=== PATIENT | male | born 1940 ===

== ENCOUNTER 2016-09-19 15:14 | Observation (INO) | payer MEDICARE, BC ==
[2016-09-19 15:14] VITALS: BMI 18.2
[2016-09-19] MEDS ORDERED: Sodium Chloride 0.9% 500 ML IV STA (15:35)
--- NOTE | 2016-09-19 15:48 | ED PDOC ---
HPI: Chest Pain Time Seen by Provider: 09/19/16 15:29 Chief Complaint (Nursing): Chest Pain Chief Complaint (Provider): chest pain History Per: Patient History/Exam Limitations: no limitations Onset/Duration Of Symptoms: Days (today) Current Symptoms Are (Timing): Still Present Additional Complaint(s): Chest pain started today at rest. Dyspnea with it. No nausea, vomit, diarrhea , weakness, headaches. No calf pain. No dizziness. No fever, cough, long distance travel, or hormone tx. Past Medical History Reviewed: Nursing Documentation, Vital Signs Vital Signs: Last Vital Signs Temp 98.0 F 09/19/16 15:21 Pulse 62 09/19/16 15:21 Resp 16 09/19/16 15:21 BP 93/51 L 09/19/16 15:21 Pulse Ox 98 09/19/16 15:54 - Medical History PMH: Anemia, Crohn's Disease, Fractures (right ankle) Denies: Diabetes, HIV, Chronic Kidney Disease - Surgical History Surgical History: No Surg Hx - Family History Family History: States: Unknown Family Hx - Living Arrangements Living Arrangements: With Family - Social History Current smoker - smoking cessation education provided: No Alcohol: None Drugs: Denies - Home Medications Home Medications: Ambulatory Orders Medication Instructions Recorded Mesalamine [Asacol HD 800mg] 800 mg PO TID #0 tcp 05/19/15 Escitalopram [Lexapro] 10 mg PO DAILY 08/19/15 - Allergies Allergies/Adverse Reactions: Allergies Allergy/AdvReac Type Severity Reaction Status Date / Time [place] And Derivatives Allergy ANAPHYLAXIS Verified 09/19/16 15:21 ibuprofen [From Advil] Allergy COUGH Verified 09/19/16 15:21 morphine Allergy RASH Verified 09/19/16 15:21 Review of Systems ROS Statement: Except As Marked, All Systems Reviewed And Found Negative Cardiovascular: Positive for: Chest Pain Respiratory: Positive for: Shortness of Breath Physical Exam - Reviewed Vital Signs Reviewed: Yes - Physical Exam Appears: Positive for: Non-toxic, No Acute Distress Head Exam: Positive for: ATRAUMATIC, NORMAL INSPECTION, NORMOCEPHALIC Skin: Positive for: Normal Color, Warm, DRY Eye Exam: Positive for: EOMI, Normal appearance, PERRL ENT: Positive for: Normal ENT Inspection Neck: Positive for: Normal, Painless ROM Cardiovascular/Chest: Positive for: Regular Rate, Rhythm, Chest Non Tender. Negative for: Edema Respiratory: Positive for: CNT, Normal Breath Sounds Gastrointestinal/Abdominal: Positive for: Normal Exam, Bowel Sounds, Soft. Negative for: Tenderness Back: Positive for: Normal Inspection. Negative for: L CVA Tenderness, R CVA Tenderness Extremity: Positive for: Normal ROM. Negative for: Tenderness, Pedal Edema Neurologic/Psych: Positive for: Alert, Oriented - Laboratory Results Result Diagrams: 09/19/16 14:48 09/19/16 16:00 Interpretation Of Abn Labs: no acute - ECG ECG: Positive for: Interpreted By Me, Viewed By Me ECG Rhythm: Positive for: Normal QRS, Normal ST Segment, Sinus Rhythm O2 Sat by Pulse Oximetry: 98 Pulse Ox Interpretation: Normal - Radiology X-Ray: Read By Radiologist X-Ray Interpretation: No Acute Disease - Progress ED Course And Treament: 1637: Stable. AAOx3. Pain free. Tolerated PO. Spoke with Dr. Segundo who will admit and give further orders when pt. reaches floor. No ASA as pt. states allergy. Disposition - Clinical Impression Clinical Impression: Chest pain - Patient ED Disposition Is Patient to be Admitted: Yes Counseled Patient/Family Regarding: Studies Performed, Diagnosis - Disposition Disposition Time: 16:39 Condition: FAIR - Pt Status Changed To: Hospital Disposition Of: Observation - POA Present On Arrival: None
[2016-09-19 15:59] LABS: BASO % 0.6 % (0.0-2.0); EOS # 0.3 K/uL (0.0-0.7); HEMATOCRIT 37.9 % (35.0-51.0); LYMPH # 2.1 K/uL (1.0-4.3); LYMPH % 37.1 % (20.0-40.0); MEAN CELL VOLUME 91.7 fl (80.0-94.0); MEAN CORPUSCULAR HEMOGLOBIN 29.7 pg (27.0-31.0); MEAN CORPUSCULAR HGB CONC 32.4 g/dL (33.0-37.0); MEAN PLATELET VOLUME 8.4 fl (7.2-11.7); MONO # 0.6 K/uL (0.0-0.8); MONO % 9.8 % (0.0-10.0); NEUT # 2.7 K/uL (1.8-7.0); NEUT % 46.5 % (50.0-75.0); NRBC % 0.1 % (0.0-0.0); RED CELL DISTRIBUTION WIDTH 14.1 % (11.5-14.5); WHITE BLOOD COUNT 5.7 K/uL (4.8-10.8)
--- NOTE | 2016-09-19 16:03 | RAD ---
HISTORY: dyspnea COMPARISON: 11/03/2015 FINDINGS: LUNGS: No active pulmonary disease. PLEURA: No significant pleural effusion identified, no pneumothorax apparent. CARDIOVASCULAR: Normal. OSSEOUS STRUCTURES: No significant abnormalities. VISUALIZED UPPER ABDOMEN: Normal. OTHER FINDINGS: None. IMPRESSION: No active disease.
[2016-09-19 16:21] LABS: ALB/GLOB RATIO 1.4 (1.0-2.1); ALKALINE PHOSPHATASE 60 U/L (38-126); ALT/SGPT 36 U/L (21-72); AST/SGOT 26 U/L (17-59); BILIRUBIN,TOTAL 0.5 mg/dl (0.2-1.3); BLOOD UREA NITROGEN 25 mg/dl (9-20); CALCIUM 9.5 mg/dL (8.4-10.2); CARBON DIOXIDE 23 mmol/L (22-30); CHLORIDE 107 mmol/L (98-107); GFR AFRICAN-AMERICAN > 60; GLUCOSE,RANDOM 86 mg/dL (75-110); SODIUM 141 mmol/l (132-148); TOTAL PROTEIN 7.1 G/DL (6.3-8.2)
[2016-09-19 16:34] LABS: PARTIAL THROMBOPLASTIN TIME 39.1 Seconds (25.6-37.1)
[2016-09-20 07:17] LABS: BASO % 0.7 % (0.0-2.0); EOS # 0.5 K/uL (0.0-0.7); EOS % 10.6 % (0.0-4.0); HEMATOCRIT 38.1 % (35.0-51.0); LYMPH # 1.8 K/uL (1.0-4.3); LYMPH % 40.2 % (20.0-40.0); MEAN CELL VOLUME 91.5 fl (80.0-94.0); MEAN CORPUSCULAR HEMOGLOBIN 29.9 pg (27.0-31.0); MEAN CORPUSCULAR HGB CONC 32.6 g/dL (33.0-37.0); MEAN PLATELET VOLUME 8.7 fl (7.2-11.7); MONO # 0.5 K/uL (0.0-0.8); MONO % 10.4 % (0.0-10.0); NEUT # 1.7 K/uL (1.8-7.0); NEUT % 38.1 % (50.0-75.0); NRBC % 0.1 % (0.0-0.0); RED CELL DISTRIBUTION WIDTH 14.5 % (11.5-14.5); WHITE BLOOD COUNT 4.5 K/uL (4.8-10.8)
[2016-09-20 07:25] LABS: BLOOD UREA NITROGEN 20 mg/dl (9-20); CALCIUM 8.9 mg/dL (8.4-10.2); CARBON DIOXIDE 27 mmol/L (22-30); CHLORIDE 105 mmol/L (98-107); GFR AFRICAN-AMERICAN > 60; GLUCOSE,RANDOM 100 mg/dL (75-110); POTASSIUM 4.2 MMOL/L (3.6-5.0); SODIUM 140 mmol/l (132-148)
[2016-09-20] MEDS ORDERED: MESALAMINE 800 MG PO SCH (09:00)
--- NOTE | 2016-09-20 11:06 | CP.PCM.CON ---
History of Present Illness - History of Present Illness History of Present Illness: CC: SOB. HPI: I have been requested on cardiac consultation by Dr. Segundo on Mr. Love who is a pleasant 76 year old male accompanied by his . He has a PMH of Crohn's disease and is admitted with SOB, dizziness, weakness followed by an episode of chest pain (generalized) after he spent the whole day yesterday outside in the heat on his patio. Work up is negative with the exception of sinus bradycardia without syncope ad no arrhythmias were noted on telemetry which I have personally reviewed. Review of Systems - Constitutional Constitutional: Malaise, Weakness - EENT Additional comments: Negative. - Cardiovascular Cardiovascular: Chest Pain at Rest, Dyspnea - Respiratory Respiratory: Dyspnea on Exertion - Gastrointestinal Additional comments: Negative. - Genitourinary Additional comments: Negative. - Musculoskeletal Musculoskeletal: Muscle Weakness - Integumentary Additional comments: Negative. - Neurological Neurological: Weakness Additional comments: Dizziness. - Psychiatric Additional comments: Negative. - Endocrine Endocrine: Fatigue - Hematologic/Lymphatic Additional comments: Negative. Past Patient History - Tetanus Immunizations Tetanus Immunization: Unknown - Past Medical History & Family History Past Medical History?: Yes - Past Social History Smoking Status: Never Smoked Alcohol: None Home Situation {Lives}: With Family - CARDIAC Hx Cardiac Disorders: No - PULMONARY Hx Respiratory Disorders: No - NEUROLOGICAL Hx Neurological Disorder: No - HEENT Hx HEENT Problems: No - RENAL Hx Chronic Kidney Disease: No - ENDOCRINE/METABOLIC Hx Endocrine Disorders: No - HEMATOLOGICAL/ONCOLOGICAL Hx Blood Disorders: Yes Hx AIDS: No Hx Anemia: Yes Hx Human Immunodeficiency Virus (HIV): No - INTEGUMENTARY Hx Dermatological Problems: No - MUSCULOSKELETAL/RHEUMATOLOGICAL Hx Musculoskeletal Disorders: Yes Hx Falls: No Hx Fractures: Yes (right ankle) - GASTROINTESTINAL Hx Gastrointestinal Disorders: Yes Hx Crohn's Disease: Yes - GENITOURINARY/GYNECOLOGICAL Hx Genitourinary Disorders: No - PSYCHIATRIC Hx Psychophysiologic Disorder: No Hx Substance Use: No - SURGICAL HISTORY Hx Surgeries: Yes Hx Herniorrhaphy: Yes Other/Comment: REIMPLANTATION OF DIGITS TO HAND. right upper limb pain - ANESTHESIA Hx Anesthesia: Yes Hx Anesthesia Reactions: No Hx Malignant Hyperthermia: No Meds Allergies/Adverse Reactions: Allergies Allergy/AdvReac Type Severity Reaction Status Date / Time [place] And Derivatives Allergy ANAPHYLAXIS Verified 09/19/16 15:21 ibuprofen [From Advil] Allergy COUGH Verified 09/19/16 15:21 morphine Allergy RASH Verified 09/19/16 15:21 - Medications Medications: Current Medications Escitalopram Oxalate (Lexapro) 10 mg PO DAILY [facility] Last Admin: 09/20/16 09:24 Dose: 10 mg Home Med (Mesalamine [Asacol Hd 800mg]) 800 mg PO TID [facility] Physical Exam - Constitutional Appears: Well, No Acute Distress - Head Exam Head Exam: NORMAL INSPECTION, NORMOCEPHALIC - Eye Exam Eye Exam: Normal appearance Pupil Exam: PERRL - ENT Exam ENT Exam: Mucous Membranes Moist - Neck Exam Neck exam: Positive for: Normal Inspection - Respiratory Exam Respiratory Exam: Clear to Auscultation Bilateral, NORMAL BREATHING PATTERN - Cardiovascular Exam Cardiovascular Exam: REGULAR RHYTHM, +S1, +S2 - GI/Abdominal Exam GI & Abdominal Exam: Soft - Rectal Exam Rectal Exam: Deferred - Extremities Exam Extremities exam: Positive for: full ROM, normal inspection - Back Exam Back exam: NORMAL INSPECTION - Neurological Exam Neurological exam: Alert, Oriented x3 - Psychiatric Exam Psychiatric exam: Normal Affect, Normal Mood - Skin Skin Exam: Dry, Normal Color, Warm Results - Vital Signs Recent Vital Signs: Last Vital Signs Temp 97.6 F 09/20/16 08:54 Pulse 56 L 09/20/16 08:54 Resp 20 09/20/16 08:54 BP 155/71 H 09/20/16 08:54 Pulse Ox 100 09/20/16 08:54 - Labs Result Diagrams: 09/20/16 05:00 09/20/16 05:00 Labs: Laboratory Results - last 24 hr 09/19/16 09/20/16 09/20/16 23:19 05:00 05:00 WBC 4.5 L RBC 4.16 L Hgb 12.4 Hct 38.1 MCV 91.5 MCH 29.9 MCHC 32.6 L RDW 14.5 Plt Count 135 MPV 8.7 Neut % (Auto) 38.1 L Lymph % (Auto) 40.2 H [place] % (Auto) 10.4 H Eos % (Auto) 10.6 H Baso % (Auto) 0.7 Neut # 1.7 L Lymph # 1.8 [place] # 0.5 Eos # 0.5 Baso # 0.0 Sodium 140 Potassium 4.2 Chloride 105 Carbon Dioxide 27 Anion Gap 12 BUN 20 Creatinine 0.9 Est GFR ( Amer) > 60 Est GFR (Non-Af Amer) > 60 Random Glucose 100 Calcium 8.9 Troponin I < 0.0120 Assessment & Plan - Assessment and Plan (Free Text) Assessment: Sinus bradycardia Weakness Dehydration Atypical chest pain Crohn's Disease Plan: Hydration Continue present management Stable for outpatient follow up with [facility] d/w Dr. Segundo - Date & Time Date: 09/20/16 Time: 11:15
--- NOTE | 2016-09-20 11:48 | CP.PCM.HP ---
History of Present Illness - History of Present Illness History of Present Illness: Patient presented on 09/19 in ER with Chest pain started the same day at rest. Minimal Dyspnea with the CP. No nausea, vomit, diarrhea, weakness, headaches. No calf pain. No dizziness. Today comfortable in bed no CP no vertigo, N/V, abdominal pain, fever. He has same asymptomatic episodes of bradycardia. Patient stable will DC home f/u as OP. Present on Admission - Present on Admission Any Indicators Present on Admission: No Review of Systems - Constitutional Constitutional: As Per HPI - EENT Eyes: As Per HPI - Cardiovascular Cardiovascular: As Per HPI - Respiratory Respiratory: As Per HPI - Gastrointestinal Gastrointestinal: As Per HPI - Musculoskeletal Musculoskeletal: As Per HPI - Integumentary Integumentary: As Per HPI - Neurological Neurological: As Per HPI Past Patient History - Tetanus Immunizations Tetanus Immunization: Unknown - Past Medical History & Family History Past Medical History?: Yes - Past Social History Smoking Status: Never Smoked - CARDIAC Hx Cardiac Disorders: No - PULMONARY Hx Respiratory Disorders: No - NEUROLOGICAL Hx Neurological Disorder: No - HEENT Hx HEENT Problems: No - RENAL Hx Chronic Kidney Disease: No - ENDOCRINE/METABOLIC Hx Endocrine Disorders: No - HEMATOLOGICAL/ONCOLOGICAL Hx Blood Disorders: Yes Hx AIDS: No Hx Anemia: Yes Hx Human Immunodeficiency Virus (HIV): No - INTEGUMENTARY Hx Dermatological Problems: No - MUSCULOSKELETAL/RHEUMATOLOGICAL Hx Musculoskeletal Disorders: Yes Hx Falls: No Hx Fractures: Yes (right ankle) - GASTROINTESTINAL Hx Gastrointestinal Disorders: Yes Hx Crohn's Disease: Yes - GENITOURINARY/GYNECOLOGICAL Hx Genitourinary Disorders: No - PSYCHIATRIC Hx Psychophysiologic Disorder: No Hx Substance Use: No - SURGICAL HISTORY Hx Surgeries: Yes Hx Herniorrhaphy: Yes Other/Comment: REIMPLANTATION OF DIGITS TO HAND. right upper limb pain - ANESTHESIA Hx Anesthesia: Yes Hx Anesthesia Reactions: No Hx Malignant Hyperthermia: No Meds Allergies/Adverse Reactions: Allergies Allergy/AdvReac Type Severity Reaction Status Date / Time [place] And Derivatives Allergy ANAPHYLAXIS Verified 09/19/16 15:21 ibuprofen [From Advil] Allergy COUGH Verified 09/19/16 15:21 morphine Allergy RASH Verified 09/19/16 15:21 Physical Exam - Constitutional Appears: Well, No Acute Distress - Head Exam Head Exam: ATRAUMATIC, NORMAL INSPECTION, NORMOCEPHALIC - Eye Exam Eye Exam: EOMI, Normal appearance Pupil Exam: NORMAL ACCOMODATION - ENT Exam ENT Exam: Mucous Membranes Moist - Neck Exam Neck exam: Positive for: Normal Inspection - Respiratory Exam Respiratory Exam: Clear to Auscultation Bilateral, NORMAL BREATHING PATTERN - Cardiovascular Exam Cardiovascular Exam: REGULAR RHYTHM, +S1, +S2 - GI/Abdominal Exam GI & Abdominal Exam: Normal Bowel Sounds - Extremities Exam Extremities exam: Positive for: normal inspection - Back Exam Back exam: NORMAL INSPECTION - Neurological Exam Neurological exam: Alert, CN II-XII Intact, Oriented x3, Reflexes Normal - Psychiatric Exam Psychiatric exam: Normal Affect - Skin Skin Exam: Normal Color Results - Vital Signs Recent Vital Signs: Last Vital Signs Temp 97.6 F 09/20/16 08:54 Pulse 56 L 09/20/16 08:54 Resp 20 09/20/16 08:54 BP 155/71 H 09/20/16 08:54 Pulse Ox 100 09/20/16 08:54 - Labs Result Diagrams: 09/20/16 05:00 09/20/16 05:00 Labs: Laboratory Results - last 24 hr 09/19/16 09/20/16 09/20/16 23:19 05:00 05:00 WBC 4.5 L RBC 4.16 L Hgb 12.4 Hct 38.1 MCV 91.5 MCH 29.9 MCHC 32.6 L RDW 14.5 Plt Count 135 MPV 8.7 Neut % (Auto) 38.1 L Lymph % (Auto) 40.2 H [place] % (Auto) 10.4 H Eos % (Auto) 10.6 H Baso % (Auto) 0.7 Neut # 1.7 L Lymph # 1.8 [place] # 0.5 Eos # 0.5 Baso # 0.0 Sodium 140 Potassium 4.2 Chloride 105 Carbon Dioxide 27 Anion Gap 12 BUN 20 Creatinine 0.9 Est GFR ( Amer) > 60 Est GFR (Non-Af Amer) > 60 Random Glucose 100 Calcium 8.9 Troponin I < 0.0120 Assessment & Plan (1) Bradycardia Status: Acute (2) Chest pain Status: Acute (3) Colitis Status: Acute - Assessment and Plan (Free Text) Plan: DC home f/u in my office in 4 days
[2016-09-20] MEDS ORDERED: ADALIMUMAB 40 MG SC SCH (12:00)
[2016-09-20 12:09] VITALS: BP 117/68; PULSE 54; RESP 18; TEMP 98.1; O2SAT 97
--- NOTE | 2016-09-20 12:48 | CARD ---
APPROVED REPORT EKG Measurement Heart [id number] <Conclusion> Sinus bradycardia Left axis deviation Increased R/S ratio in V1, consider early transition or posterior infarct Abnormal ECG
--- NOTE | 2016-09-20 13:19 | CARD ---
APPROVED REPORT EKG Measurement Heart [id number] AR [id number] <Conclusion> Sinus bradycardia Left axis deviation Incomplete right bundle branch block Minimal voltage criteria for LVH, may be normal variant Abnormal ECG
== END 2016-09-20 14:00 | disposition home or self-care (01) ==
LOC: H.ER 15:14 → H.ERHOLD 16:40 → H.TEL 20:33
PROVIDERS: ADMIT Internal Medicine; ATTEND Internal Medicine
DX: R00.1 Bradycardia, unspecified (principal); R07.9 Chest pain, unspecified; K50.10 Crohn's disease of large intestine without complications
CPT/HCPCS: 36415; 71010; 80048; 80053; 83880; 84484; 85025; 85610; 85730; 93005; 99285; G0378; J7040

== ENCOUNTER 2017-03-11 11:20 | Emergency (ER) | payer MEDICARE, BC ==
[2017-03-11 11:22] VITALS: BMI 18.2
[2017-03-11 12:06] VITALS: BP 122/46; PULSE 65; RESP 16; TEMP 98; O2SAT 100
[2017-03-11] MEDS ORDERED: Iohexol 240 (50 ml) PO ONE (13:26)
[2017-03-11] MEDS ORDERED: Iohexol 240 (50 ml) ONE (13:33)
--- NOTE | 2017-03-11 14:03 | ED PDOC ---
HPI: Abdomen Time Seen by Provider: 03/11/17 12:39 Chief Complaint (Nursing): Abdominal Pain Chief Complaint (Provider): Abdominal pain History Per: Patient History/Exam Limitations: no limitations Onset/Duration Of Symptoms: Days (x1), Intermittent Episodes Current Symptoms Are (Timing): Better Location Of Pain/Discomfort: Other (lower abdominal) Quality Of Discomfort: "Pain" Associated Symptoms: Other (mild blood in stool). denies: Fever, Vomiting, Diarrhea, Constipation Additional Complaint(s): Ashlyn Love is a 76 year old male, with a past medical history of gastritis and Crohn's disease, who presents to the emergency department complaining of intermittent lower abdominal pain associated with mild blood in stool onset since yesterday. Patient reports he has Crohn's disease and will get similar symptoms in the past when he has pain. He states he feels better and the pain is gone. He denies any fever, vomit, diarrhea or constipation. No further medical complaints. PMD: Eliseo Segundo GI: Dr. Styles Past Medical History Reviewed: Historical Data, Nursing Documentation, Vital Signs Vital Signs: Last Vital Signs Temp 98.0 F 03/11/17 12:05 Pulse 65 03/11/17 12:05 Resp 16 03/11/17 12:05 BP 122/46 L 03/11/17 12:05 Pulse Ox 100 03/11/17 20:22 - Medical History PMH: Anemia, Crohn's Disease, Fractures (right ankle) Denies: Diabetes, HIV, Chronic Kidney Disease - Surgical History Surgical History: Hernia Repair - Family History Family History: States: Unknown Family Hx - Social History Current smoker - smoking cessation education provided: No Alcohol: None Drugs: Denies - Home Medications Home Medications: Ambulatory Orders Medication Instructions Recorded Mesalamine [Asacol HD 800mg] 800 mg PO TID #0 tcp 05/19/15 Escitalopram [Lexapro] 10 mg PO DAILY 08/19/15 Adalimumab [Humira] 40 mg SC Q14D 09/19/16 Docusate Sodium [Colace] 100 mg PO BID #20 capsule 03/11/17 - Allergies Allergies/Adverse Reactions: Allergies Allergy/AdvReac Type Severity Reaction Status Date / Time [place] And Derivatives Allergy ANAPHYLAXIS Verified 09/19/16 15:21 ibuprofen [From Advil] Allergy COUGH Verified 09/19/16 15:21 morphine Allergy RASH Verified 09/19/16 15:21 Review of Systems ROS Statement: Except As Marked, All Systems Reviewed And Found Negative Constitutional: Negative for: Fever Gastrointestinal: Positive for: Abdominal Pain (intermittent lower ), Hematochezia (mild). Negative for: Vomiting, Diarrhea, Constipation Physical Exam - Reviewed Nursing Documentation Reviewed: Yes Vital Signs Reviewed: Yes - Physical Exam Appears: Positive for: Well (comfortable), Non-toxic, No Acute Distress Head Exam: Positive for: ATRAUMATIC, NORMAL INSPECTION Skin: Positive for: Normal Color, Warm, Dry Eye Exam: Positive for: Normal appearance Neck: Positive for: Painless ROM, Supple Cardiovascular/Chest: Positive for: Regular Rate, Rhythm. Negative for: Murmur Respiratory: Positive for: Normal Breath Sounds (clear bilateral). Negative for : Respiratory Distress Gastrointestinal/Abdominal: Positive for: Tenderness (epigastric) Extremity: Positive for: Normal ROM. Negative for: Deformity, Swelling Neurologic/Psych: Positive for: Alert, Oriented - Laboratory Results Result Diagrams: 03/11/17 14:02 03/11/17 14:02 - ECG O2 Sat by Pulse Oximetry: 100 (RA) Pulse Ox Interpretation: Normal Medical Decision Making Medical Decision Making: Initial Impression: Abdominal pain and rectal bleeding. Most likely Crohn's disease. Possible exacerbation of Crohn's disease with colitis. Rule out complications of the Crohn's disease. Initial Plan: --Abd Pelvis PO & IV contrast [CT] --BMP --CBC w/ differential --Omnipaque 240 50 ml PO --reevaluation 19:00 Patient will be signed out to Dr. Trammell, pending CT abdomen Scribe Attestation: Documented by Sabino Wolff, acting as a scribe for Mendy Chase MD Provider Scribe Attestation: All medical record entries made by the Scribe were at my direction and personally dictated by me. I have reviewed the chart and agree that the record accurately reflects my personal performance of the history, physical exam, medical decision making, and the department course for this patient. I have also personally directed, reviewed, and agree with the discharge instructions and disposition. Disposition - Clinical Impression Clinical Impression: Constipation, Enlarged prostate - Patient ED Disposition Is Patient to be Admitted: Transfer of Care Counseled Patient/Family Regarding: Studies Performed, Diagnosis - Disposition Disposition: Transfer of Care Disposition Time: 19:00 Condition: IMPROVED Additional Instructions: follow up with your primary doctor in 1-2 days return to the ED with any worsening or concerning symptoms. you have enlarged prostate and constipation Prescriptions: Docusate Sodium [Colace] 100 mg PO BID #20 capsule Instructions: Constipation (ED), High Fiber Diet (ED) Forms: [employer] ([place]i) Patient Signed Over To: Opal Trammell
[2017-03-11 14:15] LABS: BASO % 0.7 % (0.0-2.0); EOS # 0.5 K/uL (0.0-0.7); EOS % 6.9 % (0.0-4.0); HEMOGLOBIN 12.5 g/dL (12.0-18.0); LYMPH # 2.1 K/uL (1.0-4.3); LYMPH % 31.3 % (20.0-40.0); MEAN CORPUSCULAR HEMOGLOBIN 30.3 pg (27.0-31.0); MEAN PLATELET VOLUME 8.5 fl (7.2-11.7); MONO # 0.6 K/uL (0.0-0.8); MONO % 9.8 % (0.0-10.0); NEUT # 3.4 K/uL (1.8-7.0); NEUT % 51.3 % (50.0-75.0); NRBC % 0.3 % (0.0-0.0); RBC 4.13 Mil/uL (4.40-5.90); RED CELL DISTRIBUTION WIDTH 14.3 % (11.5-14.5); WHITE BLOOD COUNT 6.6 K/uL (4.8-10.8)
[2017-03-11 14:29] LABS: BLOOD UREA NITROGEN 24 mg/dl (9-20); CALCIUM 9.5 mg/dL (8.4-10.2); GFR AFRICAN-AMERICAN > 60; GFR NON-AFRICAN AMERICAN > 60
[2017-03-11] MEDS ORDERED: Iohexol 300 100 ML IJ ONE (17:31)
[2017-03-11] MEDS ORDERED: Sodium Chloride 0.9% 50 ML IV ONE (17:31)
--- NOTE | 2017-03-11 19:21 | ED PDOC ---
- Laboratory Results Result Diagrams: 03/11/17 14:02 03/11/17 14:02 - ECG O2 Sat by Pulse Oximetry: 100 (RA) Medical Decision Making Medical Decision Makin:00 --Patient was transferred to [place] by Dr. Chase, pending CT abdomen 19:[address] --FINDINGS: Lower thorax: <No significant pleural effusions.> ABDOMEN: Liver: Unremarkable. Gallbladder and bile ducts: Cholelithiasis. No ductal dilation. Pancreas: Unremarkable. No ductal dilation. Spleen: Unremarkable. No splenomegaly. Adrenals: Bilateral adrenal thickening. Kidneys and ureters: Bilateral renal cystic structures. Punctate left renal calculus. No hydronephrosis. Retroaortic left renal vein. Stomach and bowel: Stool is present throughout the colon and rectum, correlate with history of constipation. Oral contrast reaches the descending colon. Appendix: No findings to suggest acute appendicitis. PELVIS: Bladder: Partially contracted. Reproductive: Enlarged prostate. Correlate with physical examination and PSA levels. Underlying neoplasm is not excluded. ABDOMEN and PELVIS: Intraperitoneal space: Unremarkable. No free air. No drainable fluid collection. Bones/joints: Osteopenia. Spondylosis No acute fracture. No dislocation. Soft tissues: Unremarkable. Vasculature atherosclerotic calcifications. Lymph nodes: No enlarged lymph nodes. IMPRESSION: 1. Punctate left renal calculus. No hydronephrosis. 2. Enlarged prostate. Correlate with physical examination and PSA levels. Underlying neoplasm is not excluded. 3. Stool is present throughout the colon and rectum, correlate with history of constipation. Oral contrast reaches the descending colon. 4. Cholelithiasis. 19:20 --Upon provider evaluation patient is medically stable, and requires no further treatment in the ED at this time. pt aware of results of CT and need for outpt follow up. (en;arged prostate, constipation etc) Patient will be discharged home. tolerated po. Counseling was provided and all questions were answered regarding diagnosis and need for follow up with PMD. There is agreement to discharge plan. Return if symptoms persist or worsen. Disposition - Clinical Impression Clinical Impression: Constipation, Enlarged prostate - POA Present On Arrival: None - Disposition Disposition: Routine/Home Disposition Time: 20:20 Condition: IMPROVED Additional Instructions: follow up with your primary doctor in 1-2 days return to the ED with any worsening or concerning symptoms. you have enlarged prostate and constipation Prescriptions: Docusate Sodium [Colace] 100 mg PO BID #20 capsule Instructions: Constipation (ED), High Fiber Diet (ED) Forms: [facility] (Amharic)
--- NOTE | 2017-03-12 09:09 | CT ---
PROCEDURE: CT Abdomen and Pelvis with contrast HISTORY: abdominal pain Chron's disease COMPARISON: CT scan of the abdomen pelvis dated 11/03/2015. TECHNIQUE: Contrast dose: 90 mL Omnipaque 300 Radiation dose: Total exam DLP = 648.4 mGy-cm. This CT exam was performed using one or more of the following dose reduction techniques: Automated exposure control, adjustment of the mA and/or kV according to patient size, and/or use of iterative reconstruction technique. FINDINGS: LOWER THORAX: Heart size is normal. No pericardial effusion. Bibasilar dependent subsegmental atelectasis. Stable 6 millimeter right middle lobe subpleural nodule (series 3, image 20). LIVER: Mild hepatic steatosis. Stable mild central biliary duct dilatation. No gross lesion. GALLBLADDER AND BILE DUCTS: Calcified cholelithiasis without gallbladder wall thickening or pericholecystic fluid. PANCREAS: Stable pancreatic ductal prominence, measuring up to 4 millimeter at the head/neck junction. SPLEEN: Unremarkable. ADRENALS: Unremarkable. No mass. KIDNEYS AND URETERS: Nonobstructive bilateral punctate renal calculi. Stable bilateral renal cysts, the largest on the right measures 7.9 x 6.6 centimeter. No hydronephrosis. No solid mass. VASCULATURE: Unremarkable. No aortic aneurysm. BOWEL: Unremarkable. No obstruction. No gross mural thickening. APPENDIX: Normal appendix. PERITONEUM: Prior bilateral inguinal hernia repair with stable appearance of right inguinal canal. No free fluid. No free air. LYMPH NODES: Unremarkable. No enlarged lymph nodes. BLADDER: Unremarkable. REPRODUCTIVE: Prominent prostate. BONES: Stable spinal degenerative changes. OTHER FINDINGS: None. IMPRESSION: No acute abdominal pelvic pathology. Stable additional findings as above.
== END 2017-03-11 20:37 | disposition home or self-care (01) ==
LOC: H.ER 11:20
DX: K59.00 Constipation, unspecified (principal); N40.0 Benign prostatic hyperplasia without lower urinary tract symptoms; N20.0 Calculus of kidney; K80.20 Calculus of gallbladder without cholecystitis without obstruction; K50.911 Crohn's disease, unspecified, with rectal bleeding; Z88.6 Allergy status to analgesic agent
CPT/HCPCS: 74177; 80048; 85025; 99283; Q9966; Q9967

== ENCOUNTER 2017-04-09 17:01 | Observation (INO) | payer MEDICARE, BC ==
[2017-04-09 17:01] VITALS: BMI 18.2
[2017-04-09] MEDS ORDERED: Iohexol 240 (50 ml) PO ONE (17:37)
[2017-04-09 17:51] LABS: BASO # 0.1 K/uL (0.0-0.2); EOS # 0.4 K/uL (0.0-0.7); EOS % 7.9 % (0.0-4.0); HEMOGLOBIN 12.4 g/dL (12.0-18.0); LYMPH # 2.2 K/uL (1.0-4.3); LYMPH % 40.2 % (20.0-40.0); MEAN CELL VOLUME 91.7 fl (80.0-94.0); MEAN CORPUSCULAR HEMOGLOBIN 29.9 pg (27.0-31.0); MEAN CORPUSCULAR HGB CONC 32.6 g/dL (33.0-37.0); MEAN PLATELET VOLUME 8.5 fl (7.2-11.7); MONO # 0.6 K/uL (0.0-0.8); MONO % 11.5 % (0.0-10.0); NEUT # 2.1 K/uL (1.8-7.0); NEUT % 39.4 % (50.0-75.0); NRBC % 0.1 % (0.0-0.0); RBC 4.16 Mil/uL (4.40-5.90); RED CELL DISTRIBUTION WIDTH 14.6 % (11.5-14.5); WHITE BLOOD COUNT 5.4 K/uL (4.8-10.8)
[2017-04-09] MEDS ORDERED: Iohexol 240 (50 ml) ONE (17:52)
[2017-04-09 18:01] LABS: ALB/GLOB RATIO 1.3 (1.0-2.1); ALBUMIN 4.3 g/dL (3.5-5.0); ALT/SGPT 26 U/L (21-72); AST/SGOT 24 U/L (17-59); BLOOD UREA NITROGEN 28 mg/dl (9-20); CALCIUM 9.5 mg/dL (8.4-10.2); GFR AFRICAN-AMERICAN > 60; GFR NON-AFRICAN AMERICAN > 60; LIPASE 225 U/L (23-300)
--- NOTE | 2017-04-09 18:05 | ED PDOC ---
- Laboratory Results Result Diagrams: 04/09/17 17:46 04/09/17 17:46 - ECG O2 Sat by Pulse Oximetry: 98 Medical Decision Making Medical Decision Makin:00 Patient endorsed to me by Dr. Mendy Chase. Pending CT and final disposition. Labs reviewed: Troponin negative. Lipase wnl. No significant abnormalities. Patient Name: SNEHAL FONTANEZ (Age): 1940 76 Gender: M Date of Exam: 04/09/2017 Referring Physician: Mendy Chase # of Images: [phone] Ordered As: CT ABD PELVIS PO IV CONTRAST Page 1 of 2 EXAM: CT Abdomen and Pelvis With Intravenous Contrast EXAM DATE/TIME: 04/09/2017 5:37 PM CLINICAL HISTORY: 76 years old, male; Pain; Abdominal pain; Localized; Left upper quadrant (luq); Prior surgery; Surgery date: 6+ months; Surgery type: Hernia repair; Additional info: Luq and left rib pain. History of Crohn's disease Sent phy. Doc. TECHNIQUE: Axial computed tomography images of the abdomen and pelvis with intravenous contrast. All CT scans at this facility use one or more dose reduction techniques, viz.: automated exposure control; ma/kV adjustment per patient size (including targeted exams where dose is matched to indication; i.e. head); or iterative reconstruction technique. Coronal and sagittal reformatted images were created and reviewed. CONTRAST: 90 mL of [id number] administered intravenously. COMPARISON: CT - ABD PELVIS PO IV CONTRAST 2017-03-11 17:48 FINDINGS: Lower thorax: Heart size is normal. Lung bases are mildly hyperinflated. There is dependent atelectasis. ABDOMEN: Liver: There is fatty infiltration of the liver. Gallbladder and bile ducts: Gallbladder is partially distended. There is a dependent stone. There is prominence of the common duct. Pancreas: No focal abnormalities are seen in the pancreas. Distal pancreatic duct is mildly dilated, 5.6 mm in maximal diameter. Dilated duct can be traced to the level of the ampulla. Spleen: unremarkable Adrenals: unremarkable Kidneys and ureters: There are bilateral renal cysts.Kidneys and ureters are otherwise unremarkable. Stomach and bowel: Stomach is incompletely distended. Rotation is normal. Mid- distal small bowel is mildly distended with air and contrast. There are scattered air-fluid levels Terminal ileum is mildly distended with fluid.There is no pericecal inflammation. There is moderate stool in the colon. Appendix: See stomach and bowel PELVIS: Bladder: unremarkable Reproductive: Prostate is enlarged. There is prominence of the seminal vesicles. ABDOMEN and PELVIS: Intraperitoneal space: There is no free air. Bones/joints: There are degenerative changes in the osseus structures. There are healing fractures of the anterior aspects of the left eighth, ninth and 10th ribs. Soft tissues: There is trace fluid in the right inguinal region. There are surgical clips in both inguinal canals. Vasculature: There are vascular calcifications. Lymph nodes: There is no pathologic adenopathy. IMPRESSION: Fatty liver; gallstones; prominent common bile duct and distal pancreatic duct, ampullary lesion cannot be excluded; distended small bowel with air-fluid is more suggestive of ileus than obstruction; possible constipation; enlarged prostate; postsurgical changes in both inguinal regions; healing lower left rib fractures Additional nonemergent findings as described above. Thank you for allowing us to participate in the care of your patient. Dictated and Authenticated by: Shanell Sanchez MD 04/09/2017 9:28 PM Eastern Time ([place] & [place]) Scribe Attestation: Documented by Crystal Gonzalez, acting as a scribe for Mello Alvarez MD Provider Scribe Attestation: All medical record entries made by the Scribe were at my direction and personally dictated by me. I have reviewed the chart and agree that the record accurately reflects my personal performance of the history, physical exam, medical decision making, and the department course for this patient. I have also personally directed, reviewed, and agree with the discharge instructions and disposition. Disposition - Clinical Impression Clinical Impression: Abdominal pain, Ileus - POA Present On Arrival: None - Disposition Disposition: Hospitalized as Observation Patient Disposition Time: 21:42 Condition: FAIR Forms: [facility] ([place])
--- NOTE | 2017-04-09 18:10 | ED PDOC ---
HPI: Abdomen Time Seen by Provider: 04/09/17 17:20 Chief Complaint (Nursing): Abdominal Pain Chief Complaint (Provider): Abdominal Pain and Rib Pain History Per: Patient History/Exam Limitations: no limitations Onset/Duration Of Symptoms: Days (x3) Current Symptoms Are (Timing): Still Present Additional Complaint(s): 76 year old male presents to the ED complaining of left upper quadrant abdominal pain and left rib pain for 3 days. Pain is described as constant and non-radiating. Patient denies taking any medications for pain. Also denies any vomiting, diarrhea, fevers, or shortness of breath. No direct injury or trauma to the area. PMD: Dr. Segundo Past Medical History Reviewed: Historical Data, Nursing Documentation, Vital Signs Vital Signs: Last Vital Signs Temp 97.9 F 04/10/17 12:42 Pulse 56 L 04/10/17 12:42 Resp 20 04/10/17 12:42 BP 123/73 04/10/17 12:42 Pulse Ox 100 04/10/17 12:42 - Medical History PMH: Anemia, Crohn's Disease (on humira injections monthly), Dementia, Fractures (right ankle), HTN Denies: Diabetes, HIV, Chronic Kidney Disease - Surgical History Surgical History: Hernia Repair - Family History Family History: States: Unknown Family Hx - Home Medications Home Medications: Ambulatory Orders Medication Instructions Recorded Mesalamine [Asacol HD 800mg] 800 mg PO TID #0 tcp 05/19/15 Adalimumab [Humira] 40 mg SC Q14D 09/19/16 Escitalopram [Lexapro] 20 mg PO DAILY 04/09/17 Melatonin [Melatonin] 1 mg PO HS 04/09/17 - Allergies Allergies/Adverse Reactions: Allergies Allergy/AdvReac Type Severity Reaction Status Date / Time [place] And Derivatives Allergy ANAPHYLAXIS Verified 09/19/16 15:21 ibuprofen [From Advil] Allergy COUGH Verified 09/19/16 15:21 morphine Allergy RASH Verified 09/19/16 15:21 Review of Systems ROS Statement: Except As Marked, All Systems Reviewed And Found Negative Constitutional: Negative for: Fever Respiratory: Negative for: Shortness of Breath Gastrointestinal: Positive for: Abdominal Pain (LUQ). Negative for: Vomiting, Diarrhea, Other (rectal bleeding) Musculoskeletal: Positive for: Other (left rib pain) Physical Exam - Reviewed Nursing Documentation Reviewed: Yes Vital Signs Reviewed: Yes - Physical Exam Appears: Positive for: Non-toxic, No Acute Distress Head Exam: Positive for: ATRAUMATIC, NORMOCEPHALIC Skin: Positive for: Normal Color, Warm, Dry. Negative for: Rash Eye Exam: Positive for: EOMI, Normal appearance, PERRL Neck: Positive for: Normal, Painless ROM Cardiovascular/Chest: Positive for: Regular Rate, Rhythm, Other (Left lower chest wall tenderness). Negative for: Murmur Respiratory: Positive for: Normal Breath Sounds. Negative for: Accessory Muscle Use, Respiratory Distress Gastrointestinal/Abdominal: Positive for: Soft, Tenderness (to the left upper quadrant). Negative for: Guarding, Rebound Back: Positive for: Normal Inspection. Negative for: L CVA Tenderness, R CVA Tenderness, Vertebral Tenderness Extremity: Positive for: Normal ROM. Negative for: Pedal Edema, Deformity Neurologic/Psych: Positive for: Alert, Oriented. Negative for: Motor/Sensory Deficits - Laboratory Results Result Diagrams: 04/10/17 05:30 04/10/17 05:30 - ECG O2 Sat by Pulse Oximetry: 98 (RA) Pulse Ox Interpretation: Normal Medical Decision Making Medical Decision Making: Initial Impression: LUQ pain and Left Rib Pain, non-traumatic Differential includes: 1. intra-thoracic processes (pleural effusion, costochondritis, musculoskeletal pain) 2. intra-abdominal processes (colitis, pancreatitis) 3. (less likely) ACS and early stages of shingles Time: 17:33 Initial Plan: * CMP * Lipase * Troponin * D-dimer * CBC * EKG * Chest X-Ray * Tramadol 50 mg PO * Pending CT Abdomen/Pelvis with PO & IV contrast Time: 18:[address] Mello Alvarez at this time, pending full ER work-up including CT, x-ray, reevaluation, and final disposition. Scribe Attestation: Documented by Crystal Gonzalez, acting as a scribe for Mendy Chase MD Provider Scribe Attestation: All medical record entries made by the Scribe were at my direction and personally dictated by me. I have reviewed the chart and agree that the record accurately reflects my personal performance of the history, physical exam, medical decision making, and the department course for this patient. I have also personally directed, reviewed, and agree with the discharge instructions and disposition. Disposition - Clinical Impression Clinical Impression: Abdominal pain, Ileus - Patient ED Disposition Is Patient to be Admitted: Transfer of Care Counseled Patient/Family Regarding: Studies Performed, Diagnosis - Disposition Disposition: Transfer of Care Disposition Time: 18:00 Condition: FAIR Patient Signed Over To: Mello Alvarez (pending CT, x-ray, reevaluation) - POA Present On Arrival: None
[2017-04-09] MEDS ORDERED: Iohexol 300 100 ML IJ ONE (19:36)
[2017-04-09] MEDS ORDERED: Sodium Chloride 0.9% 50 ML IV ONE (19:36)
--- NOTE | 2017-04-09 21:29 | CT ---
EXAM: CT Abdomen and Pelvis With Intravenous Contrast EXAM DATE/TIME: 04/09/2017 5:37 PM CLINICAL HISTORY: 76 years old, male; Pain; Abdominal pain; Localized; Left upper quadrant (luq); Prior surgery; Surgery date: 6+ months; Surgery type: Hernia repair; Additional info: Luq and left rib pain. History of Crohn's disease Sent phy. Doc. TECHNIQUE: Axial computed tomography images of the abdomen and pelvis with intravenous contrast. All CT scans at this facility use one or more dose reduction techniques, viz.: automated exposure control; ma/kV adjustment per patient size (including targeted exams where dose is matched to indication; i.e. head); or iterative reconstruction technique. Coronal and sagittal reformatted images were created and reviewed. CONTRAST: 90 mL of administered intravenously. COMPARISON: CT - ABD PELVIS PO IV CONTRAST 2017-03-11 17:48 FINDINGS: Lower thorax: Heart size is normal. Lung bases are mildly hyperinflated. There is dependent atelectasis. ABDOMEN: Liver: There is fatty infiltration of the liver. Gallbladder and bile ducts: Gallbladder is partially distended. There is a dependent stone. There is prominence of the common duct. Pancreas: No focal abnormalities are seen in the pancreas. Distal pancreatic duct is mildly dilated, 5.6 mm in maximal diameter. Dilated duct can be traced to the level of the ampulla. Spleen: unremarkable Adrenals: unremarkable Kidneys and ureters: There are bilateral renal cysts.Kidneys and ureters are otherwise unremarkable. Stomach and bowel: Stomach is incompletely distended. Rotation is normal. Mid-distal small bowel is mildly distended with air and contrast. There are scattered air-fluid levels Terminal ileum is mildly distended with fluid.There is no pericecal inflammation. There is moderate stool in the colon. Appendix: See stomach and bowel PELVIS: Bladder: unremarkable Reproductive: Prostate is enlarged. There is prominence of the seminal vesicles. ABDOMEN and PELVIS: Intraperitoneal space: There is no free air. Bones/joints: There are degenerative changes in the osseus structures. There are healing fractures of the anterior aspects of the left eighth, ninth and 10th ribs. Soft tissues: There is trace fluid in the right inguinal region. There are surgical clips in both inguinal canals. Vasculature: There are vascular calcifications. Lymph nodes: There is no pathologic adenopathy. IMPRESSION: Fatty liver; gallstones; prominent common bile duct and distal pancreatic duct, ampullary lesion cannot be excluded; distended small bowel with air-fluid is more suggestive of ileus than obstruction; possible constipation; enlarged prostate; postsurgical changes in both inguinal regions; healing lower left rib fractures Additional nonemergent findings as described above.
[2017-04-09] MEDS ORDERED: Sodium Chloride 0.9% 1,000 ML IV STA (21:41)
--- NOTE | 2017-04-10 01:29 | CP.PCM.CON ---
History of Present Illness - History of Present Illness History of Present Illness: General surgery consult note for Dr. Hannah Lopez, PGY-1 Pt S & E at bedside. History as per EMR and nursing staff due to dementia. 74M w/PMH sig for dementia consulted for LUQ ab pain & L rib pain x 3 days. Pain is constant, non radiating. Denies trauma to area. Pt not currently answering questions at bedside. Follows simple commands. Unable to obtain ROS due to dementia. CT ab w/distended small bowel w/air fluid levels, suggestive of ileus or constipation, enlarged prostate, post-surgical changes in both inguinal regions , healing left lower rib fractures. No Leukocytosis, electrolytes WNL, Afebrile. Per nursing, pt passing flatus, had one small BM on admission. PMH: Dementia, anemia, Crohn's disease (on Humira), fractures (R ankle), HTN PSH: Hernia repair All: [place], ibuprofen, morphine SH: Lives with , denies ETOH, tobacco, or illicit drug use. Review of Systems - Review of Systems Systems not reviewed;Unavailable: Dementia All systems: reviewed and no additional remarkable complaints except Past Patient History - Tetanus Immunizations Tetanus Immunization: Unknown - Past Medical History & Family History Past Medical History?: Yes - Past Social History Smoking Status: Never Smoked - CARDIAC Hx Cardiac Disorders: No - PULMONARY Hx Respiratory Disorders: No - NEUROLOGICAL Hx Neurological Disorder: Yes Hx Dementia: Yes - HEENT Hx HEENT Problems: No - RENAL Hx Chronic Kidney Disease: No - ENDOCRINE/METABOLIC Hx Endocrine Disorders: No - HEMATOLOGICAL/ONCOLOGICAL Hx Blood Disorders: Yes Hx Anemia: Yes Hx Blood Transfusions: Yes Hx Human Immunodeficiency Virus (HIV): No - INTEGUMENTARY Hx Dermatological Problems: No - MUSCULOSKELETAL/RHEUMATOLOGICAL Hx Musculoskeletal Disorders: Yes Hx Falls: No Hx Fractures: Yes (right ankle) - GASTROINTESTINAL Hx Gastrointestinal Disorders: Yes Hx Crohn's Disease: Yes (on humira injections monthly) - GENITOURINARY/GYNECOLOGICAL Hx Genitourinary Disorders: No - PSYCHIATRIC Hx Psychophysiologic Disorder: No Hx Substance Use: No - SURGICAL HISTORY Hx Surgeries: Yes Hx Herniorrhaphy: Yes Other/Comment: REIMPLANTATION OF DIGITS TO HAND. right upper limb pain - ANESTHESIA Hx Anesthesia: Yes Hx Anesthesia Reactions: No Hx Malignant Hyperthermia: No Has any member of the family had a problem w/ anesthesia?: No Meds Allergies/Adverse Reactions: Allergies Allergy/AdvReac Type Severity Reaction Status Date / Time [place] And Derivatives Allergy ANAPHYLAXIS Verified 09/19/16 15:21 ibuprofen [From Advil] Allergy COUGH Verified 09/19/16 15:21 morphine Allergy RASH Verified 09/19/16 15:21 - Medications Medications: Current Medications Sodium Chloride (Sodium Chloride 0.9%) 1,000 mls @ 125 mls/hr IV .Q8H STA Stop: 04/10/17 05:40 Physical Exam - Constitutional Appears: Non-toxic, No Acute Distress - Head Exam Head Exam: ATRAUMATIC, NORMAL INSPECTION, NORMOCEPHALIC - Eye Exam Eye Exam: EOMI, Normal appearance - ENT Exam ENT Exam: Mucous Membranes Moist, Normal Exam - Respiratory Exam Respiratory Exam: Chest Wall Tenderness (Left lower ribs), Clear to Auscultation Bilateral, NORMAL BREATHING PATTERN. absent: Rales, Rhonchi, Wheezes Additional comments: Pectus excavatum - Cardiovascular Exam Cardiovascular Exam: REGULAR RHYTHM, +S1, +S2 - GI/Abdominal Exam GI & Abdominal Exam: Normal Bowel Sounds, Soft, Tenderness (LUQ, close to ribs) . absent: Distended, Firm, Guarding, Rebound - Extremities Exam Extremities exam: Positive for: normal inspection. Negative for: tenderness - Neurological Exam Additional comments: Dementia, follows simple commands, not answering simple questions - Psychiatric Exam Additional comments: unable to assess, at baseline is demented - Skin Skin Exam: Dry, Intact, Normal Color, Warm Results - Vital Signs Recent Vital Signs: Last Vital Signs Temp 98.3 F 04/10/17 00:01 Pulse 55 L 04/10/17 00:01 Resp 18 04/10/17 00:01 BP 122/72 04/10/17 00:01 Pulse Ox 97 04/10/17 00:01 - Labs Result Diagrams: 04/09/17 17:46 04/09/17 17:46 Labs: Laboratory Results - last 24 hr 04/09/17 04/09/17 17:46 17:46 WBC 5.4 RBC 4.16 L Hgb 12.4 Hct 38.2 MCV 91.7 MCH 29.9 MCHC 32.6 L RDW 14.6 H Plt Count 129 L MPV 8.5 Neut % (Auto) 39.4 L Lymph % (Auto) 40.2 H [place] % (Auto) 11.5 H Eos % (Auto) 7.9 H Baso % (Auto) 1.0 Neut # (Auto) 2.1 Lymph # (Auto) 2.2 [place] # (Auto) 0.6 Eos # (Auto) 0.4 Baso # (Auto) 0.1 Sodium 140 Potassium 4.7 Chloride 101 Carbon Dioxide 31 H Anion Gap 13 BUN 28 H Creatinine 0.9 Est GFR ( Amer) > 60 Est GFR (Non-Af Amer) > 60 Random Glucose 81 Calcium 9.5 Total Bilirubin 0.5 AST 24 ALT 26 Alkaline Phosphatase 50 Troponin I < 0.0120 Total Protein 7.7 Albumin 4.3 Globulin 3.4 Albumin/Globulin Ratio 1.3 Lipase 225 Assessment & Plan - Assessment and Plan (Free Text) Assessment: 76M w/PMH sig for dementia consulted for abdominal pain, ileus- currently having BM and flatus upon admission Plan: Having bowel function Serial ab exams Healing Left rib fractures Pain control Further mgmt as per attending evaluation Will QING attending Jessica, PGY-1 - Date & Time Date: 04/10/17 Time: 01:26
[2017-04-10 06:45] LABS: HEMOGLOBIN 12.6 g/dL (12.0-18.0); MEAN CELL VOLUME 92.1 fl (80.0-94.0); MEAN CORPUSCULAR HEMOGLOBIN 30.3 pg (27.0-31.0); MEAN CORPUSCULAR HGB CONC 32.9 g/dL (33.0-37.0); RBC 4.16 Mil/uL (4.40-5.90); RED CELL DISTRIBUTION WIDTH 14.3 % (11.5-14.5); WHITE BLOOD COUNT 5.1 K/uL (4.8-10.8)
[2017-04-10 07:05] LABS: BLOOD UREA NITROGEN 22 mg/dl (9-20); CALCIUM 8.9 mg/dL (8.4-10.2); GFR AFRICAN-AMERICAN > 60; GFR NON-AFRICAN AMERICAN > 60
--- NOTE | 2017-04-10 08:46 | CARD ---
APPROVED REPORT EKG Measurement Heart [id number] <Conclusion> Sinus bradycardia Left axis deviation Incomplete right bundle branch block Abnormal ECG
--- NOTE | 2017-04-10 09:17 | CP.PCM.HP ---
History of Present Illness - History of Present Illness History of Present Illness: 76 year old male presented in ER complaining of LUQ abdominal pain for 3 days. Pain is described as constant localized in the LUQ area. He denies any vomiting , diarrhea, fevers, or shortness of breath. No direct injury or trauma to the area. Hx of severe ulcerative colitis. At present comfortable not in distress had one BM this AM. Will start on liquid diet. Continue OBS. Present on Admission - Present on Admission Any Indicators Present on Admission: No Review of Systems - Constitutional Constitutional: As Per HPI - EENT Eyes: As Per HPI - Cardiovascular Cardiovascular: As Per HPI - Respiratory Respiratory: As Per HPI - Gastrointestinal Gastrointestinal: As Per HPI - Musculoskeletal Musculoskeletal: As Per HPI - Neurological Neurological: As Per HPI - Psychiatric Psychiatric: As Per HPI Past Patient History - Tetanus Immunizations Tetanus Immunization: Unknown - Past Medical History & Family History Past Medical History?: Yes - Past Social History Smoking Status: Never Smoked - CARDIAC Hx Cardiac Disorders: No - PULMONARY Hx Respiratory Disorders: No - NEUROLOGICAL Hx Neurological Disorder: Yes Hx Dementia: Yes - HEENT Hx HEENT Problems: No - RENAL Hx Chronic Kidney Disease: No - ENDOCRINE/METABOLIC Hx Endocrine Disorders: No - HEMATOLOGICAL/ONCOLOGICAL Hx Blood Disorders: Yes Hx Anemia: Yes Hx Blood Transfusions: Yes Hx Human Immunodeficiency Virus (HIV): No - INTEGUMENTARY Hx Dermatological Problems: No - MUSCULOSKELETAL/RHEUMATOLOGICAL Hx Musculoskeletal Disorders: Yes Hx Falls: No Hx Fractures: Yes (right ankle) - GASTROINTESTINAL Hx Gastrointestinal Disorders: Yes Hx Crohn's Disease: Yes (on humira injections monthly) - GENITOURINARY/GYNECOLOGICAL Hx Genitourinary Disorders: No - PSYCHIATRIC Hx Psychophysiologic Disorder: No Hx Substance Use: No - SURGICAL HISTORY Hx Surgeries: Yes Hx Herniorrhaphy: Yes Other/Comment: REIMPLANTATION OF DIGITS TO HAND. right upper limb pain - ANESTHESIA Hx Anesthesia: Yes Hx Anesthesia Reactions: No Hx Malignant Hyperthermia: No Has any member of the family had a problem w/ anesthesia?: No Meds Allergies/Adverse Reactions: Allergies Allergy/AdvReac Type Severity Reaction Status Date / Time [place] And Derivatives Allergy ANAPHYLAXIS Verified 09/19/16 15:21 ibuprofen [From Advil] Allergy COUGH Verified 09/19/16 15:21 morphine Allergy RASH Verified 09/19/16 15:21 Physical Exam - Constitutional Appears: Non-toxic, Chronically Ill - Head Exam Head Exam: ATRAUMATIC, NORMAL INSPECTION, NORMOCEPHALIC - Eye Exam Eye Exam: Normal appearance - ENT Exam ENT Exam: Mucous Membranes Moist - Neck Exam Neck exam: Positive for: Normal Inspection - Respiratory Exam Respiratory Exam: Decreased Breath Sounds, Clear to Auscultation Bilateral Additional comments: Tenderness in the area of the rib fx. - Cardiovascular Exam Cardiovascular Exam: Bradycardia, REGULAR RHYTHM, +S1, +S2 - GI/Abdominal Exam GI & Abdominal Exam: Normal Bowel Sounds - Extremities Exam Extremities exam: Positive for: normal inspection - Neurological Exam Neurological exam: Alert, CN II-XII Intact, Oriented x3 - Psychiatric Exam Psychiatric exam: Normal Affect - Skin Skin Exam: Normal Color Results - Vital Signs Recent Vital Signs: Last Vital Signs Temp 98.1 F 04/10/17 08:30 Pulse 50 L 04/10/17 08:30 Resp 20 04/10/17 08:30 BP 127/70 04/10/17 08:30 Pulse Ox 99 04/10/17 08:30 - Labs Result Diagrams: 04/10/17 05:30 04/10/17 05:30 Labs: Laboratory Results - last 24 hr 04/09/17 04/09/17 04/10/17 17:46 17:46 05:30 WBC 5.4 5.1 RBC 4.16 L 4.16 L Hgb 12.4 12.6 Hct 38.2 38.4 MCV 91.7 92.1 MCH 29.9 30.3 MCHC 32.6 L 32.9 L RDW 14.6 H 14.3 Plt Count 129 L 132 MPV 8.5 Neut % (Auto) 39.4 L Lymph % (Auto) 40.2 H [place] % (Auto) 11.5 H Eos % (Auto) 7.9 H Baso % (Auto) 1.0 Neut # (Auto) 2.1 Lymph # (Auto) 2.2 [place] # (Auto) 0.6 Eos # (Auto) 0.4 Baso # (Auto) 0.1 Sodium 140 Potassium 4.7 Chloride 101 Carbon Dioxide 31 H Anion Gap 13 BUN 28 H Creatinine 0.9 Est GFR ( Amer) > 60 Est GFR (Non-Af Amer) > 60 Random Glucose 81 Calcium 9.5 Total Bilirubin 0.5 AST 24 ALT 26 Alkaline Phosphatase 50 Troponin I < 0.0120 Total Protein 7.7 Albumin 4.3 Globulin 3.4 Albumin/Globulin Ratio 1.3 Lipase 225 04/10/17 05:30 WBC RBC Hgb Hct MCV MCH MCHC RDW Plt Count MPV Neut % (Auto) Lymph % (Auto) [place] % (Auto) Eos % (Auto) Baso % (Auto) Neut # (Auto) Lymph # (Auto) [place] # (Auto) Eos # (Auto) Baso # (Auto) Sodium 142 Potassium 4.1 Chloride 103 Carbon Dioxide 30 Anion Gap 13 BUN 22 H Creatinine 0.8 Est GFR ( Amer) > 60 Est GFR (Non-Af Amer) > 60 Random Glucose 82 Calcium 8.9 Total Bilirubin AST ALT Alkaline Phosphatase Troponin I Total Protein Albumin Globulin Albumin/Globulin Ratio Lipase Assessment & Plan (1) Rib fracture Status: Chronic (2) Abdominal pain Status: Acute (3) Ileus Status: Acute (4) Bradycardia Status: Chronic (5) Colitis Status: Chronic (6) Crohn disease Status: Chronic (7) Debility Status: Chronic - Assessment and Plan (Free Text) Plan: As above.
[2017-04-10] MEDS: Sodium Chloride 0.9% 1,000 ML IV SCH ×2 (09:28→22:14)
--- NOTE | 2017-04-10 09:40 | CP.PCM.CON ---
History of Present Illness - History of Present Illness History of Present Illness: 76 yo male on Humira for UC admitted with pain over lower left ribs and LUQ for 3 days. Pateient states he's been having bowel movements at home but has iincomplete evacuation. Also has mild to moderate dementia Review of Systems - Constitutional Constitutional: absent: Chills - EENT Eyes: absent: Blind Spots Nose/Mouth/Throat: absent: Epistaxis - Cardiovascular Cardiovascular: absent: Chest Pain - Respiratory Respiratory: absent: Cough - Gastrointestinal Gastrointestinal: As Per HPI - Genitourinary Genitourinary: absent: Change in Urinary Stream Past Patient History - Tetanus Immunizations Tetanus Immunization: Unknown - Past Medical History & Family History Past Medical History?: Yes - Past Social History Smoking Status: Never Smoked - CARDIAC Hx Cardiac Disorders: No - PULMONARY Hx Respiratory Disorders: No - NEUROLOGICAL Hx Neurological Disorder: Yes Hx Dementia: Yes - HEENT Hx HEENT Problems: No - RENAL Hx Chronic Kidney Disease: No - ENDOCRINE/METABOLIC Hx Endocrine Disorders: No - HEMATOLOGICAL/ONCOLOGICAL Hx Blood Disorders: Yes Hx Anemia: Yes Hx Blood Transfusions: Yes Hx Human Immunodeficiency Virus (HIV): No - INTEGUMENTARY Hx Dermatological Problems: No - MUSCULOSKELETAL/RHEUMATOLOGICAL Hx Musculoskeletal Disorders: Yes Hx Falls: No Hx Fractures: Yes (right ankle) - GASTROINTESTINAL Hx Gastrointestinal Disorders: Yes Hx Crohn's Disease: Yes (on humira injections monthly) - GENITOURINARY/GYNECOLOGICAL Hx Genitourinary Disorders: No - PSYCHIATRIC Hx Psychophysiologic Disorder: No Hx Substance Use: No - SURGICAL HISTORY Hx Surgeries: Yes Hx Herniorrhaphy: Yes Other/Comment: REIMPLANTATION OF DIGITS TO HAND. right upper limb pain - ANESTHESIA Hx Anesthesia: Yes Hx Anesthesia Reactions: No Hx Malignant Hyperthermia: No Has any member of the family had a problem w/ anesthesia?: No Meds Allergies/Adverse Reactions: Allergies Allergy/AdvReac Type Severity Reaction Status Date / Time [place] And Derivatives Allergy ANAPHYLAXIS Verified 09/19/16 15:21 ibuprofen [From Advil] Allergy COUGH Verified 09/19/16 15:21 morphine Allergy RASH Verified 09/19/16 15:21 - Medications Medications: Current Medications Acetaminophen (Tylenol 325mg Tab) 650 mg PO Q4 PRN PRN Reason: Pain, moderate (4-7) Sodium Chloride (Sodium Chloride 0.9%) 1,000 mls @ 85 mls/hr IV .[id number] [facility] Stop: 04/11/17 09:12 Last Admin: 04/10/17 09:28 Dose: 85 mls/hr Sennosides (Senokot Tab) 17.2 mg PO BID [facility] Stop: 04/11/17 06:00 Physical Exam - Constitutional Appears: No Acute Distress - Head Exam Head Exam: ATRAUMATIC - Eye Exam Eye Exam: Normal appearance - ENT Exam ENT Exam: Mucous Membranes Moist - Respiratory Exam Respiratory Exam: Clear to Auscultation Bilateral - Cardiovascular Exam Cardiovascular Exam: REGULAR RHYTHM, +S1, +S2 - GI/Abdominal Exam GI & Abdominal Exam: Normal Bowel Sounds, Soft. absent: Tenderness Results - Vital Signs Recent Vital Signs: Last Vital Signs Temp 98.1 F 04/10/17 08:30 Pulse 50 L 04/10/17 08:30 Resp 20 04/10/17 08:30 BP 127/70 04/10/17 08:30 Pulse Ox 99 04/10/17 08:30 - Labs Result Diagrams: 04/10/17 05:30 04/10/17 05:30 Labs: Laboratory Results - last 24 hr 04/09/17 04/09/17 04/10/17 17:46 17:46 05:30 WBC 5.4 5.1 RBC 4.16 L 4.16 L Hgb 12.4 12.6 Hct 38.2 38.4 MCV 91.7 92.1 MCH 29.9 30.3 MCHC 32.6 L 32.9 L RDW 14.6 H 14.3 Plt Count 129 L 132 MPV 8.5 Neut % (Auto) 39.4 L Lymph % (Auto) 40.2 H [place] % (Auto) 11.5 H Eos % (Auto) 7.9 H Baso % (Auto) 1.0 Neut # (Auto) 2.1 Lymph # (Auto) 2.2 [place] # (Auto) 0.6 Eos # (Auto) 0.4 Baso # (Auto) 0.1 Sodium 140 Potassium 4.7 Chloride 101 Carbon Dioxide 31 H Anion Gap 13 BUN 28 H Creatinine 0.9 Est GFR ( Amer) > 60 Est GFR (Non-Af Amer) > 60 Random Glucose 81 Calcium 9.5 Total Bilirubin 0.5 AST 24 ALT 26 Alkaline Phosphatase 50 Troponin I < 0.0120 Total Protein 7.7 Albumin 4.3 Globulin 3.4 Albumin/Globulin Ratio 1.3 Lipase 225 04/10/17 05:30 WBC RBC Hgb Hct MCV MCH MCHC RDW Plt Count MPV Neut % (Auto) Lymph % (Auto) [place] % (Auto) Eos % (Auto) Baso % (Auto) Neut # (Auto) Lymph # (Auto) [place] # (Auto) Eos # (Auto) Baso # (Auto) Sodium 142 Potassium 4.1 Chloride 103 Carbon Dioxide 30 Anion Gap 13 BUN 22 H Creatinine 0.8 Est GFR ( Amer) > 60 Est GFR (Non-Af Amer) > 60 Random Glucose 82 Calcium 8.9 Total Bilirubin AST ALT Alkaline Phosphatase Troponin I Total Protein Albumin Globulin Albumin/Globulin Ratio Lipase - Imaging and Cardiology CT scan - abdomen Status: Report reviewed by me Assessment & Plan (1) Ileus Assessment and Plan: Ileus likely from constipation and dehydration. Having BMs now and bowel sounds are active. Will give senna today and advance diet. Continue IV hydration. Prominent pancreatic duct ad CBD with absence of RUQ pain and elevated LFTs, likely just a normal variant. Status: Acute
--- NOTE | 2017-04-10 12:38 | RAD ---
HISTORY: left chest rib pain COMPARISON: Comparison is made with previous study dated 09/19/2016 TECHNIQUE: Chest PA and lateral FINDINGS: LUNGS: No evidence of new infiltrate or consolidation in the lungs. Mild hyperinflation of the lungs is again noted. PLEURA: No significant pleural effusion identified. No pneumothorax apparent. CARDIOVASCULAR: Normal. OSSEOUS STRUCTURES: No significant abnormalities. VISUALIZED UPPER ABDOMEN: Normal. OTHER FINDINGS: None. IMPRESSION: No active disease.
--- NOTE | 2017-04-11 07:19 | CP.PCM.PN ---
Subjective - Date & Time of Evaluation Date of Evaluation: 04/11/17 Time of Evaluation: 07:10 - Subjective Subjective: General Surgery Dr. Murillo Pt S&E @bedside. NAEO. Pt has no complaints. denies F/C, N/V, abd pain. (+)BM/ Flatus. tolerating regular diet. Objective - Vital Signs/Intake and Output Vital Signs (last 24 hours): Temp Pulse Resp BP Pulse Ox 97.7 F 56 L 18 100/57 L 99 04/11/17 04:57 04/11/17 04:57 04/11/17 04:57 04/11/17 04:57 04/11/17 04:57 - Medications Medications: Current Medications Acetaminophen (Tylenol 325mg Tab) 650 mg PO Q4 PRN PRN Reason: Pain, moderate (4-7) Escitalopram Oxalate (Lexapro) 20 mg PO DAILY [facility] Last Admin: 04/10/17 17:04 Dose: 20 mg Famotidine (Pepcid) 20 mg IVP Q12 [facility] Last Admin: 04/10/17 22:13 Dose: 20 mg Sodium Chloride (Sodium Chloride 0.9%) 1,000 mls @ 85 mls/hr IV .[id number] [facility] Stop: 04/11/17 09:12 Last Admin: 04/10/17 22:14 Dose: 85 mls/hr Mesalamine (Delzicol) 800 mg PO TID [facility] Last Admin: 04/10/17 17:04 Dose: 800 mg - Labs Labs: 04/10/17 05:30 04/10/17 05:30 - Constitutional Appears: Non-toxic, No Acute Distress - Head Exam Head Exam: NORMAL INSPECTION - Eye Exam Eye Exam: Normal appearance - ENT Exam ENT Exam: Mucous Membranes Moist - Respiratory Exam Respiratory Exam: NORMAL BREATHING PATTERN. absent: Accessory Muscle Use, Respiratory Distress - GI/Abdominal Exam GI & Abdominal Exam: Soft. absent: Distended, Guarding, Tenderness, Rebound - Extremities Exam Extremities Exam: Normal Inspection - Neurological Exam Neurological Exam: Alert, Awake, Oriented x3 - Psychiatric Exam Psychiatric exam: Normal Affect, Normal Mood - Skin Skin Exam: Dry, Intact, Normal Color, Warm Assessment and Plan - Assessment and Plan (Free Text) Assessment: 76 y/o M admitted for abd pain - pt having bowel movements; tolerating PO intake - pain likely 2/2 old L-sided rib fractures - Vitals and Labs WNL --> continue to monitor - no surgical intervention at this time - please reconsult if needed Pt discussed w/ Dr. Chidi Coreas DO PGY2
[2017-04-11 08:52] VITALS: BP 108/61; PULSE 60; RESP 20; TEMP 98.2; O2SAT 96
--- NOTE | 2017-04-11 09:48 | CP.PCM.PN ---
Subjective - Date & Time of Evaluation Date of Evaluation: 04/11/17 Time of Evaluation: 09:48 - Subjective Subjective: Patient comfortable can tolerate diet + flatus +BM Will dc home f/u as OP Objective - Vital Signs/Intake and Output Vital Signs (last 24 hours): Temp Pulse Resp BP Pulse Ox 98.2 F 60 20 108/61 96 04/11/17 08:52 04/11/17 08:52 04/11/17 08:52 04/11/17 08:52 04/11/17 08:52 - Medications Medications: Current Medications Acetaminophen (Tylenol 325mg Tab) 650 mg PO Q4 PRN PRN Reason: Pain, moderate (4-7) Escitalopram Oxalate (Lexapro) 20 mg PO DAILY [facility] Last Admin: 04/11/17 09:40 Dose: 20 mg Famotidine (Pepcid) 20 mg IVP Q12 [facility] Last Admin: 04/10/17 22:13 Dose: 20 mg Mesalamine (Delzicol) 800 mg PO TID [facility] Last Admin: 04/11/17 09:40 Dose: 800 mg - Labs Labs: 04/10/17 05:30 04/10/17 05:30 - Constitutional Appears: Chronically Ill - Head Exam Head Exam: ATRAUMATIC, NORMAL INSPECTION, NORMOCEPHALIC - Eye Exam Eye Exam: Normal appearance - ENT Exam ENT Exam: Mucous Membranes Moist - Neck Exam Neck Exam: Full ROM - Respiratory Exam Respiratory Exam: Clear to Ausculation Bilateral - Cardiovascular Exam Cardiovascular Exam: REGULAR RHYTHM, +S1, +S2 - GI/Abdominal Exam GI & Abdominal Exam: Soft, Normal Bowel Sounds - Extremities Exam Extremities Exam: Normal Inspection - Neurological Exam Neurological Exam: Alert, Altered, Awake, CN II-XII Intact, Normal Gait, Oriented x3 - Psychiatric Exam Psychiatric exam: Normal Affect - Skin Skin Exam: Normal Color Assessment and Plan (1) Rib fracture Status: Chronic (2) Abdominal pain Status: Acute (3) Ileus Status: Acute (4) Bradycardia Status: Chronic (5) Colitis Status: Chronic (6) Crohn disease Status: Chronic (7) Debility Status: Chronic - Assessment and Plan (Free Text) Plan: as above.
== END 2017-04-11 11:30 | disposition home or self-care (01) ==
LOC: H.ER 17:01 → H.ERHOLD 21:39 → H.TEL 22:56
PROVIDERS: ADMIT Internal Medicine; ATTEND Internal Medicine
DX: K56.7 Ileus, unspecified (principal); K50.90 Crohn's disease, unspecified, without complications; E86.0 Dehydration; I10 Essential (primary) hypertension; F03.90 Unspecified dementia, unspecified severity, without behavioral disturbance, psychotic disturbance, mood disturbance, and anxiety; D64.9 Anemia, unspecified; S22.32XD Fracture of one rib, left side, subsequent encounter for fracture with routine healing; X58.XXXD Exposure to other specified factors, subsequent encounter; Z88.6 Allergy status to analgesic agent
CPT/HCPCS: 36415; 71046; 74177; 80048; 80053; 83690; 84484; 85025; 85027; 93005; 99285; G0378; J7040; Q9966; Q9967

== ENCOUNTER 2017-08-30 15:30 | Emergency (ER) | payer MEDICARE, BC ==
[2017-08-30 15:30] VITALS: BMI 18.2
[2017-08-30 15:41] VITALS: BP 131/68; PULSE 68; RESP 18; TEMP 98.2; O2SAT 100
--- NOTE | 2017-08-30 17:03 | US ---
PROCEDURE: Right lower extremity venous duplex Doppler. HISTORY: Leg swelling r/o DVT COMPARISON: None available. TECHNIQUE: Common femoral, superficial femoral, popliteal and posterior tibial veins were evaluated. Flow was assessed with color Doppler, compressibility, assessment of phasic flow and augmentation response. FINDINGS: COMMON FEMORAL VEIN: Normal direction of flow, compressibility and augmentation response. SUPERFICIAL FEMORAL VEIN: Normal direction of flow, compressibility and augmentation response. POPLITEAL VEIN: Normal direction of flow, compressibility and augmentation response. POSTERIOR TIBIAL VEIN: Normal direction of flow, compressibility and augmentation response. OTHER FINDINGS: None. IMPRESSION: No evidence of deep venous thrombosis in the right lower extremity.
--- NOTE | 2017-08-30 17:22 | ED PDOC ---
Lower Extremity Pain/Injury Chief Complaint (Provider): right leg swelling History Per: Patient, Family History/Exam Limitations: no limitations Onset/Duration Of Symptoms: Days Current Symptoms Are (Timing): Still Present Additional Complaint(s): 76 y/o male with PMHx of Crohn Disease presents to ED sent by PMD for right leg swelling to r/o DVT. Patient states He has had swelling of his RLE for 1 week, unchanged, associated with redness, and skin warm sensation to touch. Denies fevers, chills, recent travels, surgery or periods or inactivity. Denies chest pain, SOB, palpitations, or other associated complains. Patient went to see his Podiatry doctor 1 week ago due to possible ingrown right great toenail. Patient went to see his PMD, who sent some antibiotic to his pharmacy. PMD: Dr. Segundo <Trish Vann - Last Filed: 08/30/17 17:37> <Concha Quiros - Last Filed: 09/02/17 14:35> Time Seen by Provider: 08/30/17 15:51 Chief Complaint (Nursing): Lower Extremity Problem/Injury Supervising Attending Note - Supervising Attending Note The Documented history was done by the: Physician Watch Assembly Instructor, Attending Physician The documented physical exam was done by the: Physician Watch Assembly Instructor, Attending Physician - Attestation: I have personally seen and examined this patient.: Yes I have fully participated in the care of the patient.: Yes I have reviewed all pertinent clinical information, including history, physical exam and plan: Yes - Notes: Notes:: Redness and swelling to RIGHT lower leg <Concha Quiros - Last Filed: 09/02/17 14:35> Past Medical History Vital Signs: Last Vital Signs Temp 98.2 F 08/30/17 15:37 Pulse 68 08/30/17 15:37 Resp 18 08/30/17 15:37 BP 131/68 08/30/17 15:37 Pulse Ox 100 08/30/17 15:37 - Medical History PMH: Anemia, Crohn's Disease (on humira injections monthly), Dementia, Fractures (right ankle), HTN Denies: Diabetes, HIV, Chronic Kidney Disease - Surgical History Surgical History: Hernia Repair - Family History Family History: States: Unknown Family Hx <Liliana Vannzabeth - Last Filed: 08/30/17 17:37> Vital Signs: Last Vital Signs Temp 98.2 F 08/30/17 15:37 Pulse 68 08/30/17 15:37 Resp 18 08/30/17 15:37 BP 131/68 08/30/17 15:37 Pulse Ox 100 08/30/17 17:48 <Concha Quiros - Last Filed: 09/02/17 14:35> - Home Medications Home Medications: Ambulatory Orders Medication Instructions Recorded Mesalamine [Asacol HD 800mg] 800 mg PO TID #0 tcp 05/19/15 Adalimumab [Humira] 40 mg SC Q14D 09/19/16 Escitalopram [Lexapro] 20 mg PO DAILY 04/09/17 Melatonin 1 mg PO HS 04/09/17 - Allergies Allergies/Adverse Reactions: Allergies Allergy/AdvReac Type Severity Reaction Status Date / Time [place] And Derivatives Allergy ANAPHYLAXIS Verified 09/19/16 15:21 ibuprofen [From Advil] Allergy COUGH Verified 09/19/16 15:21 morphine Allergy RASH Verified 09/19/16 15:21 Wells Criteria for PE - Wells Criteria for Pulmonary Embolism Clinical Signs and Symptoms of DVT: Yes P.E is #1 Diagnosis, or Equally Likely: No Heart Rate >100: No Immobilization at least 3 days;Surgery previous 4 weeks: No Previous, objectively diagnosed PE or DVT: No Hemoptysis: No Malignancy w/treatment within 6 months, or palliative: No Total Score: 3 <FelizTrish langley - Last Filed: 08/30/17 17:37> Review of Systems ROS Statement: Except As Marked, All Systems Reviewed And Found Negative (as per HPI) <Trish Vann - Last Filed: 08/30/17 17:37> Physical Exam - Reviewed Nursing Documentation Reviewed: Yes Vital Signs Reviewed: Yes - Physical Exam Appears: Positive for: Non-toxic, No Acute Distress Head Exam: Positive for: ATRAUMATIC, NORMOCEPHALIC Skin: Positive for: Normal Color, Warm, Dry. Negative for: Pallor, Rash Cardiovascular/Chest: Positive for: Regular Rate, Rhythm, Edema (RLE ). Negative for: Murmur, Bradycardia, Tachycardia, Irregularly Irregular Respiratory: Positive for: Normal Breath Sounds. Negative for: Decreased Breath Sounds, Accessory Muscle Use, Crackles, Rales, Rhonchi, Wheezing, Respiratory Distress Gastrointestinal/Abdominal: Positive for: Bowel Sounds (present and normal), Soft. Negative for: Tenderness, Distended, Guarding, Rebound Back: Positive for: Normal Inspection. Negative for: L CVA Tenderness, R CVA Tenderness Extremity: Positive for: Pedal Edema (RLE), Swelling (RLE), Other (erythema below knee, warm to touch). Negative for: Calf Tenderness Neurologic/Psych: Positive for: Alert, Oriented <Trish Vann - Last Filed: 08/30/17 17:37> - ECG O2 Sat by Pulse Oximetry: 100 <Trish Vann - Last Filed: 08/30/17 17:37> Medical Decision Making Medical Decision Making: Right leg swelling -afebrile -possible 2/2 right LE cellulitis -Right LE venous dupplex US case discussed with Dr. Quiros -re-evaluation Re-evaluation -Dupplex venous US negative for DVT in right lower extremity -spoke with Dr. Segundo. Dr. Segundo aware of US results :negative for DVT. Dr. Segundo states he sent an antibiotic to patient's pharmacy, and recommends f/u with him on next Saturday or Saturday. Patient and family informed of RLE dupplex US results, and PMD recommendations. Recommended to start antibiotics today as directed by PMD. <Trish Vann - Last Filed: 08/30/17 17:37> Disposition - Patient ED Disposition Is Patient to be Admitted: No Discussed With : Concha Quiros - Disposition Disposition: Routine/Home Disposition Time: 17:25 <Trish Vann - Last Filed: 08/30/17 17:37> <Concha Quiros - Last Filed: 09/02/17 14:35> - Clinical Impression Clinical Impression: Cellulitis of right leg - Disposition Referrals: Eliseo Segundo MD [Staff Provider] - Condition: GOOD Instructions: Cellulitis (Skin Infection), Adult (DC) Forms: [employer] (Bengali) Print Language: [place]
== END 2017-08-30 17:35 | disposition home or self-care (01) ==
LOC: H.ER 15:30
DX: L03.115 Cellulitis of right lower limb (principal); R60.0 Localized edema; F03.90 Unspecified dementia, unspecified severity, without behavioral disturbance, psychotic disturbance, mood disturbance, and anxiety; I10 Essential (primary) hypertension; K50.90 Crohn's disease, unspecified, without complications; Z88.6 Allergy status to analgesic agent

== ENCOUNTER 2017-11-18 12:16 | Emergency (ER) | payer MEDICARE, BC ==
[2017-11-18 12:16] VITALS: BMI 18.2
--- NOTE | 2017-11-18 13:40 | ED PDOC ---
HPI: Psych/Substance Abuse Time Seen by Provider: 11/18/17 13:28 Chief Complaint (Nursing): Psychiatric Evaluation Chief Complaint (Provider): psych eval History Per: Family (77 y/o male h/o Crohn's disease with anxiety/confusion noted at nights associated with insomnia x few months. Patient denies any fevers/chills/dysuria/cough/abd pain/chest pain. Family states Dr. Segundo has written rx for anxiety but feel it is not helping.) Past Medical History Reviewed: Historical Data, Nursing Documentation, Vital Signs Vital Signs: Last Vital Signs Temp Pulse 78 11/18/17 12:39 Resp 18 11/18/17 12:39 BP 136/70 11/18/17 12:39 Pulse Ox 99 11/18/17 12:39 - Medical History PMH: Anemia, Crohn's Disease (on humira injections monthly), Dementia, Fractures (right ankle), HTN Denies: Diabetes, HIV, Chronic Kidney Disease - Surgical History Surgical History: Hernia Repair - Family History Family History: States: Unknown Family Hx - Home Medications Home Medications: Ambulatory Orders Medication Instructions Recorded Mesalamine [Asacol HD 800mg] 800 mg PO TID #0 tcp 05/19/15 Adalimumab [Humira] 40 mg SC Q14D 09/19/16 Escitalopram [Lexapro] 20 mg PO DAILY 04/09/17 Melatonin 1 mg PO HS 04/09/17 ALPRAZolam [Xanax] 0.25 mg PO DAILY PRN #2 tab 11/18/17 - Allergies Allergies/Adverse Reactions: Allergies Allergy/AdvReac Type Severity Reaction Status Date / Time [place] And Derivatives Allergy ANAPHYLAXIS Verified 09/19/16 15:21 ibuprofen [From Advil] Allergy COUGH Verified 09/19/16 15:21 morphine Allergy RASH Verified 09/19/16 15:21 Review of Systems ROS Statement: Except As Marked, All Systems Reviewed And Found Negative Physical Exam - Reviewed Nursing Documentation Reviewed: Yes Vital Signs Reviewed: Yes - Physical Exam Appears: Positive for: Well, Non-toxic, No Acute Distress Head Exam: Positive for: ATRAUMATIC, NORMAL INSPECTION, NORMOCEPHALIC Skin: Positive for: Normal Color, Warm, DRY Eye Exam: Positive for: EOMI, Normal appearance, PERRL ENT: Positive for: Normal ENT Inspection Neck: Positive for: Normal, Painless ROM Cardiovascular/Chest: Positive for: Regular Rate, Rhythm Respiratory: Positive for: CNT, Normal Breath Sounds Gastrointestinal/Abdominal: Positive for: Normal Exam, Soft Back: Positive for: Normal Inspection Extremity: Positive for: Normal ROM Neurologic/Psych: Positive for: Alert, Oriented - Laboratory Results Result Diagrams: 11/18/17 14:46 11/18/17 14:46 - ECG O2 Sat by Pulse Oximetry: 99 - Progress ED Course And Treament: SEEN BY CRISIS DIAGNOSIS DEMENTIA APPOINTMENT GIVEN 11/21/[address] MEYERS FOR D/C HOME. Disposition - Clinical Impression Clinical Impression: Dementia - Patient ED Disposition Is Patient to be Admitted: No - Disposition Disposition: Routine/Home Disposition Time: 17:44 Condition: FAIR Prescriptions: ALPRAZolam [Xanax] 0.25 mg PO DAILY PRN #2 tab PRN Reason: Anxiety Instructions: Dementia (DC) Print Language: [place]
--- NOTE | 2017-11-18 14:25 | RAD ---
Date of service: 11/18/2017 HISTORY: routine COMPARISON: 04/09/2017. FINDINGS: LUNGS: No active pulmonary disease. PLEURA: No significant pleural effusion identified, no pneumothorax apparent. CARDIOVASCULAR: No radiographic findings to suggest acute or significant cardiovascular disease. OSSEOUS STRUCTURES: No significant abnormalities. VISUALIZED UPPER ABDOMEN: Normal. OTHER FINDINGS: None. IMPRESSION: No active disease. No significant interval change compared to the prior examination(s).
--- NOTE | 2017-11-18 14:32 | CT ---
Date of service: 11/18/2017 PROCEDURE: CT HEAD WITHOUT CONTRAST. HISTORY: Nocturnal confusion COMPARISON: None available. TECHNIQUE: Axial computed tomography images were obtained through the head/brain without intravenous contrast. Coronal and sagittal reconstructed images. Radiation dose: Total exam DLP = 786.12 mGy-cm. This CT exam was performed using one or more of the following dose reduction techniques: Automated exposure control, adjustment of the mA and/or kV according to patient size, and/or use of iterative reconstruction technique. FINDINGS: HEMORRHAGE: No intracranial hemorrhage. BRAIN: No mass effect or edema. Cortical and cerebellar atrophy, periventricular small vessel disease. VENTRICLES: Unremarkable. No hydrocephalus. CALVARIUM: Unremarkable. PARANASAL SINUSES: Chronic ethmoid air cell disease. No acute findings. MASTOID AIR CELLS: Unremarkable as visualized. No inflammatory changes. OTHER FINDINGS: None. IMPRESSION: No acute intracranial abnormalities. No significant findings to account for the clinical presentation.
[2017-11-18 14:55] LABS: BASO % 0.5 % (0.0-2.0); EOS # 0.3 K/uL (0.0-0.7); EOS % 3.2 % (0.0-4.0); LYMPH # 2.3 K/uL (1.0-4.3); LYMPH % 26.9 % (20.0-40.0); MEAN CELL VOLUME 91.5 fl (80.0-94.0); MEAN CORPUSCULAR HEMOGLOBIN 30.7 pg (27.0-31.0); MEAN CORPUSCULAR HGB CONC 33.5 g/dL (33.0-37.0); MEAN PLATELET VOLUME 7.8 fl (7.2-11.7); MONO # 1.1 K/uL (0.0-0.8); NEUT # 4.9 K/uL (1.8-7.0); NEUT % 56.4 % (50.0-75.0); NRBC % 0.1 % (0.0-0.0); RBC 4.23 Mil/uL (4.40-5.90); RED CELL DISTRIBUTION WIDTH 14.9 % (11.5-14.5); WHITE BLOOD COUNT 8.6 K/uL (4.8-10.8)
[2017-11-18 15:07] LABS: ALB/GLOB RATIO 1.1 (1.0-2.1); ALBUMIN 4.1 g/dL (3.5-5.0); ALT/SGPT 27 U/L (21-72); AST/SGOT 26 U/L (17-59); BLOOD UREA NITROGEN 25 mg/dl (9-20); GFR NON-AFRICAN AMERICAN > 60
[2017-11-18 16:28] LABS: SQUAMOUS EPITHIAL < 1 /hpf (0-5); URINE BILIRUBIN NEGATIVE (NEGATIVE); URINE BLOOD NEGATIVE (NEGATIVE); URINE CLARITY CLEAR (Clear); URINE COLOR YELLOW (YELLOW); URINE GLUCOSE (UA) NEG (Normal); URINE LEUKOCYTE ESTERASE NEG Leu/uL (Negative); URINE PROTEIN NEGATIVE (NEGATIVE); URINE UROBILINOGEN 0.2-1.0 mg/dL (0.2-1.0)
[2017-11-18 16:52] LABS: BARBITURATES, UR NEGATIVE (NEGATIVE); BENZODIAZEPINES, UR NEGATIVE (NEGATIVE); OPIATES, UR NEGATIVE (NEGATIVE); PHENCYCLIDINE, UR NEGATIVE (NEGATIVE)
[2017-11-18 18:09] VITALS: BP 105/80; PULSE 68; RESP 17; TEMP 99; O2SAT 100
--- NOTE | 2017-11-18 22:29 | CARD ---
APPROVED REPORT Date of service: 11/18/2017 <Conclusion> Sinus bradycardia Left axis deviation Moderate voltage criteria for LVH, may be normal variant Abnormal ECG
== END 2017-11-18 17:58 | disposition home or self-care (01) ==
LOC: H.ER 12:16
DX: F03.90 Unspecified dementia, unspecified severity, without behavioral disturbance, psychotic disturbance, mood disturbance, and anxiety (principal); I10 Essential (primary) hypertension; K50.90 Crohn's disease, unspecified, without complications; G47.00 Insomnia, unspecified; Z88.6 Allergy status to analgesic agent
CPT/HCPCS: 70450; 71045; 80053; 81003; 84443; 85025; 87086; 93005; 99283; G0480

== ENCOUNTER 2017-12-06 10:53 | Inpatient (IN) | payer MEDICARE, BC ==
[2017-12-06 10:58] VITALS: O2SAT 99; BMI 23.5
--- NOTE | 2017-12-06 11:54 | ED PDOC ---
HPI: Psych/Substance Abuse Time Seen by Provider: 12/06/17 11:28 Chief Complaint (Nursing): Psychiatric Evaluation Chief Complaint (Provider): Aggression History Per: Patient, Family History/Exam Limitations: no limitations Onset/Duration Of Symptoms: Days (today) Current Symptoms Are (Timing): Still Present Additional Complaint(s): Pt. very aggressive at home. Throwing things. Made threats of suicide with a knife. Denies current suicidal thoughts. Has dementia and started on meds recently from here. Did not actively do anything to hurt self. No drugs or eto h. Denies any pain. Past Medical History Reviewed: Nursing Documentation, Vital Signs Vital Signs: Last Vital Signs Temp 97.9 F 12/06/17 10:58 Pulse 67 12/06/17 10:58 Resp 17 12/06/17 10:58 BP 137/74 12/06/17 10:58 Pulse Ox 99 12/06/17 10:58 - Medical History PMH: Anemia, Crohn's Disease (on humira injections monthly), Dementia, Fractures (right ankle), HTN Denies: Diabetes, Hepatitis, HIV, Chronic Kidney Disease, Seizures, Sexually Transmitted Disease - Surgical History Surgical History: Hernia Repair - Family History Family History: States: Unknown Family Hx - Living Arrangements Living Arrangements: With Family - Social History Alcohol: None Drugs: Denies - Home Medications Home Medications: Ambulatory Orders Medication Instructions Recorded Mesalamine [Asacol HD 800mg] 800 mg PO TID #0 tcp 05/19/15 Adalimumab [Humira] 40 mg SC Q14D 09/19/16 Escitalopram [Lexapro] 20 mg PO HS 04/09/17 Donepezil [Aricept] 10 mg PO DAILY 12/06/17 Memantine [Namenda] 10 mg PO Q12 12/06/17 QUEtiapine [Seroquel] 25 mg PO HS 12/06/17 - Allergies Allergies/Adverse Reactions: Allergies Allergy/AdvReac Type Severity Reaction Status Date / Time [place] And Derivatives Allergy ANAPHYLAXIS Verified 09/19/16 15:21 ibuprofen [From Advil] Allergy COUGH Verified 09/19/16 15:21 morphine Allergy RASH Verified 09/19/16 15:21 Review of Systems ROS Statement: Except As Marked, All Systems Reviewed And Found Negative Psych: Positive for: Suicidal ideation Physical Exam - Reviewed Nursing Documentation Reviewed: Yes Vital Signs Reviewed: Yes - Physical Exam Appears: Positive for: Non-toxic, No Acute Distress Head Exam: Positive for: ATRAUMATIC, NORMAL INSPECTION, NORMOCEPHALIC Skin: Positive for: Normal Color, Warm, DRY Eye Exam: Positive for: EOMI, Normal appearance, PERRL ENT: Positive for: Normal ENT Inspection Neck: Positive for: Normal, Painless ROM Cardiovascular/Chest: Positive for: Regular Rate, Rhythm Respiratory: Positive for: CNT, Normal Breath Sounds Gastrointestinal/Abdominal: Positive for: Normal Exam, Soft. Negative for: Tenderness Back: Positive for: Normal Inspection. Negative for: L CVA Tenderness, R CVA Tenderness Extremity: Positive for: Normal ROM. Negative for: Tenderness, Pedal Edema Neurologic/Psych: Positive for: Alert, telephone supervisor II-XII, Oriented. Negative for: Motor/Sensory Deficits, Aphasia, Facial Droop - Laboratory Results Result Diagrams: 12/06/17 12:05 12/06/17 12:05 Interpretation Of Abn Labs: no acute - ECG ECG: Positive for: Interpreted By Me, Viewed By Me ECG Rhythm: Positive for: Normal QRS, Sinus Rhythm O2 Sat by Pulse Oximetry: 99 Pulse Ox Interpretation: Normal - Progress ED Course And Treament: 1400: Crisis saw pt. Will admit. Stable for further psych eval. Alert. Disposition - Clinical Impression Clinical Impression: Depression - Patient ED Disposition Is Patient to be Admitted: Yes Counseled Patient/Family Regarding: Studies Performed, Diagnosis - Disposition Disposition Time: 14:00 Condition: STABLE - Pt Status Changed To: Hospital Disposition Of: Inpatient - Admit Certification Admit to Inpatient:: After my assessment, the patient will require hospitalization for at least two midnights. This is because of the severity of symptoms shown, intensity of services needed, and/or the medical risk in this patient being treated as an outpatient. - POA Present On Arrival: None
[2017-12-06 12:18] LABS: HEMOGLOBIN 12.9 g/dL (12.0-18.0); LYMPH % 27.9 % (20.0-40.0); MEAN CELL VOLUME 92.1 fl (80.0-94.0); MEAN CORPUSCULAR HEMOGLOBIN 30.3 pg (27.0-31.0); MEAN CORPUSCULAR HGB CONC 32.9 g/dL (33.0-37.0); MEAN PLATELET VOLUME 7.7 fl (7.2-11.7); MONO % 9.2 % (0.0-10.0); RBC 4.26 Mil/uL (4.40-5.90); RED CELL DISTRIBUTION WIDTH 14.1 % (11.5-14.5); WHITE BLOOD COUNT 7.7 K/uL (4.8-10.8)
[2017-12-06 12:19] LABS: BASO % 0.4 % (0.0-2.0); EOS # 0.3 K/uL (0.0-0.7); EOS % 3.5 % (0.0-4.0); LYMPH # 2.1 K/uL (1.0-4.3); MONO # 0.7 K/uL (0.0-0.8); NEUT # 4.5 K/uL (1.8-7.0)
[2017-12-06 12:35] LABS: ALB/GLOB RATIO 1.1 (1.0-2.1); ALBUMIN 4.2 g/dL (3.5-5.0); ALT/SGPT 35 U/L (21-72); AST/SGOT 34 U/L (17-59); BLOOD UREA NITROGEN 21 mg/dl (9-20); CALCIUM 9.3 mg/dL (8.4-10.2); GFR NON-AFRICAN AMERICAN > 60
[2017-12-06 13:23] LABS: BARBITURATES, UR NEGATIVE (NEGATIVE); BENZODIAZEPINES, UR NEGATIVE (NEGATIVE); OPIATES, UR NEGATIVE (NEGATIVE); PHENCYCLIDINE, UR NEGATIVE (NEGATIVE)
--- NOTE | 2017-12-06 14:49 | CARD ---
APPROVED REPORT Date of service: 12/06/2017 EKG Measurement Heart [id number] ID [id number] <Conclusion> Normal sinus rhythm Left axis deviation Incomplete right bundle branch block Voltage criteria for left ventricular hypertrophy Abnormal ECG
[2017-12-06] MEDS ORDERED: Magnesium Hydroxide Susp 30 ml UD PO PRN (15:29)
[2017-12-06] MEDS ORDERED: Alum-Mag Hydrox-Simethicone Susp (30 mL) PO PRN (15:29)
--- NOTE | 2017-12-06 16:07 | PCM.BM ---
<Abigail Kelly E - Last Filed: 12/06/17 16:10> Treatment Plan Problems - Problems identified on initial assessmt High Risk for Violence Date Initiated: 12/06/17 Time Initiated: 16:06 Assessment reference: NA Status: Active Priority: 1 Problem 2 Time Initiated: 16:08 Assessment reference: HP, NA Status: Active Priority: 2 Agitated/Aggressive Behavior Date Initiated: 12/06/17 Time Initiated: 16:11 Assessment reference: HP, NA Status: Active Priority: 1 Treatment assets and liabiliti Patient Assests: cooperative, good support system, negotiates basic needs Patient Liabilities: medical problems, imparied memory - Milieu Protocol Maintain good personal hygiene: daily Encourage regular showers, daily Remind patient to perform daily oral care, daily Assist patient to perform ADL's Conduct patient checks and document Observation sheet: Q15 minutes Maintain personal safety: every shift Educate patient to report safety concerns to staff, every shift Monitor environment for contraband/sharps Medication safety: Monitor for expected outcome, potential side effects: every shift, Assess barriers to learning: every shift, Assess readiness for medication education: every shift <Martha Delgado - Last Filed: 12/09/17 11:11> - Diagnosis (1) Dementia with behavioral disturbance Status: Acute Interventions: Medication management, Individual and group therapy, Psychoeducation 12/09/17 11:11 (2) Depressive disorder Status: Acute Interventions: Medication management, Individual and group therapy, Psychoeducation 12/09/17 11:11 <Deborah Messina M - Last Filed: 12/10/17 08:03> Family Contact Family involvement: Family/SO is involved Family contact: Patient agrees to contact, Family has been contacted by patient, Telephone contact initiated by staff Family contact name: Minerva Love - spouse Family contacted how many times per week?: 2 Family contact comment: [phone] Discharge/Continuing Care - Education Needs Education Needs: Family Medication, Family Diagnosis/Disease Process, Family Coping Skills, Family Placement options, Family Community resources, Family Activities of Daily Living, Family Nutrition, Family Health Practices/Safety, F amily Personal Hygiene/Grooming, Family Aftercare Safety Plan, Patient Medication, Patient Diagnosis/Disease Process, Patient Coping Skills, Patient Placement options, Patient Community resources, Patient Activities of Daily Living, Patient Nutrition, Patient Health Practices/Safety, Patient Personal Hygiene/Grooming, Patient Aftercare Safety Plan - Discharge Discharge Criteria: Tolerates medication w/o severe side effects, Free of agitation, Normal sleep pattern, Ability to care for self, Reduction of target symptoms Discharge to:: Home, With Family - Additional Comments 12/10/17 07:58 Pt seen and discussed in team meeting. Pt seen at bedside in room 306-2. Reason for admission reviewed and discussed. Pt was observed to be laying in bed, awake. Pt unable to provide reason for hospitalization. Pt was alert and oriented to person only. Pt reported he was at a clinic in [place] and that he cannot recall today's date because he does not have a calender with him. Pt was observed to be reaching for the air when the team entered his room. pt reported he resides with his spouse and has no children. Pt began to cry uncontrollably and inquired about children. Pt reported that his spouse didn't want any kids. Pt continues to verbalize preoccupation with his bowel movements. Pt observed to be highly anxious and tearful. Pt denied SI and HI. Pt reported feeling "a little upset" because his left him at the hospital. Pt's social and medical issues reviewed. Pt's medications reviewed. Tx plan reviewed and discussed. Pt to continue to attend group milieu, RN monitoring, medication regime, and MD daily monitoring. SW to continue to follow case. - Treatment Team Participation Discussed with Family/SO: No Was Patient/Family/SO present at Treatment Team Meeting: Yes
[2017-12-06] MEDS ORDERED: Influenza Vaccine (5 YR UP)/PF 60 MCG/0.5 ML SYR IM ONE (17:52)
[2017-12-07 08:00] LABS: HEMOGLOBIN 13.3 g/dL (12.0-18.0); MEAN CELL VOLUME 91.6 fl (80.0-94.0); MEAN CORPUSCULAR HEMOGLOBIN 30.4 pg (27.0-31.0); MEAN CORPUSCULAR HGB CONC 33.2 g/dL (33.0-37.0); RBC 4.36 Mil/uL (4.40-5.90); RED CELL DISTRIBUTION WIDTH 14.5 % (11.5-14.5); WHITE BLOOD COUNT 5.1 K/uL (4.8-10.8)
[2017-12-07 08:23] LABS: ALT/SGPT 33 U/L (21-72); AST/SGOT 32 U/L (17-59); BLOOD UREA NITROGEN 23 mg/dl (9-20); CALCIUM 8.9 mg/dL (8.4-10.2); GFR NON-AFRICAN AMERICAN > 60; HDL CHOLESTEROL 31 MG/DL (30-70)
[2017-12-07 08:29] LABS: LDL CHOLESTEROL 138 mg/dL (0-129)
[2017-12-07 08:38] LABS: T4 5.98 ug/dl (5.5-11.0)
[2017-12-07 08:56] LABS: FERRITIN 16.9 ng/Ml (17.9-464)
[2017-12-07] MEDS ORDERED: MESALAMINE 800 MG PO SCH (09:00)
--- NOTE | 2017-12-07 12:19 | CP.PCM.CON ---
History of Present Illness - History of Present Illness History of Present Illness: 77 yo male with history of dementia admitted to [facility] because of suicidal intent. Review of Systems - Review of Systems All systems: reviewed and no additional remarkable complaints except (aside from those mentioned above, 12 point system review were negative by me) Past Patient History - Tetanus Immunizations Tetanus Immunization: Unknown - Past Medical History & Family History Past Medical History?: Yes - Past Social History Smoking Status: Never Smoked Chewing Tobacco Use: No Cigar Use: No Alcohol: None Drugs: Denies - CARDIAC Hx Cardiac Disorders: No - PULMONARY Hx Respiratory Disorders: No - NEUROLOGICAL Hx Dementia: Yes - HEENT Hx HEENT Problems: No - RENAL Hx Chronic Kidney Disease: No - ENDOCRINE/METABOLIC Hx Endocrine Disorders: No - HEMATOLOGICAL/ONCOLOGICAL Hx Cancer: No Hx Human Immunodeficiency Virus (HIV): No - INTEGUMENTARY Hx Dermatological Problems: No - MUSCULOSKELETAL/RHEUMATOLOGICAL Hx Arthritis: Yes Hx Falls: No - GASTROINTESTINAL Hx Crohn's Disease: Yes (on humira injections monthly) - GENITOURINARY/GYNECOLOGICAL Hx Genitourinary Disorders: No Hx Sexually Transmitted Disorders: No - PSYCHIATRIC Hx Psychophysiologic Disorder: Yes (dementia) - SURGICAL HISTORY Hx Surgeries: Yes Hx Herniorrhaphy: Yes Other/Comment: REIMPLANTATION OF DIGITS TO HAND. right upper limb pain - ANESTHESIA Hx Anesthesia: Yes Hx Anesthesia Reactions: No Hx Malignant Hyperthermia: No Meds Allergies/Adverse Reactions: Allergies Allergy/AdvReac Type Severity Reaction Status Date / Time [place] And Derivatives Allergy ANAPHYLAXIS Verified 09/19/16 15:21 ibuprofen [From Advil] Allergy COUGH Verified 09/19/16 15:21 morphine Allergy RASH Verified 09/19/16 15:21 - Medications Medications: Current Medications Acetaminophen (Tylenol 325mg Tab) 650 mg PO Q4 PRN PRN Reason: Pain, moderate (4-7) Al Hydrox/Mg Hydrox/Simethicone (Maalox Plus 30 Ml) 30 ml PO Q4 PRN PRN Reason: Dyspepsia Donepezil HCl (Aricept) 10 mg PO DAILY [facility] Last Admin: 12/07/17 08:46 Dose: 10 mg Escitalopram Oxalate (Lexapro) 20 mg PO DAILY [facility] Last Admin: 12/07/17 08:39 Dose: 20 mg Lorazepam (Ativan) 0.5 mg IM Q6 PRN PRN Reason: Agitation Lorazepam (Ativan) 0.5 mg PO HS PRN PRN Reason: Insomnia Stop: 12/20/17 15:30 Lorazepam (Ativan) 0.5 mg PO Q6 PRN PRN Reason: Agitation Last Admin: 12/07/17 12:06 Dose: 0.5 mg Magnesium Hydroxide (Milk Of Magnesia) 30 ml PO HS PRN PRN Reason: Constipation Memantine (Namenda) 10 mg PO Q12 [facility] Last Admin: 12/07/17 08:39 Dose: 10 mg Mesalamine (Delzicol Dr) 800 mg PO TID [facility] Last Admin: 12/07/17 08:39 Dose: 800 mg Quetiapine Fumarate (Seroquel) 25 mg PO HS [facility] Last Admin: 12/06/17 21:02 Dose: 25 mg Physical Exam - Constitutional Appears: No Acute Distress - Head Exam Head Exam: ATRAUMATIC - Eye Exam Eye Exam: absent: Scleral icterus - ENT Exam ENT Exam: Mucous Membranes Moist - Neck Exam Neck exam: Negative for: Meningismus - Respiratory Exam Respiratory Exam: absent: Rales, Rhonchi, Wheezes, Respiratory Distress - Cardiovascular Exam Cardiovascular Exam: REGULAR RHYTHM, +S1, +S2 - GI/Abdominal Exam GI & Abdominal Exam: Soft. absent: Tenderness - Rectal Exam Rectal Exam: Deferred - Back Exam Back exam: NORMAL INSPECTION - Neurological Exam Neurological exam: Alert, Oriented x3 - Psychiatric Exam Psychiatric exam: Normal Affect - Skin Skin Exam: Dry, Intact Results - Vital Signs Recent Vital Signs: Last Vital Signs Temp 98 F 12/07/17 05:08 Pulse 56 L 12/07/17 05:08 Resp 18 12/07/17 05:08 BP 149/87 12/07/17 05:08 Pulse Ox 99 12/06/17 14:00 - Labs Result Diagrams: 12/07/17 06:19 12/07/17 06:19 Labs: Laboratory Results - last 24 hr 12/06/17 12/06/17 12/06/17 12:05 12:05 12:56 WBC 7.7 RBC 4.26 L Hgb 12.9 Hct 39.2 MCV 92.1 MCH 30.3 MCHC 32.9 L RDW 14.1 Plt Count 192 MPV 7.7 Neut % (Auto) 59.0 Lymph % (Auto) 27.9 Moody % (Auto) 9.2 Eos % (Auto) 3.5 Baso % (Auto) 0.4 Neut # (Auto) 4.5 Lymph # (Auto) 2.1 Moody # (Auto) 0.7 Eos # (Auto) 0.3 Baso # (Auto) 0.0 Sodium 141 Potassium 4.5 Chloride 105 Carbon Dioxide 29 Anion Gap 12 BUN 21 H Creatinine 0.9 Est GFR ( Amer) > 60 Est GFR (Non-Af Amer) > 60 Random Glucose 93 Calcium 9.3 Ferritin Total Bilirubin 0.4 AST 34 ALT 35 Alkaline Phosphatase 60 Troponin I < 0.0120 Total Protein 8.2 Albumin 4.2 Globulin 4.0 H Albumin/Globulin Ratio 1.1 Triglycerides Cholesterol LDL Cholesterol Direct HDL Cholesterol Vitamin B12 Free T4 Thyroxine (T4) TSH 3rd Generation Urine Opiates Screen Negative Urine Methadone Screen Negative Ur Barbiturates Screen Negative Ur Phencyclidine Scrn Negative Ur Amphetamines Screen Negative U Benzodiazepines Scrn Negative U Oth Cocaine Metabols Negative U Cannabinoids Screen Negative Alcohol, Quantitative < 10 12/07/17 12/07/17 12/07/17 06:19 06:19 06:19 WBC 5.1 RBC 4.36 L Hgb 13.3 Hct 40.0 MCV 91.6 MCH 30.4 MCHC 33.2 RDW 14.5 Plt Count 197 MPV Neut % (Auto) Lymph % (Auto) Moody % (Auto) Eos % (Auto) Baso % (Auto) Neut # (Auto) Lymph # (Auto) Moody # (Auto) Eos # (Auto) Baso # (Auto) Sodium 141 Potassium 4.4 Chloride 105 Carbon Dioxide 28 Anion Gap 12 BUN 23 H Creatinine 0.9 Est GFR ( Amer) > 60 Est GFR (Non-Af Amer) > 60 Random Glucose 92 Calcium 8.9 Ferritin 16.9 L Total Bilirubin 0.4 AST 32 ALT 33 Alkaline Phosphatase 55 Troponin I Total Protein 7.7 Albumin 4.0 Globulin 3.8 Albumin/Globulin Ratio 1.0 Triglycerides 123 Cholesterol 203 H LDL Cholesterol Direct 138 H HDL Cholesterol 31 Vitamin B12 552 Free T4 0.75 L Thyroxine (T4) 5.98 TSH 3rd Generation 1.49 Urine Opiates Screen Urine Methadone Screen Ur Barbiturates Screen Ur Phencyclidine Scrn Ur Amphetamines Screen U Benzodiazepines Scrn U Oth Cocaine Metabols U Cannabinoids Screen Alcohol, Quantitative Assessment & Plan (1) Suicidal intent Status: Acute Comment: psyche is managing
[2017-12-07 17:31] LABS: FOLATE 14.1 ng/mL
--- NOTE | 2017-12-07 18:47 | PCM.PSYCH ---
Initial Psychiatric Evaluation - Initial Psychiatric Evaluation Chief Complaint (in patient's own words): admitted to [facility] per [facility] for changes in behaviors at home Patient's Reaction to Hospitalization: pt verbally agreeable to stay History of Present Illness and Precipitating Events: changes in mood, cognition, preoccupation with bowel movements has hx of chron's disease, reported having bm's without notable blood per staff. hx of dementia with behavioral disturbances reportedly breaking things in home, increased appetite, within past couple of months of leaving home without shoes. Current Medications: Active Medications Generic Name Dose Route Start Last Admin Trade Name Freq PRN Reason Stop Dose Admin Acetaminophen 650 mg 12/06/17 15:29 Tylenol 325mg Tab PO Q4 PRN Pain, moderate (4-7) Al Hydrox/Mg Hydrox/Simethicone 30 ml 12/06/17 15:29 Maalox Plus 30 Ml PO Q4 PRN Dyspepsia Donepezil HCl 10 mg 12/07/17 09:00 12/07/17 08:46 Aricept PO 10 mg DAILY [facility] Administration Escitalopram Oxalate 20 mg 12/06/17 15:45 12/07/17 08:39 Lexapro PO 20 mg DAILY [facility] Administration Lorazepam 0.5 mg 12/06/17 15:25 Ativan IM Q6 PRN Agitation Lorazepam 0.5 mg 12/06/17 15:29 Ativan PO 12/20/17 15:30 HS PRN Insomnia Lorazepam 0.5 mg 12/06/17 15:52 12/07/17 18:24 Ativan PO 0.5 mg Q6 PRN Administration Agitation Magnesium Hydroxide 30 ml 12/06/17 15:29 Milk Of Magnesia PO HS PRN Constipation Memantine 10 mg 12/07/17 09:00 12/07/17 08:39 Namenda PO 10 mg Q12 [facility] Administration Mesalamine 800 mg 12/07/17 09:00 12/07/17 17:[address] PO 800 mg TID [facility] Administration Quetiapine Fumarate 25 mg 12/06/17 22:00 12/06/17 21:02 Seroquel PO 25 mg HS [facility] Administration Past Psychiatric History - Past Psychiatric History Prior Professional Help: pt treatmented by dr martinez History of Abuse: denies/family concurs History of ETOH/Drug Use: denies/family denies History of Family Illness: denies/family denies, 50 yrs, no children Pertinent Medical Hx (Current Medical&Sleep Prob, Allergies): Allergies Allergy/AdvReac Type Severity Reaction Status Date / Time [place] And Derivatives Allergy ANAPHYLAXIS Verified 09/19/16 15:21 ibuprofen [From Advil] Allergy COUGH Verified 09/19/16 15:21 morphine Allergy RASH Verified 09/19/16 15:21 Mesalamine [Asacol HD 800mg] 800 mg PO TID #0 tcp 05/19/15 Adalimumab [Humira] 40 mg SC Q14D 09/19/16 Escitalopram [Lexapro] 20 mg PO HS 04/09/17 Donepezil [Aricept] 10 mg PO DAILY 12/06/17 Memantine [Namenda] 10 mg PO Q12 12/06/17 QUEtiapine [Seroquel] 25 mg PO HS 12/06/17 Review of Systems - Psychiatric Psychiatric: Abnormal Sleep Pattern, Anxiety, Depression, Irritability, Mood Swings Mental Status Examination - Affect Additional comments: labile at times - Motor Activity Motor Activity: Psychomotor Agitation - Reliability in Providing Information Reliability in Providing Information: Poor, due to alteration in thoughts - Speech Speech: Disorganized - Mood Mood: Depressed, Anxious - Formal Thought Process Formal Thought Process: Delusions, Paranoia - Cognitive Functions Orientation: Person Sensorium: Alert Attention/Concentration: Easily distracted Judgement: Imparied, as evidence by: Other - Risk Risk: Falls, Diminished functioning - Strength & Assets Inventory Strength & Assets Inventory: Family support (changes in behavior level of function) DSM 5 DX - DSM 5 DSM 5 Diagnosis: dementia with behavioral changes depression - Recommended/Plan of Treatment Treatment Recommendations and Plan of Treatment: in pt adm per attending vital signs per protocol and per clinical status prns per unit protocol hospitalist consult restart home meds discharge planning in progress family meeting this evening and sister in law Projected ELOS: 5-7 days Prognosis: gaurded Discharge Plan and Discharge Criteria: safety - Smoking Cessation Smoking Cessation Initiated: No Reason for not providing: pt defers
--- NOTE | 2017-12-08 16:13 | PCM.PYCHPN ---
Psychiatric Progress Note - Psychiatric Progress Note Patient seen today, length of contact: chart review case discussed with team Patient Chief Complaint: pt seen by family today sister and sister in law, pt is at times crying, focusing on bm believing when he moving his bowels that he is bleeding , staff deny notable blood, pt at times is tearful crying reports they were 50 years have not had children have three cats and a dog. has reportedly focused most of the time on , reportedly family has noted changes over past several months have been concerned and gave decided as family that pt. would be better served being placed in [facility]. pt did receive one prn of lorazepam today. pt . was started on 12.5mg po seroquel am. pt requires total care, frequent redirection c Problems Identified/Issues Discussed: alteration in cognition alteration in self care alteration in gi status Medical Problems: per chart Diagnostic Results: per psychiatry per medicine per nursing per geriatric social work professor per recreational therapy DSM 5 Symptoms Update: alteration in cognition Medication Change: Yes (seroquel 12.5mg day ) Medical Record Reviewed: Yes Consults ordered or reviewed: chart Mental Status Examination - Cognitive Function Orientation: Person Attention: Poor Concentration: Poor Association: Loose Fund of Knowledge: Poor Decription of patient's judgement and insights: poor - Mood Mood: Depressed, Anxious - Affect Additional comments: labile at times - Speech Additional comments: varied - Formal Thought Process Formal Thought Process: Delusions, Paranoia - Homicidal Ideation Homicidal Ideation: No Goal/Treatment Plan - Goal/Treatment Plan Progress Toward Problem(s) and Goals/Treatment Plan: inpt milieu vital signs per protocol and per clinical status prns per unit protocol start seroquel 12.5mg po am continue seroquel 25mg po hs discharge planning in progress family meeting this evening and sister in law Estimated Date of D/C: 12/11/17 - Smoking Cessation Smoking Cessation Initiated: No Reason for not providing: defers
--- NOTE | 2017-12-09 11:16 | PCM.PYCHPN ---
Psychiatric Progress Note - Psychiatric Progress Note Patient seen today, length of contact: Pt evaluated, case discussed w/ team, chart reviewed Patient Chief Complaint: "My should have had children." Problems Identified/Issues Discussed: Patient continues to have periods of confusion, currently A + O x 1. He reports feeling depressed and has been having periods of crying and mood lability. When asked why, he stated it is because his would not have ch ildren with him. He denies AH/VH/paranoia. Medication Change: Yes (Increase Seroquel) Medical Record Reviewed: Yes Consults ordered or reviewed: Medicine consult Mental Status Examination - Cognitive Function Orientation: Person Memory: Impaired Attention: Poor Concentration: Poor Association: Loose Fund of Knowledge: Poor Decription of patient's judgement and insights: Poor I/J - Mood Mood: Depressed, Anxious - Affect Affect: Other (Labile) - Speech Speech: Loud - Formal Thought Process Formal Thought Process: Loosening of associations, Flight of ideas Psychotic Thoughts and Behaviors: Denies AH/VH - Suicidal Ideation Suicidal Ideation: No - Homicidal Ideation Homicidal Ideation: No Goal/Treatment Plan - Goal/Treatment Plan Need for Continued Stay: Remain at risks for inpatient hospitalization, Discharge may exacerbated symptoms Progress Toward Problem(s) and Goals/Treatment Plan: Dementia with behavioral disturbances; Depressive Disorder -Individual and group therapy -Continue Aricept, Namenda, Lexapro -Increase Seroquel -Obtain collateral history -Medicine consult -Disposition planning Estimated Date of D/C: 12/13/17 - Smoking Cessation Smoking Cessation Initiated: No Reason for not providing: Not indicated
--- NOTE | 2017-12-10 10:01 | PCM.PYCHPN ---
Psychiatric Progress Note - Psychiatric Progress Note Patient seen today, length of contact: Pt evaluated, case discussed w/ team, chart reviewed Patient Chief Complaint: Behavioral disturbances Problems Identified/Issues Discussed: Patient continues to have periods of mood lability and is A + O x 1. He denies feeling acutely depressed and is not tearful/crying today. No periods of aggression towards others. No AH/VH/SI/HI. Medication Change: Yes (Increase Seroquel) Medical Record Reviewed: Yes Consults ordered or reviewed: Medicine consult Mental Status Examination - Cognitive Function Orientation: Person Memory: Impaired Attention: Poor Concentration: Poor Association: Loose Fund of Knowledge: Poor Decription of patient's judgement and insights: Poor I/J - Mood Mood: Depressed, Anxious - Affect Affect: Other (Labile) - Speech Speech: Loud - Formal Thought Process Formal Thought Process: Loosening of associations, Flight of ideas Psychotic Thoughts and Behaviors: Denies AH/VH - Suicidal Ideation Suicidal Ideation: No - Homicidal Ideation Homicidal Ideation: No Goal/Treatment Plan - Goal/Treatment Plan Need for Continued Stay: Remain at risks for inpatient hospitalization, Discharge may exacerbated symptoms Progress Toward Problem(s) and Goals/Treatment Plan: Dementia with behavioral disturbances; Depressive Disorder -Individual and group therapy -Continue Aricept, Namenda, Lexapro -Increase Seroquel -Obtain collateral history -Medicine consult -Disposition planning Estimated Date of D/C: 12/13/17
[2017-12-10] MEDS ORDERED: HUMIRA 40 MG/0.8 ML SC SCH (17:00)
--- NOTE | 2017-12-11 08:40 | PCM.PYCHPN ---
Psychiatric Progress Note - Psychiatric Progress Note Patient seen today, length of contact: Pt evaluated, case discussed w/ team, chart reviewed Patient Chief Complaint: Behavioral disturbances Problems Identified/Issues Discussed: Patient is calmer and less labile, but continues to have periods of late day confusion ("sun-downing"). A + O x 1. He denies feeling acutely depressed and is not tearful/crying today. No periods of aggression towards others. No AH/VH/SI/HI. Medication Change: Yes (Increase Seroquel) Medical Record Reviewed: Yes Consults ordered or reviewed: Medicine consult Mental Status Examination - Cognitive Function Orientation: Person Memory: Impaired Attention: Poor Concentration: Poor Association: Loose Fund of Knowledge: Poor Decription of patient's judgement and insights: Poor I/J - Mood Mood: Anxious - Affect Affect: Broad - Speech Speech: Appropriate - Formal Thought Process Formal Thought Process: Loosening of associations, Flight of ideas Psychotic Thoughts and Behaviors: Denies AH/VH - Suicidal Ideation Suicidal Ideation: No - Homicidal Ideation Homicidal Ideation: No Goal/Treatment Plan - Goal/Treatment Plan Need for Continued Stay: Remain at risks for inpatient hospitalization, Discharge may exacerbated symptoms Progress Toward Problem(s) and Goals/Treatment Plan: Dementia with behavioral disturbances; Depressive Disorder -Individual and group therapy -Continue Aricept, Namenda, Lexapro -Increase Seroquel -Case discussed w/ patient's -Medicine consult -Disposition planning Estimated Date of D/C: 12/13/17
--- NOTE | 2017-12-12 10:05 | PCM.PYCHPN ---
Psychiatric Progress Note - Psychiatric Progress Note Patient seen today, length of contact: Pt evaluated, case discussed w/ team, chart reviewed Patient Chief Complaint: Behavioral disturbances, now improving Problems Identified/Issues Discussed: Patient is improving clinically, he is calmer and less labile. No periods of aggression towards others. No AH/VH/SI/HI. Medication Change: No Medical Record Reviewed: Yes Consults ordered or reviewed: Medicine consult Mental Status Examination - Cognitive Function Orientation: Person Memory: Impaired Attention: Poor Concentration: Poor Association: Loose Fund of Knowledge: Poor Decription of patient's judgement and insights: Chronic poor I/J due to dementia - Mood Mood: Neutral - Affect Affect: Broad - Speech Speech: Appropriate - Formal Thought Process Formal Thought Process: Loosening of associations, Flight of ideas Psychotic Thoughts and Behaviors: Denies AH/VH - Suicidal Ideation Suicidal Ideation: No - Homicidal Ideation Homicidal Ideation: No Goal/Treatment Plan - Goal/Treatment Plan Need for Continued Stay: Discharge may exacerbated symptoms Progress Toward Problem(s) and Goals/Treatment Plan: Dementia with behavioral disturbances; Depressive Disorder -Individual and group therapy -Continue Aricept, Namenda, Lexapro, Seroquel -Case discussed w/ patient's -Medicine consult -Disposition planning- likely discharge to home tomorrow under the care of his family Estimated Date of D/C: 12/13/17
[2017-12-13 05:32] VITALS: BP 150/90; PULSE 61; RESP 18; TEMP 97.1
--- NOTE | 2017-12-13 09:45 | PCM.PYCHDC ---
Mental Status Examination - Mental Status Examination Orientation: Person Memory: Impaired (Chronic poor memory, attention, concentration, association, knowledge due to dementia) Mood: Neutral Affect: Broad Speech: Appropriate Attention: Poor Concentration: Poor Association: Loose Fund of Knowledge: Poor Formal Thought Process: Loosening of associations Description of patient's judgement and insight: Chronic poor I/J due to dementia Psychotic Thoughts and Behaviors: Denies AH/VH Suicidal Ideation: No Current Homicidal Ideation?: No Discharge Summary - Discharge Note Reason for Hospitalization: 77 yo male w/ h/o dementia presents w/ worsening behavioral disturbances, depression and suicidal threats. Consultations:: List each consultation separately and include: 1. Reason for request. 2. Findings. 3. Follow-up Consultations: Medicine consult Summary of Hospital Course include:: 1. Description of specific treatment plan utilized for patients during their course of treatmen. 2. Summarize the time- course for resolution of acute symptoms and/or regressed behaviors. 3. Describe issues identified and worked on during hospitalization. 4. Describe medication utilized. 5. Describe medical problems identified and treated. 6. Reassessment of suicide risk Summary of Hospital Course: Patient was admitted to the psychiatry unit. Individual and group therapy were provided. Patient was stabilized on Aricept, Namenda, Lexapro and Seroquel. Psychoeducation was provided to the patient's family. Patient will return home under the care of his family. - Diagnosis (1) Dementia with behavioral disturbance Current Visit: Yes Status: Chronic (2) Depressive disorder Current Visit: Yes Status: Chronic - Final Diagnosis (DSM 5) Condition upon Discharge: STABLE DSM 5: Dementia with behavioral disturbance; Depressive Disorder Disposition: HOME/ ROUTINE Follow-up Treatment Plan: Dementia with behavioral disturbances; Depressive Disorder -Individual and group therapy -Continue Aricept, Namenda, Lexapro, Seroquel -Case discussed w/ patient's -Medicine consult -Disposition planning Prescriptions/Medication Reconciliation: Donepezil [Aricept] 10 mg PO DAILY #30 tab Escitalopram [Lexapro] 20 mg PO DAILY #30 tab Memantine [Namenda] 10 mg PO Q12 #60 tab QUEtiapine [SEROquel] 50 mg PO TID #90 tab - Smoking Cessation Smoking Cessation Medication prescribed: No Reason for not providing: Not indicated - Antipsychotic Medications Pt discharged on 2 or more routine antipsychotic medications: No
== END 2017-12-13 13:48 | disposition home or self-care (01) | DRG 884 ==
LOC: H.ER 10:53 → H.ERHOLD 13:54 → H.STEP 15:07
PROVIDERS: ADMIT Psychiatry & Neurology Psychiatry; ATTEND Psychiatry & Neurology Psychiatry
PROC: GZHZZZZ Group Psychotherapy (ICD-10-PCS; principal; 2017-12-06)
PROC: GZ58ZZZ Individual Psychotherapy, Cognitive-Behavioral (ICD-10-PCS; 2017-12-06)
PROC: 3E02340 Introduction of Influenza Vaccine into Muscle, Percutaneous Approach (ICD-10-PCS; 2017-12-07)
DX: F03.91 Unspecified dementia, unspecified severity, with behavioral disturbance (principal); R45.851 Suicidal ideations; F32.9 Major depressive disorder, single episode, unspecified; K50.90 Crohn's disease, unspecified, without complications; I10 Essential (primary) hypertension; D64.9 Anemia, unspecified; M19.90 Unspecified osteoarthritis, unspecified site; Z23 Encounter for immunization; Z88.6 Allergy status to analgesic agent

== ENCOUNTER 2017-12-16 12:44 | Emergency (ER) | payer MEDICARE, BC ==
[2017-12-16 12:45] VITALS: BMI 23.5
[2017-12-16 14:47] LABS: VENOUS BLOOD GAS BASE EXCESS 4.3 mmol/L (0.0-2.0); VENOUS BLOOD GAS PCO2 55 mmHg (40-60); VENOUS BLOOD GAS PO2 30 mm/Hg (30-55); VENOUS BLOOD PH 7.36 (7.32-7.43)
[2017-12-16 15:40] LABS: BASO % 0.4 % (0.0-2.0); EOS # 0.4 K/uL (0.0-0.7); EOS % 5.9 % (0.0-4.0); HEMOGLOBIN 13.4 g/dL (12.0-18.0); LYMPH # 2.3 K/uL (1.0-4.3); LYMPH % 31.2 % (20.0-40.0); MEAN CELL VOLUME 92.7 fl (80.0-94.0); MEAN CORPUSCULAR HEMOGLOBIN 30.6 pg (27.0-31.0); MEAN PLATELET VOLUME 7.9 fl (7.2-11.7); MONO # 0.8 K/uL (0.0-0.8); MONO % 10.2 % (0.0-10.0); NEUT # 3.9 K/uL (1.8-7.0); NEUT % 52.3 % (50.0-75.0); NRBC % 0.2 % (0.0-0.0); RBC 4.37 Mil/uL (4.40-5.90); WHITE BLOOD COUNT 7.4 K/uL (4.8-10.8)
[2017-12-16 15:53] LABS: ACETAMINOPHEN < 10.0 ug/ml (10.0-30.0); SALICYLATE < 1.0 mg/dl
[2017-12-16 15:54] LABS: ALBUMIN 3.9 g/dL (3.5-5.0); ALT/SGPT 21 U/L (21-72); AST/SGOT 28 U/L (17-59); BLOOD UREA NITROGEN 27 mg/dl (9-20); GFR NON-AFRICAN AMERICAN > 60
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
--- NOTE | 2017-12-16 17:24 | RAD ---
Date of service: 12/16/2017 HISTORY: possible admission COMPARISON: 11/18/2017 FINDINGS: LUNGS: No active pulmonary disease. PLEURA: No significant pleural effusion identified, no pneumothorax apparent. CARDIOVASCULAR: No radiographic findings to suggest acute or significant cardiovascular disease. OSSEOUS STRUCTURES: No significant abnormalities. VISUALIZED UPPER ABDOMEN: Normal. OTHER FINDINGS: None. IMPRESSION: No active disease. No significant interval change compared to the prior examination(s).
[2017-12-16 19:43] LABS: URINE BILIRUBIN NEGATIVE (NEGATIVE); URINE BLOOD NEGATIVE (NEGATIVE); URINE CLARITY CLEAR (Clear); URINE COLOR STRAW (YELLOW); URINE GLUCOSE (UA) NEG (Normal); URINE LEUKOCYTE ESTERASE NEG Leu/uL (Negative); URINE PROTEIN NEGATIVE (NEGATIVE); URINE UROBILINOGEN 0.2-1.0 mg/dL (0.2-1.0)
[2017-12-17 02:02] LABS: URINE BACTERIA RARE (<OCC); URINE BILIRUBIN NEGATIVE (NEGATIVE); URINE BLOOD SMALL (NEGATIVE); URINE CLARITY SLIGHTY-CLOUDY (Clear); URINE COLOR YELLOW (YELLOW); URINE GLUCOSE (UA) NEG (Normal); URINE LEUKOCYTE ESTERASE NEG Leu/uL (Negative); URINE PROTEIN NEGATIVE (NEGATIVE); URINE UROBILINOGEN 0.2-1.0 mg/dL (0.2-1.0)
[2017-12-17 02:26] LABS: BARBITURATES, UR NEGATIVE (NEGATIVE); BENZODIAZEPINES, UR NEGATIVE (NEGATIVE); OPIATES, UR NEGATIVE (NEGATIVE); PHENCYCLIDINE, UR NEGATIVE (NEGATIVE)
[2017-12-17 07:31] VITALS: O2SAT 98
--- NOTE | 2017-12-17 07:33 | ED PDOC ---
- Laboratory Results Result Diagrams: 12/16/17 14:31 12/16/17 14:31 - ECG O2 Sat by Pulse Oximetry: 98 - Progress ED Course And Treament: 700: Took over care from Dr. Barrett. José on alcohol and psych. 1515: Stable. Spoke with Dr. Segundo who also spoke with family. Pt. pending [facility] [place] [place]. Dr. Chase to take over care. Disposition - Clinical Impression Clinical Impression: Dementia - POA Present On Arrival: None - Disposition Disposition: Transfer of Care Disposition Time: 15:16 Condition: STABLE
--- NOTE | 2017-12-17 09:11 | CARD ---
APPROVED REPORT Date of service: 12/17/2017 EKG Measurement Heart [id number] <Conclusion> Normal sinus rhythm Left anterior fascicular block Minimal voltage criteria for LVH, may be normal variant Abnormal ECG
--- NOTE | 2017-12-17 16:19 | ED PDOC ---
- Laboratory Results Result Diagrams: 12/16/17 14:31 12/16/17 14:31 - ECG O2 Sat by Pulse Oximetry: 98 (RA) Pulse Ox Interpretation: Normal Medical Decision Making Medical Decision Makin Patient endorsed by Dr. Huffman pending [facility] [place] evaluation. 1830 Patient has been evaluated by [facility] [place] and not accepted for involuntary admission. Per Dr Delgado patient can not be admitted voluntarily. Patient has no criteria for medical admission. Discussed with Dr Segundo who agrees with discharge. Discussed with family and patient who agree with discharge. Scribe Attestation: Documented by Heidy Shea, acting as a scribe for Mendy Chase MD. Provider Scribe Attestation: All medical record entries made by the Scribe were at my direction and personally dictated by me. I have reviewed the chart and agree that the record accurately reflects my personal performance of the history, physical exam, medical decision making, and the department course for this patient. I have also personally directed, reviewed, and agree with the discharge instructions and disposition. Disposition - Clinical Impression Clinical Impression: Dementia - POA Present On Arrival: None - Disposition Referrals: Eliseo Segundo MD [Staff Provider] - Disposition: Routine/Home Disposition Time: 18:43 Condition: GOOD Additional Instructions: SNEHAL FONTANEZ, thank you for letting us take care of you today. Your provider was Mendy Chase MD and you were treated for MALE GENITOURINARY. The emergency medical care you received today was directed at your acute symptoms. If you were prescribed any medication, please fill it and take as directed. It may take several days for your symptoms to resolve. Return to the Emergency Department if your symptoms worsen, do not improve, or if you have any other pr oblems. Please contact your doctor or call one of the physicians/clinics you have been referred to that are listed on the Patient Visit Information form that is included in your discharge packet. Bring any paperwork you were given at discharge with you along with any medications you are taking to your follow up visit. Our treatment cannot replace ongoing medical care by a primary care provider outside of the emergency department. Thank you for allowing the [facility] team to be part of your care today. If you had an X-Ray or CT scan: A Radiologist will review the ED reading if any change in treatment is needed we will contact you. If you had a blood, urine, or wound culture: It will take several days for the results, if any change in treatment is needed we will contact you. If you had an STI test: It will take 48 hours for the results. Please call after 1 week if you have not heard back. Instructions: Dementia (Including Alzheimer Disease) Print Language: GERMAN
[2017-12-17 19:17] VITALS: BP 128/78; PULSE 78; RESP 19; TEMP 97
== END 2017-12-17 19:17 | disposition home or self-care (01) ==
LOC: H.ER 12:44
DX: F03.90 Unspecified dementia, unspecified severity, without behavioral disturbance, psychotic disturbance, mood disturbance, and anxiety (principal); I10 Essential (primary) hypertension; K50.90 Crohn's disease, unspecified, without complications; Z79.899 Other long term (current) drug therapy; Z88.6 Allergy status to analgesic agent
CPT/HCPCS: 71045; 80053; 81003; 82803; 85025; 93005; 96372; 99284; G0480; J1630

== ENCOUNTER 2018-05-22 10:52 | Inpatient (IN) | payer MEDICARE, BC ==
[2018-05-22 10:59] VITALS: BMI 21.7
[2018-05-22] MEDS ORDERED: Sodium Chloride 0.9% 1,000 ML IV STA ×2 (11:18→15:39)
--- NOTE | 2018-05-22 11:32 | ED PDOC ---
HPI: Fever Time Seen by Provider: 05/22/18 11:13 Fever Onset Was: 05/20/18 Additional Comments: 77 y/o male with a PMHx of Alzheimer's Disease brought in by EMS for evaluation of a high fever for the past two days. History obtained through due to patient's clinical condition. As per , patient has been very lethargic, sleeping more frequently and less talkative than normal. notes that at baseline, patient is usually talkative but confused. states patient has additionally not been eating or drinking normally further reporting that she usually gives him pureed food. states she was advised by the patient's PMD to puree his food. Patient noted to be jerking in his sleep while interviewing the . When asked the , notes that this is new and is not normal for the patient. denies cough, abdominal pain, vomiting, shortness of breath, rash, history of Parkinson's Disease and DM. History obtained using [employer] #[id number]. Past Medical History Reviewed: Historical Data, Nursing Documentation, Vital Signs Vital Signs: Last Vital Signs Temp 103.1 F H 05/22/18 11:13 Pulse 78 05/22/18 10:59 Resp 18 05/22/18 10:59 BP 138/69 05/22/18 10:59 Pulse Ox 99 05/22/18 10:59 - Medical History PMH: Alzheimer's Disease, Anemia, Arthritis, Crohn's Disease (on humira injections monthly), Dementia, Fractures (right ankle), HTN Denies: Diabetes, Hepatitis, HIV, Chronic Kidney Disease, Seizures, Sexually Transmitted Disease - Surgical History Surgical History: Hernia Repair - Family History Family History: States: Unknown Family Hx - Home Medications Home Medications: Ambulatory Orders Medication Instructions Recorded Donepezil [Aricept] 10 mg PO DAILY #30 tab 12/12/17 Escitalopram [Lexapro] 20 mg PO DAILY #30 tab 12/12/17 Memantine [Namenda] 10 mg PO Q12 #60 tab 12/12/17 QUEtiapine [SEROquel] 50 mg PO TID #90 tab 12/12/17 Clindamycin [Cleocin] 300 mg PO Q6 05/22/18 - Allergies Allergies/Adverse Reactions: Allergies Allergy/AdvReac Type Severity Reaction Status Date / Time [place] And Derivatives Allergy ANAPHYLAXIS Verified 12/16/17 12:46 ibuprofen [From Advil] Allergy COUGH Verified 12/16/17 12:46 morphine Allergy RASH Verified 12/16/17 12:46 Review of Systems Review Of Systems: ROS cannot be obtained secondary to pt's inabilty to answer q uestions. (History obtained from .) Physical Exam - Reviewed Nursing Documentation Reviewed: Yes Vital Signs Reviewed: Yes - Physical Exam Appears: Positive for: Non-toxic (but ill appearing) Neurological/Psych: Positive for: Lethargic - Laboratory Results Result Diagrams: 05/22/18 11:30 05/22/18 11:30 - ECG ECG: Positive for: Interpreted By Me ECG Rhythm: Positive for: Sinus Rhythm, Nonspecific Changes Rate: 84 O2 Sat by Pulse Oximetry: 99 (RA) Pulse Ox Interpretation: Normal - Radiology X-Ray: Read By Radiologist X-Ray Interpretation: Infiltrates - Critical Care Total Time (In Min): 35 Medical Decision Making Medical Decision Making: Time: 1118 A/P: -- Discussed workup and likely hospitalization with the patient's who is in agreement of care. -- ABG -- CT Head w/o Contrast -- EKG -- CMP -- Creatine Phosphokinase -- Magnesium -- Phosphorus -- Troponin I -- CBC with Differentials -- PTT -- Prothrombin time -- CXR Portable -- Sodium Chloride IV 1000 mls/hr -- Blood Culture -- Nursing Communication as Ordered (Straight Cath Urine) -- Glucose, Blood, POC -- Influenza A B -- Urinalysis labs reviewed WBC 7.8 lactate 1.8 chem and UA unremarkable trop neg Time: 1248 PROCEDURE: CT HEAD WITHOUT CONTRAST. HISTORY: fever, AMS COMPARISON: 11/18/2017 TECHNIQUE: Axial computed tomography images were obtained through the head/brain without intravenous contrast. Radiation dose: Total exam DLP = 1108.2 mGy-cm. This CT exam was performed using one or more of the following dose reduction techniques: Automated exposure control, adjustment of the mA and/or kV according to patient size, and/or use of iterative reconstruction technique. FINDINGS: HEMORRHAGE: No intracranial hemorrhage. BRAIN: No mass effect or edema. Prominent cerebral atrophy. Mild diffuse p eriventricular microvascular ischemic changes. No interval changes here perceived. VENTRICLES: The ventricular dilatation is commensurate with the degree of atrophy. CALVARIUM: Unremarkable. PARANASAL SINUSES: Unremarkable as visualized. No significant inflammatory changes. MASTOID AIR CELLS: Ethmoid maxillary and sphenoid sinusitis changes are suggested. The ethmoid is most notably affected. The sphenoid and maxillary inflammatory changes progressed since the prior exam. OTHER FINDINGS: Atherosclerotic vascular calcifications present. IMPRESSION: No interval hemorrhage or mass effect. Marked cerebral atrophy. Fairly symmetrical deep white matter chronic microvascular ischemic changes-not significantly changed. Interval progressive paranasal sinus inflammatory changes. 16:05 CSF results reviewed and reveal 248 white blood cells and approximate 87 red blood cells with lymphocyte predominance. Will add Acyclovir to regimen and inform PMD as well as Dr. Smith. Family informed of results. Droplet isolation maintained, family wearing masks. Instructed further course to be determined on culture results. BP remains stable. No resp distress. Lethargic but maintaining airway, SPO2 94% 2L NC. Stable for tele admit at this time. Scribe Attestation: Documented by Ethan Hunt, acting as a scribe Glenys Meade DO. Provider Scribe Attestation: All medical record entries made by the Scribe were at my direction and personally dictated by me. I have reviewed the chart and agree that the record accurately reflects my personal performance of the history, physical exam, medical decision making, and the department course for this patient. I have also personally directed, reviewed, and agree with the discharge instructions and disposition. Procedures - Time-Out Type of Procedure: Lumbar Puncture Site of Procedure: Lumbar Spine (L3-L4 interspace) Correct Patient (with visual ID + MR# on ID Band): Yes Correct Procedure: Yes Correct Site Marked: Yes Medication Reconciliation / Bloodwork / Allergies Checked: Yes Physician Name: Dr. Simón Meade - Additional Procedures Additional Procedures: lumbar puncture Progress: Consent signed by patient's as patient is confused, risks/benefits explained via shuttle inspector #[id number]. Sterile technique was used througho ut procedure. Procedure was performed with patient in right lateral decubitus position. L3- L4 interspace was identified. Spinal needle inserted with good return of clear fluid. Patient tolerated procedure well. Bandaid placed. Disposition - Clinical Impression Clinical Impression: Meningitis, Pneumonia - Patient ED Disposition Is Patient to be Admitted: Yes Counseled Patient/Family Regarding: Studies Performed, Diagnosis, Need For Followup - Disposition Disposition Time: 13:45 Condition: GUARDED - Pt Status Changed To: Hospital Disposition Of: Inpatient - Admit Certification Admit to Inpatient:: After my assessment, the patient will require hospitalization for at least two midnights. This is because of the severity of symptoms shown, intensity of services needed, and/or the medical risk in this patient being treated as an outpatient. - POA Present On Arrival: None
[2018-05-22 11:46] LABS: ABG ALLEN TEST YES; ARTERIAL BLOOD GAS HCO3 27.2 mmol/L (21-28); ARTERIAL BLOOD GAS O2 SAT 97.7 % (95-98); ARTERIAL BLOOD GAS PCO2 31 mm/Hg (35-45); ARTERIAL BLOOD GAS PH 7.52 (7.35-7.45); ARTERIAL BLOOD GAS PO2 65 mm/Hg (80-100); ARTERIAL BLOOD GAS TCO2 26.3 mmol/L (22-28)
[2018-05-22 11:51] LABS: BASO % 0.2 % (0.0-2.0); HEMOGLOBIN 13.1 g/dL (12.0-18.0); LYMPH # 1.2 K/uL (1.0-4.3); LYMPH % 15.5 % (20.0-40.0); MEAN CELL VOLUME 90.1 fl (80.0-94.0); MEAN CORPUSCULAR HEMOGLOBIN 29.8 pg (27.0-31.0); MONO # 0.8 K/uL (0.0-0.8); MONO % 10.1 % (0.0-10.0); NEUT # 5.8 K/uL (1.8-7.0); NEUT % 74.2 % (50.0-75.0); NRBC % 0.1 % (0.0-0.0); RBC 4.4 Mil/uL (4.40-5.90); RED CELL DISTRIBUTION WIDTH 15.8 % (11.5-14.5); WHITE BLOOD COUNT 7.8 K/uL (4.8-10.8)
[2018-05-22 11:52] LABS: INR 1.3; PROTHROMBIN TIME 14.8 Seconds (9.8-13.1)
[2018-05-22 11:54] LABS: PARTIAL THROMBOPLASTIN TIME 37.8 Seconds (25.6-37.1)
[2018-05-22 11:55] LABS: ALB/GLOB RATIO 0.9 (1.0-2.1); ALBUMIN 3.9 g/dL (3.5-5.0); ALT/SGPT 14 U/L (21-72); AST/SGOT 25 U/L (17-59); BLOOD UREA NITROGEN 16 mg/dl (9-20); CALCIUM 8.8 mg/dL (8.4-10.2); GFR NON-AFRICAN AMERICAN > 60
[2018-05-22 12:09] LABS: URINE BILIRUBIN NEGATIVE (NEGATIVE); URINE BLOOD LARGE (NEGATIVE); URINE CLARITY SLIGHTY-CLOUDY (Clear); URINE COLOR YELLOW (YELLOW); URINE GLUCOSE (UA) NEG (NEGATIVE); URINE LEUKOCYTE ESTERASE NEG Leu/uL (Negative); URINE PROTEIN 100 mg/dL (NEGATIVE); URINE UROBILINOGEN 0.2-1.0 mg/dL (0.2-1.0)
--- NOTE | 2018-05-22 12:51 | CT ---
Date of service: 05/22/2018 PROCEDURE: CT HEAD WITHOUT CONTRAST. HISTORY: fever, AMS COMPARISON: 11/18/2017 TECHNIQUE: Axial computed tomography images were obtained through the head/brain without intravenous contrast. Radiation dose: Total exam DLP = 1108.2 mGy-cm. This CT exam was performed using one or more of the following dose reduction techniques: Automated exposure control, adjustment of the mA and/or kV according to patient size, and/or use of iterative reconstruction technique. FINDINGS: HEMORRHAGE: No intracranial hemorrhage. BRAIN: No mass effect or edema. Prominent cerebral atrophy. Mild diffuse periventricular microvascular ischemic changes. No interval changes here perceived. VENTRICLES: The ventricular dilatation is commensurate with the degree of atrophy. CALVARIUM: Unremarkable. PARANASAL SINUSES: Unremarkable as visualized. No significant inflammatory changes. MASTOID AIR CELLS: Ethmoid maxillary and sphenoid sinusitis changes are suggested. The ethmoid is most notably affected. The sphenoid and maxillary inflammatory changes progressed since the prior exam. OTHER FINDINGS: Atherosclerotic vascular calcifications present. IMPRESSION: No interval hemorrhage or mass effect. Marked cerebral atrophy. Fairly symmetrical deep white matter chronic microvascular ischemic changes-not significantly changed. Interval progressive paranasal sinus inflammatory changes.
--- NOTE | 2018-05-22 12:57 | RAD ---
Date of service: 05/22/2018 HISTORY: Shortness of breath. COMPARISON: 12/16/2017 FINDINGS: LUNGS: Low lung volumes accentuating markings at the lung bases. Likely atelectasis/infiltrates. PLEURA: Small bilateral pleural effusions likely. CARDIOVASCULAR: No radiographic findings to suggest acute or significant cardiovascular disease. Atherosclerotic calcifications identified primarily aortic arch. OSSEOUS STRUCTURES: No significant abnormalities. VISUALIZED UPPER ABDOMEN: Normal. OTHER FINDINGS: None. IMPRESSION: Low lung volumes accentuate pulmonary markings. Nonetheless there likely lower lobe infiltrates not seen previously.
[2018-05-22 14:25] LABS: FLUID TYPE SPINAL FLUID
[2018-05-22] MEDS ORDERED: cefTRIAXone 2 GM in Sodium Chloride 0.9% 100 ML IVPB STA (15:41)
[2018-05-22 15:51] LABS: CSF APPEARANCE CLEAR/COLORLESS (CLEAR); CSF VOLUME 1 mL (0-1)
[2018-05-22 15:52] LABS: CSF MONO/MACROPHAGE 30 % (0-0)
[2018-05-22] MEDS ORDERED: cefTRIAXone 2 GM in Sodium Chloride 0.9% 100 ML IVPB SCH (17:00)
[2018-05-22] MEDS ORDERED: Vancomycin 1 g Inj ONE ×2 (17:31→17:36)
--- NOTE | 2018-05-22 17:36 | CARD ---
APPROVED REPORT Date of service: 05/22/2018 EKG Measurement Heart [id number] <Conclusion> Sinus rhythm with premature atrial complexes Left anterior fascicular block Minimal voltage criteria for LVH, may be normal variant Abnormal ECG
--- NOTE | 2018-05-22 21:29 | CP.PCM.HP ---
History of Present Illness - History of Present Illness History of Present Illness: History from ER note. Patient not able to give history. 77 y/o male with a PMHx of Alzheimer's Disease brought in by EMS for evaluation of a high fever for the past two days. History obtained through due to patient's clinical condition. As per , patient has been very lethargic, sleeping more frequently and less talkative than normal. notes that at baseline, patient is usually talkative but confused. states patient has additionally not been eating or drinking normally further reporting that she usually gives him pureed food. states she was advised by the patient's PMD to puree his food. Patient noted to be jerking in his sleep while interviewing the . When asked the , notes that this is new and is not normal for the patient. denies cough, abdominal pain, vomiting, shortness of breath, rash, history of Parkinson's Disease and DM. Present on Admission - Present on Admission Any Indicators Present on Admission: No Review of Systems - Constitutional Constitutional: As Per HPI - Cardiovascular Cardiovascular: As Per HPI - Respiratory Respiratory: As Per HPI - Gastrointestinal Gastrointestinal: As Per HPI - Musculoskeletal Musculoskeletal: As Per HPI - Integumentary Integumentary: As Per HPI - Neurological Neurological: As Per HPI - Psychiatric Psychiatric: As Per HPI Past Patient History - Infectious Disease Hx of Infectious Diseases: None - Tetanus Immunizations Tetanus Immunization: Unknown - Past Medical History & Family History Past Medical History?: Yes - Past Social History Smoking Status: Never Smoked - CARDIAC Hx Hypertension: Yes - PULMONARY Hx Tuberculosis: No - NEUROLOGICAL Hx Alzheimer's Disease: Yes Hx Dementia: Yes Hx Seizures: No - HEENT Hx HEENT Problems: No - RENAL Hx Chronic Kidney Disease: No - ENDOCRINE/METABOLIC Hx Endocrine Disorders: No - HEMATOLOGICAL/ONCOLOGICAL Hx Anemia: Yes Hx Human Immunodeficiency Virus (HIV): No - INTEGUMENTARY Hx Dermatological Problems: No - MUSCULOSKELETAL/RHEUMATOLOGICAL Hx Arthritis: Yes Hx Fractures: Yes (right ankle) - GASTROINTESTINAL Hx Crohn's Disease: Yes (on humira injections monthly) - GENITOURINARY/GYNECOLOGICAL Hx Sexually Transmitted Disorders: No - PSYCHIATRIC Hx Psychophysiologic Disorder: Yes (dementia) Hx Substance Use: No - SURGICAL HISTORY Hx Surgeries: Yes Hx Herniorrhaphy: Yes Other/Comment: REIMPLANTATION OF DIGITS TO HAND. right upper limb pain - ANESTHESIA Hx Anesthesia: Yes Hx Anesthesia Reactions: No Hx Malignant Hyperthermia: No Meds Allergies/Adverse Reactions: Allergies Allergy/AdvReac Type Severity Reaction Status Date / Time [place] And Derivatives Allergy ANAPHYLAXIS Verified 12/16/17 12:46 ibuprofen [From Advil] Allergy COUGH Verified 12/16/17 12:46 morphine Allergy RASH Verified 12/16/17 12:46 Physical Exam - Constitutional Appears: Confused, Cachectic, Chronically Ill - Head Exam Head Exam: ATRAUMATIC, NORMAL INSPECTION, NORMOCEPHALIC - Eye Exam Eye Exam: Normal appearance - ENT Exam ENT Exam: Mucous Membranes Dry - Respiratory Exam Respiratory Exam: Decreased Breath Sounds - Cardiovascular Exam Cardiovascular Exam: REGULAR RHYTHM, +S1, +S2 - GI/Abdominal Exam GI & Abdominal Exam: Normal Bowel Sounds, Soft - Extremities Exam Extremities exam: Positive for: normal inspection - Neurological Exam Neurological exam: Altered Results - Vital Signs Recent Vital Signs: Last Vital Signs Temp 98.1 F 05/22/18 21:21 Pulse 75 05/22/18 21:21 Resp 17 05/22/18 21:21 BP 139/74 05/22/18 21:21 Pulse Ox 94 L 05/22/18 21:21 - Labs Result Diagrams: 05/22/18 11:30 05/22/18 11:30 Labs: Laboratory Results - last 24 hr 05/22/18 05/22/18 05/22/18 11:07 11:17 11:30 WBC 7.8 RBC 4.40 Hgb 13.1 Hct 39.7 MCV 90.1 D MCH 29.8 MCHC 33.0 RDW 15.8 H Plt Count 195 MPV 7.0 L Neut % (Auto) 74.2 Lymph % (Auto) 15.5 L [place] % (Auto) 10.1 H Eos % (Auto) 0.0 Baso % (Auto) 0.2 Neut # (Auto) 5.8 Lymph # (Auto) 1.2 [place] # (Auto) 0.8 Eos # (Auto) 0.0 Baso # (Auto) 0.0 PT INR APTT pCO2 31 L pO2 65 L HCO3 27.2 ABG pH 7.52 H ABG Total CO2 26.3 ABG O2 Saturation 97.7 ABG Base Excess 3.1 H Panfilo Test Yes ABG Potassium 4.0 A-a O2 Difference 46.0 Sodium 128.0 L Chloride 100.0 Glucose 148 H Lactate 1.8 FiO2 21.0 Potassium Carbon Dioxide Anion Gap BUN Creatinine Est GFR ( Amer) Est GFR (Non-Af Amer) POC Glucose (mg/dL) 166 H Random Glucose Calcium Phosphorus Magnesium Total Bilirubin AST ALT Alkaline Phosphatase Total Creatine Kinase Troponin I Total Protein Albumin Globulin Albumin/Globulin Ratio Arterial Blood Potassium 4.0 Urine Color Urine Clarity Urine pH Ur Specific [place] Urine Protein Urine Glucose (UA) Urine Ketones Urine Blood Urine Nitrate Urine Bilirubin Urine Urobilinogen Ur Leukocyte Esterase Urine RBC (Auto) Urine Microscopic WBC Fluid Type CSF Volume CSF Appearance CSF WBC CSF RBC CSF Total Cell Counted CSF Neutrophils CSF Lymphocytes CSF Monos/Macrophages CSF Comment CSF Glucose CSF Total Protein Influenza Typ A,B (EIA) 05/22/18 05/22/18 05/22/18 11:30 11:30 11:30 WBC RBC Hgb Hct MCV MCH MCHC RDW Plt Count MPV Neut % (Auto) Lymph % (Auto) [place] % (Auto) Eos % (Auto) Baso % (Auto) Neut # (Auto) Lymph # (Auto) [place] # (Auto) Eos # (Auto) Baso # (Auto) PT 14.8 H INR 1.3 APTT 37.8 H pCO2 pO2 HCO3 ABG pH ABG Total CO2 ABG O2 Saturation ABG Base Excess Panfilo Test ABG Potassium A-a O2 Difference Sodium 137 Chloride 96 L Glucose Lactate FiO2 Potassium 3.9 Carbon Dioxide 26 Anion Gap 19 BUN 16 Creatinine 1.0 Est GFR ( Amer) > 60 Est GFR (Non-Af Amer) > 60 POC Glucose (mg/dL) Random Glucose 152 H Calcium 8.8 Phosphorus 3.1 Magnesium 2.0 Total Bilirubin 0.4 AST 25 ALT 14 L D Alkaline Phosphatase 74 Total Creatine Kinase 43 L Troponin I 0.0180 Total Protein 8.1 Albumin 3.9 Globulin 4.3 H Albumin/Globulin Ratio 0.9 L Arterial Blood Potassium Urine Color Urine Clarity Urine pH Ur Specific [place] Urine Protein Urine Glucose (UA) Urine Ketones Urine Blood Urine Nitrate Urine Bilirubin Urine Urobilinogen Ur Leukocyte Esterase Urine RBC (Auto) Urine Microscopic WBC Fluid Type CSF Volume CSF Appearance CSF WBC CSF RBC CSF Total Cell Counted CSF Neutrophils CSF Lymphocytes CSF Monos/Macrophages CSF Comment CSF Glucose CSF Total Protein Influenza Typ A,B (EIA) Negative for flu a/b 05/22/18 05/22/18 05/22/18 11:50 14:00 14:00 WBC RBC Hgb Hct MCV MCH MCHC RDW Plt Count MPV Neut % (Auto) Lymph % (Auto) [place] % (Auto) Eos % (Auto) Baso % (Auto) Neut # (Auto) Lymph # (Auto) [place] # (Auto) Eos # (Auto) Baso # (Auto) PT INR APTT pCO2 pO2 HCO3 ABG pH ABG Total CO2 ABG O2 Saturation ABG Base Excess Panfilo Test ABG Potassium A-a O2 Difference Sodium Chloride Glucose Lactate FiO2 Potassium Carbon Dioxide Anion Gap BUN Creatinine Est GFR ( Amer) Est GFR (Non-Af Amer) POC Glucose (mg/dL) Random Glucose Calcium Phosphorus Magnesium Total Bilirubin AST ALT Alkaline Phosphatase Total Creatine Kinase Troponin I Total Protein Albumin Globulin Albumin/Globulin Ratio Arterial Blood Potassium Urine Color Yellow Urine Clarity Slighty-cloudy Urine pH 5.0 Ur Specific [place] 1.019 Urine Protein 100 Urine Glucose (UA) Neg Urine Ketones Negative Urine Blood Large Urine Nitrate Negative Urine Bilirubin Negative Urine Urobilinogen 0.2-1.0 Ur Leukocyte Esterase Neg Urine RBC (Auto) 42 H Urine Microscopic WBC 1 Fluid Type Spinal fluid CSF Volume 1 CSF Appearance Clear/colorless CSF WBC 248.0 H CSF RBC 87.0 H CSF Total Cell Counted 100 H CSF Neutrophils 29 H CSF Lymphocytes 41.0 H CSF Monos/Macrophages 30 H CSF Comment None CSF Glucose 65 CSF Total Protein Influenza Typ A,B (EIA) 05/22/18 14:00 WBC RBC Hgb Hct MCV MCH MCHC RDW Plt Count MPV Neut % (Auto) Lymph % (Auto) [place] % (Auto) Eos % (Auto) Baso % (Auto) Neut # (Auto) Lymph # (Auto) [place] # (Auto) Eos # (Auto) Baso # (Auto) PT INR APTT pCO2 pO2 HCO3 ABG pH ABG Total CO2 ABG O2 Saturation ABG Base Excess Panfilo Test ABG Potassium A-a O2 Difference Sodium Chloride Glucose Lactate FiO2 Potassium Carbon Dioxide Anion Gap BUN Creatinine Est GFR ( Amer) Est GFR (Non-Af Amer) POC Glucose (mg/dL) Random Glucose Calcium Phosphorus Magnesium Total Bilirubin AST ALT Alkaline Phosphatase Total Creatine Kinase Troponin I Total Protein Albumin Globulin Albumin/Globulin Ratio Arterial Blood Potassium Urine Color Urine Clarity Urine pH Ur Specific [place] Urine Protein Urine Glucose (UA) Urine Ketones Urine Blood Urine Nitrate Urine Bilirubin Urine Urobilinogen Ur Leukocyte Esterase Urine RBC (Auto) Urine Microscopic WBC Fluid Type CSF Volume CSF Appearance CSF WBC CSF RBC CSF Total Cell Counted CSF Neutrophils CSF Lymphocytes CSF Monos/Macrophages CSF Comment CSF Glucose CSF Total Protein 66.0 H Influenza Typ A,B (EIA) Assessment & Plan (1) Meningitis Status: Acute (2) Dementia Status: Acute (3) Colitis Status: Chronic (4) Crohn disease Status: Chronic (5) Debility Status: Chronic - Assessment and Plan (Free Text) Plan: As per orders.
[2018-05-22] MEDS: Dextrose 5%/0.9% NS 1,000 ML IV SCH (23:19)
[2018-05-23] MEDS: cefTRIAXone 2 GM in Sodium Chloride 0.9% 100 ML IVPB SCH ×2 (04:02→17:29)
--- NOTE | 2018-05-23 11:34 | CP.PCM.PN ---
Subjective - Date & Time of Evaluation Date of Evaluation: 05/23/18 Time of Evaluation: 11:35 - Subjective Subjective: Patient lethargic minimally responsive to verbal stimuli not verbalize Objective - Vital Signs/Intake and Output Vital Signs (last 24 hours): Temp Pulse Resp BP Pulse Ox 99.2 F 72 18 144/75 91 L 05/23/18 08:36 05/23/18 08:36 05/23/18 08:36 05/23/18 08:36 05/23/18 08:36 - Medications Medications: Current Medications Acyclovir 700 mg/ Sodium (Chloride) 250 mls @ 250 mls/hr IVPB Q8 [facility]; Protocol Last Admin: 05/23/18 09:18 Dose: 250 mls/hr Vancomycin HCl 1 gm/ Sodium (Chloride) 250 mls @ 166.667 mls/hr IVPB Q12H [facility]; Protocol Last Admin: 05/23/18 05:00 Dose: 166.667 mls/hr Ceftriaxone Sodium 2 gm/ (Sodium Chloride) 100 mls @ 100 mls/hr IVPB Q12@0500,1700 [facility]; Protocol Last Admin: 05/23/18 04:02 Dose: 100 mls/hr Dextrose/Sodium Chloride (Dextrose 5%/0.9% Ns 1000 Ml) 1,000 mls @ 80 mls/hr IV .[id number] [facility] Stop: 05/23/18 23:05 Last Admin: 05/22/18 23:19 Dose: 80 mls/hr - Labs Labs: 05/22/18 11:30 05/22/18 11:30 PT 14.8 Seconds (9.8-13.1) H 05/22/18 11:30 INR 1.3 05/22/18 11:30 APTT 37.8 Seconds (25.6-37.1) H 05/22/18 11:30 - Constitutional Appears: Confused, Cachectic, Chronically Ill - Head Exam Head Exam: ATRAUMATIC, NORMAL INSPECTION, NORMOCEPHALIC - Eye Exam Eye Exam: Normal appearance - ENT Exam ENT Exam: Mucous Membranes Dry - Neck Exam Neck Exam: Normal Inspection - Respiratory Exam Respiratory Exam: Decreased Breath Sounds, Rhonchi - Cardiovascular Exam Cardiovascular Exam: REGULAR RHYTHM, +S1, +S2 - GI/Abdominal Exam GI & Abdominal Exam: Soft, Normal Bowel Sounds - Neurological Exam Neurological Exam: Altered - Skin Skin Exam: Pallor Assessment and Plan (1) Meningitis Status: Acute (2) Dementia Status: Acute (3) Colitis Status: Chronic (4) Crohn disease Status: Chronic (5) Debility Status: Chronic
--- NOTE | 2018-05-23 11:35 | PQF ---
PROVIDER RESPONSE TEXT: Pneumonia is confirmed REVIEWER QUERY TEXT: Conflicting Documentation Clarification ER has an additional diagnosis of Pneumonia. After workup please clarify if Pneumonia is ruled in or ruled out. If ruled in please clarify the type. A single mention or documentation of multiple diagnoses for the same clinical presentation appears in the record. Please clarify the diagnosis/diagnoses. Please also document if the condition is: -- Confirmed and current -- Confirmed, treated and resolved -- Ruled out -- Other, please specify The patient's Clinical Indicators include: Patient with Alzheimer's Disease presents with a high fever, lethargic and decreased intake. Puree di et at home. TEMP 103.1, WBC 7.8. Coarse breath sounds at bases. CXR: Low lung volumes accentuate pulmonary markings. Nonetheless there likely lower lobe infiltrates not seen previously. LP performed: CSF reveal 248 WBCs , 87 RBCs with lymphocyte predominance. Rx: Vancomycin, Rocpehin, Acyclovir Query created by: Karine Buckner on 05/23/2018 9:55 AM Electronically signed by: Eliseo Segundo MD 05/23/2018 11:32 AM
[2018-05-23 12:22] LABS: BLOOD UREA NITROGEN 14 mg/dl (9-20); CALCIUM 8.7 mg/dL (8.4-10.2); GFR NON-AFRICAN AMERICAN > 60
[2018-05-23] MEDS: Dextrose 5%/0.9% NS 1,000 ML IV SCH (13:01)
--- NOTE | 2018-05-23 14:40 | CP.PCM.CON ---
History of Present Illness - History of Present Illness History of Present Illness: 77 y/o male with a PMHx of Alzheimer's Disease on Humira for Chrons brought in by EMS for evaluation of a high fever for the past two days. patient has been very lethargic, sleeping more frequently and less talkative than normal. Found to have 103 tewmp on admission and LP revealed lymphoccytic predominance with pleocytosis and High protein started on empiric IV antibiotics for possible meningitis - Medical History PMH: Alzheimer's Disease, Anemia, Arthritis, Crohn's Disease (on humira injections monthly), Dementia, Fractures (right ankle), HTN Denies: Diabetes, Hepatitis, HIV, Chronic Kidney Disease, Seizures, Sexually Transmitted Disease Past Patient History - Infectious Disease Hx of Infectious Diseases: None - Tetanus Immunizations Tetanus Immunization: Unknown - Past Medical History & Family History Past Medical History?: Yes - Past Social History Smoking Status: Never Smoked - CARDIAC Hx Hypertension: Yes - PULMONARY Hx Tuberculosis: No - NEUROLOGICAL Hx Alzheimer's Disease: Yes Hx Dementia: Yes Hx Seizures: No - HEENT Hx HEENT Problems: No - RENAL Hx Chronic Kidney Disease: No - ENDOCRINE/METABOLIC Hx Endocrine Disorders: No - HEMATOLOGICAL/ONCOLOGICAL Hx Anemia: Yes Hx Human Immunodeficiency Virus (HIV): No - INTEGUMENTARY Hx Dermatological Problems: No - MUSCULOSKELETAL/RHEUMATOLOGICAL Hx Falls: No - GASTROINTESTINAL Hx Crohn's Disease: Yes (on humira injections monthly) - GENITOURINARY/GYNECOLOGICAL Hx Sexually Transmitted Disorders: No - PSYCHIATRIC Hx Substance Use: No - SURGICAL HISTORY Hx Surgeries: Yes Hx Herniorrhaphy: Yes Other/Comment: REIMPLANTATION OF DIGITS TO HAND. right upper limb pain - ANESTHESIA Hx Anesthesia: Yes Hx Anesthesia Reactions: No Hx Malignant Hyperthermia: No Meds Allergies/Adverse Reactions: Allergies Allergy/AdvReac Type Severity Reaction Status Date / Time Ester And Derivatives Allergy ANAPHYLAXIS Verified 12/16/17 12:46 ibuprofen [From Advil] Allergy COUGH Verified 12/16/17 12:46 morphine Allergy RASH Verified 12/16/17 12:46 - Medications Medications: Current Medications Acetaminophen (Tylenol 325mg Tab) 650 mg PO Q4 PRN PRN Reason: Fever >100.4 F Last Admin: 05/23/18 13:00 Dose: 650 mg Acyclovir 700 mg/ Sodium (Chloride) 250 mls @ 250 mls/hr IVPB Q8 [facility]; Protocol Last Admin: 05/23/18 09:18 Dose: 250 mls/hr Vancomycin HCl 1 gm/ Sodium (Chloride) 250 mls @ 166.667 mls/hr IVPB Q12H [facility]; Protocol Last Admin: 05/23/18 05:00 Dose: 166.667 mls/hr Ceftriaxone Sodium 2 gm/ (Sodium Chloride) 100 mls @ 100 mls/hr IVPB Q12@0500,1700 [facility]; Protocol Last Admin: 05/23/18 04:02 Dose: 100 mls/hr Dextrose/Sodium Chloride (Dextrose 5%/0.9% Ns 1000 Ml) 1,000 mls @ 80 mls/hr IV .[id number] [facility] Stop: 05/23/18 23:05 Last Admin: 05/23/18 13:01 Dose: Not Given Physical Exam - Constitutional Appears: No Acute Distress, Cachectic, Chronically Ill - Head Exam Head Exam: ATRAUMATIC - Eye Exam Eye Exam: absent: Scleral icterus - ENT Exam ENT Exam: Mucous Membranes Dry, Normal External Ear Exam, Normal Oropharynx - Neck Exam Neck exam: Negative for: Lymphadenopathy - Respiratory Exam Respiratory Exam: Decreased Breath Sounds, Rhonchi - Cardiovascular Exam Cardiovascular Exam: REGULAR RHYTHM, +S1, +S2 - GI/Abdominal Exam GI & Abdominal Exam: Diminished Bowel Sounds, Soft. absent: Tenderness - Rectal Exam Rectal Exam: Deferred - Exam Exam: NORMAL INSPECTION - Extremities Exam Extremities exam: Negative for: pedal edema - Back Exam Back exam: absent: CVA tenderness (L), CVA tenderness (R) - Neurological Exam Neurological exam: Altered - Psychiatric Exam Psychiatric exam: Depressed Results - Vital Signs Recent Vital Signs: Last Vital Signs Temp 102 F H 05/23/18 13:00 Pulse 77 05/23/18 12:43 Resp 20 05/23/18 12:43 BP 137/80 05/23/18 12:43 Pulse Ox 93 L 05/23/18 12:43 - Labs Result Diagrams: 05/22/18 11:30 05/23/18 11:45 Labs: Laboratory Results - last 24 hr 05/22/18 05/22/18 05/22/18 14:00 14:00 14:00 Sodium Potassium Chloride Carbon Dioxide Anion Gap BUN Creatinine Est GFR ( Amer) Est GFR (Non-Af Amer) Random Glucose Calcium CSF Volume 1 CSF Appearance Clear/colorless CSF WBC 248.0 H CSF RBC 87.0 H CSF Total Cell Counted 100 H CSF Neutrophils 29 H CSF Lymphocytes 41.0 H CSF Monos/Macrophages 30 H CSF Comment None CSF Glucose 65 CSF Total Protein HSV Source Description Fluid 05/22/18 05/23/18 14:00 11:45 Sodium 136 Potassium 4.0 Chloride 97 L Carbon Dioxide 28 Anion Gap 15 BUN 14 Creatinine 0.8 Est GFR ( Amer) > 60 Est GFR (Non-Af Amer) > 60 Random Glucose 98 Calcium 8.7 CSF Volume CSF Appearance CSF WBC CSF RBC CSF Total Cell Counted CSF Neutrophils CSF Lymphocytes CSF Monos/Macrophages CSF Comment CSF Glucose CSF Total Protein 66.0 H HSV Source Description Assessment & Plan - Assessment and Plan (Free Text) Assessment: 77 y/o male with a PMHx of Alzheimer's Disease brought in by EMS for evaluation of a high fever for the past two days. patient has been very lethargic, sleeping more frequently and less talkative than normal. Found to have 103 stefan on admission and LP revealed lymphoccytic predominance with pleocytosis and High protein started on empiric IV antibiotics for possible meningitis Viral vs Bacterial Patient is high risk due to IMmunocompromised state on Humira Consider LAURA virus as well as HSV CMV EBV in differential cont empiric acyclovir, Vanco, Rocephin
[2018-05-24] MEDS: cefTRIAXone 2 GM in Sodium Chloride 0.9% 100 ML IVPB SCH ×2 (05:42→18:26)
[2018-05-24 06:19] LABS: BASO # 0.1 K/uL (0.0-0.2); BASO % 0.8 % (0.0-2.0); EOS # 0.1 K/uL (0.0-0.7); EOS % 1.1 % (0.0-4.0); HEMOGLOBIN 12.8 g/dL (12.0-18.0); LYMPH # 2.2 K/uL (1.0-4.3); LYMPH % 32.6 % (20.0-40.0); MEAN CELL VOLUME 88.7 fl (80.0-94.0); MEAN CORPUSCULAR HEMOGLOBIN 29.6 pg (27.0-31.0); MEAN CORPUSCULAR HGB CONC 33.4 g/dL (33.0-37.0); MONO # 1.3 K/uL (0.0-0.8); NEUT # 3.2 K/uL (1.8-7.0); NEUT % 46.5 % (50.0-75.0); RBC 4.32 Mil/uL (4.40-5.90); RED CELL DISTRIBUTION WIDTH 15.5 % (11.5-14.5); WHITE BLOOD COUNT 6.9 K/uL (4.8-10.8)
[2018-05-24 06:39] LABS: BLOOD UREA NITROGEN 16 mg/dl (9-20); CALCIUM 8.7 mg/dL (8.4-10.2); GFR NON-AFRICAN AMERICAN > 60
--- NOTE | 2018-05-24 12:59 | CP.PCM.PN ---
Subjective - Date & Time of Evaluation Date of Evaluation: 05/24/18 Time of Evaluation: 12:59 - Subjective Subjective: Patient more responsive to verbal stimuli but still lethargic. Objective - Vital Signs/Intake and Output Vital Signs (last 24 hours): Temp Pulse Resp BP Pulse Ox 99.3 F 71 20 122/61 91 L 05/24/18 12:54 05/24/18 12:54 05/24/18 12:54 05/24/18 12:54 05/24/18 12:54 - Medications Medications: Current Medications Acetaminophen (Tylenol 325mg Tab) 650 mg PO Q4 PRN PRN Reason: Fever >100.4 F Last Admin: 05/24/18 09:36 Dose: 650 mg Acyclovir 700 mg/ Sodium (Chloride) 250 mls @ 250 mls/hr IVPB Q8 [facility]; Protocol Last Admin: 05/24/18 09:16 Dose: 250 mls/hr Vancomycin HCl 1 gm/ Sodium (Chloride) 250 mls @ 166.667 mls/hr IVPB Q12H [facility]; Protocol Last Admin: 05/24/18 05:43 Dose: 166.667 mls/hr Ceftriaxone Sodium 2 gm/ (Sodium Chloride) 100 mls @ 100 mls/hr IVPB Q12@0500,1700 [facility]; Protocol Last Admin: 05/24/18 05:42 Dose: 100 mls/hr - Labs Labs: 05/24/18 04:30 05/24/18 04:30 PT 14.8 Seconds (9.8-13.1) H 05/22/18 11:30 INR 1.3 05/22/18 11:30 APTT 37.8 Seconds (25.6-37.1) H 05/22/18 11:30 - Constitutional Appears: Confused, Chronically Ill - Head Exam Head Exam: ATRAUMATIC, NORMAL INSPECTION, NORMOCEPHALIC - Eye Exam Eye Exam: Normal appearance - ENT Exam ENT Exam: Mucous Membranes Moist - Neck Exam Neck Exam: Full ROM - Respiratory Exam Respiratory Exam: Decreased Breath Sounds - Cardiovascular Exam Cardiovascular Exam: REGULAR RHYTHM, +S1, +S2 - GI/Abdominal Exam GI & Abdominal Exam: Normal Bowel Sounds - Extremities Exam Extremities Exam: Normal Inspection - Neurological Exam Neurological Exam: Altered - Skin Skin Exam: Pallor Assessment and Plan (1) Meningitis Status: Acute (2) Dementia Status: Acute (3) Colitis Status: Chronic (4) Crohn disease Status: Chronic (5) Debility Status: Chronic
[2018-05-25] MEDS: cefTRIAXone 2 GM in Sodium Chloride 0.9% 100 ML IVPB SCH ×2 (04:39→18:31)
[2018-05-25 06:55] LABS: BLOOD UREA NITROGEN 14 mg/dl (9-20); CALCIUM 8.5 mg/dL (8.4-10.2); GFR NON-AFRICAN AMERICAN > 60
[2018-05-25 08:21] LABS: BASO # 0.1 K/uL (0.0-0.2); BASO % 0.7 % (0.0-2.0); EOS # 0.3 K/uL (0.0-0.7); EOS % 4.5 % (0.0-4.0); HEMOGLOBIN 13.4 g/dL (12.0-18.0); LYMPH # 1.4 K/uL (1.0-4.3); LYMPH % 19.8 % (20.0-40.0); MEAN CELL VOLUME 90.3 fl (80.0-94.0); MEAN CORPUSCULAR HGB CONC 33.2 g/dL (33.0-37.0); MEAN PLATELET VOLUME 7.6 fl (7.2-11.7); MONO % 14.1 % (0.0-10.0); NEUT # 4.4 K/uL (1.8-7.0); NEUT % 60.9 % (50.0-75.0); NRBC % 0.1 % (0.0-0.0); RBC 4.46 Mil/uL (4.40-5.90); RED CELL DISTRIBUTION WIDTH 15.6 % (11.5-14.5); WHITE BLOOD COUNT 7.1 K/uL (4.8-10.8)
--- NOTE | 2018-05-25 10:02 | CP.PCM.PN ---
Subjective - Date & Time of Evaluation Date of Evaluation: 05/25/18 Time of Evaluation: 10:02 - Subjective Subjective: Still confuse lethargic at times Objective - Vital Signs/Intake and Output Vital Signs (last 24 hours): Temp Pulse Resp BP Pulse Ox 101.6 F H 67 20 120/62 95 05/25/18 08:30 05/25/18 08:30 05/25/18 08:30 05/25/18 08:30 05/25/18 08:30 - Medications Medications: Current Medications Acetaminophen (Tylenol 325mg Tab) 650 mg PO Q4 PRN PRN Reason: Fever >100.4 F Last Admin: 05/24/18 20:46 Dose: 650 mg Vancomycin HCl 1 gm/ Sodium (Chloride) 250 mls @ 166.667 mls/hr IVPB Q12H [facility]; Protocol Last Admin: 05/25/18 04:29 Dose: 166.667 mls/hr Ceftriaxone Sodium 2 gm/ (Sodium Chloride) 100 mls @ 100 mls/hr IVPB Q12@0500,1700 [facility]; Protocol Last Admin: 05/25/18 04:39 Dose: 100 mls/hr Acyclovir 700 mg/ Sodium (Chloride) 250 mls @ 250 mls/hr IVPB Q8@0400,1200,2000 [facility]; Protocol Last Admin: 05/25/18 03:37 Dose: 250 mls/hr - Labs Labs: 05/25/18 08:05 05/25/18 06:00 PT 14.8 Seconds (9.8-13.1) H 05/22/18 11:30 INR 1.3 05/22/18 11:30 APTT 37.8 Seconds (25.6-37.1) H 05/22/18 11:30 - Constitutional Appears: Confused, Cachectic, Chronically Ill - Head Exam Head Exam: ATRAUMATIC, NORMAL INSPECTION, NORMOCEPHALIC - Eye Exam Eye Exam: Normal appearance - ENT Exam ENT Exam: Mucous Membranes Moist - Neck Exam Neck Exam: Full ROM - Respiratory Exam Respiratory Exam: Decreased Breath Sounds - Cardiovascular Exam Cardiovascular Exam: REGULAR RHYTHM, +S1, +S2 - GI/Abdominal Exam GI & Abdominal Exam: Normal Bowel Sounds - Extremities Exam Extremities Exam: Normal Inspection - Neurological Exam Neurological Exam: Altered - Psychiatric Exam Psychiatric exam: Flat Affect - Skin Skin Exam: Pallor Assessment and Plan (1) Meningitis Status: Acute (2) Dementia Status: Acute (3) Colitis Status: Chronic (4) Crohn disease Status: Chronic (5) Debility Status: Chronic
--- NOTE | 2018-05-25 14:21 | CP.PCM.PN ---
Subjective - Date & Time of Evaluation Date of Evaluation: 05/25/18 Time of Evaluation: 09:00 - Subjective Subjective: chart reviewed patient examined ROS performed IV antibiotics renewed appears awake and more alert eating slowly NAD Objective - Vital Signs/Intake and Output Vital Signs (last 24 hours): Temp Pulse Resp BP Pulse Ox 101.3 F H 71 20 114/57 L 92 L 05/25/18 13:00 05/25/18 13:00 05/25/18 13:00 05/25/18 13:00 05/25/18 13:00 - Medications Medications: Current Medications Acetaminophen (Tylenol 325mg Tab) 650 mg PO Q4 PRN PRN Reason: Fever >100.4 F Last Admin: 05/25/18 10:10 Dose: 650 mg Docusate Sodium (Colace) 200 mg PO DAILY [facility] Last Admin: 05/25/18 13:49 Dose: Not Given Donepezil HCl (Aricept) 10 mg PO DAILY [facility] Last Admin: 05/25/18 11:52 Dose: 10 mg Escitalopram Oxalate (Lexapro) 20 mg PO DAILY [facility] Last Admin: 05/25/18 11:55 Dose: 20 mg Vancomycin HCl 1 gm/ Sodium (Chloride) 250 mls @ 166.667 mls/hr IVPB Q12H [facility]; Protocol Last Admin: 05/25/18 04:29 Dose: 166.667 mls/hr Ceftriaxone Sodium 2 gm/ (Sodium Chloride) 100 mls @ 100 mls/hr IVPB Q12@0500,1700 [facility]; Protocol Last Admin: 05/25/18 04:39 Dose: 100 mls/hr Acyclovir 700 mg/ Sodium (Chloride) 250 mls @ 250 mls/hr IVPB Q8@0400,1200,2000 [facility]; Protocol Last Admin: 05/25/18 13:58 Dose: 250 mls/hr Memantine (Namenda) 10 mg PO Q12 [facility] Last Admin: 05/25/18 11:55 Dose: 10 mg Quetiapine Fumarate (Seroquel) 50 mg PO TID [facility] Last Admin: 05/25/18 12:29 Dose: Not Given - Labs Labs: 05/25/18 08:05 05/25/18 06:00 PT 14.8 Seconds (9.8-13.1) H 05/22/18 11:30 INR 1.3 05/22/18 11:30 APTT 37.8 Seconds (25.6-37.1) H 05/22/18 11:30 - Constitutional Appears: No Acute Distress, Confused, Chronically Ill - Head Exam Head Exam: NORMOCEPHALIC - Eye Exam Eye Exam: absent: Scleral icterus - ENT Exam ENT Exam: Mucous Membranes Dry, Normal Oropharynx - Neck Exam Neck Exam: absent: Lymphadenopathy - Respiratory Exam Respiratory Exam: Decreased Breath Sounds - Cardiovascular Exam Cardiovascular Exam: REGULAR RHYTHM - GI/Abdominal Exam GI & Abdominal Exam: Distended, Soft - Rectal Exam Rectal Exam: Deferred - Exam Exam: NORMAL INSPECTION - Extremities Exam Extremities Exam: absent: Pedal Edema - Back Exam Back Exam: absent: CVA tenderness (L), CVA tenderness (R) - Neurological Exam Neurological Exam: Altered, Awake, CN II-XII Intact. absent: Oriented x3 Neuro motor strength exam: Left Upper Extremity: 3, Right Upper Extremity: 3, Left Lower Extremity: 3, Right Lower Extremity: 3 - Psychiatric Exam Psychiatric exam: Depressed - Skin Skin Exam: Dry Assessment and Plan (1) Meningitis Status: Acute - Assessment and Plan (Free Text) Assessment: cont iv antibiotics for meningitis
[2018-05-25 16:44] LABS: SPECIMEN SOURCE CSF
[2018-05-26] MEDS: cefTRIAXone 2 GM in Sodium Chloride 0.9% 100 ML IVPB SCH ×2 (05:32→17:42)
[2018-05-26 08:33] LABS: HEPATITIS B SURFACE AG Negative (NEGATIVE)
[2018-05-26 08:39] LABS: HEPATITIS A IGM NEGATIVE (NEGATIVE); HEPATITIS B CORE AB NEGATIVE (NEGATIVE)
[2018-05-26 08:47] LABS: HEPATITIS C ANTIBODY NEGATIVE (NEGATIVE)
[2018-05-26 09:40] LABS: BASO # 0.1 K/uL (0.0-0.2); BASO % 0.8 % (0.0-2.0); EOS # 0.3 K/uL (0.0-0.7); EOS % 3.6 % (0.0-4.0); HEMOGLOBIN 11.9 g/dL (12.0-18.0); LYMPH # 1.5 K/uL (1.0-4.3); LYMPH % 15.7 % (20.0-40.0); MEAN CELL VOLUME 89.9 fl (80.0-94.0); MEAN CORPUSCULAR HEMOGLOBIN 29.6 pg (27.0-31.0); MEAN CORPUSCULAR HGB CONC 32.9 g/dL (33.0-37.0); MEAN PLATELET VOLUME 7.5 fl (7.2-11.7); MONO # 1.1 K/uL (0.0-0.8); MONO % 11.8 % (0.0-10.0); NEUT # 6.5 K/uL (1.8-7.0); NEUT % 68.1 % (50.0-75.0); NRBC % 0.2 % (0.0-0.0); RBC 4.02 Mil/uL (4.40-5.90); WHITE BLOOD COUNT 9.5 K/uL (4.8-10.8)
--- NOTE | 2018-05-26 09:59 | CP.PCM.PN ---
Subjective - Date & Time of Evaluation Date of Evaluation: 05/26/18 Time of Evaluation: 09:59 - Subjective Subjective: Improving still confuse Objective - Vital Signs/Intake and Output Vital Signs (last 24 hours): Temp Pulse Resp BP Pulse Ox 98.0 F 73 20 118/64 93 L 05/26/18 08:26 05/26/18 08:26 05/26/18 08:26 05/26/18 08:26 05/26/18 08:26 - Medications Medications: Current Medications Acetaminophen (Tylenol 325mg Tab) 650 mg PO Q4 PRN PRN Reason: Fever >100.4 F Last Admin: 05/25/18 20:12 Dose: 650 mg Docusate Sodium (Colace) 200 mg PO DAILY [facility] Last Admin: 05/26/18 08:26 Dose: Not Given Donepezil HCl (Aricept) 10 mg PO DAILY [facility] Last Admin: 05/26/18 08:20 Dose: 10 mg Escitalopram Oxalate (Lexapro) 20 mg PO DAILY [facility] Last Admin: 05/26/18 08:20 Dose: 20 mg Ceftriaxone Sodium 2 gm/ (Sodium Chloride) 100 mls @ 100 mls/hr IVPB Q12@0500,1700 [facility]; Protocol Last Admin: 05/26/18 05:32 Dose: Not Given Acyclovir 700 mg/ Sodium (Chloride) 250 mls @ 250 mls/hr IVPB Q8@0400,1200,2000 [facility]; Protocol Last Admin: 05/26/18 03:00 Dose: 250 mls/hr Memantine (Namenda) 10 mg PO Q12 [facility] Last Admin: 05/26/18 08:20 Dose: 10 mg Quetiapine Fumarate (Seroquel) 50 mg PO TID [facility] Last Admin: 05/26/18 08:20 Dose: 50 mg - Labs Labs: 05/26/18 09:15 05/25/18 06:00 PT 14.8 Seconds (9.8-13.1) H 05/22/18 11:30 INR 1.3 05/22/18 11:30 APTT 37.8 Seconds (25.6-37.1) H 05/22/18 11:30 - Constitutional Appears: Confused, Cachectic, Chronically Ill - Head Exam Head Exam: ATRAUMATIC, NORMAL INSPECTION, NORMOCEPHALIC - Eye Exam Eye Exam: Normal appearance - ENT Exam ENT Exam: Mucous Membranes Dry - Neck Exam Neck Exam: Full ROM - Respiratory Exam Respiratory Exam: Decreased Breath Sounds - Cardiovascular Exam Cardiovascular Exam: REGULAR RHYTHM, +S1, +S2 - GI/Abdominal Exam GI & Abdominal Exam: Normal Bowel Sounds - Extremities Exam Extremities Exam: Normal Inspection - Neurological Exam Neurological Exam: Altered - Psychiatric Exam Psychiatric exam: Flat Affect - Skin Skin Exam: Pallor Assessment and Plan (1) Meningitis Status: Acute (2) Dementia Status: Acute (3) Colitis Status: Chronic (4) Crohn disease Status: Chronic (5) Debility Status: Chronic
--- NOTE | 2018-05-26 11:08 | CP.PCM.PN ---
Subjective - Date & Time of Evaluation Date of Evaluation: 05/26/18 Time of Evaluation: 07:00 - Subjective Subjective: seen on rounds earlier lethargic BP was low transferred to ICU Objective - Vital Signs/Intake and Output Vital Signs (last 24 hours): Temp Pulse Resp BP Pulse Ox 98.0 F 73 20 118/64 93 L 05/26/18 08:26 05/26/18 08:26 05/26/18 08:26 05/26/18 08:26 05/26/18 08:26 - Medications Medications: Current Medications Acetaminophen (Tylenol 325mg Tab) 650 mg PO Q4 PRN PRN Reason: Fever >100.4 F Last Admin: 05/25/18 20:12 Dose: 650 mg Docusate Sodium (Colace) 200 mg PO DAILY [facility] Last Admin: 05/26/18 08:26 Dose: Not Given Donepezil HCl (Aricept) 10 mg PO DAILY [facility] Last Admin: 05/26/18 08:20 Dose: 10 mg Escitalopram Oxalate (Lexapro) 20 mg PO DAILY [facility] Last Admin: 05/26/18 08:20 Dose: 20 mg Ceftriaxone Sodium 2 gm/ (Sodium Chloride) 100 mls @ 100 mls/hr IVPB Q12@0500,1700 [facility]; Protocol Last Admin: 05/26/18 05:32 Dose: Not Given Acyclovir 700 mg/ Sodium (Chloride) 250 mls @ 250 mls/hr IVPB Q8@0400,1200,2000 [facility]; Protocol Last Admin: 05/26/18 03:00 Dose: 250 mls/hr Memantine (Namenda) 10 mg PO Q12 [facility] Last Admin: 05/26/18 08:20 Dose: 10 mg Quetiapine Fumarate (Seroquel) 50 mg PO TID [facility] Last Admin: 05/26/18 08:20 Dose: 50 mg - Labs Labs: 05/26/18 09:15 05/25/18 06:00 PT 14.8 Seconds (9.8-13.1) H 05/22/18 11:30 INR 1.3 05/22/18 11:30 APTT 37.8 Seconds (25.6-37.1) H 05/22/18 11:30 - Constitutional Appears: Confused, Cachectic, Chronically Ill - Head Exam Head Exam: NORMOCEPHALIC (x) - Eye Exam Eye Exam: absent: Scleral icterus - ENT Exam ENT Exam: Mucous Membranes Dry - Neck Exam Neck Exam: absent: Lymphadenopathy - Respiratory Exam Respiratory Exam: Decreased Breath Sounds - Cardiovascular Exam Cardiovascular Exam: REGULAR RHYTHM - GI/Abdominal Exam GI & Abdominal Exam: Soft. absent: Tenderness - Rectal Exam Rectal Exam: Deferred - Exam Exam: NORMAL INSPECTION - Extremities Exam Extremities Exam: absent: Pedal Edema - Back Exam Back Exam: absent: CVA tenderness (L), CVA tenderness (R) - Neurological Exam Neurological Exam: Altered Assessment and Plan (1) Meningitis Status: Acute - Assessment and Plan (Free Text) Assessment: cont hydration, IV antibiotics, antifungals poor prognosis
[2018-05-26] MEDS ORDERED: Lactated Ringer's 1,000 ML IV SCH (15:45)
[2018-05-26] MEDS ORDERED: Sodium Chloride 0.9% 1,000 ML IV SCH (16:00)
--- NOTE | 2018-05-26 16:10 | PCM.RRT ---
Plan - Assessment of Findings&Treatment Plan [facility] Start time: 3:29pm [facility] [facility] Reason: Hypotension S: RN called [facility] [facility] as pt was found hypotensive during vitals check. Patient is poor historian, was admitted due to viral menigitis. He has been spiking fevers throught the day last fever this afternoon T 101.2. Patient is sleepy but arousable to verbal and painful stimuli, he denies any headache, chest pain, sob, cough, abdominal pain. Skin is clammy. O: Vitals: BP 65/35, HR 56, O2 sat 96, Temp 98.2 General: no acute distress, sleepy but arousable to verbal and painful stimuli, clammy skin Cardiac: RRR, +s1 s2 Lungs: CTABL Abdomen: Soft, non tender Extremities: No pedal edema Neuro: sleepy but easy arousable, no focal deficit A/P: 77 yo male patient with hypotension, r/o sepsis - IV insertion - IVF NS 2 bags bolus - O2 NC at 2 lpm - EKG - Accucheck: 145 - cbc, cmp, troponin, ABG (shock panel) - procaciltonin, blood and urine cx - CXR - Pt transferred to ICU - Dr. Segundo made aware by Dr Pat. [facility] [employer] Lead by Dr Jeffrey and Dr Pat [facility] residents: Dr Nguyen PGY 3, Chantelle PGY 2, Robinson PGY 1
[2018-05-26 17:11] LABS: ABG ALLEN TEST YES; ARTERIAL BLOOD GAS HCO3 26.9 mmol/L (21-28); ARTERIAL BLOOD GAS O2 SAT 100.5 % (95-98); ARTERIAL BLOOD GAS PCO2 37 mm/Hg (35-45); ARTERIAL BLOOD GAS PH 7.46 (7.35-7.45); ARTERIAL BLOOD GAS PO2 131 mm/Hg (80-100); ARTERIAL BLOOD GAS TCO2 27.4 mmol/L (22-28)
--- NOTE | 2018-05-26 17:18 | CP.CCUPN ---
CCU Subjective - Physician Review Events Since Last Encounter (Free Text): 05/26/18 17:06 77 yo M. PMHx of Ulcerative colitis, progressive dementia type unknown. Patient being treated for HSV encephalitis. Rapid response called for hypotension, most likely secondary to hypovolemia, since patient's mental status was slowly getting worse. 2L given and there was improvement in blood pressure. 05/26/18 17:18 CCU Objective - Physical Exam Physical Exam Limitations: Positive for: Altered Mental Status Head: Positive for: Atraumatic, Normocephalic Pupils: Positive for: PERRL, Sluggish Extroacular Muscles: Positive for: EOMI Conjunctiva: Positive for: Normal Mouth: Positive for: Dry Nose (External): Positive for: Atraumatic Respiratory/Chest: Positive for: Clear to Auscultation, Good Air Exchange Cardiovascular: Positive for: Regular Rate and Rhythm Abdomen: Positive for: Normal Bowel Sounds. Negative for: Tenderness, Distention Upper Extremity: Positive for: Normal Inspection Lower Extremity: Positive for: Normal Inspection Neurological: Negative for: GCS=15 Psychiatric: Negative for: Alert, Oriented x 3 - Medications Active Medications: Active Medications Generic Name Dose Route Start Last Admin Trade Name Freq PRN Reason Stop Dose Admin Acetaminophen 650 mg 05/23/18 12:17 05/26/18 12:36 Tylenol 325mg Tab PO 650 mg Q4 PRN Administration Fever >100.4 F Docusate Sodium 200 mg 05/25/18 10:15 05/26/18 08:26 Colace PO Not Given DAILY [facility] Escitalopram Oxalate 20 mg 05/27/18 09:00 Lexapro PO DAILY [facility] Ceftriaxone Sodium 2 gm/ 100 mls @ 100 mls/hr 05/23/18 05:00 05/26/18 05:32 Sodium Chloride IVPB Not Given Q12@0500,1700 [facility] Protocol Acyclovir 700 mg/ Sodium 250 mls @ 250 mls/hr 05/25/18 04:00 05/26/18 12:38 Chloride IVPB 250 mls/hr Q8@0400,1200,2000 [facility] Administration Protocol Lactated Ringer's 1,000 mls @ 999 mls/hr 05/26/18 15:45 Lactated Ringer's IV .Q1H1M [facility] Sodium Chloride 1,000 mls @ 999 mls/hr 05/26/18 16:00 Sodium Chloride 0.9% IV 05/27/18 15:59 .Q1H1M [facility] Quetiapine Fumarate 50 mg 05/26/18 17:00 Seroquel PO TID [facility] - Patient Studies Lab Studies: Microbiology Studies 05/22/18 14:00 Gram Stain - Final Cerebral Spinal Fluid CSF Culture - Preliminary NO GROWTH AFTER 4 DAYS 05/22/18 11:30 Blood Culture - Preliminary Blood NO GROWTH AFTER 4 DAYS 05/22/18 11:30 Blood Culture - Preliminary Blood NO GROWTH AFTER 4 DAYS Lab Studies 05/26/18 05/26/18 05/26/18 Range/Units 16:16 15:37 09:15 WBC 9.5 (4.8-10.8) K/uL RBC 4.02 L (4.40-5.90) Mil/uL Hgb 11.9 L (12.0-18.0) g/dL Hct 36.1 (35.0-51.0) % MCV 89.9 (80.0-94.0) fl MCH 29.6 (27.0-31.0) pg MCHC 32.9 L (33.0-37.0) g/dL RDW 16.0 H (11.5-14.5) % Plt Count 191 (130-400) K/uL MPV 7.5 (7.2-11.7) fl Neut % (Auto) 68.1 (50.0-75.0) % Lymph % (Auto) 15.7 L (20.0-40.0) % Saline % (Auto) 11.8 H (0.0-10.0) % Eos % (Auto) 3.6 (0.0-4.0) % Baso % (Auto) 0.8 (0.0-2.0) % Neut # (Auto) 6.5 (1.8-7.0) K/uL Lymph # (Auto) 1.5 (1.0-4.3) K/uL Saline # (Auto) 1.1 H (0.0-0.8) K/uL Eos # (Auto) 0.3 (0.0-0.7) K/uL Baso # (Auto) 0.1 (0.0-0.2) K/uL POC Glucose (mg/dL) 123 H 145 H (65-110) mg/dL Hepatitis A IgM Ab (NEGATIVE) Hep Bs Antigen (NEGATIVE) Hep B Core IgM Ab (NEGATIVE) Hepatitis C Antibody (NEGATIVE) HIV 1&2 Antibody Screen (NEGATIVE) 05/24/18 05/24/18 Range/Units 04:30 04:30 WBC (4.8-10.8) K/uL RBC (4.40-5.90) Mil/uL Hgb (12.0-18.0) g/dL Hct (35.0-51.0) % MCV (80.0-94.0) fl MCH (27.0-31.0) pg MCHC (33.0-37.0) g/dL RDW (11.5-14.5) % Plt Count (130-400) K/uL MPV (7.2-11.7) fl Neut % (Auto) (50.0-75.0) % Lymph % (Auto) (20.0-40.0) % Saline % (Auto) (0.0-10.0) % Eos % (Auto) (0.0-4.0) % Baso % (Auto) (0.0-2.0) % Neut # (Auto) (1.8-7.0) K/uL Lymph # (Auto) (1.0-4.3) K/uL Saline # (Auto) (0.0-0.8) K/uL Eos # (Auto) (0.0-0.7) K/uL Baso # (Auto) (0.0-0.2) K/uL POC Glucose (mg/dL) (65-110) mg/dL Hepatitis A IgM Ab Negative (NEGATIVE) Hep Bs Antigen Negative (NEGATIVE) Hep B Core IgM Ab Negative (NEGATIVE) Hepatitis C Antibody Negative (NEGATIVE) HIV 1&2 Antibody Screen Negative (NEGATIVE) Laboratory Results - last 24 hr 05/24/18 05/24/18 05/26/18 04:30 04:30 09:15 WBC 9.5 RBC 4.02 L Hgb 11.9 L Hct 36.1 MCV 89.9 MCH 29.6 MCHC 32.9 L RDW 16.0 H Plt Count 191 MPV 7.5 Neut % (Auto) 68.1 Lymph % (Auto) 15.7 L Saline % (Auto) 11.8 H Eos % (Auto) 3.6 Baso % (Auto) 0.8 Neut # (Auto) 6.5 Lymph # (Auto) 1.5 Saline # (Auto) 1.1 H Eos # (Auto) 0.3 Baso # (Auto) 0.1 POC Glucose (mg/dL) Hepatitis A IgM Ab Negative Hep Bs Antigen Negative Hep B Core IgM Ab Negative Hepatitis C Antibody Negative HIV 1&2 Antibody Screen Negative 05/26/18 05/26/18 15:37 16:16 WBC RBC Hgb Hct MCV MCH MCHC RDW Plt Count MPV Neut % (Auto) Lymph % (Auto) Saline % (Auto) Eos % (Auto) Baso % (Auto) Neut # (Auto) Lymph # (Auto) Saline # (Auto) Eos # (Auto) Baso # (Auto) POC Glucose (mg/dL) 145 H 123 H Hepatitis A IgM Ab Hep Bs Antigen Hep B Core IgM Ab Hepatitis C Antibody HIV 1&2 Antibody Screen EKG/Cardiology Studies: Cardiology / EKG Studies 05/26/18 EKG [ELECTROCARDIOGRAM] Stat Comment: 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 PMHx of Ulcerative colitis, progressive dementia type unknown. Patient being treated for HSV encephalitis. Neuro: obtunded, worsening HSV encephalitis on a patient with underlying dementia. Pulm: no acute issues, breathing spontaneously on room air. CV: hypotensive, gave 2L fluid boluses, continue LR@100 x 24h then reassess. Hem: no acute issues Renal: no acute issues, will monitor urine output Endo: no acute issues GI: NPO while obtunded. ID: HSV encephalitis, continue Acyclovir. Ceftriaxone could be discontinued, will discuss with ID - Dr. Smith DVT proph - lovenox GI proph - not currently indicated Code status - full code Critical Care time spent 35 minutes Multi-disciplinary rounds were performed with house staff, nursing, speech therapy, respiratory therapy, pharmacy and nutrition with integrated input from the primary team/attending and other consulting services. The documented time is cumulative and includes review of patient data/exams/labs/chart review and examination of the patient on rounds and throughout the day; time is exclusive of any procedures or teaching time. Current Visit: Yes Status: Acute
[2018-05-26 17:24] LABS: N MENINGITIS ACY/W135 NEGATIVE (NEGATIVE); N MENINGITIS B/ECOLI K1 NEGATIVE (NEGATIVE); STREP PNEUMONIAE NEGATIVE (NEGATIVE); STREPTOCOCCUS B NEGATIVE (NEGATIVE)
[2018-05-26 17:42] LABS: BASO % 0.5 % (0.0-2.0); EOS # 0.2 K/uL (0.0-0.7); HEMOGLOBIN 10.4 g/dL (12.0-18.0); LYMPH # 1.2 K/uL (1.0-4.3); LYMPH % 15.8 % (20.0-40.0); MEAN CELL VOLUME 89.7 fl (80.0-94.0); MEAN CORPUSCULAR HEMOGLOBIN 29.5 pg (27.0-31.0); MEAN CORPUSCULAR HGB CONC 32.9 g/dL (33.0-37.0); MEAN PLATELET VOLUME 7.2 fl (7.2-11.7); MONO # 0.9 K/uL (0.0-0.8); MONO % 11.8 % (0.0-10.0); NEUT # 5.4 K/uL (1.8-7.0); NEUT % 68.9 % (50.0-75.0); RBC 3.53 Mil/uL (4.40-5.90); RED CELL DISTRIBUTION WIDTH 15.9 % (11.5-14.5); WHITE BLOOD COUNT 7.8 K/uL (4.8-10.8)
[2018-05-26] MEDS: Lactated Ringer's 1,000 ML IV SCH (17:42)
[2018-05-26 18:05] LABS: ALBUMIN 3.1 g/dL (3.5-5.0); ALT/SGPT 34 U/L (21-72); AST/SGOT 30 U/L (17-59); BLOOD UREA NITROGEN 17 mg/dl (9-20); CALCIUM 8.1 mg/dL (8.4-10.2); GFR NON-AFRICAN AMERICAN 59
[2018-05-27] MEDS: cefTRIAXone 2 GM in Sodium Chloride 0.9% 100 ML IVPB SCH ×2 (04:13→17:15)
[2018-05-27] MEDS: Lactated Ringer's 1,000 ML IV SCH ×3 (04:20→23:00)
[2018-05-27 05:19] LABS: BASO % 0.5 % (0.0-2.0); EOS # 0.2 K/uL (0.0-0.7); EOS % 2.4 % (0.0-4.0); HEMOGLOBIN 11.6 g/dL (12.0-18.0); LYMPH % 12.5 % (20.0-40.0); MEAN CELL VOLUME 90.2 fl (80.0-94.0); MEAN CORPUSCULAR HEMOGLOBIN 29.4 pg (27.0-31.0); MEAN CORPUSCULAR HGB CONC 32.6 g/dL (33.0-37.0); MEAN PLATELET VOLUME 7.2 fl (7.2-11.7); MONO # 0.8 K/uL (0.0-0.8); MONO % 10.1 % (0.0-10.0); NEUT # 6.2 K/uL (1.8-7.0); NEUT % 74.5 % (50.0-75.0); RBC 3.94 Mil/uL (4.40-5.90); WHITE BLOOD COUNT 8.3 K/uL (4.8-10.8)
[2018-05-27 05:31] LABS: ALB/GLOB RATIO 0.9 (1.0-2.1); ALBUMIN 3.3 g/dL (3.5-5.0); CALCIUM 8.6 mg/dL (8.4-10.2)
[2018-05-27] MEDS: Enoxaparin 40 mg Syringe SC SCH (09:20)
--- NOTE | 2018-05-27 09:28 | CP.PCM.PN ---
Subjective - Date & Time of Evaluation Date of Evaluation: 05/27/18 Time of Evaluation: 09:28 - Subjective Subjective: Patient still lethargic at times s/p hypotension continue present x Objective - Vital Signs/Intake and Output Vital Signs (last 24 hours): Temp Pulse Resp BP Pulse Ox 99.4 F 77 19 118/48 L 98 05/27/18 08:00 05/27/18 08:00 05/27/18 08:00 05/27/18 08:00 05/27/18 08:00 Intake and Output: 05/26/18 05/27/18 23:59 11:59 Intake Total 2950 1150 Output Total 450 700 Balance 2500 450 - Medications Medications: Current Medications Acetaminophen (Tylenol 325mg Tab) 650 mg PO Q4 PRN PRN Reason: Fever >100.4 F Last Admin: 05/26/18 12:36 Dose: 650 mg Docusate Sodium (Colace) 200 mg PO DAILY [facility] Last Admin: 05/27/18 09:19 Dose: Not Given Enoxaparin Sodium (Lovenox) 40 mg SC DAILY [facility]; Protocol Last Admin: 05/27/18 09:20 Dose: 40 mg Escitalopram Oxalate (Lexapro) 20 mg PO DAILY [facility] Last Admin: 05/27/18 09:20 Dose: Not Given Ceftriaxone Sodium 2 gm/ (Sodium Chloride) 100 mls @ 100 mls/hr IVPB Q12@0500,1700 [facility]; Protocol Last Admin: 05/27/18 04:13 Dose: 100 mls/hr Acyclovir 700 mg/ Sodium (Chloride) 250 mls @ 250 mls/hr IVPB Q8@0400,1200,2000 [facility]; Protocol Last Admin: 05/27/18 04:18 Dose: 250 mls/hr Lactated Ringer's (Lactated Ringer's) 1,000 mls @ 100 mls/hr IV .Q10H [facility] Stop: 05/27/18 17:31 Last Admin: 05/27/18 04:20 Dose: 100 mls/hr Quetiapine Fumarate (Seroquel) 50 mg PO TID [facility] Last Admin: 05/27/18 09:20 Dose: Not Given - Labs Labs: 05/27/18 05:08 05/27/18 05:08 PT 14.8 Seconds (9.8-13.1) H 05/22/18 11:30 INR 1.3 05/22/18 11:30 APTT 37.8 Seconds (25.6-37.1) H 05/22/18 11:30 - Constitutional Appears: Confused, Cachectic, Chronically Ill - Head Exam Head Exam: ATRAUMATIC, NORMAL INSPECTION, NORMOCEPHALIC - ENT Exam ENT Exam: Mucous Membranes Dry - Neck Exam Neck Exam: Full ROM - Respiratory Exam Respiratory Exam: Decreased Breath Sounds - Cardiovascular Exam Cardiovascular Exam: Tachycardia, REGULAR RHYTHM, +S1, +S2 - GI/Abdominal Exam GI & Abdominal Exam: Normal Bowel Sounds - Extremities Exam Extremities Exam: Normal Inspection - Neurological Exam Neurological Exam: Altered - Psychiatric Exam Psychiatric exam: Flat Affect - Skin Skin Exam: Pallor Assessment and Plan (1) Meningitis Status: Acute (2) Dementia Status: Acute (3) Colitis Status: Chronic (4) Crohn disease Status: Chronic (5) Debility Status: Chronic
--- NOTE | 2018-05-27 09:51 | RAD ---
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 PLEURA: No pneumothorax or pleural fluid seen. CARDIOVASCULAR: No aortic atherosclerotic calcification present. Normal. OSSEOUS STRUCTURES: No significant abnormalities. VISUALIZED UPPER ABDOMEN: Normal. OTHER FINDINGS: None. IMPRESSION: No active disease.
--- NOTE | 2018-05-27 11:17 | PQF ---
PROVIDER RESPONSE TEXT: HSV PCR + on CSF REVIEWER QUERY TEXT: Documentation Clarification Your help is requested in clarifying the following clinical documentation, if you can please further specify in the medical record and discharge summary. AFTER workup would you please clarify the Type of Meningitis. The patient's Clinical Indicators include: ID: [id number] y/o male with a PMHx of Alzheimer's Disease brought in by EMS for evaluation of a high fever f or the past two days. Patient has been very lethargic, sleeping more frequently and less talkative than normal. Found to have 103 fever on admission and LP revealed lymphocytic predominance with pleocytosis and High protein Started on empiric IV antibiotics for possible meningitis Viral vs Bacterial Patient is high risk due to Immunocompromised state on Humira Consider LAURA virus as well as HSV CMV EBV in differential cont empiric acyclovir, Vanco, Rocephin CSF: No growth, HSV I DNA PCR detected Query created by: Karine Buckner on 05/27/2018 10:26 AM Electronically signed by: Carter Smith MD 05/27/2018 11:14 AM
--- NOTE | 2018-05-27 20:25 | CARD ---
APPROVED REPORT Date of service: 05/26/2018 EKG Measurement Heart [id number] <Conclusion> Sinus bradycardia Left axis deviation Incomplete right bundle branch block Minimal voltage criteria for LVH, may be normal variant Prolonged QT Spikes are likely artifacts Abnormal ECG
[2018-05-27] MEDS ORDERED: Lactated Ringer's 500 ML IV SCH (20:30)
--- NOTE | 2018-05-28 04:09 | PN ---
DATE: 05/27/2018 SUBJECTIVE: The patient in ICU, bed 423. Time spent 35 minutes. The patient is seen and evaluated at the bedside. Past medical, surgical and social history noted. A 77-year-old male with history of Alzheimer's disease, admitted through ER for evaluation of high fever for 2 days prior to the admission. The patient is also known to have ulcerative colitis. 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 Remains alert, awake but confused and slow to respond. No respiratory distress. No cough. No chest pain. No palpitation. PHYSICAL EXAMINATION: VITAL SIGNS: Temperature 100.5, heart rate of 72, blood pressure 115/45 with a mean arterial pressure of 68, respiratory rate 21, saturation 100% on room air. Intake 4100, output 1150, positive balance 2950. Weight 149 pounds. HEAD, EYES, EARS, NOSE, THROAT: Atraumatic, normocephalic. Pupils equal, round, reactive to light and accommodation. Extraocular muscles intact. Conjunctivae pink. Sclerae are white. NECK: Supple. CHEST: Bilateral breath sounds clear to auscultation. HEART: Rhythm regular. S1, S2 normal. ABDOMEN: Bowel sounds present. No tenderness. EXTREMITIES: No clubbing or cyanosis. Trace edema. NEUROLOGIC: Ceasar coma scale 15, but slow to respond. No cranial nerve deficit. No motor deficit. Sensory system cannot be elicited. MEDICATIONS: Current medications include Tylenol 650 every 4 hours four p.r.n. acyclovir 700 mg IV every 8 hours, ceftriaxone 2 g IV every 12 hours, Colace 200 mg p.o. daily, Lovenox 40 mg subcu daily, Lexapro 20 mg p.o. daily, Seroquel 50 mg p.o. three times daily. LABORATORY DATA: WBC 8.3, hemoglobin 11.6, hematocrit 35.6, platelet count of 200, neutrophils 74.5, lymphocytes 12.5, monocytes 10.1. PT 14.8, INR 1.3, PTT 37.8. ABG, pH of 7.46, pCO2 of 37, pO2 of 131, oxygen saturation 100.5. SMA-7: Sodium 139, potassium 3.9, chloride 105, CO2 of 26, blood urea nitrogen 21, creatinine 1.8, random glucose 112, total protein 6.7, albumin 3.3. Urinalysis negative. CSF: WBC 248, RBC 87, total cell count 100, neutrophils 29, lymphocytes 41, monocytes 30, glucose 65, total protein 66. Toxicology, vancomycin trough level 9.6. Serology, hepatitis B core antibody negative. Legionella antigen negative. DISCUSSION: A 77-year-old male with history of ulcerative colitis, progressive dementia, being treated for HSV encephalitis. Neuro: Awake, slow to respond, on acylovir and ceftriaxone. Pulmonary: No acute issues. No respiratory distress noted. Cardiovascular: Blood pressure improved and stable after IV hydration. Continue IV fluid. Hematology: Hemoglobin, hematocrit, platelet count within normal limits. Renal: Acute on chronic renal insufficiency, stable BUN and creatinine. Endocrine: No acute issues. Gastrointestinal: N.p.o., continue feeding as tolerated. DVT prophylaxis, GI prophylaxis not currently needed. FULL CODE. aDvid Lilly MD
[2018-05-28] MEDS: cefTRIAXone 2 GM in Sodium Chloride 0.9% 100 ML IVPB SCH ×2 (04:45→17:18)
[2018-05-28 05:50] LABS: BASO % 0.4 % (0.0-2.0); EOS # 0.4 K/uL (0.0-0.7); EOS % 4.4 % (0.0-4.0); HEMOGLOBIN 11.6 g/dL (12.0-18.0); LYMPH # 1.4 K/uL (1.0-4.3); MEAN CELL VOLUME 91.8 fl (80.0-94.0); MEAN CORPUSCULAR HEMOGLOBIN 29.1 pg (27.0-31.0); MEAN CORPUSCULAR HGB CONC 31.7 g/dL (33.0-37.0); MEAN PLATELET VOLUME 7.9 fl (7.2-11.7); MONO # 0.9 K/uL (0.0-0.8); MONO % 9.9 % (0.0-10.0); NEUT # 6.4 K/uL (1.8-7.0); NEUT % 70.3 % (50.0-75.0); NRBC % 0.1 % (0.0-0.0); RBC 3.98 Mil/uL (4.40-5.90); RED CELL DISTRIBUTION WIDTH 16.5 % (11.5-14.5); WHITE BLOOD COUNT 9.1 K/uL (4.8-10.8)
[2018-05-28 07:40] LABS: BLOOD UREA NITROGEN 18 mg/dl (9-20); CALCIUM 8.8 mg/dL (8.4-10.2); GFR NON-AFRICAN AMERICAN > 60
[2018-05-28] MEDS: Enoxaparin 40 mg Syringe SC SCH (09:05)
--- NOTE | 2018-05-28 11:23 | CP.PCM.PN ---
Subjective - Date & Time of Evaluation Date of Evaluation: 05/28/18 Time of Evaluation: 09:00 - Subjective Subjective: awake confused afebrile in NAD Objective - Vital Signs/Intake and Output Vital Signs (last 24 hours): Temp Pulse Resp BP Pulse Ox 98.2 F 71 21 116/45 L 100 05/28/18 08:00 05/28/18 10:00 05/28/18 10:00 05/28/18 10:00 05/28/18 10:00 Intake and Output: 05/28/18 05/28/18 06:59 18:59 Intake Total 1152 600 Output Total 1050 Balance 1152 -450 - Medications Medications: Current Medications Acetaminophen (Tylenol 325mg Tab) 650 mg PO Q4 PRN PRN Reason: Fever >100.4 F Last Admin: 05/27/18 17:17 Dose: 650 mg Docusate Sodium (Colace) 200 mg PO DAILY [facility] Last Admin: 05/28/18 08:37 Dose: Not Given Enoxaparin Sodium (Lovenox) 40 mg SC DAILY [facility]; Protocol Last Admin: 05/28/18 09:05 Dose: 40 mg Escitalopram Oxalate (Lexapro) 20 mg PO DAILY [facility] Last Admin: 05/28/18 09:04 Dose: 20 mg Ceftriaxone Sodium 2 gm/ (Sodium Chloride) 100 mls @ 100 mls/hr IVPB Q12@0500,1700 [facility]; Protocol Last Admin: 05/28/18 04:45 Dose: 100 mls/hr Lactated Ringer's (Lactated Ringer's 500ml) 500 mls @ 999 mls/hr IV .Q31M [facility] Last Admin: 05/27/18 20:30 Dose: 999 mls/hr Lactated Ringer's (Lactated Ringer's) 1,000 mls @ 100 mls/hr IV .Q10H [facility] Last Admin: 05/27/18 23:00 Dose: 100 mls/hr Quetiapine Fumarate (Seroquel) 50 mg PO TID [facility] Last Admin: 05/27/18 17:15 Dose: 50 mg - Labs Labs: 05/28/18 05:38 05/28/18 06:37 PT 14.8 Seconds (9.8-13.1) H 05/22/18 11:30 INR 1.3 05/22/18 11:30 APTT 37.8 Seconds (25.6-37.1) H 05/22/18 11:30 - Constitutional Appears: Confused, Cachectic, Chronically Ill - Head Exam Head Exam: ATRAUMATIC, NORMAL INSPECTION, NORMOCEPHALIC - Eye Exam Eye Exam: EOMI, Normal appearance, PERRL Pupil Exam: NORMAL ACCOMODATION, PERRL - ENT Exam ENT Exam: Mucous Membranes Moist, Normal Exam - Neck Exam Neck Exam: Full ROM, Normal Inspection. absent: Lymphadenopathy - Respiratory Exam Respiratory Exam: Clear to Ausculation Bilateral, NORMAL BREATHING PATTERN - Cardiovascular Exam Cardiovascular Exam: REGULAR RHYTHM, +S1, +S2. absent: Murmur - GI/Abdominal Exam GI & Abdominal Exam: Soft, Normal Bowel Sounds. absent: Tenderness - Rectal Exam Rectal Exam: Deferred - Exam Exam: NORMAL INSPECTION - Extremities Exam Extremities Exam: Normal Capillary Refill, Normal Inspection, Pedal Edema. absent: Joint Swelling - Back Exam Back Exam: NORMAL INSPECTION - Neurological Exam Neurological Exam: Alert, Altered, Awake, CN II-XII Intact. 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
--- NOTE | 2018-05-28 11:56 | CP.PCM.PN ---
Subjective - Date & Time of Evaluation Date of Evaluation: 05/28/18 Time of Evaluation: 11:56 - Subjective Subjective: Still very lethargic. Respond to verbal stimuli. Objective - Vital Signs/Intake and Output Vital Signs (last 24 hours): Temp Pulse Resp BP Pulse Ox 98.7 F 68 11 L 119/52 L 99 05/28/18 11:50 05/28/18 11:50 05/28/18 11:50 05/28/18 11:50 05/28/18 11:50 Intake and Output: 05/27/18 05/28/18 23:59 11:59 Intake Total 2422 1200 Output Total 1200 1050 Balance 1222 150 - Medications Medications: Current Medications Acetaminophen (Tylenol 325mg Tab) 650 mg PO Q4 PRN PRN Reason: Fever >100.4 F Last Admin: 05/27/18 17:17 Dose: 650 mg Docusate Sodium (Colace) 200 mg PO DAILY [facility] Last Admin: 05/28/18 08:37 Dose: Not Given Enoxaparin Sodium (Lovenox) 40 mg SC DAILY [facility]; Protocol Last Admin: 05/28/18 09:05 Dose: 40 mg Escitalopram Oxalate (Lexapro) 20 mg PO DAILY [facility] Last Admin: 05/28/18 09:04 Dose: 20 mg Ceftriaxone Sodium 2 gm/ (Sodium Chloride) 100 mls @ 100 mls/hr IVPB Q12@0500,1700 [facility]; Protocol Last Admin: 05/28/18 04:45 Dose: 100 mls/hr Lactated Ringer's (Lactated Ringer's 500ml) 500 mls @ 999 mls/hr IV .Q31M [facility] Last Admin: 05/27/18 20:30 Dose: 999 mls/hr Lactated Ringer's (Lactated Ringer's) 1,000 mls @ 100 mls/hr IV .Q10H [facility] Last Admin: 05/27/18 23:00 Dose: 100 mls/hr Quetiapine Fumarate (Seroquel) 50 mg PO TID [facility] Last Admin: 05/27/18 17:15 Dose: 50 mg - Labs Labs: 05/28/18 05:38 05/28/18 06:37 PT 14.8 Seconds (9.8-13.1) H 05/22/18 11:30 INR 1.3 05/22/18 11:30 APTT 37.8 Seconds (25.6-37.1) H 05/22/18 11:30 - Constitutional Appears: Confused, Cachectic, Chronically Ill - Head Exam Head Exam: ATRAUMATIC, NORMAL INSPECTION, NORMOCEPHALIC - Eye Exam Eye Exam: Normal appearance - ENT Exam ENT Exam: Normal Exam - Neck Exam Neck Exam: Full ROM - Respiratory Exam Respiratory Exam: Decreased Breath Sounds - Cardiovascular Exam Cardiovascular Exam: REGULAR RHYTHM, +S1, +S2 - GI/Abdominal Exam GI & Abdominal Exam: Normal Bowel Sounds - Extremities Exam Extremities Exam: Normal Inspection - Neurological Exam Neurological Exam: Altered - Skin Skin Exam: Pallor Assessment and Plan (1) Meningitis Status: Acute (2) Dementia Status: Acute (3) Colitis Status: Chronic (4) Crohn disease Status: Chronic (5) Debility Status: Chronic
[2018-05-28] MEDS: Lactated Ringer's 1,000 ML IV SCH (11:59)
--- NOTE | 2018-05-28 16:57 | CP.CCUPN ---
CCU Subjective - Physician Review Subjective (Free Text): Lethargic, but opens eyes to name; hypotensive overnight and responded to fluid challenge. On LR 100 ml/hr now. Lo grade temps now last 24H, no fever spikes to over 101 as during time of hospital admission. Temps mostly 98F; SBPs 90-100s, HR 60s. Best SPO2 100% on NC; voided urine 1050ml overnight. ROS: No other pertinent negs or positive on 10+ system review. Other PMSFH: All other Nursing and physician documentation reviewed to date; no new pertinent info noted relevant to current medical problems. EXAM- HEENT: no icterus, pupils equal, 3 mm and reactive, no gaze preference, no nystagmus, + gag. NECK: no visible JVD, supple, carotids equal upstroke bilat/no bruits CHEST: scattered crackles bilat, no wheezes audible HEART: regular, distant, tachy S1S2, no murmur audible, no rubs. ABD: soft, no distention, no focal tenderness, BS hypoactive EXT: no cyanosis, no calf tenderness or palpable cords, distal pulses intact and symmetrical NEURO: + tone, no gross focal weakness. SKIN: no rashes LABS: WBC= 9.1 HGB= 11.6 PLTs = 197K Na= 141 K= 4.1 Cl= 108 HCO3= 20 BUN/Cr= 18/1.1 BS= 70 CXR last done on 05/26: (my interp) increased interstitial markings perihilar regions. IMPRESSION / MAJOR PROBLEMS NOW: 1. AMS 2 r/o viral Encephalitis vs. meningitis 2. Hypovolemic Shock 3. Azotemia/ Dehydration 4. Chronic Disease Anemia 5. h/o Dementia 6. h/o Ulcerative Colitis PLAN: 1. More volume expansion, azotemia responding and BP responds to fluid challenges. 2. Empiric Rocephin. Acyclovir has been discontinued by ID. 3. Hold anti-psychotic meds: Lexapro, Seroquel. 4. Airway self-protective mechanisms intact; no need for assisted breathing support.
--- NOTE | 2018-05-28 21:42 | CP.PCM.PCO ---
Physician Communication Note - Physician Communication Note Physician Communication Note: should stay on PO Valtrex indefinitely upon completion of rx
[2018-05-29] MEDS: Acyclovir 500 MG in Sodium Chloride 0.9% 100 ML IV SCH ×3 (01:30→17:36)
[2018-05-29] MEDS: Lactated Ringer's 1,000 ML IV SCH ×2 (04:35→17:34)
[2018-05-29 06:45] LABS: HEMOGLOBIN 10.5 g/dL (12.0-18.0); MEAN CORPUSCULAR HEMOGLOBIN 29.9 pg (27.0-31.0); MEAN CORPUSCULAR HGB CONC 33.3 g/dL (33.0-37.0); RBC 3.51 Mil/uL (4.40-5.90); RED CELL DISTRIBUTION WIDTH 16.3 % (11.5-14.5); WHITE BLOOD COUNT 7.8 K/uL (4.8-10.8)
[2018-05-29 06:51] LABS: MEAN CELL VOLUME 89.7 fl (80.0-94.0)
[2018-05-29 07:03] LABS: ALB/GLOB RATIO 0.9 (1.0-2.1); ALBUMIN 3.3 g/dL (3.5-5.0); ALT/SGPT 45 U/L (21-72); AST/SGOT 39 U/L (17-59); BLOOD UREA NITROGEN 13 mg/dl (9-20); CALCIUM 8.6 mg/dL (8.4-10.2); GFR NON-AFRICAN AMERICAN > 60
[2018-05-29] MEDS: Enoxaparin 40 mg Syringe SC SCH (09:14)
--- NOTE | 2018-05-29 11:10 | PQF ---
PROVIDER RESPONSE TEXT: HSV meningitis REVIEWER QUERY TEXT: Conflicting Documentation Clarification A single mention or documentation of multiple diagnoses for the same clinical presentation appears in the record. Please clarify which of the diagnoses are ruled in and which is ruled out after workup: Herpes simple x Meningitis versus Encephalitis due to HSV. Different ICD-10 codes Please clarify the diagnosis/diagnoses. 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
--- NOTE | 2018-05-29 12:00 | CP.CCUPN ---
CCU Subjective - Physician Review Subjective (Free Text): Sleeping, but opens eyes to name; more alert today but confused. On LR 100 ml/hr now. Max temp 100.7F over the last 24H, but no persistent high fevers. Temps mostly 98F; SBPs 120s, HR 60s. Best SPO2 100% on NC; voided urine 1450ml last 24H. ROS: No other pertinent negs or positive on 10+ system review. Other PMSFH: All other Nursing and physician documentation reviewed to date; no new pertinent info noted relevant to current medical problems. EXAM- HEENT: no icterus, pupils equal, 3 mm and reactive, no gaze preference, no nystagmus, + gag. NECK: no visible JVD, supple, carotids equal upstroke bilat/no bruits CHEST: scattered crackles bilat, no wheezes audible HEART: regular, distant, tachy S1S2, no murmur audible, no rubs. ABD: soft, no distention, no focal tenderness, BS hypoactive EXT: no cyanosis, no calf tenderness or palpable cords, distal pulses intact and symmetrical NEURO: + tone, no gross focal weakness. SKIN: no rashes LABS: WBC= 7.8 HGB= 10.5 PLTs = 260K Na= 139 K= 3.5 Cl= 103 HCO3= 29 BUN/Cr= 13/0.9 BS= 93 IMPRESSION / MAJOR PROBLEMS NOW: 1. AMS 2 r/o viral Encephalitis vs. meningitis 2. Hypovolemic Shock 3. Azotemia/ Dehydration 4. Chronic Disease Anemia 5. h/o Dementia 6. h/o Ulcerative Colitis PLAN: 1. Improved BUN Cr with volume expansion, azotemia resolved. 2. Empiric Rocephin; Acyclovir. 3. Holding anti-psychotic meds: Lexapro, Seroquel. 4. Airway self-protective mechanisms intact; no need for assisted breathing support.
--- NOTE | 2018-05-29 13:06 | CP.PCM.PN ---
Subjective - Date & Time of Evaluation Date of Evaluation: 05/29/18 Time of Evaluation: 13:06 - Subjective Subjective: Patient mental status improving. Objective - Vital Signs/Intake and Output Vital Signs (last 24 hours): Temp Pulse Resp BP Pulse Ox 97.8 F 61 20 104/56 L 99 05/29/18 12:00 05/29/18 12:00 05/29/18 12:00 05/29/18 12:00 05/29/18 12:00 Intake and Output: 05/29/18 05/29/18 11:59 23:59 Intake Total 1550 Output Total 400 Balance 1150 - Medications Medications: Current Medications Acetaminophen (Tylenol 325mg Tab) 650 mg PO Q4 PRN PRN Reason: Fever >100.4 F Last Admin: 05/28/18 14:43 Dose: 650 mg Docusate Sodium (Colace) 200 mg PO DAILY [facility] Last Admin: 05/29/18 09:13 Dose: 200 mg Enoxaparin Sodium (Lovenox) 40 mg SC DAILY [facility]; Protocol Last Admin: 05/29/18 09:14 Dose: 40 mg Escitalopram Oxalate (Lexapro) 20 mg PO DAILY [facility] Last Admin: 05/28/18 09:04 Dose: 20 mg Lactated Ringer's (Lactated Ringer's 500ml) 500 mls @ 999 mls/hr IV .Q31M [facility] Last Admin: 05/27/18 20:30 Dose: 999 mls/hr Lactated Ringer's (Lactated Ringer's) 1,000 mls @ 100 mls/hr IV .Q10H [facility] Last Admin: 05/29/18 04:35 Dose: 100 mls/hr Acyclovir 500 mg/ Sodium (Chloride) 100 mls @ 100 mls/hr IV Q8 [facility]; Protocol Last Admin: 05/29/18 09:15 Dose: 100 mls/hr Quetiapine Fumarate (Seroquel) 50 mg PO TID [facility] Last Admin: 05/28/18 13:15 Dose: 50 mg - Labs Labs: 05/29/18 06:30 05/29/18 06:30 PT 14.8 Seconds (9.8-13.1) H 05/22/18 11:30 INR 1.3 05/22/18 11:30 APTT 37.8 Seconds (25.6-37.1) H 05/22/18 11:30 - Constitutional Appears: Confused, Cachectic, Chronically Ill - Head Exam Head Exam: ATRAUMATIC, NORMAL INSPECTION, NORMOCEPHALIC - Eye Exam Eye Exam: Normal appearance - ENT Exam ENT Exam: Normal Exam - Neck Exam Neck Exam: Full ROM - Respiratory Exam Respiratory Exam: Decreased Breath Sounds - Cardiovascular Exam Cardiovascular Exam: REGULAR RHYTHM, +S1, +S2 - GI/Abdominal Exam GI & Abdominal Exam: Normal Bowel Sounds - Extremities Exam Extremities Exam: Normal Inspection - Neurological Exam Neurological Exam: Altered, Awake - Psychiatric Exam Psychiatric exam: Flat Affect - Skin Skin Exam: Pallor Assessment and Plan (1) Meningitis Status: Acute (2) Dementia Status: Acute (3) Colitis Status: Chronic (4) Crohn disease Status: Chronic (5) Debility Status: Chronic
[2018-05-30] MEDS: Lactated Ringer's 1,000 ML IV SCH ×3 (01:19→10:32)
[2018-05-30] MEDS: Acyclovir 500 MG in Sodium Chloride 0.9% 100 ML IV SCH ×2 (01:20→10:35)
[2018-05-30 08:46] LABS: HEMOGLOBIN 10.2 g/dL (12.0-18.0); MEAN CELL VOLUME 89.6 fl (80.0-94.0); MEAN CORPUSCULAR HEMOGLOBIN 30.2 pg (27.0-31.0); MEAN CORPUSCULAR HGB CONC 33.7 g/dL (33.0-37.0); RBC 3.37 Mil/uL (4.40-5.90); RED CELL DISTRIBUTION WIDTH 15.8 % (11.5-14.5); WHITE BLOOD COUNT 7.2 K/uL (4.8-10.8)
[2018-05-30 08:58] LABS: ALB/GLOB RATIO 0.9 (1.0-2.1); ALT/SGPT 49 U/L (21-72); AST/SGOT 44 U/L (17-59); BLOOD UREA NITROGEN 11 mg/dl (9-20); CALCIUM 8.3 mg/dL (8.4-10.2); GFR NON-AFRICAN AMERICAN > 60
[2018-05-30 09:01] VITALS: TEMP 98
[2018-05-30] MEDS: Enoxaparin 40 mg Syringe SC SCH (10:34)
--- NOTE | 2018-05-30 12:42 | CP.PCM.PN ---
Subjective - Date & Time of Evaluation Date of Evaluation: 05/30/18 Time of Evaluation: 12:42 - Subjective Subjective: More lethargic Objective - Vital Signs/Intake and Output Vital Signs (last 24 hours): Temp Pulse Resp BP Pulse Ox 98.0 F 68 19 104/42 L 96 05/30/18 08:00 05/30/18 12:00 05/30/18 12:00 05/30/18 12:00 05/30/18 12:00 Intake and Output: 05/30/18 05/30/18 11:59 23:59 Intake Total 1550 100 Output Total 900 Balance 650 100 - Medications Medications: Current Medications Acetaminophen (Tylenol 325mg Tab) 650 mg PO Q4 PRN PRN Reason: Fever >100.4 F Last Admin: 05/28/18 14:43 Dose: 650 mg Docusate Sodium (Colace) 200 mg PO DAILY [facility] Last Admin: 05/30/18 11:32 Dose: 200 mg Enoxaparin Sodium (Lovenox) 40 mg SC DAILY [facility]; Protocol Last Admin: 05/30/18 10:34 Dose: 40 mg Escitalopram Oxalate (Lexapro) 20 mg PO DAILY [facility] Last Admin: 05/28/18 09:04 Dose: 20 mg Lactated Ringer's (Lactated Ringer's) 1,000 mls @ 100 mls/hr IV .Q10H [facility] Last Admin: 05/30/18 10:32 Dose: 100 mls/hr Acyclovir 500 mg/ Sodium (Chloride) 100 mls @ 100 mls/hr IV Q8 [facility]; Protocol Last Admin: 05/30/18 10:35 Dose: 100 mls/hr Quetiapine Fumarate (Seroquel) 50 mg PO TID [facility] Last Admin: 05/28/18 13:15 Dose: 50 mg - Labs Labs: 05/30/18 08:00 05/30/18 08:00 PT 14.8 Seconds (9.8-13.1) H 05/22/18 11:30 INR 1.3 05/22/18 11:30 APTT 37.8 Seconds (25.6-37.1) H 05/22/18 11:30 - Constitutional Appears: Confused, Cachectic, Chronically Ill - Head Exam Head Exam: ATRAUMATIC, NORMAL INSPECTION, NORMOCEPHALIC - Eye Exam Eye Exam: Normal appearance - ENT Exam ENT Exam: Normal Exam - Neck Exam Neck Exam: Full ROM - Respiratory Exam Respiratory Exam: Decreased Breath Sounds - Cardiovascular Exam Cardiovascular Exam: REGULAR RHYTHM, +S1, +S2 - GI/Abdominal Exam GI & Abdominal Exam: Normal Bowel Sounds - Extremities Exam Extremities Exam: Normal Inspection - Neurological Exam Neurological Exam: Altered Assessment and Plan (1) Meningitis Status: Acute (2) Dementia Status: Acute (3) Colitis Status: Chronic (4) Crohn disease Status: Chronic (5) Debility Status: Chronic
--- NOTE | 2018-05-30 12:59 | CP.PCM.DIS ---
Provider - Provider Date of Admission: 05/22/18 14:07 Attending physician: Eliseo Segundo MD Consults: 05/22/18 14:29 Infectious Disease Consult Stat Comment: Consulting Provider: Carter Smith Consulting Physician: Carter Smith Reason for Consult: sepsis AMS 05/22/18 22:23 Case Management Referral Routine Comment: patient wheelchair bound @ home Physician Instructions: Reason For Exam: needs assistance at home Reason for Referral: Discharge Planning Nursing Referral for Wound Care Routine Comment: Physician Instructions: Reason For Exam: patient wheelchair bound at home 05/27/18 07:37 Wound Care [Nursing Referral for Wound Care] Routine Comment: Physician Instructions: Reason For Exam: redness sacrum and groin Time Spent in preparation of Discharge (in minutes): 30 Diagnosis - Discharge Diagnosis (1) Meningitis Status: Acute (2) Dementia Status: Acute (3) Colitis Status: Chronic (4) Crohn disease Status: Chronic (5) Debility Status: Chronic Hospital Course - Lab Results Lab Results: Micro Results 05/26/18 17:16 Blood-Venous Blood Culture - Preliminary NO GROWTH AFTER 3 DAYS 05/28/18 21:22 Stool Ova and Parasite Concentrate Exam - Final 05/27/18 21:30 Urine,Clean Catch Urine Culture - Final No Growth (<1,000 CFU/ML) 05/26/18 17:38 Naris MRSA Culture (Admit) - Final MRSA NOT DETECTED 05/22/18 11:30 Blood Blood Culture - Final NO GROWTH AFTER 5 DAYS 05/22/18 11:30 Blood Gram Stain - Final TEST NOT PERFORMED 05/22/18 11:30 Blood Blood Culture - Final NO GROWTH AFTER 5 DAYS 05/22/18 11:30 Blood Gram Stain - Final TEST NOT PERFORMED 05/22/18 14:00 Cerebral Spinal Fluid Gram Stain - Final 05/22/18 14:00 Cerebral Spinal Fluid CSF Culture - Final No growth. 05/22/18 14:00 Cerebral Spinal Fluid Gram Stain - Final Most Recent Lab Values WBC 7.2 K/uL (4.8-10.8) 05/30/18 08:00 RBC 3.37 Mil/uL (4.40-5.90) L 05/30/18 08:00 Hgb 10.2 g/dL (12.0-18.0) L 05/30/18 08:00 Hct 30.2 % (35.0-51.0) L 05/30/18 08:00 MCV 89.6 fl (80.0-94.0) 05/30/18 08:00 MCH 30.2 pg (27.0-31.0) 05/30/18 08:00 MCHC 33.7 g/dL (33.0-37.0) 05/30/18 08:00 RDW 15.8 % (11.5-14.5) H 05/30/18 08:00 Plt Count 253 K/uL (130-400) 05/30/18 08:00 MPV 7.9 fl (7.2-11.7) 05/28/18 05:38 Neut % (Auto) 70.3 % (50.0-75.0) 05/28/18 05:38 Lymph % (Auto) 15.0 % (20.0-40.0) L 05/28/18 05:38 [place] % (Auto) 9.9 % (0.0-10.0) 05/28/18 05:38 Eos % (Auto) 4.4 % (0.0-4.0) H 05/28/18 05:38 Baso % (Auto) 0.4 % (0.0-2.0) 05/28/18 05:38 Neut # (Auto) 6.4 K/uL (1.8-7.0) 05/28/18 05:38 Lymph # (Auto) 1.4 K/uL (1.0-4.3) 05/28/18 05:38 [place] # (Auto) 0.9 K/uL (0.0-0.8) H 05/28/18 05:38 Eos # (Auto) 0.4 K/uL (0.0-0.7) 05/28/18 05:38 Baso # (Auto) 0.0 K/uL (0.0-0.2) 05/28/18 05:38 PT 14.8 Seconds (9.8-13.1) H 05/22/18 11:30 INR 1.3 05/22/18 11:30 APTT 37.8 Seconds (25.6-37.1) H 05/22/18 11:30 pCO2 37 mm/Hg (35-45) 05/26/18 17:08 pO2 131 mm/Hg (80-100) H 05/26/18 17:08 HCO3 26.9 mmol/L (21-28) 05/26/18 17:08 ABG pH 7.46 (7.35-7.45) H 05/26/18 17:08 ABG Total CO2 27.4 mmol/L (22-28) 05/26/18 17:08 ABG O2 Saturation 100.5 % (95-98) H 05/26/18 17:08 ABG Base Excess 2.5 mmol/L (-2.0-3.0) 05/26/18 17:08 Panfilo Test Yes 05/26/18 17:08 ABG Potassium 3.7 mmol/L (3.6-5.2) 05/26/18 17:08 A-a O2 Difference 79.0 mm/Hg 05/26/18 17:08 Sodium 138.0 mmol/L (132-148) 05/26/18 17:08 Chloride 109.0 mmol/L (98-107) H 05/26/18 17:08 Glucose 101 mg/dL (75-110) 05/26/18 17:08 Lactate 0.5 mmol/L (0.7-2.1) L 05/26/18 17:08 Vent Mode Nasal cannula 05/26/18 17:08 FiO2 36.0 % 05/26/18 17:08 Sodium 136 mmol/l (132-148) 05/30/18 08:00 Potassium 3.6 MMOL/L (3.6-5.0) 05/30/18 08:00 Chloride 102 mmol/L (98-107) 05/30/18 08:00 Carbon Dioxide 27 mmol/L (22-30) 05/30/18 08:00 Anion Gap 11 (10-20) 05/30/18 08:00 BUN 11 mg/dl (9-20) 05/30/18 08:00 Creatinine 0.7 mg/dl (0.8-1.5) L 05/30/18 08:00 Est GFR ( Amer) > 60 05/30/18 08:00 Est GFR (Non-Af Amer) > 60 05/30/18 08:00 POC Glucose (mg/dL) 112 mg/dL (65-110) H 05/27/18 16:51 Random Glucose 87 mg/dL (75-110) 05/30/18 08:00 Calcium 8.3 mg/dL (8.4-10.2) L 05/30/18 08:00 Phosphorus 3.7 mg/dl (2.5-4.5) 05/27/18 05:08 Magnesium 2.2 MG/DL (1.6-2.3) 05/27/18 05:08 Total Bilirubin 0.3 mg/dl (0.2-1.3) 05/30/18 08:00 AST 44 U/L (17-59) 05/30/18 08:00 ALT 49 U/L (21-72) 05/30/18 08:00 Alkaline Phosphatase 74 U/L (38-126) 05/30/18 08:00 Total Creatine Kinase 43 U/L (55-170) L 05/22/18 11:30 Troponin I < 0.0120 ng/mL (0.00-0.120) 05/26/18 17:16 Total Protein 6.4 G/DL (6.3-8.2) 05/30/18 08:00 Albumin 3.0 g/dL (3.5-5.0) L 05/30/18 08:00 Globulin 3.4 gm/dL (2.2-3.9) 05/30/18 08:00 Albumin/Globulin Ratio 0.9 (1.0-2.1) L 05/30/18 08:00 Procalcitonin 0.11 NG/ML (0.19-0.49) L 05/26/18 17:16 Arterial Blood Potassium 3.7 mmol/L (3.6-5.2) 05/26/18 17:08 Urine Color Yellow (YELLOW) 05/22/18 11:50 Urine Clarity Slighty-cloudy (Clear) 05/22/18 11:50 Urine pH 5.0 (5.0-8.0) 05/22/18 11:50 Ur Specific [place] 1.019 (1.003-1.030) 05/22/18 11:50 Urine Protein 100 mg/dL (NEGATIVE) 05/22/18 11:50 Urine Glucose (UA) Neg mg/dL (NEGATIVE) 05/22/18 11:50 Urine Ketones Negative mg/dL (NEGATIVE) 05/22/18 11:50 Urine Blood Large (NEGATIVE) 05/22/18 11:50 Urine Nitrate Negative (NEGATIVE) 05/22/18 11:50 Urine Bilirubin Negative (NEGATIVE) 05/22/18 11:50 Urine Urobilinogen 0.2-1.0 mg/dL (0.2-1.0) 05/22/18 11:50 Ur Leukocyte Esterase Neg [place]/uL (Negative) 05/22/18 11:50 Urine RBC (Auto) 42 /hpf (0-3) H 05/22/18 11:50 Urine Microscopic WBC 1 /hpf (0-5) 05/22/18 11:50 Fluid Type Spinal fluid 05/22/18 14:00 CSF Volume 1 mL (0-1) 05/22/18 14:00 CSF Appearance Clear/colorless (CLEAR) 05/22/18 14:00 CSF WBC 248.0 /mm3 (0.0-5.0) H 05/22/18 14:00 CSF RBC 87.0 /mm3 (0.0-0.0) H 05/22/18 14:00 CSF Total Cell Counted 100 (0-0) H 05/22/18 14:00 CSF Neutrophils 29 % (0-0) H 05/22/18 14:00 CSF Lymphocytes 41.0 % (0-0) H 05/22/18 14:00 CSF Monos/Macrophages 30 % (0-0) H 05/22/18 14:00 CSF Comment None 05/22/18 14:00 CSF Glucose 65 mg/dL (40-70) 05/22/18 14:00 CSF Total Protein 66.0 mg/dL (12-60) H 05/22/18 14:00 Vancomycin Trough 9.6 ug/mL (5.0-10.0) 05/24/18 04:30 RPR Nonreactive (NONREACTIVE) 05/23/18 15:34 Lyme Disease Screen <0.90 index 05/26/18 11:10 Hepatitis A IgM Ab Negative (NEGATIVE) 05/24/18 04:30 Hep Bs Antigen Negative (NEGATIVE) 05/24/18 04:30 Hep B Core IgM Ab Negative (NEGATIVE) 05/24/18 04:30 Hepatitis C Antibody Negative (NEGATIVE) 05/24/18 04:30 HSV Source Description Csf 05/22/18 14:00 HSV I DNA PCR Detected (Not Detected) H 05/22/18 14:00 HSV II DNA PCR Not detected (Not Detected) 05/22/18 14:00 HIV 1&2 Antibody Screen Negative (NEGATIVE) 05/24/18 04:30 Influenza Typ A,B (EIA) Negative for flu a/b (NEGATIVE) 05/22/18 11:30 H.influenzae Type B Ag Negative (NEGATIVE) 05/24/18 08:22 Ur L.pneumophila Ag Negative (NEGATIVE) 05/24/18 07:00 N.meningitidis ACY/W135 Negative (NEGATIVE) 05/24/18 08:22 N.meningi B/E.coli K1 Ag Negative (NEGATIVE) 05/24/18 08:22 LAURA Virus Spec Source Plasma 05/23/18 15:34 LAURA Virus DNA (PCR) <500 copies/mL (<500) 05/23/18 15:34 Group B Strep Antigen Negative (NEGATIVE) 05/24/18 08:22 S. pneumoniae Antigen Negative (NEGATIVE) 05/24/18 08:22 TB Test (QFT) Nil 0.02 IU/mL 05/26/18 11:10 TB Test Mitogen - Nil >10.00 IU/mL 05/26/18 11:10 TB Test Antigen - Nil 0.00 IU/mL 05/26/18 11:10 TB Test TB - Nil 0.00 IU/mL 05/26/18 11:10 TB Test (QFT) Negative (Negative) 05/26/18 11:10 - Hospital Course Hospital Course: 77 y/o male with a PMHx of Alzheimer's Disease admitted for evaluation of a high fever for the past two days before admission. History obtained through due to patient's clinical condition. As per , patient has been very lethargic, sleeping more frequently and less talkative than normal. notes that at baseline, patient is usually talkative but confused. states patient has additionally not been eating or drinking normally further reporting that she usually gives him pureed food. states she was advised by the patient's PMD to puree his food. Patient noted to be jerking in his sleep while interviewing the . When asked the , notes that this is new and is not normal for the patient. denies cough, abdominal pain, vomiting, shortness of breath, rash, history of Parkinson's Disease and DM. He presented with herpetic meningitis. He well responded to the tx. F/U in TCU Discharge Exam - Head Exam Head Exam: ATRAUMATIC, NORMAL INSPECTION, NORMOCEPHALIC - Eye Exam Eye Exam: Normal appearance - ENT Exam ENT Exam: Normal Exam - Neck Exam Neck exam: Full Rom - Respiratory Exam Respiratory Exam: Decreased Breath Sounds - Cardiovascular Exam Cardiovascular Exam: REGULAR RHYTHM, +S1, +S2 - GI/Abdominal Exam GI & Abdominal Exam: Normal Bowel Sounds - Neurological Exam Neurological exam: Altered - Psychiatric Exam Psychiatric exam: Flat Affect - Skin Skin Exam: Pallor Discharge Plan - Follow Up Plan Condition: GUARDED Disposition: HOME/ ROUTINE
--- NOTE | 2018-05-30 13:03 | CP.PCM.PN ---
Subjective - Date & Time of Evaluation Date of Evaluation: 05/30/18 Time of Evaluation: 09:00 - Subjective Subjective: awake alert pleasantly confused in nad afebrile Objective - Vital Signs/Intake and Output Vital Signs (last 24 hours): Temp Pulse Resp BP Pulse Ox 98.0 F 68 19 104/42 L 96 05/30/18 08:00 05/30/18 12:00 05/30/18 12:00 05/30/18 12:00 05/30/18 12:00 Intake and Output: 05/30/18 05/30/18 06:59 18:59 Intake Total 1200 750 Output Total 900 Balance 300 750 - Medications Medications: Current Medications Acetaminophen (Tylenol 325mg Tab) 650 mg PO Q4 PRN PRN Reason: Fever >100.4 F Last Admin: 05/28/18 14:43 Dose: 650 mg Docusate Sodium (Colace) 200 mg PO DAILY [facility] Last Admin: 05/30/18 11:32 Dose: 200 mg Enoxaparin Sodium (Lovenox) 40 mg SC DAILY [facility]; Protocol Last Admin: 05/30/18 10:34 Dose: 40 mg Escitalopram Oxalate (Lexapro) 20 mg PO DAILY [facility] Last Admin: 05/28/18 09:04 Dose: 20 mg Lactated Ringer's (Lactated Ringer's) 1,000 mls @ 100 mls/hr IV .Q10H [facility] Last Admin: 05/30/18 10:32 Dose: 100 mls/hr Acyclovir 500 mg/ Sodium (Chloride) 100 mls @ 100 mls/hr IV Q8 [facility]; Protocol Last Admin: 05/30/18 10:35 Dose: 100 mls/hr Quetiapine Fumarate (Seroquel) 50 mg PO TID [facility] Last Admin: 05/28/18 13:15 Dose: 50 mg - Labs Labs: 05/30/18 08:00 05/30/18 08:00 PT 14.8 Seconds (9.8-13.1) H 05/22/18 11:30 INR 1.3 05/22/18 11:30 APTT 37.8 Seconds (25.6-37.1) H 05/22/18 11:30 - Constitutional Appears: No Acute Distress, Cachectic, Chronically Ill - Head Exam Head Exam: ATRAUMATIC, NORMAL INSPECTION, NORMOCEPHALIC - Eye Exam Eye Exam: EOMI, Normal appearance, PERRL Pupil Exam: NORMAL ACCOMODATION, PERRL - ENT Exam ENT Exam: Mucous Membranes Moist, Normal Exam - Neck Exam Neck Exam: Full ROM, Normal Inspection. absent: Lymphadenopathy - Respiratory Exam Respiratory Exam: Clear to Ausculation Bilateral, NORMAL BREATHING PATTERN - Cardiovascular Exam Cardiovascular Exam: REGULAR RHYTHM, +S1, +S2. absent: Murmur - GI/Abdominal Exam GI & Abdominal Exam: Soft, Normal Bowel Sounds. absent: Tenderness - Rectal Exam Rectal Exam: Deferred - Extremities Exam Extremities Exam: Full ROM, Normal Capillary Refill, Normal Inspection. absent: Joint Swelling, Pedal Edema - Back Exam Back Exam: NORMAL INSPECTION - Neurological Exam Neurological Exam: Alert, Altered, Awake, CN II-XII Intact. 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
[2018-05-30 15:48] VITALS: BP 107/55; PULSE 67; RESP 17; O2SAT 97
== END 2018-05-30 16:30 | DRG 75 ==
LOC: H.ER 10:52 → H.ERHOLD 14:07 → H.TEL 21:08 → H.ICU/CCU 05-26 16:30
PROVIDERS: ADMIT Internal Medicine; ATTEND Internal Medicine
PROC: 009U3ZX Drainage of Spinal Canal, Percutaneous Approach, Diagnostic (ICD-10-PCS; principal; 2018-05-22)
DX: B00.3 Herpesviral meningitis (principal); J18.9 Pneumonia, unspecified organism; R57.1 Hypovolemic shock; B00.4 Herpesviral encephalitis; K50.90 Crohn's disease, unspecified, without complications; K51.90 Ulcerative colitis, unspecified, without complications; F02.81 Dementia in other diseases classified elsewhere, unspecified severity, with behavioral disturbance; G30.9 Alzheimer's disease, unspecified; G25.3 Myoclonus; E86.1 Hypovolemia; G03.9 Meningitis, unspecified; I10 Essential (primary) hypertension; K75.9 Inflammatory liver disease, unspecified; D64.9 Anemia, unspecified; M19.90 Unspecified osteoarthritis, unspecified site; Z79.899 Other long term (current) drug therapy; I95.9 Hypotension, unspecified

== ENCOUNTER 2018-05-30 15:13 | Inpatient (IN) | payer OTHER, BC ==
[2018-05-30 17:33] VITALS: BMI 25.2
[2018-05-31] MEDS: Acyclovir 500 MG in Sodium Chloride 0.9% 100 ML IV SCH ×3 (00:58→17:17)
[2018-05-31] MEDS ORDERED: Acyclovir 500 mg Inj IV SCH (01:00)
[2018-05-31] MEDS: Enoxaparin 40 mg Syringe SC SCH (09:11)
[2018-06-01] MEDS: Acyclovir 500 MG in Sodium Chloride 0.9% 100 ML IV SCH ×4 (00:31→23:59)
--- NOTE | 2018-06-01 07:38 | CP.PCM.HP ---
Present on Admission - Present on Admission Any Indicators Present on Admission: No Review of Systems - Constitutional Constitutional: As Per HPI - Cardiovascular Cardiovascular: As Per HPI - Respiratory Respiratory: As Per HPI - Gastrointestinal Gastrointestinal: As Per HPI - Musculoskeletal Musculoskeletal: As Per HPI - Integumentary Integumentary: As Per HPI - Neurological Neurological: As Per HPI - Psychiatric Psychiatric: As Per HPI - Endocrine Endocrine: As Per HPI Past Patient History - Infectious Disease Hx of Infectious Diseases: None - Tetanus Immunizations Tetanus Immunization: Unknown - Past Medical History & Family History Past Medical History?: Yes - Past Social History Smoking Status: Never Smoked - CARDIAC Hx Hypertension: Yes - PULMONARY Hx Tuberculosis: No - NEUROLOGICAL Hx Alzheimer's Disease: Yes Hx Dementia: Yes Hx Seizures: No - HEENT Hx HEENT Problems: No - RENAL Hx Chronic Kidney Disease: No - ENDOCRINE/METABOLIC Hx Endocrine Disorders: No - HEMATOLOGICAL/ONCOLOGICAL Hx AIDS: No Hx Anemia: Yes Hx Human Immunodeficiency Virus (HIV): No - INTEGUMENTARY Hx Dermatological Problems: No - MUSCULOSKELETAL/RHEUMATOLOGICAL Hx Falls: No - GASTROINTESTINAL Hx Crohn's Disease: Yes (on humira injections monthly) - GENITOURINARY/GYNECOLOGICAL Hx Sexually Transmitted Disorders: No - PSYCHIATRIC Hx Substance Use: No - SURGICAL HISTORY Hx Surgeries: Yes Hx Herniorrhaphy: Yes Other/Comment: REIMPLANTATION OF DIGITS TO HAND. right upper limb pain - ANESTHESIA Hx Anesthesia: Yes Hx Anesthesia Reactions: No Hx Malignant Hyperthermia: No Meds Allergies/Adverse Reactions: Allergies Allergy/AdvReac Type Severity Reaction Status Date / Time [place] And Derivatives Allergy ANAPHYLAXIS Verified 12/16/17 12:46 ibuprofen [From Advil] Allergy COUGH Verified 12/16/17 12:46 morphine Allergy RASH Verified 12/16/17 12:46 Physical Exam - Constitutional Appears: Confused, Cachectic, Chronically Ill - Head Exam Head Exam: ATRAUMATIC, NORMAL INSPECTION, NORMOCEPHALIC - Eye Exam Eye Exam: Normal appearance - ENT Exam ENT Exam: Normal Exam - Neck Exam Neck exam: Positive for: Full Rom - Respiratory Exam Respiratory Exam: Decreased Breath Sounds - Cardiovascular Exam Cardiovascular Exam: REGULAR RHYTHM, +S1, +S2 - GI/Abdominal Exam GI & Abdominal Exam: Normal Bowel Sounds - Extremities Exam Extremities exam: Positive for: normal inspection - Neurological Exam Neurological exam: Altered - Psychiatric Exam Psychiatric exam: Flat Affect Results - Vital Signs Recent Vital Signs: Last Vital Signs Temp 99.5 F 03/30/19 21:00 Pulse 69 05/31/18 21:00 Resp 20 05/31/18 21:00 BP 133/69 05/31/18 21:00 Pulse Ox 96 05/31/18 21:00 Assessment & Plan (1) Dementia Status: Chronic (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
[2018-06-01] MEDS: Enoxaparin 40 mg Syringe SC SCH (10:10)
--- NOTE | 2018-06-01 12:45 | CP.PCM.CON ---
History of Present Illness - History of Present Illness History of Present Illness: 77 y/o male with a PMHx of Alzheimer's Disease on Humira for Crohns brought in by EMS for evaluation of a high fever Found to have 103 tewmp on admission and LP revealed lymphoccytic predominance with pleocytosis and High protein started on empiric IV antibiotics for possible meningitis CSF + for HSV by PCR gradually improved Now on TCU for cont of `14 days rx - Medical History PMH: Alzheimer's Disease, Anemia, Arthritis, Crohn's Disease (on humira injections monthly), Dementia, Fractures (right ankle), HTN Denies: Diabetes, Hepatitis, HIV, Chronic Kidney Disease, Seizures, Sexually Transmitted Disease Review of Systems - Review of Systems Systems not reviewed;Unavailable: Altered Mental Status All systems: reviewed and no additional remarkable complaints except - Constitutional Constitutional: As Per HPI - EENT Eyes: absent: As Per HPI, Blind Spots, Blurred Vision, Change in Vision, Decreased Night Vision, Diplopia, Discharge, Dry Eye, Exophthalmos, Floaters, Irritation, Itchy Eyes, Loss of Peripheral Vision, Pain, Photophobia, Requires Corrective Lenses, Sees Flashes, Spots in Vision, Tunnel Vision, Other Visual Disturbances, Loss of Vision, Other Ears: absent: As Per HPI, Decreased Hearing, Ear Discharge, Ear Pain, Tinnitus, Abnormal Hearing, Disequilibrium, Dizziness, Other - Cardiovascular Cardiovascular: absent: As Per HPI, Acrocyanosis, Chest Pain, Chest Pain at Rest, Chest Pain with Activity, Claudication, Diaphoresis, Dyspnea, Dyspnea on Exertion, Edema, Irregular Heart Rhythm, Pain Radiating to Arm/Neck/Jaw, Leg Edema, Leg Ulcers, Lightheadedness, Orthopnea, Palpitations, Paroxysmal Nocturnal Dyspnea, Pedal Edema, Radiating Pain, Rapid Heart Rate, Slow Heart Rate, Syncope, Other - Respiratory Respiratory: absent: As Per HPI, Cough, Dyspnea, Hemoptysis, Dyspnea on Exertion, Wheezing, Snoring, Stridor, Pain on Inspiration, Chest Congestion, Excessive Mucous Production, Change in Mucous Color, Pain with Coughing, Other - Gastrointestinal Gastrointestinal: absent: As Per HPI, Abdominal Pain, Belching, Bloating, Change in Bowel Habits, Change in Stool Character, Coffee Ground Emesis, Constipation, Cramping, Diarrhea, Dyspepsia, Dysphagia, Early Satiety, Excessive Flatus, Fecal Incontinence, Heartburn, Hematemesis, Hematochezia, Loose Stools, Melena, Nausea, Odynophagia, Temesmus, Vomiting, Other - Genitourinary Genitourinary: absent: As Per HPI, Change in Urinary Stream, Difficulty Urinating, Dysuria, Flank Pain, Hematuria, Pyuria, Nocturia, Urinary Incontinence, Urinary Frequency, Urinary Hesitance, Urinary Urgency, Voiding Freq/Small Amts, Freq UTI, Hx Renal/Bladder Calculi, Hx /Renal Surgery, Bladder Distension, Other - Musculoskeletal Musculoskeletal: absent: As Per HPI, Abnormal Gait, Arthralgias, Atrophy, Back Pain, Deformity, Joint Swelling, Limited Range of Motion, Loss of Height, Muscle Cramps, Muscle Weakness, Myalgias, Neck Pain, Numbness, Radiating Pain into Limb, Stiffness, Tingling, Other - Integumentary Integumentary: absent: As Per HPI, Acne, Alopecia, Bleeding Lesions, Change in Hair, Change in Nails, Change in Pigmentation, Changing Lesions, Dry Skin, Erythema, Furuncle, Hirsutism, Lesions, New Lesions, Non-Healing Lesions, Photosensitivity, Pruritus, Rash, Skin Pain, Skin Ulcer, Sores, Striae, Swelling, Unusual Bruising, Wounds, Jaundice, Other - Neurological Neurological: As Per HPI - Psychiatric Psychiatric: As Per HPI - Endocrine Endocrine: absent: As Per HPI, Change in Body Appearance, Change in Libido, Cold Intolorance, Deepening of Voice, Excessive Sweating, Fatigue, Flushing, Heat Intolorance, Increase in Ring/Shoe/Hat Size, Palpitations, Polydipsia, Polyphagia, Polyuria, Other - Hematologic/Lymphatic Hematologic: absent: As Per HPI, Easy Bleeding, Easy Bruising, Lymphadenopathy, Other Past Patient History - Infectious Disease Hx of Infectious Diseases: None - Tetanus Immunizations Tetanus Immunization: Unknown - Past Medical History & Family History Past Medical History?: Yes - Past Social History Smoking Status: Never Smoked - CARDIAC Hx Hypertension: Yes - PULMONARY Hx Tuberculosis: No - NEUROLOGICAL Hx Alzheimer's Disease: Yes Hx Dementia: Yes Hx Seizures: No - HEENT Hx HEENT Problems: No - RENAL Hx Chronic Kidney Disease: No - ENDOCRINE/METABOLIC Hx Endocrine Disorders: No - HEMATOLOGICAL/ONCOLOGICAL Hx AIDS: No Hx Anemia: Yes Hx Human Immunodeficiency Virus (HIV): No - INTEGUMENTARY Hx Dermatological Problems: No - MUSCULOSKELETAL/RHEUMATOLOGICAL Hx Falls: No - GASTROINTESTINAL Hx Crohn's Disease: Yes (on humira injections monthly) - GENITOURINARY/GYNECOLOGICAL Hx Sexually Transmitted Disorders: No - PSYCHIATRIC Hx Substance Use: No - SURGICAL HISTORY Hx Surgeries: Yes Hx Herniorrhaphy: Yes Other/Comment: REIMPLANTATION OF DIGITS TO HAND. right upper limb pain - ANESTHESIA Hx Anesthesia: Yes Hx Anesthesia Reactions: No Hx Malignant Hyperthermia: No Meds Allergies/Adverse Reactions: Allergies Allergy/AdvReac Type Severity Reaction Status Date / Time [place] And Derivatives Allergy ANAPHYLAXIS Verified 12/16/17 12:46 ibuprofen [From Advil] Allergy COUGH Verified 12/16/17 12:46 morphine Allergy RASH Verified 12/16/17 12:46 - Medications Medications: Current Medications Acetaminophen (Tylenol 325mg Tab) 650 mg PO Q4 PRN PRN Reason: Fever >100.4 F Clindamycin HCl (Cleocin) 300 mg PO Q6 [facility]; Protocol Last Admin: 06/01/18 10:12 Dose: 300 mg Docusate Sodium (Colace) 200 mg PO DAILY [facility] Last Admin: 06/01/18 10:11 Dose: Not Given Donepezil HCl (Aricept) 10 mg PO DAILY [facility] Last Admin: 06/01/18 10:11 Dose: 10 mg Enoxaparin Sodium (Lovenox) 40 mg SC DAILY [facility]; Protocol Last Admin: 06/01/18 10:10 Dose: 40 mg Acyclovir 500 mg/ Sodium (Chloride) 100 mls @ 100 mls/hr IV Q8 [facility] Stop: 06/13/18 17:59 Last Admin: 06/01/18 10:53 Dose: 100 mls/hr Memantine (Namenda) 10 mg PO Q12 [facility] Last Admin: 06/01/18 10:10 Dose: 10 mg Physical Exam - Constitutional Appears: No Acute Distress, Confused, Cachectic, Chronically Ill - Head Exam Head Exam: ATRAUMATIC, NORMAL INSPECTION, NORMOCEPHALIC - Eye Exam Eye Exam: PERRL. absent: Scleral icterus Pupil Exam: NORMAL ACCOMODATION - ENT Exam ENT Exam: Mucous Membranes Dry, Normal External Ear Exam - Neck Exam Neck exam: Negative for: Lymphadenopathy - Respiratory Exam Respiratory Exam: Decreased Breath Sounds - Cardiovascular Exam Cardiovascular Exam: REGULAR RHYTHM, +S1, +S2 - GI/Abdominal Exam GI & Abdominal Exam: Diminished Bowel Sounds, Soft. absent: Tenderness - Rectal Exam Rectal Exam: Deferred - Exam Exam: NORMAL INSPECTION - Extremities Exam Extremities exam: Negative for: pedal edema - Back Exam Back exam: absent: CVA tenderness (L), CVA tenderness (R), paraspinal tenderness - Neurological Exam Neurological exam: Alert, Altered, CN II-XII Intact, Motor Sensory Deficit - Psychiatric Exam Psychiatric exam: Depressed - Skin Skin Exam: Dry Results - Vital Signs Recent Vital Signs: Last Vital Signs Temp 98.6 F 06/01/18 08:16 Pulse 72 06/01/18 08:16 Resp 20 06/01/18 08:16 BP 131/75 06/01/18 08:16 Pulse Ox 94 L 06/01/18 08:16 Assessment & Plan - Assessment and Plan (Free Text) Assessment: 77 y/o male with a PMHx of Alzheimer's Disease on Humira for Crohns brought in by EMS for evaluation of a high fever Found to have 103 tewmp on admission and LP revealed lymphoccytic predominance with pleocytosis and High protein started on empiric IV antibiotics for possible meningitis CSF + for HSV by PCR gradually improved Now on TCU for cont of `14 days rx Recc cont Rx for 14 days then Valtrex for life if Humira to continue check quantiferon Gold
--- NOTE | 2018-06-01 13:04 | CP.PCM.PN ---
Subjective - Date & Time of Evaluation Date of Evaluation: 06/01/18 Time of Evaluation: 13:04 - Subjective Subjective: More awake alert Objective - Vital Signs/Intake and Output Vital Signs (last 24 hours): Temp Pulse Resp BP Pulse Ox 98.6 F 72 20 131/75 94 L 06/01/18 08:16 06/01/18 08:16 06/01/18 08:16 06/01/18 08:16 06/01/18 08:16 - Medications Medications: Current Medications Acetaminophen (Tylenol 325mg Tab) 650 mg PO Q4 PRN PRN Reason: Fever >100.4 F Clindamycin HCl (Cleocin) 300 mg PO Q6 [facility]; Protocol Last Admin: 06/01/18 10:12 Dose: 300 mg Docusate Sodium (Colace) 200 mg PO DAILY [facility] Last Admin: 06/01/18 10:11 Dose: Not Given Donepezil HCl (Aricept) 10 mg PO DAILY [facility] Last Admin: 06/01/18 10:11 Dose: 10 mg Enoxaparin Sodium (Lovenox) 40 mg SC DAILY [facility]; Protocol Last Admin: 06/01/18 10:10 Dose: 40 mg Acyclovir 500 mg/ Sodium (Chloride) 100 mls @ 100 mls/hr IV Q8 [facility] Stop: 06/13/18 17:59 Last Admin: 06/01/18 10:53 Dose: 100 mls/hr Memantine (Namenda) 10 mg PO Q12 [facility] Last Admin: 06/01/18 10:10 Dose: 10 mg - Constitutional Appears: Chronically Ill - Head Exam Head Exam: ATRAUMATIC, NORMAL INSPECTION, NORMOCEPHALIC - Eye Exam Eye Exam: Normal appearance - ENT Exam ENT Exam: Normal Exam - Neck Exam Neck Exam: Full ROM - Respiratory Exam Respiratory Exam: Clear to Ausculation Bilateral - Cardiovascular Exam Cardiovascular Exam: REGULAR RHYTHM, +S1, +S2 - GI/Abdominal Exam GI & Abdominal Exam: Normal Bowel Sounds - Extremities Exam Extremities Exam: Normal Inspection - Neurological Exam Neurological Exam: Alert, Altered, Awake - Psychiatric Exam Psychiatric exam: Flat Affect - Skin Skin Exam: Normal Color Assessment and Plan (1) Dementia Status: Chronic (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
[2018-06-01 20:57] LABS: MEAN CORPUSCULAR HEMOGLOBIN 29.1 pg (27.0-31.0); MEAN CORPUSCULAR HGB CONC 32.5 g/dL (33.0-37.0); RBC 3.53 Mil/uL (4.40-5.90); RED CELL DISTRIBUTION WIDTH 16.4 % (11.5-14.5)
[2018-06-01 21:02] LABS: BLOOD UREA NITROGEN 11 mg/dl (9-20); CALCIUM 8.7 mg/dL (8.4-10.2); GFR NON-AFRICAN AMERICAN > 60
[2018-06-01 21:05] LABS: HEMOGLOBIN 10.3 g/dL (12.0-18.0); MEAN CELL VOLUME 89.6 fl (80.0-94.0); WHITE BLOOD COUNT 8.5 K/uL (4.8-10.8)
[2018-06-02] MEDS: Enoxaparin 40 mg Syringe SC SCH (09:32)
--- NOTE | 2018-06-02 11:23 | CP.PCM.PN ---
Subjective - Date & Time of Evaluation Date of Evaluation: 06/02/18 Time of Evaluation: 11:23 - Subjective Subjective: Patient improving well Objective - Vital Signs/Intake and Output Vital Signs (last 24 hours): Temp Pulse Resp BP Pulse Ox 98.9 F 68 20 152/80 H 96 06/02/18 08:11 06/02/18 08:11 06/02/18 08:11 06/02/18 08:11 06/02/18 08:11 - Medications Medications: Current Medications Acetaminophen (Tylenol 325mg Tab) 650 mg PO Q4 PRN PRN Reason: Fever >100.4 F Clindamycin HCl (Cleocin) 300 mg PO Q6 [facility]; Protocol Last Admin: 06/02/18 09:33 Dose: 300 mg Docusate Sodium (Colace) 200 mg PO DAILY [facility] Last Admin: 06/02/18 09:33 Dose: 200 mg Donepezil HCl (Aricept) 10 mg PO DAILY [facility] Last Admin: 06/02/18 09:33 Dose: 10 mg Enoxaparin Sodium (Lovenox) 40 mg SC DAILY [facility]; Protocol Last Admin: 06/02/18 09:32 Dose: 40 mg Acyclovir 500 mg/ Sodium (Chloride) 100 mls @ 100 mls/hr IV Q8 [facility] Stop: 06/13/18 17:59 Last Admin: 06/01/18 23:59 Dose: 100 mls/hr Memantine (Namenda) 10 mg PO Q12 [facility] Last Admin: 06/02/18 09:33 Dose: 10 mg - Labs Labs: 06/01/18 20:40 06/01/18 20:40 - Constitutional Appears: Confused, Chronically Ill - Head Exam Head Exam: ATRAUMATIC, NORMAL INSPECTION, NORMOCEPHALIC - Eye Exam Eye Exam: Normal appearance - ENT Exam ENT Exam: Normal Exam - Neck Exam Neck Exam: Full ROM - Respiratory Exam Respiratory Exam: Clear to Ausculation Bilateral - Cardiovascular Exam Cardiovascular Exam: REGULAR RHYTHM, +S1, +S2 - GI/Abdominal Exam GI & Abdominal Exam: Normal Bowel Sounds - Extremities Exam Extremities Exam: Normal Inspection - Neurological Exam Neurological Exam: Alert, Altered, Awake - Psychiatric Exam Psychiatric exam: Flat Affect - Skin Skin Exam: Pallor Assessment and Plan (1) Dementia Status: Chronic (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
[2018-06-02] MEDS: Acyclovir 500 MG in Sodium Chloride 0.9% 100 ML IV SCH ×2 (11:47→17:01)
[2018-06-03] MEDS: Acyclovir 500 MG in Sodium Chloride 0.9% 100 ML IV SCH ×3 (01:41→17:00)
[2018-06-03] MEDS: Enoxaparin 40 mg Syringe SC SCH (10:18)
--- NOTE | 2018-06-03 15:32 | CP.PCM.PN ---
Subjective - Date & Time of Evaluation Date of Evaluation: 06/03/18 Time of Evaluation: 15:32 - Subjective Subjective: comfortable looks depress Objective - Vital Signs/Intake and Output Vital Signs (last 24 hours): Temp Pulse Resp BP Pulse Ox 98.9 F 72 20 127/71 96 06/03/18 08:17 06/03/18 08:17 06/03/18 08:17 06/03/18 08:17 06/03/18 08:17 - Medications Medications: Current Medications Acetaminophen (Tylenol 325mg Tab) 650 mg PO Q4 PRN PRN Reason: Fever >100.4 F Clindamycin HCl (Cleocin) 300 mg PO Q6 [facility]; Protocol Last Admin: 06/03/18 11:34 Dose: 300 mg Docusate Sodium (Colace) 200 mg PO DAILY [facility] Last Admin: 06/03/18 10:18 Dose: 200 mg Donepezil HCl (Aricept) 10 mg PO DAILY [facility] Last Admin: 06/03/18 10:18 Dose: 10 mg Enoxaparin Sodium (Lovenox) 40 mg SC DAILY [facility]; Protocol Last Admin: 06/03/18 10:18 Dose: 40 mg Acyclovir 500 mg/ Sodium (Chloride) 100 mls @ 100 mls/hr IV Q8 [facility] Stop: 06/13/18 17:59 Last Admin: 06/03/18 10:15 Dose: 100 mls/hr Memantine (Namenda) 10 mg PO Q12 [facility] Last Admin: 06/03/18 10:17 Dose: 10 mg - Labs Labs: 06/01/18 20:40 06/01/18 20:40 - Constitutional Appears: Confused, Chronically Ill - Head Exam Head Exam: ATRAUMATIC, NORMAL INSPECTION, NORMOCEPHALIC - Eye Exam Eye Exam: Normal appearance - ENT Exam ENT Exam: Normal Exam - Neck Exam Neck Exam: Full ROM - Respiratory Exam Respiratory Exam: Clear to Ausculation Bilateral - Cardiovascular Exam Cardiovascular Exam: REGULAR RHYTHM, +S1, +S2 - Back Exam Back Exam: NORMAL INSPECTION - Neurological Exam Neurological Exam: Alert, Altered, Awake - Psychiatric Exam Psychiatric exam: Depressed, Flat Affect - Skin Skin Exam: Pallor Assessment and Plan (1) Dementia Status: Chronic (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
[2018-06-04] MEDS: Acyclovir 500 MG in Sodium Chloride 0.9% 100 ML IV SCH ×3 (01:36→16:55)
[2018-06-04 07:11] LABS: BASO # 0.1 K/uL (0.0-0.2); BASO % 0.5 % (0.0-2.0); EOS # 0.3 K/uL (0.0-0.7); EOS % 2.2 % (0.0-4.0); HEMOGLOBIN 11.2 g/dL (12.0-18.0); LYMPH # 1.8 K/uL (1.0-4.3); LYMPH % 13.7 % (20.0-40.0); MEAN CELL VOLUME 90.4 fl (80.0-94.0); MEAN CORPUSCULAR HEMOGLOBIN 29.2 pg (27.0-31.0); MEAN CORPUSCULAR HGB CONC 32.3 g/dL (33.0-37.0); MEAN PLATELET VOLUME 6.5 fl (7.2-11.7); MONO # 1.2 K/uL (0.0-0.8); NEUT # 9.6 K/uL (1.8-7.0); NEUT % 74.6 % (50.0-75.0); RBC 3.85 Mil/uL (4.40-5.90); RED CELL DISTRIBUTION WIDTH 16.6 % (11.5-14.5); WHITE BLOOD COUNT 12.8 K/uL (4.8-10.8)
[2018-06-04 07:46] LABS: BLOOD UREA NITROGEN 15 mg/dl (9-20); GFR NON-AFRICAN AMERICAN > 60
[2018-06-04] MEDS: Enoxaparin 40 mg Syringe SC SCH (08:03)
--- NOTE | 2018-06-04 13:36 | CP.PCM.PN ---
Subjective - Date & Time of Evaluation Date of Evaluation: 06/04/18 Time of Evaluation: 08:00 - Subjective Subjective: 77 y/o male with a PMHx of Alzheimer's Disease on Humira for Crohns brought in by EMS for evaluation of a high fever Found to have 103 tewmp on admission and LP revealed lymphoccytic predominance with pleocytosis and High protein started on empiric IV antibiotics for possible meningitis CSF + for HSV by PCR gradually improved Now on TCU for cont of `14 days rx Objective - Vital Signs/Intake and Output Vital Signs (last 24 hours): Temp Pulse Resp BP Pulse Ox 99 F 77 20 109/63 96 06/04/18 07:53 06/04/18 07:53 06/04/18 07:53 06/04/18 07:53 06/04/18 07:53 - Medications Medications: Current Medications Acetaminophen (Tylenol 325mg Tab) 650 mg PO Q4 PRN PRN Reason: Fever >100.4 F Clindamycin HCl (Cleocin) 300 mg PO Q6 [facility]; Protocol Last Admin: 06/04/18 10:08 Dose: 300 mg Docusate Sodium (Colace) 200 mg PO DAILY [facility] Last Admin: 06/04/18 08:03 Dose: 200 mg Donepezil HCl (Aricept) 10 mg PO DAILY [facility] Last Admin: 06/04/18 08:04 Dose: 10 mg Enoxaparin Sodium (Lovenox) 40 mg SC DAILY [facility]; Protocol Last Admin: 06/04/18 08:03 Dose: 40 mg Escitalopram Oxalate (Lexapro) 10 mg PO DAILY [facility] Last Admin: 06/04/18 08:04 Dose: 10 mg Acyclovir 500 mg/ Sodium (Chloride) 100 mls @ 100 mls/hr IV Q8 [facility] Stop: 06/13/18 17:59 Last Admin: 06/04/18 08:02 Dose: 100 mls/hr Memantine (Namenda) 10 mg PO Q12 [facility] Last Admin: 06/04/18 08:03 Dose: 10 mg - Labs Labs: 06/04/18 06:45 06/04/18 06:45 - Constitutional Appears: Non-toxic, Confused, Chronically Ill - Head Exam Head Exam: NORMOCEPHALIC - Eye Exam Eye Exam: absent: Scleral icterus - ENT Exam ENT Exam: Mucous Membranes Dry - Neck Exam Neck Exam: absent: Lymphadenopathy - Respiratory Exam Respiratory Exam: Decreased Breath Sounds - Cardiovascular Exam Cardiovascular Exam: REGULAR RHYTHM - GI/Abdominal Exam GI & Abdominal Exam: Distended - Rectal Exam Rectal Exam: Deferred - Exam Exam: NORMAL INSPECTION - Extremities Exam Extremities Exam: absent: Pedal Edema - Back Exam Back Exam: absent: CVA tenderness (L), CVA tenderness (R) - Neurological Exam Neurological Exam: Alert, Altered, Awake Assessment and Plan - Assessment and Plan (Free Text) Assessment: 77 y/o male with a PMHx of Alzheimer's Disease on Humira for Crohns brought in by EMS for evaluation of a high fever Found to have 103 tewmp on admission and LP revealed lymphoccytic predominance with pleocytosis and High protein started on empiric IV antibiotics for possible meningitis CSF + for HSV by PCR gradually improved Now on TCU for cont of `14 days rx
--- NOTE | 2018-06-04 19:53 | CP.PCM.PN ---
Subjective - Date & Time of Evaluation Date of Evaluation: 06/04/18 Time of Evaluation: 19:53 - Subjective Subjective: improving well no new c/o Objective - Vital Signs/Intake and Output Vital Signs (last 24 hours): Temp Pulse Resp BP Pulse Ox 98.5 F 72 20 116/66 98 06/04/18 16:17 06/04/18 16:17 06/04/18 16:17 06/04/18 16:17 06/04/18 16:17 - Medications Medications: Current Medications Acetaminophen (Tylenol 325mg Tab) 650 mg PO Q4 PRN PRN Reason: Fever >100.4 F Clindamycin HCl (Cleocin) 300 mg PO Q6 [facility]; Protocol Last Admin: 06/04/18 17:36 Dose: 300 mg Docusate Sodium (Colace) 200 mg PO DAILY [facility] Last Admin: 06/04/18 08:03 Dose: 200 mg Donepezil HCl (Aricept) 10 mg PO DAILY [facility] Last Admin: 06/04/18 08:04 Dose: 10 mg Enoxaparin Sodium (Lovenox) 40 mg SC DAILY [facility]; Protocol Last Admin: 06/04/18 08:03 Dose: 40 mg Escitalopram Oxalate (Lexapro) 10 mg PO DAILY [facility] Last Admin: 06/04/18 08:04 Dose: 10 mg Acyclovir 500 mg/ Sodium (Chloride) 100 mls @ 100 mls/hr IV Q8 [facility] Stop: 06/13/18 17:59 Last Admin: 06/04/18 16:55 Dose: 100 mls/hr Memantine (Namenda) 10 mg PO Q12 [facility] Last Admin: 06/04/18 08:03 Dose: 10 mg - Labs Labs: 06/04/18 06:45 06/04/18 06:45 - Constitutional Appears: Confused, Chronically Ill - Head Exam Head Exam: ATRAUMATIC, NORMAL INSPECTION, NORMOCEPHALIC - Eye Exam Eye Exam: Normal appearance - ENT Exam ENT Exam: Normal Exam - Neck Exam Neck Exam: Full ROM - Respiratory Exam Respiratory Exam: Decreased Breath Sounds - Cardiovascular Exam Cardiovascular Exam: REGULAR RHYTHM, +S1, +S2 - GI/Abdominal Exam GI & Abdominal Exam: Normal Bowel Sounds - Extremities Exam Extremities Exam: Normal Inspection - Neurological Exam Neurological Exam: Alert, Altered, Awake - Psychiatric Exam Psychiatric exam: Flat Affect - Skin Skin Exam: Pallor Assessment and Plan (1) Dementia Status: Chronic (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
[2018-06-05] MEDS: Acyclovir 500 MG in Sodium Chloride 0.9% 100 ML IV SCH ×3 (00:39→16:01)
[2018-06-05] MEDS: Enoxaparin 40 mg Syringe SC SCH (09:25)
--- NOTE | 2018-06-05 17:05 | CP.PCM.PN ---
Subjective - Date & Time of Evaluation Date of Evaluation: 06/05/18 Time of Evaluation: 17:06 - Subjective Subjective: No new change, looks comfortable, confuse. Objective - Vital Signs/Intake and Output Vital Signs (last 24 hours): Temp Pulse Resp BP Pulse Ox 98.9 F 86 20 127/61 94 L 06/05/18 16:59 06/05/18 16:59 06/05/18 16:59 06/05/18 16:59 06/05/18 16:59 - Medications Medications: Current Medications Acetaminophen (Tylenol 325mg Tab) 650 mg PO Q4 PRN PRN Reason: Fever >100.4 F Acetaminophen (Tylenol 325mg Tab) 650 mg PO Q6 PRN PRN Reason: Pain, moderate (4-7) Clindamycin HCl (Cleocin) 300 mg PO Q6 [facility]; Protocol Last Admin: 06/05/18 16:01 Dose: 300 mg Docusate Sodium (Colace) 200 mg PO DAILY [facility] Last Admin: 06/05/18 09:25 Dose: 200 mg Donepezil HCl (Aricept) 10 mg PO DAILY [facility] Last Admin: 06/05/18 09:26 Dose: 10 mg Enoxaparin Sodium (Lovenox) 40 mg SC DAILY [facility]; Protocol Escitalopram Oxalate (Lexapro) 10 mg PO DAILY [facility] Last Admin: 06/05/18 09:25 Dose: 10 mg Acyclovir 500 mg/ Sodium (Chloride) 100 mls @ 100 mls/hr IV Q8 [facility] Stop: 06/13/18 17:59 Last Admin: 06/05/18 16:01 Dose: 100 mls/hr Memantine (Namenda) 10 mg PO Q12 [facility] Last Admin: 06/05/18 09:26 Dose: 10 mg - Labs Labs: 06/04/18 06:45 06/04/18 06:45 - Constitutional Appears: Confused, Chronically Ill - Head Exam Head Exam: ATRAUMATIC, NORMAL INSPECTION, NORMOCEPHALIC - Eye Exam Eye Exam: Normal appearance Pupil Exam: NORMAL ACCOMODATION - ENT Exam ENT Exam: Mucous Membranes Moist - Neck Exam Neck Exam: Full ROM - Respiratory Exam Respiratory Exam: Clear to Ausculation Bilateral - Cardiovascular Exam Cardiovascular Exam: REGULAR RHYTHM, +S1, +S2 - GI/Abdominal Exam GI & Abdominal Exam: Normal Bowel Sounds - Extremities Exam Extremities Exam: Normal Inspection - Neurological Exam Neurological Exam: Alert, Altered, Awake - Psychiatric Exam Psychiatric exam: Flat Affect - Skin Skin Exam: Pallor Assessment and Plan (1) Dementia Status: Chronic (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
[2018-06-06] MEDS: Acyclovir 500 MG in Sodium Chloride 0.9% 100 ML IV SCH ×3 (00:58→17:24)
[2018-06-06] MEDS: Enoxaparin 40 mg Syringe SC SCH (09:18)
--- NOTE | 2018-06-06 12:25 | CP.PCM.PN ---
Subjective - Date & Time of Evaluation Date of Evaluation: 06/06/18 Time of Evaluation: 07:00 - Subjective Subjective: improving awake alert Objective - Vital Signs/Intake and Output Vital Signs (last 24 hours): Temp Pulse Resp BP Pulse Ox 97.9 F 75 20 102/53 L 95 06/06/18 08:19 06/06/18 08:19 06/06/18 08:19 06/06/18 08:19 06/06/18 08:19 - Medications Medications: Current Medications Acetaminophen (Tylenol 325mg Tab) 650 mg PO Q4 PRN PRN Reason: Fever >100.4 F Acetaminophen (Tylenol 325mg Tab) 650 mg PO Q6 PRN PRN Reason: Pain, moderate (4-7) Last Admin: 06/05/18 17:28 Dose: 650 mg Clindamycin HCl (Cleocin) 300 mg PO Q6 [facility]; Protocol Last Admin: 06/06/18 09:19 Dose: 300 mg Docusate Sodium (Colace Liquid) 200 mg PO DAILY [facility] Donepezil HCl (Aricept) 10 mg PO DAILY [facility] Last Admin: 06/06/18 09:17 Dose: 10 mg Enoxaparin Sodium (Lovenox) 40 mg SC DAILY [facility]; Protocol Last Admin: 06/06/18 09:18 Dose: 40 mg Escitalopram Oxalate (Lexapro) 10 mg PO DAILY [facility] Last Admin: 06/06/18 09:18 Dose: 10 mg Acyclovir 500 mg/ Sodium (Chloride) 100 mls @ 100 mls/hr IV Q8 [facility] Stop: 06/13/18 17:59 Last Admin: 06/06/18 09:22 Dose: 100 mls/hr Memantine (Namenda) 10 mg PO Q12 [facility] Last Admin: 06/06/18 09:18 Dose: 10 mg - Labs Labs: 06/04/18 06:45 06/04/18 06:45 - Constitutional Appears: Non-toxic, Chronically Ill - Head Exam Head Exam: NORMOCEPHALIC - Eye Exam Eye Exam: absent: Scleral icterus - ENT Exam ENT Exam: Mucous Membranes Dry - Neck Exam Neck Exam: absent: Lymphadenopathy - Respiratory Exam Respiratory Exam: Decreased Breath Sounds - Cardiovascular Exam Cardiovascular Exam: REGULAR RHYTHM - GI/Abdominal Exam GI & Abdominal Exam: Distended, Soft - Rectal Exam Rectal Exam: Deferred - Exam Exam: NORMAL INSPECTION - Extremities Exam Extremities Exam: absent: Pedal Edema - Back Exam Back Exam: absent: CVA tenderness (L), CVA tenderness (R) - Neurological Exam Neurological Exam: Alert, Altered, Awake Assessment and Plan - Assessment and Plan (Free Text) Assessment: 7 y/o male with a PMHx of Alzheimer's Disease on Humira for Crohns brought in by EMS for evaluation of a high fever Found to have 103 tewmp on admission and LP revealed lymphoccytic predominance with pleocytosis and High protein started on empiric IV antibiotics for possible meningitis CSF + for HSV by PCR gradually improved Now on TCU for cont of `14 days rx
--- NOTE | 2018-06-06 12:41 | CP.PCM.PN ---
Subjective - Date & Time of Evaluation Date of Evaluation: 06/06/18 Time of Evaluation: 12:40 - Subjective Subjective: Improving Objective - Vital Signs/Intake and Output Vital Signs (last 24 hours): Temp Pulse Resp BP Pulse Ox 97.9 F 75 20 102/53 L 95 06/06/18 08:19 06/06/18 08:19 06/06/18 08:19 06/06/18 08:19 06/06/18 08:19 - Medications Medications: Current Medications Acetaminophen (Tylenol 325mg Tab) 650 mg PO Q4 PRN PRN Reason: Fever >100.4 F Acetaminophen (Tylenol 325mg Tab) 650 mg PO Q6 PRN PRN Reason: Pain, moderate (4-7) Last Admin: 06/05/18 17:28 Dose: 650 mg Clindamycin HCl (Cleocin) 300 mg PO Q6 [facility]; Protocol Last Admin: 06/06/18 09:19 Dose: 300 mg Docusate Sodium (Colace Liquid) 200 mg PO DAILY [facility] Donepezil HCl (Aricept) 10 mg PO DAILY [facility] Last Admin: 06/06/18 09:17 Dose: 10 mg Enoxaparin Sodium (Lovenox) 40 mg SC DAILY [facility]; Protocol Last Admin: 06/06/18 09:18 Dose: 40 mg Escitalopram Oxalate (Lexapro) 10 mg PO DAILY [facility] Last Admin: 06/06/18 09:18 Dose: 10 mg Acyclovir 500 mg/ Sodium (Chloride) 100 mls @ 100 mls/hr IV Q8 [facility] Stop: 06/13/18 17:59 Last Admin: 06/06/18 09:22 Dose: 100 mls/hr Memantine (Namenda) 10 mg PO Q12 [facility] Last Admin: 06/06/18 09:18 Dose: 10 mg - Labs Labs: 06/04/18 06:45 06/04/18 06:45 - Constitutional Appears: Confused, Chronically Ill - Head Exam Head Exam: ATRAUMATIC, NORMAL INSPECTION, NORMOCEPHALIC - Eye Exam Eye Exam: Normal appearance - ENT Exam ENT Exam: Mucous Membranes Moist - Cardiovascular Exam Cardiovascular Exam: REGULAR RHYTHM, +S1, +S2 - GI/Abdominal Exam GI & Abdominal Exam: Normal Bowel Sounds - Extremities Exam Extremities Exam: Normal Inspection - Neurological Exam Neurological Exam: Alert, Altered, Awake - Psychiatric Exam Psychiatric exam: Normal Affect - Skin Skin Exam: Pallor Assessment and Plan (1) Dementia Status: Chronic (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
[2018-06-07] MEDS: Acyclovir 500 MG in Sodium Chloride 0.9% 100 ML IV SCH ×3 (01:00→17:24)
[2018-06-07] MEDS: Enoxaparin 40 mg Syringe SC SCH (09:14)
[2018-06-07 11:16] LABS: BASO % 0.4 % (0.0-2.0); EOS # 0.1 K/uL (0.0-0.7); EOS % 0.8 % (0.0-4.0); LYMPH # 1.2 K/uL (1.0-4.3); LYMPH % 10.9 % (20.0-40.0); MEAN CELL VOLUME 90.5 fl (80.0-94.0); MEAN CORPUSCULAR HEMOGLOBIN 29.1 pg (27.0-31.0); MEAN CORPUSCULAR HGB CONC 32.1 g/dL (33.0-37.0); MEAN PLATELET VOLUME 6.5 fl (7.2-11.7); MONO # 0.7 K/uL (0.0-0.8); MONO % 6.1 % (0.0-10.0); NEUT # 9.3 K/uL (1.8-7.0); NEUT % 81.8 % (50.0-75.0); RBC 3.43 Mil/uL (4.40-5.90); WHITE BLOOD COUNT 11.3 K/uL (4.8-10.8)
[2018-06-07 11:41] LABS: BLOOD UREA NITROGEN 26 mg/dl (9-20); CALCIUM 8.8 mg/dL (8.4-10.2); GFR NON-AFRICAN AMERICAN 59
--- NOTE | 2018-06-07 14:01 | CP.PCM.PN ---
Subjective - Date & Time of Evaluation Date of Evaluation: 06/07/18 Time of Evaluation: 14:01 - Subjective Subjective: Improving well Objective - Vital Signs/Intake and Output Vital Signs (last 24 hours): Temp Pulse Resp BP Pulse Ox 98.9 F 85 20 111/62 85 L 06/07/18 08:00 06/07/18 08:00 06/07/18 08:00 06/07/18 08:00 06/07/18 08:00 - Medications Medications: Current Medications Acetaminophen (Tylenol 325mg Tab) 650 mg PO Q4 PRN PRN Reason: Fever >100.4 F Acetaminophen (Tylenol 325mg Tab) 650 mg PO Q6 PRN PRN Reason: Pain, moderate (4-7) Last Admin: 06/05/18 17:28 Dose: 650 mg Clindamycin HCl (Cleocin) 300 mg PO Q6 [facility]; Protocol Last Admin: 06/07/18 09:15 Dose: 300 mg Docusate Sodium (Colace Liquid) 200 mg PO DAILY [facility] Last Admin: 06/07/18 09:16 Dose: 200 mg Donepezil HCl (Aricept) 10 mg PO DAILY [facility] Last Admin: 06/07/18 09:15 Dose: 10 mg Enoxaparin Sodium (Lovenox) 40 mg SC DAILY [facility]; Protocol Last Admin: 06/07/18 09:14 Dose: 40 mg Escitalopram Oxalate (Lexapro) 10 mg PO DAILY [facility] Last Admin: 06/07/18 09:16 Dose: 10 mg Acyclovir 500 mg/ Sodium (Chloride) 100 mls @ 100 mls/hr IV Q8 [facility] Stop: 06/13/18 17:59 Last Admin: 06/07/18 09:17 Dose: 100 mls/hr Memantine (Namenda) 10 mg PO Q12 [facility] Last Admin: 06/07/18 09:15 Dose: 10 mg - Labs Labs: 06/07/18 10:55 06/07/18 10:55 - Constitutional Appears: Confused, Chronically Ill - Head Exam Head Exam: ATRAUMATIC, NORMAL INSPECTION, NORMOCEPHALIC - Eye Exam Eye Exam: Normal appearance - ENT Exam ENT Exam: Normal Exam - Neck Exam Neck Exam: Full ROM - Respiratory Exam Respiratory Exam: Clear to Ausculation Bilateral - Cardiovascular Exam Cardiovascular Exam: REGULAR RHYTHM, +S1, +S2 - GI/Abdominal Exam GI & Abdominal Exam: Normal Bowel Sounds - Extremities Exam Extremities Exam: Normal Inspection - Neurological Exam Neurological Exam: Alert, Altered - Psychiatric Exam Psychiatric exam: Flat Affect - Skin Skin Exam: Pallor Assessment and Plan (1) Dementia Status: Chronic (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
[2018-06-07 16:51] LABS: MEAN CELL VOLUME 88.9 fl (80.0-94.0); MEAN CORPUSCULAR HEMOGLOBIN 29.9 pg (27.0-31.0); MEAN CORPUSCULAR HGB CONC 33.6 g/dL (33.0-37.0); RBC 3.35 Mil/uL (4.40-5.90); RED CELL DISTRIBUTION WIDTH 16.4 % (11.5-14.5); WHITE BLOOD COUNT 12.1 K/uL (4.8-10.8)
[2018-06-07 18:10] LABS: SQUAMOUS EPITHIAL < 1 /hpf (0-5); URINE BACTERIA RARE (<OCC); URINE BILIRUBIN NEGATIVE (NEGATIVE); URINE BLOOD SMALL (NEGATIVE); URINE CLARITY CLEAR (Clear); URINE COLOR YELLOW (YELLOW); URINE GLUCOSE (UA) NEG (NEGATIVE); URINE LEUKOCYTE ESTERASE TRACE Leu/uL (Negative); URINE PROTEIN 30 mg/dL (NEGATIVE)
[2018-06-07] MEDS: cefTRIAXone 2 GM in Sodium Chloride 0.9% 100 ML IVPB SCH (18:25)
--- NOTE | 2018-06-07 18:40 | RAD ---
Date of service: 06/07/2018 HISTORY: fever COMPARISON: Frontal chest radiograph 05/26/2018. TECHNIQUE: 1 view obtained. FINDINGS: Right PICC now identified terminating at SVC. LUNGS: Chronic linear atelectasis or fibrosis right base and minimally at the left as well. PLEURA: Small right pleural effusion now identified. Elevated right hemidiaphragm reiterated mildly. No left pleural effusion. No pneumothorax bilaterally. CARDIOVASCULAR: No aortic atherosclerotic calcification present. Normal cardiac size. No pulmonary vascular congestion. OSSEOUS STRUCTURES: No significant abnormalities. VISUALIZED UPPER ABDOMEN: Normal. OTHER FINDINGS: None. IMPRESSION: Small interval right pleural effusion now present. Stable limited fibrosis or linear atelectasis right base with minimal similar changes at the left. Right hemidiaphragm elevation mildly evident once again. Right PICC terminates at distal superior vena cava.
[2018-06-08] MEDS: Acyclovir 500 MG in Sodium Chloride 0.9% 100 ML IV SCH ×3 (00:07→16:44)
[2018-06-08] MEDS: Enoxaparin 40 mg Syringe SC SCH (08:36)
[2018-06-08] MEDS: cefTRIAXone 2 GM in Sodium Chloride 0.9% 100 ML IVPB SCH (10:22)
--- NOTE | 2018-06-08 11:43 | CP.PCM.PN ---
Subjective - Date & Time of Evaluation Date of Evaluation: 06/08/18 Time of Evaluation: 09:00 - Subjective Subjective: fever last night no new complaints urinalysis abnormal Objective - Vital Signs/Intake and Output Vital Signs (last 24 hours): Temp Pulse Resp BP Pulse Ox 98 F 75 20 117/64 95 06/08/18 08:23 06/08/18 08:23 06/08/18 08:23 06/08/18 08:23 06/08/18 08:23 - Medications Medications: Current Medications Acetaminophen (Tylenol 325mg Tab) 650 mg PO Q4 PRN PRN Reason: Fever >100.4 F Last Admin: 06/07/18 16:48 Dose: 650 mg Acetaminophen (Tylenol 325mg Tab) 650 mg PO Q6 PRN PRN Reason: Pain, moderate (4-7) Last Admin: 06/05/18 17:28 Dose: 650 mg Clindamycin HCl (Cleocin) 300 mg PO Q6 [facility]; Protocol Last Admin: 06/08/18 10:22 Dose: 300 mg Docusate Sodium (Colace Liquid) 200 mg PO DAILY [facility] Last Admin: 06/08/18 08:35 Dose: 200 mg Donepezil HCl (Aricept) 10 mg PO DAILY [facility] Last Admin: 06/08/18 08:36 Dose: 10 mg Enoxaparin Sodium (Lovenox) 40 mg SC DAILY [facility]; Protocol Last Admin: 06/08/18 08:36 Dose: 40 mg Escitalopram Oxalate (Lexapro) 10 mg PO DAILY [facility] Last Admin: 06/08/18 08:36 Dose: 10 mg Acyclovir 500 mg/ Sodium (Chloride) 100 mls @ 100 mls/hr IV Q8 [facility] Stop: 06/13/18 17:59 Last Admin: 06/08/18 08:37 Dose: 100 mls/hr Ceftriaxone Sodium 2 gm/ (Sodium Chloride) 100 mls @ 100 mls/hr IVPB DAILY [facility]; Protocol Last Admin: 06/08/18 10:22 Dose: 100 mls/hr Memantine (Namenda) 10 mg PO Q12 [facility] Last Admin: 06/08/18 08:36 Dose: 10 mg - Labs Labs: 06/07/18 16:35 06/07/18 10:55 - Constitutional Appears: Non-toxic, Chronically Ill - Head Exam Head Exam: NORMOCEPHALIC - Eye Exam Eye Exam: absent: Scleral icterus - ENT Exam ENT Exam: Mucous Membranes Dry - Neck Exam Neck Exam: absent: Lymphadenopathy - Respiratory Exam Respiratory Exam: Decreased Breath Sounds - Cardiovascular Exam Cardiovascular Exam: REGULAR RHYTHM - GI/Abdominal Exam GI & Abdominal Exam: Distended - Rectal Exam Rectal Exam: Deferred - Exam Exam: NORMAL INSPECTION - Extremities Exam Extremities Exam: absent: Pedal Edema - Back Exam Back Exam: absent: CVA tenderness (L), CVA tenderness (R) - Neurological Exam Neurological Exam: Alert, Awake, CN II-XII Intact, Oriented x3 - Psychiatric Exam Psychiatric exam: Normal Mood - Skin Skin Exam: Dry, Intact Assessment and Plan (1) Herpes encephalitis Status: Acute - Assessment and Plan (Free Text) Assessment: to complete 14 days acyclovir iv then switch to PO IV rocephin for possible UTI await cultures
[2018-06-08] MEDS ORDERED: Cefepime 1 GM in Sodium Chloride 0.9% 100 ML IVPB SCH (12:45)
--- NOTE | 2018-06-08 13:20 | CP.PCM.PN ---
Subjective - Date & Time of Evaluation Date of Evaluation: 06/08/18 Time of Evaluation: 13:20 - Subjective Subjective: Low grade fever otherwise the general condition improving well Objective - Vital Signs/Intake and Output Vital Signs (last 24 hours): Temp Pulse Resp BP Pulse Ox 100.5 F H 75 20 117/64 95 06/08/18 12:31 06/08/18 08:23 06/08/18 08:23 06/08/18 08:23 06/08/18 08:23 - Medications Medications: Current Medications Acetaminophen (Tylenol 325mg Tab) 650 mg PO Q4 PRN PRN Reason: Fever >100.4 F Last Admin: 06/08/18 12:31 Dose: 650 mg Acetaminophen (Tylenol 325mg Tab) 650 mg PO Q6 PRN PRN Reason: Pain, moderate (4-7) Last Admin: 06/05/18 17:28 Dose: 650 mg Docusate Sodium (Colace Liquid) 200 mg PO DAILY [facility] Last Admin: 06/08/18 08:35 Dose: 200 mg Donepezil HCl (Aricept) 10 mg PO DAILY [facility] Last Admin: 06/08/18 08:36 Dose: 10 mg Enoxaparin Sodium (Lovenox) 40 mg SC DAILY [facility]; Protocol Last Admin: 06/08/18 08:36 Dose: 40 mg Escitalopram Oxalate (Lexapro) 10 mg PO DAILY [facility] Last Admin: 06/08/18 08:36 Dose: 10 mg Acyclovir 500 mg/ Sodium (Chloride) 100 mls @ 100 mls/hr IV Q8 [facility] Stop: 06/13/18 17:59 Last Admin: 06/08/18 08:37 Dose: 100 mls/hr Cefepime HCl 1 gm/ Sodium (Chloride) 100 mls @ 100 mls/hr IVPB Q12 [facility]; Protocol Memantine (Namenda) 10 mg PO Q12 [facility] Last Admin: 06/08/18 08:36 Dose: 10 mg - Labs Labs: 06/07/18 16:35 06/07/18 10:55 - Constitutional Appears: Confused, Chronically Ill - Head Exam Head Exam: ATRAUMATIC, NORMAL INSPECTION, NORMOCEPHALIC - Eye Exam Eye Exam: Normal appearance - ENT Exam ENT Exam: Mucous Membranes Moist - Neck Exam Neck Exam: Full ROM - Respiratory Exam Respiratory Exam: Clear to Ausculation Bilateral - Cardiovascular Exam Cardiovascular Exam: REGULAR RHYTHM, +S1, +S2 - GI/Abdominal Exam GI & Abdominal Exam: Soft, Normal Bowel Sounds - Extremities Exam Extremities Exam: Normal Inspection - Neurological Exam Neurological Exam: Alert, Altered, Awake - Psychiatric Exam Psychiatric exam: Flat Affect - Skin Skin Exam: Normal Color Assessment and Plan (1) Dementia Status: Chronic (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
[2018-06-09] MEDS: Acyclovir 500 MG in Sodium Chloride 0.9% 100 ML IV SCH ×2 (00:25→09:00)
[2018-06-09] MEDS ORDERED: Cefepime 1 GM in Sodium Chloride 0.9% 100 ML IVPB SCH (02:00)
[2018-06-09] MEDS: Enoxaparin 40 mg Syringe SC SCH (08:56)
--- NOTE | 2018-06-09 10:07 | CP.PCM.PN ---
Subjective - Date & Time of Evaluation Date of Evaluation: 06/09/18 Time of Evaluation: 08:00 - Subjective Subjective: t max 101 blood c/s neg so far has UTI with Pseudomonas possible d/c on PO cipro will give merrem for 24 h till blood c/s finalized Objective - Vital Signs/Intake and Output Vital Signs (last 24 hours): Temp Pulse Resp BP Pulse Ox 98.6 F 62 20 109/58 L 96 06/09/18 08:18 06/09/18 08:18 06/09/18 08:18 06/09/18 08:18 06/09/18 08:18 - Medications Medications: Current Medications Acetaminophen (Tylenol 325mg Tab) 650 mg PO Q4 PRN PRN Reason: Fever >100.4 F Last Admin: 06/09/18 03:07 Dose: 650 mg Acetaminophen (Tylenol 325mg Tab) 650 mg PO Q6 PRN PRN Reason: Pain, moderate (4-7) Last Admin: 06/05/18 17:28 Dose: 650 mg Docusate Sodium (Colace Liquid) 200 mg PO DAILY [facility] Last Admin: 06/09/18 08:57 Dose: 200 mg Donepezil HCl (Aricept) 10 mg PO DAILY [facility] Last Admin: 06/09/18 08:56 Dose: 10 mg Escitalopram Oxalate (Lexapro) 10 mg PO DAILY [facility] Last Admin: 06/09/18 08:57 Dose: 10 mg Meropenem 1 gm/ Sodium (Chloride) 100 mls @ 100 mls/hr IVPB Q8 [facility]; Protocol Memantine (Namenda) 10 mg PO Q12 [facility] Last Admin: 06/09/18 08:56 Dose: 10 mg - Labs Labs: 06/07/18 16:35 06/07/18 10:55 - Constitutional Appears: Confused, Cachectic, Chronically Ill - Head Exam Head Exam: NORMOCEPHALIC - Eye Exam Eye Exam: absent: Scleral icterus - ENT Exam ENT Exam: Mucous Membranes Dry - Neck Exam Neck Exam: absent: Lymphadenopathy - Respiratory Exam Respiratory Exam: Decreased Breath Sounds - Cardiovascular Exam Cardiovascular Exam: REGULAR RHYTHM - GI/Abdominal Exam GI & Abdominal Exam: Distended, Soft - Rectal Exam Rectal Exam: Deferred - Exam Exam: NORMAL INSPECTION Assessment and Plan (1) Herpes encephalitis Status: Acute - Assessment and Plan (Free Text) Plan: cont IV rx as ordered
[2018-06-09] MEDS: Meropenem 1 GM in Sodium Chloride 0.9% 100 ML IVPB SCH ×2 (11:14→16:11)
--- NOTE | 2018-06-09 11:24 | CP.PCM.PN ---
Subjective - Date & Time of Evaluation Date of Evaluation: 06/09/18 Time of Evaluation: 11:24 - Subjective Subjective: Above noted, positive U/C. will follow Objective - Vital Signs/Intake and Output Vital Signs (last 24 hours): Temp Pulse Resp BP Pulse Ox 98.6 F 62 20 109/58 L 96 06/09/18 08:18 06/09/18 08:18 06/09/18 08:18 06/09/18 08:18 06/09/18 08:18 - Medications Medications: Current Medications Acetaminophen (Tylenol 325mg Tab) 650 mg PO Q4 PRN PRN Reason: Fever >100.4 F Last Admin: 06/09/18 03:07 Dose: 650 mg Acetaminophen (Tylenol 325mg Tab) 650 mg PO Q6 PRN PRN Reason: Pain, moderate (4-7) Last Admin: 06/05/18 17:28 Dose: 650 mg Acyclovir (Zovirax) 800 mg PO BID [facility]; Protocol Docusate Sodium (Colace Liquid) 200 mg PO DAILY [facility] Last Admin: 06/09/18 08:57 Dose: 200 mg Donepezil HCl (Aricept) 10 mg PO DAILY [facility] Last Admin: 06/09/18 08:56 Dose: 10 mg Escitalopram Oxalate (Lexapro) 10 mg PO DAILY [facility] Last Admin: 06/09/18 08:57 Dose: 10 mg Meropenem 1 gm/ Sodium (Chloride) 100 mls @ 100 mls/hr IVPB Q8 [facility]; Protocol Last Admin: 06/09/18 11:14 Dose: 100 mls/hr Memantine (Namenda) 10 mg PO Q12 [facility] Last Admin: 06/09/18 08:56 Dose: 10 mg - Labs Labs: 06/07/18 16:35 06/07/18 10:55 - Constitutional Appears: Confused, Chronically Ill - Head Exam Head Exam: ATRAUMATIC, NORMAL INSPECTION, NORMOCEPHALIC - Eye Exam Eye Exam: Normal appearance - ENT Exam ENT Exam: Mucous Membranes Moist - Neck Exam Neck Exam: Full ROM - Respiratory Exam Respiratory Exam: Clear to Ausculation Bilateral - Cardiovascular Exam Cardiovascular Exam: REGULAR RHYTHM, +S1, +S2 - GI/Abdominal Exam GI & Abdominal Exam: Normal Bowel Sounds - Neurological Exam Neurological Exam: Alert, Altered, Awake - Psychiatric Exam Psychiatric exam: Flat Affect - Skin Skin Exam: Pallor Assessment and Plan (1) Dementia Status: Chronic (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
[2018-06-10] MEDS: Meropenem 1 GM in Sodium Chloride 0.9% 100 ML IVPB SCH ×3 (00:47→16:00)
--- NOTE | 2018-06-10 13:48 | CP.PCM.PN ---
Subjective - Date & Time of Evaluation Date of Evaluation: 06/10/18 Time of Evaluation: 13:48 - Subjective Subjective: Patient comfortable today afebrile Objective - Vital Signs/Intake and Output Vital Signs (last 24 hours): Temp Pulse Resp BP Pulse Ox 98.6 F 70 18 124/69 95 06/10/18 08:00 06/10/18 08:00 06/10/18 08:00 06/10/18 08:00 06/10/18 08:00 - Medications Medications: Current Medications Acetaminophen (Tylenol 325mg Tab) 650 mg PO Q4 PRN PRN Reason: Fever >100.4 F Last Admin: 06/09/18 20:40 Dose: 650 mg Acetaminophen (Tylenol 325mg Tab) 650 mg PO Q6 PRN PRN Reason: Pain, moderate (4-7) Last Admin: 06/05/18 17:28 Dose: 650 mg Acyclovir (Zovirax) 800 mg PO BID [facility]; Protocol Last Admin: 06/10/18 08:22 Dose: 800 mg Docusate Sodium (Colace Liquid) 200 mg PO DAILY [facility] Last Admin: 06/10/18 08:21 Dose: 200 mg Donepezil HCl (Aricept) 10 mg PO DAILY [facility] Last Admin: 06/10/18 08:22 Dose: 10 mg Escitalopram Oxalate (Lexapro) 10 mg PO DAILY [facility] Last Admin: 06/10/18 08:22 Dose: 10 mg Meropenem 1 gm/ Sodium (Chloride) 100 mls @ 100 mls/hr IVPB Q8 [facility]; Protocol Last Admin: 06/10/18 08:20 Dose: 100 mls/hr Memantine (Namenda) 10 mg PO Q12 [facility] Last Admin: 06/10/18 08:21 Dose: 10 mg - Labs Labs: 06/07/18 16:35 06/07/18 10:55 - Constitutional Appears: Confused, Chronically Ill - Head Exam Head Exam: ATRAUMATIC, NORMAL INSPECTION, NORMOCEPHALIC - Eye Exam Eye Exam: Normal appearance Pupil Exam: PERRL - ENT Exam ENT Exam: Mucous Membranes Moist - Neck Exam Neck Exam: Full ROM - Respiratory Exam Respiratory Exam: Clear to Ausculation Bilateral - Cardiovascular Exam Cardiovascular Exam: REGULAR RHYTHM, +S1, +S2 - GI/Abdominal Exam GI & Abdominal Exam: Soft, Normal Bowel Sounds - Extremities Exam Extremities Exam: Normal Inspection - Neurological Exam Neurological Exam: Alert, Altered, Awake - Psychiatric Exam Psychiatric exam: Flat Affect - Skin Skin Exam: Normal Color Assessment and Plan (1) Dementia Status: Chronic (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
[2018-06-10 16:42] VITALS: RESP 20
[2018-06-11] MEDS: Meropenem 1 GM in Sodium Chloride 0.9% 100 ML IVPB SCH ×3 (01:00→16:07)
[2018-06-11] MEDS ORDERED: Midazolam 2 MG/2 ML VIAL ONE (13:03)
--- NOTE | 2018-06-11 13:40 | CP.PCM.PN ---
Subjective - Date & Time of Evaluation Date of Evaluation: 06/11/18 Time of Evaluation: 08:00 - Subjective Subjective: awake alert afebrile nad Objective - Vital Signs/Intake and Output Vital Signs (last 24 hours): Temp Pulse Resp BP Pulse Ox 99 F 70 20 122/72 96 06/11/18 10:00 06/11/18 07:53 06/11/18 07:53 06/11/18 07:53 06/11/18 07:53 - Medications Medications: Current Medications Acetaminophen (Tylenol 325mg Tab) 650 mg PO Q4 PRN PRN Reason: Fever >100.4 F Last Admin: 06/09/18 20:40 Dose: 650 mg Acetaminophen (Tylenol 325mg Tab) 650 mg PO Q6 PRN PRN Reason: Pain, moderate (4-7) Last Admin: 06/05/18 17:28 Dose: 650 mg Docusate Sodium (Colace Liquid) 200 mg PO DAILY [facility] Last Admin: 06/10/18 08:21 Dose: 200 mg Donepezil HCl (Aricept) 10 mg PO DAILY [facility] Last Admin: 06/11/18 08:13 Dose: 10 mg Escitalopram Oxalate (Lexapro) 10 mg PO DAILY [facility] Last Admin: 06/11/18 08:13 Dose: 10 mg Meropenem 1 gm/ Sodium (Chloride) 100 mls @ 100 mls/hr IVPB Q8 [facility]; Protocol Last Admin: 06/11/18 01:00 Dose: 100 mls/hr Memantine (Namenda) 10 mg PO Q12 [facility] Last Admin: 06/11/18 08:13 Dose: 10 mg - Labs Labs: 06/07/18 16:35 06/07/18 10:55 - Constitutional Appears: Non-toxic, Chronically Ill - Head Exam Head Exam: NORMOCEPHALIC - Eye Exam Eye Exam: absent: Scleral icterus - ENT Exam ENT Exam: Mucous Membranes Dry - Neck Exam Neck Exam: absent: Lymphadenopathy - Respiratory Exam Respiratory Exam: Decreased Breath Sounds - Cardiovascular Exam Cardiovascular Exam: REGULAR RHYTHM - GI/Abdominal Exam GI & Abdominal Exam: Distended - Rectal Exam Rectal Exam: Deferred - Exam Exam: NORMAL INSPECTION - Extremities Exam Extremities Exam: absent: Pedal Edema - Back Exam Back Exam: absent: CVA tenderness (L), CVA tenderness (R) - Neurological Exam Neurological Exam: Alert, Altered, Awake Assessment and Plan (1) Herpes encephalitis Status: Acute - Assessment and Plan (Free Text) Assessment: to d/c on PO Cipro this saturday cont acyclovir PO indefinitely cont IV Merrem till Saturday
[2018-06-11] MEDS: Enoxaparin 40 mg Syringe SC SCH (20:52)
--- NOTE | 2018-06-11 22:32 | CP.PCM.PN ---
Subjective - Date & Time of Evaluation Date of Evaluation: 06/11/18 Time of Evaluation: 14:00 - Subjective Subjective: Comfortable not in distress Objective - Vital Signs/Intake and Output Vital Signs (last 24 hours): Temp Pulse Resp BP Pulse Ox 98.3 F 70 20 120/72 94 L 06/11/18 20:48 06/11/18 20:48 06/11/18 20:48 06/11/18 20:48 06/11/18 20:48 - Medications Medications: Current Medications Acetaminophen (Tylenol 325mg Tab) 650 mg PO Q4 PRN PRN Reason: Fever >100.4 F Last Admin: 06/09/18 20:40 Dose: 650 mg Acetaminophen (Tylenol 325mg Tab) 650 mg PO Q6 PRN PRN Reason: Pain, moderate (4-7) Last Admin: 06/05/18 17:28 Dose: 650 mg Docusate Sodium (Colace Liquid) 200 mg PO DAILY [facility] Last Admin: 06/11/18 13:39 Dose: 200 mg Donepezil HCl (Aricept) 10 mg PO DAILY [facility] Last Admin: 06/11/18 08:13 Dose: 10 mg Enoxaparin Sodium (Lovenox) 40 mg SC DAILY [facility]; Protocol Last Admin: 06/11/18 20:52 Dose: 40 mg Escitalopram Oxalate (Lexapro) 10 mg PO DAILY [facility] Last Admin: 06/11/18 08:13 Dose: 10 mg Meropenem 1 gm/ Sodium (Chloride) 100 mls @ 100 mls/hr IVPB Q8 [facility]; Protocol Last Admin: 06/11/18 16:07 Dose: 100 mls/hr Memantine (Namenda) 10 mg PO Q12 [facility] Last Admin: 06/11/18 20:53 Dose: 10 mg - Labs Labs: 06/07/18 16:35 06/07/18 10:55 - Constitutional Appears: Confused, Chronically Ill - Head Exam Head Exam: ATRAUMATIC, NORMAL INSPECTION, NORMOCEPHALIC - Eye Exam Eye Exam: Normal appearance - ENT Exam ENT Exam: Normal Exam - Neck Exam Neck Exam: Full ROM - Respiratory Exam Respiratory Exam: Clear to Ausculation Bilateral - Cardiovascular Exam Cardiovascular Exam: REGULAR RHYTHM, +S1, +S2 - GI/Abdominal Exam GI & Abdominal Exam: Soft, Normal Bowel Sounds - Extremities Exam Extremities Exam: Normal Inspection - Neurological Exam Neurological Exam: Alert, Altered, Awake - Psychiatric Exam Psychiatric exam: Flat Affect - Skin Skin Exam: Normal Color Assessment and Plan (1) Dementia Status: Chronic (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
[2018-06-12] MEDS: Meropenem 1 GM in Sodium Chloride 0.9% 100 ML IVPB SCH ×3 (01:20→18:12)
[2018-06-12] MEDS: Enoxaparin 40 mg Syringe SC SCH (08:53)
--- NOTE | 2018-06-12 20:09 | CP.PCM.PN ---
Subjective - Date & Time of Evaluation Date of Evaluation: 06/12/18 Time of Evaluation: 20:09 - Subjective Subjective: Comfortable not in distress in his usual mental status Objective - Vital Signs/Intake and Output Vital Signs (last 24 hours): Temp Pulse Resp BP Pulse Ox 99.3 F 72 20 119/69 93 L 06/12/18 19:35 06/12/18 19:35 06/12/18 19:35 06/12/18 19:35 06/12/18 19:35 - Medications Medications: Current Medications Acetaminophen (Tylenol 325mg Tab) 650 mg PO Q4 PRN PRN Reason: Fever >100.4 F Last Admin: 06/09/18 20:40 Dose: 650 mg Acetaminophen (Tylenol 325mg Tab) 650 mg PO Q6 PRN PRN Reason: Pain, moderate (4-7) Last Admin: 06/05/18 17:28 Dose: 650 mg Docusate Sodium (Colace Liquid) 200 mg PO DAILY [facility] Last Admin: 06/12/18 08:54 Dose: 200 mg Donepezil HCl (Aricept) 10 mg PO DAILY [facility] Last Admin: 06/12/18 08:53 Dose: 10 mg Enoxaparin Sodium (Lovenox) 40 mg SC DAILY [facility]; Protocol Last Admin: 06/12/18 08:53 Dose: 40 mg Escitalopram Oxalate (Lexapro) 10 mg PO DAILY [facility] Last Admin: 06/12/18 08:54 Dose: 10 mg Meropenem 1 gm/ Sodium (Chloride) 100 mls @ 100 mls/hr IVPB Q8 [facility]; Protocol Last Admin: 06/12/18 18:12 Dose: 100 mls/hr Memantine (Namenda) 10 mg PO Q12 [facility] Last Admin: 06/12/18 08:56 Dose: 10 mg - Labs Labs: 06/07/18 16:35 06/07/18 10:55 - Constitutional Appears: Confused, Chronically Ill - Head Exam Head Exam: ATRAUMATIC, NORMAL INSPECTION, NORMOCEPHALIC - Eye Exam Eye Exam: Normal appearance - ENT Exam ENT Exam: Mucous Membranes Moist - Neck Exam Neck Exam: Full ROM - Respiratory Exam Respiratory Exam: Clear to Ausculation Bilateral - Cardiovascular Exam Cardiovascular Exam: REGULAR RHYTHM, +S1, +S2 - GI/Abdominal Exam GI & Abdominal Exam: Soft, Normal Bowel Sounds - Extremities Exam Extremities Exam: Normal Inspection - Neurological Exam Neurological Exam: Alert, Altered, Awake - Psychiatric Exam Psychiatric exam: Flat Affect - Skin Skin Exam: Normal Color Assessment and Plan (1) Dementia Status: Chronic (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
[2018-06-13] MEDS: Meropenem 1 GM in Sodium Chloride 0.9% 100 ML IVPB SCH ×2 (01:34→08:55)
[2018-06-13] MEDS: Enoxaparin 40 mg Syringe SC SCH (08:54)
--- NOTE | 2018-06-13 11:56 | CP.PCM.DIS ---
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 Hospital Course - Lab Results Lab Results: Micro Results 06/07/18 16:45 Blood Blood Culture - Final NO GROWTH AFTER 5 DAYS 06/07/18 16:45 Blood Gram Stain - Final TEST NOT PERFORMED 06/07/18 16:35 Blood Blood Culture - Final NO GROWTH AFTER 5 DAYS 06/07/18 16:35 Blood Gram Stain - Final TEST NOT PERFORMED 06/07/18 17:55 Urine,Clean Catch Urine Culture - Final Pseudomonas Aeruginosa Most Recent Lab Values WBC 12.1 K/uL (4.8-10.8) H 06/07/18 16:35 RBC 3.35 Mil/uL (4.40-5.90) L 06/07/18 16:35 Hgb 10.0 g/dL (12.0-18.0) L 06/07/18 16:35 Hct 29.8 % (35.0-51.0) L 06/07/18 16:35 MCV 88.9 fl (80.0-94.0) 06/07/18 16:35 MCH 29.9 pg (27.0-31.0) 06/07/18 16:35 MCHC 33.6 g/dL (33.0-37.0) 06/07/18 16:35 RDW 16.4 % (11.5-14.5) H 06/07/18 16:35 Plt Count 339 K/uL (130-400) 06/07/18 16:35 MPV 6.5 fl (7.2-11.7) L 06/07/18 10:55 Neut % (Auto) 81.8 % (50.0-75.0) H 06/07/18 10:55 Lymph % (Auto) 10.9 % (20.0-40.0) L 06/07/18 10:55 [place] % (Auto) 6.1 % (0.0-10.0) 06/07/18 10:55 Eos % (Auto) 0.8 % (0.0-4.0) 06/07/18 10:55 Baso % (Auto) 0.4 % (0.0-2.0) 06/07/18 10:55 Neut # (Auto) 9.3 K/uL (1.8-7.0) H 06/07/18 10:55 Lymph # (Auto) 1.2 K/uL (1.0-4.3) 06/07/18 10:55 [place] # (Auto) 0.7 K/uL (0.0-0.8) 06/07/18 10:55 Eos # (Auto) 0.1 K/uL (0.0-0.7) 06/07/18 10:55 Baso # (Auto) 0.0 K/uL (0.0-0.2) 06/07/18 10:55 Neutrophils % (Manual) Cancelled 06/01/18 18:30 Band Neutrophils % Cancelled 06/01/18 18:30 Lymphocytes % (Manual) Cancelled 06/01/18 18:30 Reactive Lymphs % Cancelled 06/01/18 18:30 Monocytes % (Manual) Cancelled 06/01/18 18:30 Eosinophils % (Manual) Cancelled 06/01/18 18:30 Basophils % (Manual) Cancelled 06/01/18 18:30 Metamyelocytes % Cancelled 06/01/18 18:30 Myelocytes % Cancelled 06/01/18 18:30 Promyelocytes % Cancelled 06/01/18 18:30 Blast Cells % Cancelled 06/01/18 18:30 Plasma Cell % (Manual) Cancelled 06/01/18 18:30 Nucleated RBC % Cancelled 06/01/18 18:30 Hypersegmented Polys Cancelled 06/01/18 18:30 Smudge Cells Cancelled 06/01/18 18:30 Toxic Granulation Cancelled 06/01/18 18:30 Dohle Bodies Cancelled 06/01/18 18:30 Sadie Rods Cancelled 06/01/18 18:30 Platelet Estimate Cancelled 06/01/18 18:30 Plt Clumps, EDTA Cancelled 06/01/18 18:30 Large Platelets Cancelled 06/01/18 18:30 Giant Platelets Cancelled 06/01/18 18:30 RBC Morphology Cancelled 06/01/18 18:30 Polychromasia Cancelled 06/01/18 18:30 Hypochromasia (manual) Cancelled 06/01/18 18:30 Poikilocytosis (manual Cancelled 06/01/18 18:30 Basophilic Stippling Cancelled 06/01/18 18:30 Anisocytosis (manual) Cancelled 06/01/18 18:30 Microcytosis (manual) Cancelled 06/01/18 18:30 Macrocytosis (manual) Cancelled 06/01/18 18:30 Spherocytes Cancelled 06/01/18 18:30 Sickle Cells Cancelled 06/01/18 18:30 Target Cells Cancelled 06/01/18 18:30 Tear Drop Cells Cancelled 06/01/18 18:30 Ovalocytes Cancelled 06/01/18 18:30 Stomatocytes Cancelled 06/01/18 18:30 Helmet Cells Cancelled 06/01/18 18:30 [place] Bodies Cancelled 06/01/18 18:30 [place] Cells Cancelled 06/01/18 18:30 Acanthocytes (Spur) Cancelled 06/01/18 18:30 Rouleaux Cancelled 06/01/18 18:30 Schistocytes Cancelled 06/01/18 18:30 Sodium 142 mmol/l (132-148) 06/07/18 10:55 Potassium 3.9 MMOL/L (3.6-5.0) 06/07/18 10:55 Chloride 106 mmol/L (98-107) 06/07/18 10:55 Carbon Dioxide 26 mmol/L (22-30) 06/07/18 10:55 Anion Gap 14 (10-20) 06/07/18 10:55 BUN 26 mg/dl (9-20) H 06/07/18 10:55 Creatinine 1.2 mg/dl (0.8-1.5) 06/07/18 10:55 Est GFR ( Amer) > 60 06/07/18 10:55 Est GFR (Non-Af Amer) 59 06/07/18 10:55 Random Glucose 179 mg/dL (75-110) H 06/07/18 10:55 Calcium 8.8 mg/dL (8.4-10.2) 06/07/18 10:55 Urine Color Yellow (YELLOW) 06/07/18 17:55 Urine Clarity Clear (Clear) 06/07/18 17:55 Urine pH 7.0 (5.0-8.0) 06/07/18 17:55 Ur Specific [place] 1.014 (1.003-1.030) 06/07/18 17:55 Urine Protein 30 mg/dL (NEGATIVE) 06/07/18 17:55 Urine Glucose (UA) Neg mg/dL (NEGATIVE) 06/07/18 17:55 Urine Ketones Negative mg/dL (NEGATIVE) 06/07/18 17:55 Urine Blood Small (NEGATIVE) 06/07/18 17:55 Urine Nitrate Negative (NEGATIVE) 06/07/18 17:55 Urine Bilirubin Negative (NEGATIVE) 06/07/18 17:55 Urine Urobilinogen 2.0 mg/dL (0.2-1.0) 06/07/18 17:55 Ur Leukocyte Esterase Trace [place]/uL (Negative) 06/07/18 17:55 Urine RBC (Auto) 21 /hpf (0-3) H 06/07/18 17:55 Urine Microscopic WBC 15 /hpf (0-5) H 06/07/18 17:55 Ur Squamous Epith Cells < 1 /hpf (0-5) 06/07/18 17:55 Urine Bacteria Rare (<OCC) 06/07/18 17:55 Influenza Typ A,B (EIA) Negative for flu a/b (NEGATIVE) 06/07/18 16:42 - Hospital Course Hospital Course: 77 y/o male with a PMHx of Alzheimer's Disease admitted for evaluation of a high fever for the past two days before admission. History obtained through due to patient's clinical condition. As per , patient has been very lethargic, sleeping more frequently and less talkative than normal. notes that at baseline, patient is usually talkative but confused. states patient has additionally not been eating or drinking normally further reporting that she usually gives him pureed food. states she was advised by the patient's PMD to puree his food. Patient noted to be jerking in his sleep while interviewing the . When asked the , notes that this is new and is not normal for the patient. denies cough, abdominal pain, vomiting, shortness of breath, rash, history of Parkinson's Disease and DM. He presented with herpetic meningitis. He well responded to the tx. Discharge Exam - Head Exam Head Exam: ATRAUMATIC, NORMAL INSPECTION, NORMOCEPHALIC - Eye Exam Eye Exam: Normal appearance - ENT Exam ENT Exam: Normal Exam - Neck Exam Neck exam: Full Rom - Respiratory Exam Respiratory Exam: Clear to PA & Lateral - Cardiovascular Exam Cardiovascular Exam: REGULAR RHYTHM, +S1, +S2 - GI/Abdominal Exam GI & Abdominal Exam: Normal Bowel Sounds - Extremities Exam Extremities exam: normal inspection - Neurological Exam Neurological exam: Alert, Altered - Psychiatric Exam Psychiatric exam: Flat Affect - Skin Skin Exam: Normal Color Discharge Plan - Follow Up Plan Condition: GOOD Disposition: HOME/ ROUTINE
[2018-06-13 12:10] VITALS: BP 147/77; PULSE 70; TEMP 98.2; O2SAT 99
== END 2018-06-13 14:05 | disposition home health service (06) | DRG 98 ==
LOC: H.TCU 17:33
PROVIDERS: ADMIT Internal Medicine; ATTEND Internal Medicine
PROC: F08Z2FZ Grooming/Personal Hygiene Treatment using Assistive, Adaptive, Supportive or Protective Equipment (ICD-10-PCS; principal; 2018-05-30)
PROC: F08Z1FZ Dressing Techniques Treatment using Assistive, Adaptive, Supportive or Protective Equipment (ICD-10-PCS; 2018-05-30)
PROC: F07Z8FZ Transfer Training Treatment using Assistive, Adaptive, Supportive or Protective Equipment (ICD-10-PCS; 2018-05-30)
PROC: F07Z5FZ Bed Mobility Treatment using Assistive, Adaptive, Supportive or Protective Equipment (ICD-10-PCS; 2018-05-30)
PROC: F07 Physical Rehabilitation and Diagnostic Audiology, Rehabilitation, Motor Treatment (ICD-10-PCS; 2018-05-30)
DX: B00.4 Herpesviral encephalitis (principal); K50.90 Crohn's disease, unspecified, without complications; N39.0 Urinary tract infection, site not specified; F02.80 Dementia in other diseases classified elsewhere, unspecified severity, without behavioral disturbance, psychotic disturbance, mood disturbance, and anxiety; G30.9 Alzheimer's disease, unspecified; I10 Essential (primary) hypertension; B96.5 Pseudomonas (aeruginosa) (mallei) (pseudomallei) as the cause of diseases classified elsewhere

== ENCOUNTER 2018-06-04 11:02 | Day surgery (SDC) | payer MEDICARE, BC ==
[2018-06-04 11:56] VITALS: BMI 21.4
--- NOTE | 2018-06-04 12:39 | CP.SDSHP ---
Same Day Surgery H & P - History Proposed Procedure: PICC Placement Pre-Op Diagnosis: Infection - Allergies Allergies: Allergies [place] And Derivatives Allergy (Verified 06/04/18 11:56) ANAPHYLAXIS ibuprofen [From Advil] Allergy (Verified 06/04/18 11:56) COUGH morphine Allergy (Verified 06/04/18 11:56) RASH - Physical Exam Vital Signs: Vital Signs 06/04/18 06/04/18 11:35 11:41 Temperature 98.7 F Pulse Rate 76 76 Respiratory 20 Rate Blood Pressure 108/54 L O2 Sat by Pulse 96 Oximetry Mental Status: Alert & Oriented x3 - Impression Impression: Plan placement of PICC for IV access and IV abx. - Date & Time Date: 06/04/18 Time: 12:39 Short Stay Discharge - Short Stay Discharge Admitting Diagnosis/Reason for Visit: ABX TREATMENT Disposition: HOME/ ROUTINE
[2018-06-04] MEDS ORDERED: Lidocaine Hydrochloride 1% 10 ML ONE (12:54)
--- NOTE | 2018-06-04 13:05 | PCM.IRP ---
Objective - Vital Signs/Intake and Output Vital Signs (last 24 hours): Vital Signs - 24 hr 06/04/18 06/04/18 11:35 11:41 Temperature 98.7 F Pulse Rate 76 76 Respiratory 20 Rate Blood Pressure 108/54 L O2 Sat by Pulse 96 Oximetry Intake and Output (last 12 hours): Intake & Output 06/03/18 06/04/18 06/04/18 18:59 06:59 18:59 Weight 145 lb Other: Voiding Method Incontinent
[2018-06-04 13:10] VITALS: RESP 18
--- NOTE | 2018-06-04 13:15 | PCM.SURG1 ---
Surgeon's Initial Post Op Note - Surgeon's Notes Surgeon: Raulito Dong MD Flaking Roll Operator: NONE Type of Anesthesia: Local Pre-Operative Diagnosis: Infection Operative Findings: US showed a patent right basilic vein Post-Operative Diagnosis: Infection Operation Performed: Single lumen picc placement right arm, 39 cm. Specimen/Specimens Removed: None Estimated Blood Loss: EBL {In ML}: 2 Blood Products Given: N/A Drains Used: No Drains Post-Op Condition: Good Date of Surgery/Procedure: 06/04/18 Time of Surgery/Procedure: 13:14
[2018-06-04 13:45] VITALS: BP 132/59; PULSE 71; TEMP 98.8; O2SAT 99
--- NOTE | 2018-06-04 16:08 | VASCULAR ---
PROCEDURE: Date of procedure: 06/04/2018 Procedure: 1. Placement of a right arm PICC with ultrasound and fluoroscopic guidance, CPT 45248 2. PICC tip confirmation with spot radiograph and is in the superior vena cava Medications: 1 percent lidocaine Total Fluoro time: 11.7 Seconds Radiation: 1.69 MGy EBL: 2 cc HISTORY: Infection requiring long-term IV antibiotics TECHNIQUE: Following informed consent and procedure time-out, the patient was placed supine on the interventional table and the right arm prepped and draped in the usual sterile fashion. Ultrasound showed a patent and compressible right basilic vein. After the skin was anesthetized with lidocaine, the basilic vein was accessed with micro micropuncture technique using ultrasound guidance. A guidewire was then advanced under fluoroscopic guidance into the superior vena cava. An image documenting ultrasound guidance for vascular access was permanently saved. The length of the single-lumen 4 [place] PICC was trimmed to 39 centimeters and advanced through a peel-away sheath. The PICC was position with tip of PICC confirm a spot radiograph the superior vena cava. The PICC was secured to the patient's skin. The PICC was flushed. A sterile dressing was applied. IMPRESSION: Placement of a single-lumen 4 [place] PICC trimmed to 39 centimeters via right basilic vein. The tip of the PICC is confirmed with spot radiograph and is in the superior vena cava.
== END 2018-06-04 13:50 | disposition still patient (30) ==
LOC: H.OPSURG 11:02
PROVIDERS: ATTEND Internal Medicine
DX: Z45.2 Encounter for adjustment and management of vascular access device (principal); Z88.6 Allergy status to analgesic agent
CPT/HCPCS: 36573; A4310; C1751

== ENCOUNTER 2018-06-29 14:15 | Inpatient (IN) | payer MEDICARE, BC ==
[2018-06-29] MEDS ORDERED: Sodium Chloride 0.9% 1,000 ML IV STA ×2 (14:47→17:09)
--- NOTE | 2018-06-29 15:06 | ED PDOC ---
HPI: General Adult Time Seen by Provider: 06/29/18 14:41 Chief Complaint (Nursing): Fever Chief Complaint (Provider): fever History Per: Patient, Family History/Exam Limitations: no limitations Onset/Duration Of Symptoms: Days (<1), Sudden Onset Current Symptoms Are (Timing): Still Present Recently: Treated By A Physician, Hospitalized Additional Complaint(s): 77yo male presents w family state fever developed last night, this morning had mild headache and dry cough, no vomiting, diarrhea, AMS or syncope. Was admitted last month for viral meningitis and UTI, had PICC line for several days after admission but removed about 2 weeks ago per family. Mental status currently at baseline per family. Last given tylenol 1pm this afternoon. Past Medical History Reviewed: Historical Data, Nursing Documentation, Vital Signs Vital Signs: Last Vital Signs Temp 98.7 F 06/29/18 14:25 Pulse 87 06/29/18 14:25 Resp 16 06/29/18 14:25 BP 105/55 L 06/29/18 14:25 Pulse Ox 94 L 06/29/18 14:25 - Medical History PMH: Alzheimer's Disease, Anemia, Arthritis, Crohn's Disease (on humira injections monthly), Dementia, Fractures (right ankle), HTN Denies: Diabetes, Hepatitis, HIV, Chronic Kidney Disease, Seizures, Sexually Transmitted Disease - Surgical History Surgical History: Hernia Repair - Family History Family History: States: Unknown Family Hx - Living Arrangements Living Arrangements: With Family - Social History Current smoker - smoking cessation education provided: No - Home Medications Home Medications: Ambulatory Orders Medication Instructions Recorded Donepezil [Aricept] 10 mg PO DAILY #30 tab 12/12/17 Escitalopram [Lexapro] 20 mg PO DAILY #30 tab 12/12/17 Memantine [Namenda] 10 mg PO Q12 #60 tab 12/12/17 QUEtiapine [SEROquel] 50 mg PO TID #90 tab 12/12/17 Docusate [Colace] 200 mg PO DAILY cap 05/30/18 Ciprofloxacin HCl [Cipro] 250 mg PO BID 10 Days #20 tablet 06/13/18 Escitalopram [Lexapro] 10 mg PO DAILY tab 06/13/18 Nystatin/Triamcinolone [Mycolog 1 appl TP BID 10 Days #60 tube 06/13/18 Cream] - Allergies Allergies/Adverse Reactions: Allergies Allergy/AdvReac Type Severity Reaction Status Date / Time [place] And Derivatives Allergy ANAPHYLAXIS Verified 06/04/18 11:56 ibuprofen [From Advil] Allergy COUGH Verified 06/04/18 11:56 morphine Allergy RASH Verified 06/04/18 11:56 Review of Systems ROS Statement: Except As Marked, All Systems Reviewed And Found Negative Constitutional: Positive for: Fever, Weakness (generalized) Eyes: Negative for: Redness ENT: Positive for: Throat Pain (mild) Musculoskeletal: Negative for: Neck Pain, Leg Pain Skin: Negative for: Rash, Lesions Neurological: Positive for: Weakness, Headache. Negative for: Numbness, Incoordination, Change in Speech, Seizures, Altered Mental Status Physical Exam - Reviewed Nursing Documentation Reviewed: Yes Vital Signs Reviewed: Yes - Physical Exam Appears: Positive for: Well, Non-toxic, No Acute Distress Head Exam: Positive for: ATRAUMATIC, NORMAL INSPECTION, NORMOCEPHALIC Skin: Positive for: Normal Color, Warm, DRY Eye Exam: Positive for: EOMI, Normal appearance, PERRL ENT: Positive for: Normal ENT Inspection Neck: Positive for: Normal, Painless ROM Cardiovascular/Chest: Positive for: Regular Rate, Rhythm Respiratory: Positive for: CNT, Normal Breath Sounds Gastrointestinal/Abdominal: Positive for: Soft. Negative for: Tenderness, Guarding Back: Positive for: Normal Inspection, Other (skin dry, mild erythema). Negative for: L CVA Tenderness, R CVA Tenderness Extremity: Positive for: Normal ROM Neurological/Psych: Positive for: Awake, Alert, Mood/Affect (flat), Gait (unable to assess), Cerebellar Tests (mild rigidity), Other (hypertonicity LE). Negative for: director of graduate admissions II-XII - Laboratory Results Result Diagrams: 06/29/18 16:51 06/29/18 16:51 - ECG O2 Sat by Pulse Oximetry: 94 Medical Decision Making Medical Decision Making: Time: 1449 Plan: -- VBG -- EKG -- CMP -- Lipase -- Magnesium -- Phosphorus -- CBC with Differentials -- PTT -- Prothrombin Time -- CXR Portable -- Sodium Chloride IV 1000 mls/hr -- Blood Culture -- Urine Culture -- Influenza A B -- Urinalysis -- Nursing Communication (straight cath urine) Time: 1646 CXR RESULTS Date of service: 06/29/2018 HISTORY: Fever COMPARISON: Comparison chest dated 06/07/2018. TECHNIQUE: 1 view obtained. FINDINGS: LUNGS: Poor inspiration with low lung volumes common crowded bronchovascular markings and bibasilar atelectasis. There is persistent elevation right hemidiaphragm possibly due to eventration. The hilar regions are bulky left greater than right in part likely due to aforementioned poor inspiration.. Tiny left-sided effusion not excluded PLEURA: As above. No pneumothorax apparent. CARDIOVASCULAR: Suspect minor aortic atherosclerotic calcification present. Heart size is borderline enlarged. Aorta ectatic and uncoiled. No pulmonary vascular congestion. OSSEOUS STRUCTURES: No significant abnormalities. VISUALIZED UPPER ABDOMEN: Normal. OTHER FINDINGS: None. IMPRESSION: Poor inspiration with low lung volumes common crowded bronchovascular markings and bibasilar atelectasis. There is persistent elevation right hemidiaphragm possibly due to eventration. The hilar regions are bulky left greater than right in part likely due to aforementioned poor inspiration.. Dedicated repeat PA and lateral erect views of the chest in the department of Radiology suggested to further assess the hilar regions. Tiny left-sided effusion not excluded Time: 1710 -- Sodium Chloride IV 1000 mls/hr -- Vancomycin 1 gm Sodium Chloride 0.9% 250 ml IVPB -- Zosyn 4.5 gm Sodium Chloride 0.9% 100 ml IVPB labs reveal elev WBC, elev lactate and clinically unremarkable chem (hemolyzed K). UA trace WBC flu neg Per RN had semi formed BM, no diarrhea no blood Abdomen remains nontender, per family he has not c/o abdominal pain either. Unclear source of infection currently, possible UTI, broad spectrum Abx initiated after cultures obtained Repeat lactate pending D/w Dr Segundo approx 515pm for admission Family updated on status and labs, CXR. Haldol 2mg given for mild agitation, they state much improved. Scribe Attestation: Documented by Ethan Hunt, acting as a scribe Glenys Meade III, DO. Provider Scribe Attestation: All medical record entries made by the Scribe were at my direction and personally dictated by me. I have reviewed the chart and agree that the record accurately reflects my personal performance of the medical decision making for this patient. I have also personally directed, reviewed, and agree with the discharge instructions and disposition. Disposition - Clinical Impression Clinical Impression: Severe sepsis - Patient ED Disposition Is Patient to be Admitted: Yes - Disposition Disposition Time: 17:00 Condition: GUARDED - Pt Status Changed To: Hospital Disposition Of: Inpatient - Admit Certification Admit to Inpatient:: After my assessment, the patient will require hospitalization for at least two midnights. This is because of the severity of symptoms shown, intensity of services needed, and/or the medical risk in this patient being treated as an outpatient.
--- NOTE | 2018-06-29 16:50 | RAD ---
Date of service: 06/29/2018 HISTORY: Fever COMPARISON: Comparison chest dated 06/07/2018. TECHNIQUE: 1 view obtained. FINDINGS: LUNGS: Poor inspiration with low lung volumes common crowded bronchovascular markings and bibasilar atelectasis. There is persistent elevation right hemidiaphragm possibly due to eventration. The hilar regions are bulky left greater than right in part likely due to aforementioned poor inspiration.. Tiny left-sided effusion not excluded PLEURA: As above. No pneumothorax apparent. CARDIOVASCULAR: Suspect minor aortic atherosclerotic calcification present. Heart size is borderline enlarged. Aorta ectatic and uncoiled. No pulmonary vascular congestion. OSSEOUS STRUCTURES: No significant abnormalities. VISUALIZED UPPER ABDOMEN: Normal. OTHER FINDINGS: None. IMPRESSION: Poor inspiration with low lung volumes common crowded bronchovascular markings and bibasilar atelectasis. There is persistent elevation right hemidiaphragm possibly due to eventration. The hilar regions are bulky left greater than right in part likely due to aforementioned poor inspiration.. Dedicated repeat PA and lateral erect views of the chest in the department of Radiology suggested to further assess the hilar regions. Tiny left-sided effusion not excluded
[2018-06-29 17:02] LABS: BASO # 0.1 K/uL (0.0-0.2); BASO % 0.5 % (0.0-2.0); EOS # 0.4 K/uL (0.0-0.7); EOS % 2.2 % (0.0-4.0); HEMOGLOBIN 13.3 g/dL (12.0-18.0); LYMPH # 1.7 K/uL (1.0-4.3); LYMPH % 10.2 % (20.0-40.0); MEAN CELL VOLUME 90.4 fl (80.0-94.0); MEAN CORPUSCULAR HEMOGLOBIN 29.2 pg (27.0-31.0); MEAN CORPUSCULAR HGB CONC 32.3 g/dL (33.0-37.0); MONO # 0.9 K/uL (0.0-0.8); MONO % 5.8 % (0.0-10.0); NEUT # 13.4 K/uL (1.8-7.0); NEUT % 81.3 % (50.0-75.0); RBC 4.55 Mil/uL (4.40-5.90); RED CELL DISTRIBUTION WIDTH 17.1 % (11.5-14.5); WHITE BLOOD COUNT 16.5 K/uL (4.8-10.8)
[2018-06-29 17:07] LABS: VENOUS BLOOD GAS BASE EXCESS 3.2 mmol/L (0.0-2.0); VENOUS BLOOD GAS PCO2 62 mmHg (40-60); VENOUS BLOOD GAS PO2 16 mm/Hg (30-55); VENOUS BLOOD PH 7.31 (7.32-7.43)
[2018-06-29 17:09] LABS: INR 1.3; PROTHROMBIN TIME 14.8 Seconds (9.8-13.1)
[2018-06-29] MEDS ORDERED: Piperacillin/Tazobact 4.5 GM in Sodium Chloride 0.9% 100 ML IVPB STA (17:10)
[2018-06-29 17:11] LABS: PARTIAL THROMBOPLASTIN TIME 28.9 Seconds (25.6-37.1)
[2018-06-29 17:17] LABS: ALB/GLOB RATIO 0.9 (1.0-2.1); ALBUMIN 4.6 g/dL (3.5-5.0); ALT/SGPT 25 U/L (21-72); AST/SGOT 47 U/L (17-59); BLOOD UREA NITROGEN 19 mg/dl (9-20); CALCIUM 9.3 mg/dL (8.4-10.2); GFR NON-AFRICAN AMERICAN > 60; LIPASE 127 U/L (23-300)
[2018-06-29] MEDS ORDERED: Vancomycin 1 g Inj ONE (17:41)
[2018-06-29] MEDS ORDERED: Povidone Iodine Oint 10% Foilpak UD ONE (17:45)
[2018-06-29 18:22] LABS: URINE BILIRUBIN NEGATIVE (NEGATIVE); URINE BLOOD MODERATE (NEGATIVE); URINE CLARITY SLIGHTY-CLOUDY (Clear); URINE COLOR YELLOW (YELLOW); URINE GLUCOSE (UA) NEG (NEGATIVE); URINE LEUKOCYTE ESTERASE TRACE Leu/uL (Negative); URINE PROTEIN 30 mg/dL (NEGATIVE); URINE UROBILINOGEN 0.2-1.0 mg/dL (0.2-1.0)
[2018-06-29 19:53] LABS: VENOUS BLOOD GAS BASE EXCESS 3.7 mmol/L (0.0-2.0); VENOUS BLOOD GAS PCO2 39 mmHg (40-60); VENOUS BLOOD GAS PO2 37 mm/Hg (30-55); VENOUS BLOOD PH 7.46 (7.32-7.43)
[2018-06-30 01:37] VITALS: BMI 21.7
[2018-06-30] MEDS ORDERED: Piperacillin/Tazobact 3.375 GM in Sodium Chloride 0.9% 100 ML IVPB SCH (09:00)
[2018-06-30] MEDS: Enoxaparin 40 mg Syringe SC SCH (10:24)
--- NOTE | 2018-06-30 10:25 | CARD ---
APPROVED REPORT Date of service: 06/29/2018 EKG Measurement Heart [id number] DC [id number] <Conclusion> Normal sinus rhythm Left axis deviation Minimal voltage criteria for LVH, may be normal variant Abnormal ECG
--- NOTE | 2018-06-30 11:53 | CP.PCM.CON ---
History of Present Illness - History of Present Illness History of Present Illness: 77yo male presents w family state fever developed last night, this morning had mild headache and dry cough, no vomiting, diarrhea, AMS or syncope. 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 Upon admission c/o diarrhea C diff positive RX in progress - Medical History PMH: Alzheimer's Disease, Anemia, Arthritis, Crohn's Disease (on humira injections monthly), Dementia, Fractures (right ankle), HTN Denies: Diabetes, Hepatitis, HIV, Chronic Kidney Disease, Seizures, Sexually Transmitted Disease Review of Systems - Review of Systems Systems not reviewed;Unavailable: Altered Mental Status - Constitutional Constitutional: As Per HPI - EENT Eyes: absent: As Per HPI, Blind Spots, Blurred Vision, Change in Vision, Decreased Night Vision, Diplopia, Discharge, Dry Eye, Exophthalmos, Floaters, Irritation, Itchy Eyes, Loss of Peripheral Vision, Pain, Photophobia, Requires Corrective Lenses, Sees Flashes, Spots in Vision, Tunnel Vision, Other Visual Disturbances, Loss of Vision, Other Ears: absent: As Per HPI, Decreased Hearing, Ear Discharge, Ear Pain, Tinnitus, Abnormal Hearing, Disequilibrium, Dizziness, Other Nose/Mouth/Throat: absent: As Per HPI, Epistaxis, Nasal Congestion, Nasal Discharge, Nasal Obstruction, Nasal Trauma, Nose Pain, Post Nasal Drip, Sinus Pain, Sinus Pressure, Bleeding Gums, Change in Voice, Dental Pain, Dry Mouth, Dysphagia, Halitosis, Hoarsness, Lip Swelling, Mouth Lesions, Mouth Pain, Odynophagia, Sore Throat, Throat Swelling, Tongue Swelling, Facial Pain, Neck Pain, Neck Mass, Other - Cardiovascular Cardiovascular: absent: As Per HPI, Acrocyanosis, Chest Pain, Chest Pain at Rest, Chest Pain with Activity, Claudication, Diaphoresis, Dyspnea, Dyspnea on Exertion, Edema, Irregular Heart Rhythm, Pain Radiating to Arm/Neck/Jaw, Leg Edema, Leg Ulcers, Lightheadedness, Orthopnea, Palpitations, Paroxysmal Nocturnal Dyspnea, Pedal Edema, Radiating Pain, Rapid Heart Rate, Slow Heart Rate, Syncope, Other - Respiratory Respiratory: absent: As Per HPI, Cough, Dyspnea, Hemoptysis, Dyspnea on Exertion, Wheezing, Snoring, Stridor, Pain on Inspiration, Chest Congestion, Excessive Mucous Production, Change in Mucous Color, Pain with Coughing, Other - Gastrointestinal Gastrointestinal: As Per HPI - Genitourinary Genitourinary: absent: As Per HPI, Change in Urinary Stream, Difficulty Urinating, Dysuria, Flank Pain, Hematuria, Pyuria, Nocturia, Urinary Incontinence, Urinary Frequency, Urinary Hesitance, Urinary Urgency, Voiding Freq/Small Amts, Freq UTI, Hx Renal/Bladder Calculi, Hx /Renal Surgery, Bladder Distension, Other - Musculoskeletal Musculoskeletal: As Per HPI - Integumentary Integumentary: As Per HPI, Skin Pain, Wounds - Neurological Neurological: As Per HPI, Memory Loss - Endocrine Endocrine: As Per HPI - Hematologic/Lymphatic Hematologic: absent: As Per HPI, Easy Bleeding, Easy Bruising, Lymphadenopathy, Other Past Patient History - Infectious Disease Hx of Infectious Diseases: None - Tetanus Immunizations Tetanus Immunization: Unknown - Past Medical History & Family History Past Medical History?: Yes - Past Social History Smoking Status: Never Smoked - CARDIAC Hx Hypertension: Yes - PULMONARY Hx Respiratory Disorders: No Hx Tuberculosis: No - NEUROLOGICAL Hx Alzheimer's Disease: Yes Hx Dementia: Yes Hx Seizures: No - HEENT Hx HEENT Problems: No - RENAL Hx Chronic Kidney Disease: No - ENDOCRINE/METABOLIC Hx Endocrine Disorders: No - HEMATOLOGICAL/ONCOLOGICAL Hx Anemia: Yes Hx Human Immunodeficiency Virus (HIV): No - INTEGUMENTARY Hx Dermatological Problems: No - MUSCULOSKELETAL/RHEUMATOLOGICAL Hx Arthritis: Yes Hx Falls: (unable to obtain) Hx Fractures: Yes (right ankle) - GASTROINTESTINAL Hx Crohn's Disease: Yes (on humira injections monthly) - GENITOURINARY/GYNECOLOGICAL Hx Sexually Transmitted Disorders: No - PSYCHIATRIC Hx Psychophysiologic Disorder: No Hx Emotional Abuse: No Hx Physical Abuse: No Hx Substance Use: No (unable to obtain) - SURGICAL HISTORY Hx Surgeries: Yes Hx Herniorrhaphy: Yes (bilateral inguinal, umbilical) Other/Comment: REIMPLANTATION OF DIGITS TO HAND. right upper limb pain - ANESTHESIA Hx Anesthesia: Yes Hx Anesthesia Reactions: No Hx Malignant Hyperthermia: No Meds Allergies/Adverse Reactions: Allergies Allergy/AdvReac Type Severity Reaction Status Date / Time [employer] And Derivatives Allergy ANAPHYLAXIS Verified 06/29/18 19:27 ibuprofen [From Advil] Allergy COUGH Verified 06/29/18 19:27 morphine Allergy RASH Verified 06/29/18 19:27 - Medications Medications: Current Medications Donepezil HCl (Aricept) 10 mg PO DAILY [facility] Last Admin: 06/30/18 10:24 Dose: 10 mg Enoxaparin Sodium (Lovenox) 40 mg SC DAILY [facility]; Protocol Last Admin: 06/30/18 10:24 Dose: 40 mg Escitalopram Oxalate (Lexapro) 10 mg PO DAILY [facility] Last Admin: 06/30/18 10:24 Dose: 10 mg Vancomycin HCl 1 gm/ Sodium (Chloride) 250 mls @ 166.667 mls/hr IVPB Q12H [facility]; Protocol Piperacillin Sod/Tazobactam (Sod 3.375 gm/ Sodium Chloride) 100 mls @ 100 mls/hr IVPB Q6H [facility]; Protocol Last Admin: 06/30/18 10:25 Dose: 100 mls/hr Memantine (Namenda) 10 mg PO Q12 [facility] Last Admin: 06/30/18 10:25 Dose: 10 mg Quetiapine Fumarate (Seroquel) 50 mg PO TID [facility] Last Admin: 06/30/18 10:25 Dose: 50 mg Physical Exam - Constitutional Appears: No Acute Distress, Confused, Chronically Ill - Head Exam Head Exam: ATRAUMATIC, NORMAL INSPECTION, NORMOCEPHALIC - Eye Exam Eye Exam: EOMI, Normal appearance, PERRL Pupil Exam: NORMAL ACCOMODATION, PERRL - ENT Exam ENT Exam: Mucous Membranes Moist, Normal Exam - Neck Exam Neck exam: Positive for: Normal Inspection - Respiratory Exam Respiratory Exam: Clear to Auscultation Bilateral, NORMAL BREATHING PATTERN - Cardiovascular Exam Cardiovascular Exam: REGULAR RHYTHM - GI/Abdominal Exam GI & Abdominal Exam: Distended, Hyperactive Bowel Sounds, Soft. absent: Tenderness - Rectal Exam Rectal Exam: Deferred - Extremities Exam Extremities exam: Positive for: normal inspection - Back Exam Back exam: NORMAL INSPECTION - Neurological Exam Neurological exam: Alert, CN II-XII Intact, Motor Sensory Deficit Additional comments: alert confused weakness bilaterally upper / lower extremities - Psychiatric Exam Psychiatric exam: Normal Affect, Normal Mood - Skin Skin Exam: Dry, Intact, Normal Color, Warm Results - Vital Signs Recent Vital Signs: Last Vital Signs Temp 97.7 F 06/30/18 07:59 Pulse 75 06/30/18 07:59 Resp 18 06/30/18 07:59 BP 129/76 06/30/18 07:59 Pulse Ox 96 06/30/18 07:59 - Labs Result Diagrams: 06/30/18 12:05 06/30/18 12:05 Labs: Laboratory Results - last 24 hr 06/29/18 06/29/18 06/29/18 16:51 16:51 16:51 WBC 16.5 H RBC 4.55 Hgb 13.3 D Hct 41.1 MCV 90.4 MCH 29.2 MCHC 32.3 L RDW 17.1 H Plt Count 267 MPV 7.0 L Neut % (Auto) 81.3 H Lymph % (Auto) 10.2 L Howard % (Auto) 5.8 Eos % (Auto) 2.2 Baso % (Auto) 0.5 Neut # (Auto) 13.4 H Lymph # (Auto) 1.7 Howard # (Auto) 0.9 H Eos # (Auto) 0.4 Baso # (Auto) 0.1 PT 14.8 H INR 1.3 APTT 28.9 pO2 VBG pH VBG pCO2 VBG HCO3 VBG Total CO2 VBG O2 Sat (Calc) VBG Base Excess VBG Potassium Sodium 137 Chloride 96 L Glucose Lactate FiO2 Potassium 5.4 H Carbon Dioxide 25 Anion Gap 21 H BUN 19 Creatinine 0.8 Est GFR ( Amer) > 60 Est GFR (Non-Af Amer) > 60 Random Glucose 97 Calcium 9.3 Phosphorus 4.5 Magnesium 2.2 Total Bilirubin 0.9 AST 47 ALT 25 Alkaline Phosphatase 73 Total Protein 9.5 H Albumin 4.6 Globulin 4.9 H Albumin/Globulin Ratio 0.9 L Lipase 127 Venous Blood Potassium Urine Color Urine Clarity Urine pH Ur Specific [place] Urine Protein Urine Glucose (UA) Urine Ketones Urine Blood Urine Nitrate Urine Bilirubin Urine Urobilinogen Ur Leukocyte Esterase Urine RBC (Auto) Urine Microscopic WBC C. difficile Ag & Toxin Influenza Typ A,B (EIA) 06/29/18 06/29/18 06/29/18 16:51 16:51 18:10 WBC RBC Hgb Hct MCV MCH MCHC RDW Plt Count MPV Neut % (Auto) Lymph % (Auto) Howard % (Auto) Eos % (Auto) Baso % (Auto) Neut # (Auto) Lymph # (Auto) Howard # (Auto) Eos # (Auto) Baso # (Auto) PT INR APTT pO2 16 L VBG pH 7.31 L VBG pCO2 62 H VBG HCO3 25.3 VBG Total CO2 33.1 H VBG O2 Sat (Calc) 16.4 L VBG Base Excess 3.2 H VBG Potassium 5.8 H Sodium 134.0 Chloride 97.0 L Glucose 96 Lactate 3.2 H FiO2 21.0 Potassium Carbon Dioxide Anion Gap BUN Creatinine Est GFR ( Amer) Est GFR (Non-Af Amer) Random Glucose Calcium Phosphorus Magnesium Total Bilirubin AST ALT Alkaline Phosphatase Total Protein Albumin Globulin Albumin/Globulin Ratio Lipase Venous Blood Potassium 5.8 H Urine Color Yellow Urine Clarity Slighty-cloudy Urine pH 6.0 Ur Specific [place] 1.024 Urine Protein 30 Urine Glucose (UA) Neg Urine Ketones Negative Urine Blood Moderate Urine Nitrate Negative Urine Bilirubin Negative Urine Urobilinogen 0.2-1.0 Ur Leukocyte Esterase Trace Urine RBC (Auto) 52 H Urine Microscopic WBC 4 C. difficile Ag & Toxin Influenza Typ A,B (EIA) Negative for flu a/b 06/29/18 06/30/18 19:40 10:23 WBC RBC Hgb Hct MCV MCH MCHC RDW Plt Count MPV Neut % (Auto) Lymph % (Auto) Howard % (Auto) Eos % (Auto) Baso % (Auto) Neut # (Auto) Lymph # (Auto) Howard # (Auto) Eos # (Auto) Baso # (Auto) PT INR APTT pO2 37 VBG pH 7.46 H VBG pCO2 39 L VBG HCO3 27.2 VBG Total CO2 28.9 H VBG O2 Sat (Calc) 76.8 H VBG Base Excess 3.7 H VBG Potassium 4.1 Sodium 135.0 Chloride 101.0 Glucose 113 H Lactate 1.1 FiO2 21.0 Potassium Carbon Dioxide Anion Gap BUN Creatinine Est GFR ( Amer) Est GFR (Non-Af Amer) Random Glucose Calcium Phosphorus Magnesium Total Bilirubin AST ALT Alkaline Phosphatase Total Protein Albumin Globulin Albumin/Globulin Ratio Lipase Venous Blood Potassium 4.1 Urine Color Urine Clarity Urine pH Ur Specific [place] Urine Protein Urine Glucose (UA) Urine Ketones Urine Blood Urine Nitrate Urine Bilirubin Urine Urobilinogen Ur Leukocyte Esterase Urine RBC (Auto) Urine Microscopic WBC C. difficile Ag & Toxin Positive antigen Influenza Typ A,B (EIA) Assessment & Plan (1) C. difficile diarrhea Status: Acute (2) Severe sepsis Status: Acute - Assessment and Plan (Free Text) Assessment: cont IV and PO rx hydration add acyclovir PO
[2018-06-30 12:23] LABS: BASO # 0.1 K/uL (0.0-0.2); BASO % 0.4 % (0.0-2.0); EOS # 0.6 K/uL (0.0-0.7); EOS % 4.2 % (0.0-4.0); HEMOGLOBIN 12.2 g/dL (12.0-18.0); LYMPH # 1.5 K/uL (1.0-4.3); LYMPH % 10.5 % (20.0-40.0); MEAN CELL VOLUME 89.7 fl (80.0-94.0); MEAN CORPUSCULAR HEMOGLOBIN 29.1 pg (27.0-31.0); MEAN CORPUSCULAR HGB CONC 32.4 g/dL (33.0-37.0); MONO # 0.8 K/uL (0.0-0.8); MONO % 5.6 % (0.0-10.0); NEUT # 11.1 K/uL (1.8-7.0); NEUT % 79.3 % (50.0-75.0); NRBC % 0.1 % (0.0-0.0); RBC 4.18 Mil/uL (4.40-5.90); RED CELL DISTRIBUTION WIDTH 17.8 % (11.5-14.5); WHITE BLOOD COUNT 14.1 K/uL (4.8-10.8)
--- NOTE | 2018-06-30 12:29 | CP.PCM.HP ---
History of Present Illness - History of Present Illness History of Present Illness: 77yo male presented to ER with the family. They stated that he developed fever the day before admission. He had this had mild headache and dry cough, no vomiting, + diarrhea, no AMS or syncope. Was admitted last month for viral meningitis and UTI,. Mental status currently at baseline per family. Present on Admission - Present on Admission Any Indicators Present on Admission: No Review of Systems - Constitutional Constitutional: As Per HPI - EENT Eyes: As Per HPI - Cardiovascular Cardiovascular: As Per HPI - Gastrointestinal Gastrointestinal: As Per HPI - Musculoskeletal Musculoskeletal: As Per HPI - Neurological Neurological: As Per HPI - Psychiatric Psychiatric: As Per HPI Past Patient History - Infectious Disease Hx of Infectious Diseases: None - Tetanus Immunizations Tetanus Immunization: Unknown - Past Medical History & Family History Past Medical History?: Yes - Past Social History Smoking Status: Never Smoked - CARDIAC Hx Hypertension: Yes - PULMONARY Hx Respiratory Disorders: No Hx Tuberculosis: No - NEUROLOGICAL Hx Alzheimer's Disease: Yes Hx Dementia: Yes Hx Seizures: No - HEENT Hx HEENT Problems: No - RENAL Hx Chronic Kidney Disease: No - ENDOCRINE/METABOLIC Hx Endocrine Disorders: No - HEMATOLOGICAL/ONCOLOGICAL Hx Anemia: Yes Hx Human Immunodeficiency Virus (HIV): No - INTEGUMENTARY Hx Dermatological Problems: No - MUSCULOSKELETAL/RHEUMATOLOGICAL Hx Arthritis: Yes Hx Falls: (unable to obtain) Hx Fractures: Yes (right ankle) - GASTROINTESTINAL Hx Crohn's Disease: Yes (on humira injections monthly) - GENITOURINARY/GYNECOLOGICAL Hx Sexually Transmitted Disorders: No - PSYCHIATRIC Hx Psychophysiologic Disorder: No Hx Emotional Abuse: No Hx Physical Abuse: No Hx Substance Use: No (unable to obtain) - SURGICAL HISTORY Hx Surgeries: Yes Hx Herniorrhaphy: Yes (bilateral inguinal, umbilical) Other/Comment: REIMPLANTATION OF DIGITS TO HAND. right upper limb pain - ANESTHESIA Hx Anesthesia: Yes Hx Anesthesia Reactions: No Hx Malignant Hyperthermia: No Meds Allergies/Adverse Reactions: Allergies Allergy/AdvReac Type Severity Reaction Status Date / Time [place] And Derivatives Allergy ANAPHYLAXIS Verified 06/29/18 19:27 ibuprofen [From Advil] Allergy COUGH Verified 06/29/18 19:27 morphine Allergy RASH Verified 06/29/18 19:27 Physical Exam - Constitutional Appears: Confused, Chronically Ill - Head Exam Head Exam: ATRAUMATIC, NORMAL INSPECTION, NORMOCEPHALIC - Eye Exam Eye Exam: Normal appearance Pupil Exam: NORMAL ACCOMODATION - ENT Exam ENT Exam: Normal Exam - Neck Exam Neck exam: Positive for: Full Rom - Respiratory Exam Respiratory Exam: Decreased Breath Sounds - Cardiovascular Exam Cardiovascular Exam: REGULAR RHYTHM, +S1, +S2 - GI/Abdominal Exam GI & Abdominal Exam: Normal Bowel Sounds - Extremities Exam Extremities exam: Positive for: normal inspection - Neurological Exam Neurological exam: Altered - Psychiatric Exam Psychiatric exam: Flat Affect - Skin Skin Exam: Intact Results - Vital Signs Recent Vital Signs: Last Vital Signs Temp 97.9 F 06/30/18 12:16 Pulse 65 06/30/18 12:16 Resp 18 06/30/18 12:16 BP 101/60 06/30/18 12:16 Pulse Ox 95 06/30/18 12:16 - Labs Result Diagrams: 06/30/18 12:05 06/30/18 12:05 Labs: Laboratory Results - last 24 hr 06/29/18 06/29/18 06/29/18 16:51 16:51 16:51 WBC 16.5 H RBC 4.55 Hgb 13.3 D Hct 41.1 MCV 90.4 MCH 29.2 MCHC 32.3 L RDW 17.1 H Plt Count 267 MPV 7.0 L Neut % (Auto) 81.3 H Lymph % (Auto) 10.2 L Ray % (Auto) 5.8 Eos % (Auto) 2.2 Baso % (Auto) 0.5 Neut # (Auto) 13.4 H Lymph # (Auto) 1.7 Ray # (Auto) 0.9 H Eos # (Auto) 0.4 Baso # (Auto) 0.1 PT 14.8 H INR 1.3 APTT 28.9 pO2 VBG pH VBG pCO2 VBG HCO3 VBG Total CO2 VBG O2 Sat (Calc) VBG Base Excess VBG Potassium Sodium 137 Chloride 96 L Glucose Lactate FiO2 Potassium 5.4 H Carbon Dioxide 25 Anion Gap 21 H BUN 19 Creatinine 0.8 Est GFR ( Amer) > 60 Est GFR (Non-Af Amer) > 60 Random Glucose 97 Calcium 9.3 Phosphorus 4.5 Magnesium 2.2 Total Bilirubin 0.9 AST 47 ALT 25 Alkaline Phosphatase 73 Total Protein 9.5 H Albumin 4.6 Globulin 4.9 H Albumin/Globulin Ratio 0.9 L Lipase 127 Venous Blood Potassium Urine Color Urine Clarity Urine pH Ur Specific [place] Urine Protein Urine Glucose (UA) Urine Ketones Urine Blood Urine Nitrate Urine Bilirubin Urine Urobilinogen Ur Leukocyte Esterase Urine RBC (Auto) Urine Microscopic WBC C. difficile Ag & Toxin Influenza Typ A,B (EIA) 06/29/18 06/29/18 06/29/18 16:51 16:51 18:10 WBC RBC Hgb Hct MCV MCH MCHC RDW Plt Count MPV Neut % (Auto) Lymph % (Auto) Ray % (Auto) Eos % (Auto) Baso % (Auto) Neut # (Auto) Lymph # (Auto) Ray # (Auto) Eos # (Auto) Baso # (Auto) PT INR APTT pO2 16 L VBG pH 7.31 L VBG pCO2 62 H VBG HCO3 25.3 VBG Total CO2 33.1 H VBG O2 Sat (Calc) 16.4 L VBG Base Excess 3.2 H VBG Potassium 5.8 H Sodium 134.0 Chloride 97.0 L Glucose 96 Lactate 3.2 H FiO2 21.0 Potassium Carbon Dioxide Anion Gap BUN Creatinine Est GFR ( Amer) Est GFR (Non-Af Amer) Random Glucose Calcium Phosphorus Magnesium Total Bilirubin AST ALT Alkaline Phosphatase Total Protein Albumin Globulin Albumin/Globulin Ratio Lipase Venous Blood Potassium 5.8 H Urine Color Yellow Urine Clarity Slighty-cloudy Urine pH 6.0 Ur Specific [place] 1.024 Urine Protein 30 Urine Glucose (UA) Neg Urine Ketones Negative Urine Blood Moderate Urine Nitrate Negative Urine Bilirubin Negative Urine Urobilinogen 0.2-1.0 Ur Leukocyte Esterase Trace Urine RBC (Auto) 52 H Urine Microscopic WBC 4 C. difficile Ag & Toxin Influenza Typ A,B (EIA) Negative for flu a/b 06/29/18 06/30/18 19:40 10:23 WBC RBC Hgb Hct MCV MCH MCHC RDW Plt Count MPV Neut % (Auto) Lymph % (Auto) Ray % (Auto) Eos % (Auto) Baso % (Auto) Neut # (Auto) Lymph # (Auto) Ray # (Auto) Eos # (Auto) Baso # (Auto) PT INR APTT pO2 37 VBG pH 7.46 H VBG pCO2 39 L VBG HCO3 27.2 VBG Total CO2 28.9 H VBG O2 Sat (Calc) 76.8 H VBG Base Excess 3.7 H VBG Potassium 4.1 Sodium 135.0 Chloride 101.0 Glucose 113 H Lactate 1.1 FiO2 21.0 Potassium Carbon Dioxide Anion Gap BUN Creatinine Est GFR ( Amer) Est GFR (Non-Af Amer) Random Glucose Calcium Phosphorus Magnesium Total Bilirubin AST ALT Alkaline Phosphatase Total Protein Albumin Globulin Albumin/Globulin Ratio Lipase Venous Blood Potassium 4.1 Urine Color Urine Clarity Urine pH Ur Specific [place] Urine Protein Urine Glucose (UA) Urine Ketones Urine Blood Urine Nitrate Urine Bilirubin Urine Urobilinogen Ur Leukocyte Esterase Urine RBC (Auto) Urine Microscopic WBC C. difficile Ag & Toxin Positive antigen Influenza Typ A,B (EIA) Assessment & Plan (1) Severe sepsis Status: Acute (2) Depression Status: Chronic (3) Dementia Status: Chronic (4) Dementia with behavioral disturbance Status: Chronic (5) C. difficile diarrhea Status: Acute - Assessment and Plan (Free Text) Plan: As per orders
[2018-06-30 12:43] LABS: BLOOD UREA NITROGEN 12 mg/dl (9-20); CALCIUM 8.2 mg/dL (8.4-10.2); GFR NON-AFRICAN AMERICAN > 60
[2018-06-30] MEDS: Vancomycin 500 mg (Oral/Rectal USE) PO SCH ×2 (15:11→17:02)
[2018-07-01] MEDS: Vancomycin 500 mg (Oral/Rectal USE) PO SCH ×3 (01:42→16:43)
[2018-07-01] MEDS: Enoxaparin 40 mg Syringe SC SCH (09:23)
--- NOTE | 2018-07-01 11:21 | CP.PCM.PN ---
Subjective - Date & Time of Evaluation Date of Evaluation: 07/01/18 Time of Evaluation: 08:00 - Subjective Subjective: afebrile awake and alert IV and PO rx in progress diarrhea less Objective - Vital Signs/Intake and Output Vital Signs (last 24 hours): Temp Pulse Resp BP Pulse Ox 98.8 F 84 18 132/77 96 07/01/18 08:13 07/01/18 08:13 07/01/18 08:13 07/01/18 08:13 07/01/18 08:13 - Medications Medications: Current Medications Acyclovir (Zovirax) 800 mg PO TID [facility]; Protocol Last Admin: 07/01/18 09:27 Dose: 800 mg Donepezil HCl (Aricept) 10 mg PO DAILY [facility] Last Admin: 07/01/18 09:23 Dose: 10 mg Enoxaparin Sodium (Lovenox) 40 mg SC DAILY [facility]; Protocol Last Admin: 07/01/18 09:23 Dose: 40 mg Escitalopram Oxalate (Lexapro) 10 mg PO DAILY [facility] Last Admin: 07/01/18 09:23 Dose: 10 mg Vancomycin HCl 1 gm/ Sodium (Chloride) 250 mls @ 166.667 mls/hr IVPB Q12H [facility]; Protocol Last Admin: 06/30/18 21:52 Dose: 166.667 mls/hr Memantine (Namenda) 10 mg PO Q12 [facility] Last Admin: 07/01/18 09:24 Dose: 10 mg Quetiapine Fumarate (Seroquel) 50 mg PO TID@0900,1500,2100 [facility] Last Admin: 07/01/18 09:25 Dose: 50 mg Vancomycin HCl (Vancocin (Oral/Rectal Use)) 125 mg PO Q8 [facility]; Protocol Last Admin: 07/01/18 09:25 Dose: 125 mg - Labs Labs: 06/30/18 12:05 06/30/18 12:05 PT 14.8 Seconds (9.8-13.1) H 06/29/18 16:51 INR 1.3 06/29/18 16:51 APTT 28.9 Seconds (25.6-37.1) 06/29/18 16:51 - Constitutional Appears: Non-toxic, Cachectic, Chronically Ill - Head Exam Head Exam: ATRAUMATIC, NORMAL INSPECTION, NORMOCEPHALIC - Eye Exam Eye Exam: EOMI, Normal appearance, PERRL Pupil Exam: NORMAL ACCOMODATION, PERRL - ENT Exam ENT Exam: Mucous Membranes Moist, Normal Exam - Neck Exam Neck Exam: Full ROM, Normal Inspection. absent: Lymphadenopathy - Respiratory Exam Respiratory Exam: Clear to Ausculation Bilateral, NORMAL BREATHING PATTERN - Cardiovascular Exam Cardiovascular Exam: REGULAR RHYTHM, +S1, +S2. absent: Murmur - GI/Abdominal Exam GI & Abdominal Exam: Soft, Normal Bowel Sounds. absent: Tenderness - Rectal Exam Rectal Exam: NORMAL INSPECTION - Exam Exam: NORMAL INSPECTION - Extremities Exam Extremities Exam: Full ROM, Normal Capillary Refill, Normal Inspection. absent: Joint Swelling, Pedal Edema - Back Exam Back Exam: NORMAL INSPECTION - Neurological Exam Neurological Exam: Alert, Altered, Awake, CN II-XII Intact. absent: Normal Gait, Oriented x3, Reflexes Normal Neuro motor strength exam: Left Upper Extremity: 3, Right Upper Extremity: 3, Left Lower Extremity: 3, Right Lower Extremity: 3 - Psychiatric Exam Psychiatric exam: Depressed - Skin Skin Exam: Dry, Intact, Normal Color, Warm Assessment and Plan (1) C. difficile diarrhea Status: Acute (2) Severe sepsis Status: Acute - Assessment and Plan (Free Text) Assessment: cont rx for c diff recc PO Acyclovir or Valtrex to cont as out pt
--- NOTE | 2018-07-01 13:43 | CP.PCM.PCO ---
Assessment/Plan - Assessment/Plan Assessment (Free Text): Patient seen and examined this afternoon. Called by RN, patient's blood pressure dropped to 92/46 then 82/50 Patient afebrile, awake alert oriented eating lunch with family present. Patient asymptomatic, denies dizziness headaches shortness of breath chest pain, nausea vomiting or diarrhea. Orders given to bolus with NS 1 bolus then continue ivf at 125cc hr WIll recheck blood pressure in [address] Segundo. - Consults Consult Orders: Consultations 06/30/18 06:06 Wound Care [Nursing Referral for Wound Care] Routine Comment: Physician Instructions: Reason For Exam: blanchable sacral redness - Problems Patient Problems: Problem List (Active/Current) Problem Status Onset Code C. difficile diarrhea Acute A04.72 Severe sepsis Acute A41.9, R65.20
[2018-07-01] MEDS ORDERED: Sodium Chloride 0.9% 1,000 ML IV SCH ×2 (13:45→15:30)
[2018-07-01] MEDS: Sodium Chloride 0.9% 1,000 ML IV SCH ×4 (14:37→16:47)
--- NOTE | 2018-07-01 14:39 | CP.PCM.PN ---
Subjective - Date & Time of Evaluation Date of Evaluation: 07/01/18 Time of Evaluation: 13:50 - Subjective Subjective: Patient presented wit a severe hypotensive episode. Patient immuno compromised with mental status changes Objective - Vital Signs/Intake and Output Vital Signs (last 24 hours): Temp Pulse Resp BP Pulse Ox 97.2 F L 79 18 91/49 L 93 L 07/01/18 12:17 07/01/18 12:17 07/01/18 12:17 07/01/18 12:17 07/01/18 12:17 - Medications Medications: Current Medications Acyclovir (Zovirax) 800 mg PO TID [facility]; Protocol Last Admin: 07/01/18 13:25 Dose: 800 mg Donepezil HCl (Aricept) 10 mg PO DAILY [facility] Last Admin: 07/01/18 09:23 Dose: 10 mg Enoxaparin Sodium (Lovenox) 40 mg SC DAILY [facility]; Protocol Last Admin: 07/01/18 09:23 Dose: 40 mg Escitalopram Oxalate (Lexapro) 10 mg PO DAILY [facility] Last Admin: 07/01/18 09:23 Dose: 10 mg Sodium Chloride (Sodium Chloride 0.9%) 1,000 mls @ 999 mls/hr IV .Q1H1M [facility] Stop: 07/02/18 13:35 Sodium Chloride (Sodium Chloride 0.9%) 1,000 mls @ 125 mls/hr IV .Q8H [facility]CLUD[facility] Stop: 07/02/18 13:37 Memantine (Namenda) 10 mg PO Q12 [facility] Last Admin: 07/01/18 09:24 Dose: 10 mg Quetiapine Fumarate (Seroquel) 50 mg PO TID@0900,1500,2100 [facility] Last Admin: 07/01/18 09:25 Dose: 50 mg Vancomycin HCl (Vancocin (Oral/Rectal Use)) 125 mg PO Q8 [facility]; Protocol Last Admin: 07/01/18 09:25 Dose: 125 mg - Labs Labs: 06/30/18 12:05 06/30/18 12:05 PT 14.8 Seconds (9.8-13.1) H 06/29/18 16:51 INR 1.3 06/29/18 16:51 APTT 28.9 Seconds (25.6-37.1) 06/29/18 16:51 - Constitutional Appears: Confused, Chronically Ill - Head Exam Head Exam: ATRAUMATIC, NORMAL INSPECTION, NORMOCEPHALIC - Eye Exam Eye Exam: Normal appearance - ENT Exam ENT Exam: Normal Exam - Neck Exam Neck Exam: Full ROM - Respiratory Exam Respiratory Exam: Decreased Breath Sounds, Clear to Ausculation Bilateral - Cardiovascular Exam Cardiovascular Exam: REGULAR RHYTHM, +S1, +S2 - GI/Abdominal Exam GI & Abdominal Exam: Normal Bowel Sounds - Neurological Exam Neurological Exam: Alert, Altered, Awake - Psychiatric Exam Psychiatric exam: Depressed, Flat Affect - Skin Skin Exam: Normal Color Assessment and Plan (1) Severe sepsis Status: Acute (2) Depression Status: Chronic (3) Dementia Status: Chronic (4) Dementia with behavioral disturbance Status: Chronic (5) C. difficile diarrhea Status: Acute
[2018-07-02] MEDS: Vancomycin 500 mg (Oral/Rectal USE) PO SCH ×2 (01:01→09:02)
[2018-07-02] MEDS: Sodium Chloride 0.9% 1,000 ML IV SCH (02:07)
[2018-07-02 06:09] LABS: HEMOGLOBIN 10.8 g/dL (12.0-18.0); MEAN CELL VOLUME 89.5 fl (80.0-94.0); MEAN CORPUSCULAR HEMOGLOBIN 29.3 pg (27.0-31.0); MEAN CORPUSCULAR HGB CONC 32.8 g/dL (33.0-37.0); RBC 3.7 Mil/uL (4.40-5.90); RED CELL DISTRIBUTION WIDTH 17.5 % (11.5-14.5)
[2018-07-02 06:21] LABS: BLOOD UREA NITROGEN 9 mg/dl (9-20); CALCIUM 8.1 mg/dL (8.4-10.2); GFR NON-AFRICAN AMERICAN > 60
[2018-07-02 08:09] VITALS: RESP 18
[2018-07-02] MEDS: Enoxaparin 40 mg Syringe SC SCH (09:00)
--- NOTE | 2018-07-02 09:35 | PQF ---
PROVIDER RESPONSE TEXT: Anxiety depression, persistent REVIEWER QUERY TEXT: Depression Type Physician?s Documentation Request This Form is Not a Permanent Document in the Medical Record Pt Name: SNEHAL FONTANEZ MR #: [id number] Payor: MEDICARE PART A Unit/Bed: [id number].TEL-H412-1 Adm Date: 06/29/2018 5:25:00 PM Reviewer: Karine Buckner Ext. Query Date: 07/02/2018 6:36:00 AM Depression Type [id number] By submitting this query, we are merely seeking further clarification of documentation to accurately reflect all conditions that you are monitoring, evaluating, treating or that extend the hospitalizati on or utilize additional resources of care. Please utilize your independent clinical judgment when ad dressing the question(s) below. Dear Doctor Eliseo Segundo, The patient?s Clinical Indicators include: Hx: Depression Rx: Lexapro Depression is documented in the Medical Record. Please specify the type Such as: -- Agitated depression -- Anxiety depression, mild or not persistent -- Anxiety depression, persistent -- Hysterical depression -- Major depression: single or recurrent episode AND mild, moderate, severe) -- Bipolar depression -- Reactive -- Situational / Grief reaction -- Other, please specify PLEASE DOCUMENT ANY ADDITIONAL DIAGNOSES AND/OR SPECIFICITY IN THE PROGRESS NOTES AND/OR DISCHARGE THOMASON MMARY. Clinically unable to determine/unknown Disagree with the above request Need to discuss Query created by: Karine Buckner on 07/02/2018 6:36 AM Electronically signed by: Eliseo Segundo MD 07/02/2018 9:32 AM
--- NOTE | 2018-07-02 10:04 | CP.PCM.DIS ---
Provider - Provider Date of Admission: 06/29/18 17:25 Attending physician: Eliseo Segundo MD Consults: 06/30/18 00:50 Infectious Disease Consult Routine Comment: Consulting Provider: Carter Smith Consulting Physician: Carter Smith Reason for Consult: Sepsis 06/30/18 06:06 Wound Care [Nursing Referral for Wound Care] Routine Comment: Physician Instructions: Reason For Exam: blanchable sacral redness Time Spent in preparation of Discharge (in minutes): 30 Diagnosis - Discharge Diagnosis (1) Severe sepsis Status: Acute (2) Depression Status: Chronic (3) Dementia Status: Chronic (4) Dementia with behavioral disturbance Status: Chronic (5) C. difficile diarrhea Status: Acute Hospital Course - Lab Results Lab Results: Micro Results 06/29/18 16:51 Blood Blood Culture - Preliminary NO GROWTH AFTER 48 HOURS 06/29/18 18:10 Urine,Catheterized Urine Culture - Final No Growth (<1,000 CFU/ML) Most Recent Lab Values WBC 13.0 K/uL (4.8-10.8) H 07/02/18 05:25 RBC 3.70 Mil/uL (4.40-5.90) L 07/02/18 05:25 Hgb 10.8 g/dL (12.0-18.0) L 07/02/18 05:25 Hct 33.1 % (35.0-51.0) L 07/02/18 05:25 MCV 89.5 fl (80.0-94.0) 07/02/18 05:25 MCH 29.3 pg (27.0-31.0) 07/02/18 05:25 MCHC 32.8 g/dL (33.0-37.0) L 07/02/18 05:25 RDW 17.5 % (11.5-14.5) H 07/02/18 05:25 Plt Count 223 K/uL (130-400) 07/02/18 05:25 MPV 7.0 fl (7.2-11.7) L 06/30/18 12:05 Neut % (Auto) 79.3 % (50.0-75.0) H 06/30/18 12:05 Lymph % (Auto) 10.5 % (20.0-40.0) L 06/30/18 12:05 [place] % (Auto) 5.6 % (0.0-10.0) 06/30/18 12:05 Eos % (Auto) 4.2 % (0.0-4.0) H 06/30/18 12:05 Baso % (Auto) 0.4 % (0.0-2.0) 06/30/18 12:05 Neut # (Auto) 11.1 K/uL (1.8-7.0) H 06/30/18 12:05 Lymph # (Auto) 1.5 K/uL (1.0-4.3) 06/30/18 12:05 [place] # (Auto) 0.8 K/uL (0.0-0.8) 06/30/18 12:05 Eos # (Auto) 0.6 K/uL (0.0-0.7) 06/30/18 12:05 Baso # (Auto) 0.1 K/uL (0.0-0.2) 06/30/18 12:05 PT 14.8 Seconds (9.8-13.1) H 06/29/18 16:51 INR 1.3 06/29/18 16:51 APTT 28.9 Seconds (25.6-37.1) 06/29/18 16:51 pO2 37 mm/Hg (30-55) 06/29/18 19:40 VBG pH 7.46 (7.32-7.43) H 06/29/18 19:40 VBG pCO2 39 mmHg (40-60) L 06/29/18 19:40 VBG HCO3 27.2 mmol/L 06/29/18 19:40 VBG Total CO2 28.9 mmol/L (22-28) H 06/29/18 19:40 VBG O2 Sat (Calc) 76.8 % (40-65) H 06/29/18 19:40 VBG Base Excess 3.7 mmol/L (0.0-2.0) H 06/29/18 19:40 VBG Potassium 4.1 mmol/L (3.6-5.2) 06/29/18 19:40 Sodium 135.0 mmol/L (132-148) 06/29/18 19:40 Chloride 101.0 mmol/L (98-107) 06/29/18 19:40 Glucose 113 mg/dL (75-110) H 06/29/18 19:40 Lactate 1.1 mmol/L (0.7-2.1) 06/29/18 19:40 FiO2 21.0 % 06/29/18 19:40 Sodium 136 mmol/l (132-148) 07/02/18 05:25 Potassium 4.0 MMOL/L (3.6-5.0) 07/02/18 05:25 Chloride 102 mmol/L (98-107) 07/02/18 05:25 Carbon Dioxide 25 mmol/L (22-30) 07/02/18 05:25 Anion Gap 13 (10-20) 07/02/18 05:25 BUN 9 mg/dl (9-20) 07/02/18 05:25 Creatinine 0.7 mg/dl (0.8-1.5) L 07/02/18 05:25 Est GFR ( Amer) > 60 07/02/18 05:25 Est GFR (Non-Af Amer) > 60 07/02/18 05:25 Random Glucose 100 mg/dL (75-110) 07/02/18 05:25 Calcium 8.1 mg/dL (8.4-10.2) L 07/02/18 05:25 Phosphorus 4.5 mg/dl (2.5-4.5) 06/29/18 16:51 Magnesium 2.2 MG/DL (1.6-2.3) 06/29/18 16:51 Total Bilirubin 0.9 mg/dl (0.2-1.3) 06/29/18 16:51 AST 47 U/L (17-59) 06/29/18 16:51 ALT 25 U/L (21-72) 06/29/18 16:51 Alkaline Phosphatase 73 U/L (38-126) 06/29/18 16:51 Total Protein 9.5 G/DL (6.3-8.2) H 06/29/18 16:51 Albumin 4.6 g/dL (3.5-5.0) 06/29/18 16:51 Globulin 4.9 gm/dL (2.2-3.9) H 06/29/18 16:51 Albumin/Globulin Ratio 0.9 (1.0-2.1) L 06/29/18 16:51 Lipase 127 U/L (23-300) 06/29/18 16:51 Venous Blood Potassium 4.1 mmol/L (3.6-5.2) 06/29/18 19:40 Urine Color Yellow (YELLOW) 06/29/18 18:10 Urine Clarity Slighty-cloudy (Clear) 06/29/18 18:10 Urine pH 6.0 (5.0-8.0) 06/29/18 18:10 Ur Specific [place] 1.024 (1.003-1.030) 06/29/18 18:10 Urine Protein 30 mg/dL (NEGATIVE) 06/29/18 18:10 Urine Glucose (UA) Neg mg/dL (NEGATIVE) 06/29/18 18:10 Urine Ketones Negative mg/dL (NEGATIVE) 06/29/18 18:10 Urine Blood Moderate (NEGATIVE) 06/29/18 18:10 Urine Nitrate Negative (NEGATIVE) 06/29/18 18:10 Urine Bilirubin Negative (NEGATIVE) 06/29/18 18:10 Urine Urobilinogen 0.2-1.0 mg/dL (0.2-1.0) 06/29/18 18:10 Ur Leukocyte Esterase Trace [place]/uL (Negative) 06/29/18 18:10 Urine RBC (Auto) 52 /hpf (0-3) H 06/29/18 18:10 Urine Microscopic WBC 4 /hpf (0-5) 06/29/18 18:10 C. difficile Ag & Toxin Positive antigen (NEGATIVE) 06/30/18 10:23 Influenza Typ A,B (EIA) Negative for flu a/b (NEGATIVE) 06/29/18 16:51 - Hospital Course Hospital Course: 77yo male presented to ER with the family. They stated that he developed fever the day before admission. He had this had mild headache and dry cough, no vomiting, + diarrhea, no AMS or syncope. Was admitted last month for viral meningitis and UTI,. Mental status currently at baseline per family. Patietn had an episode of hypotension, now well. Will dc to TCU for further rx. Discharge Exam - Head Exam Head Exam: ATRAUMATIC, NORMAL INSPECTION, NORMOCEPHALIC - Eye Exam Eye Exam: Normal appearance - Neck Exam Neck exam: Full Rom - Respiratory Exam Respiratory Exam: Clear to PA & Lateral - Cardiovascular Exam Cardiovascular Exam: REGULAR RHYTHM, +S1, +S2 - GI/Abdominal Exam GI & Abdominal Exam: Normal Bowel Sounds - Extremities Exam Extremities exam: normal inspection - Neurological Exam Neurological exam: Alert, Altered - Psychiatric Exam Psychiatric exam: Depressed, Flat Affect - Skin Skin Exam: Normal Color Discharge Plan - Follow Up Plan Condition: GUARDED Disposition: REHAB FACILITY/REHAB UNIT
[2018-07-02 10:28] LABS: BASO # 0.1 K/uL (0.0-0.2); BASO % 0.6 % (0.0-2.0); EOS # 0.8 K/uL (0.0-0.7); EOS % 6.4 % (0.0-4.0); HEMOGLOBIN 11.1 g/dL (12.0-18.0); LYMPH # 1.3 K/uL (1.0-4.3); LYMPH % 11.3 % (20.0-40.0); MEAN CELL VOLUME 89.6 fl (80.0-94.0); MEAN CORPUSCULAR HEMOGLOBIN 29.1 pg (27.0-31.0); MEAN CORPUSCULAR HGB CONC 32.5 g/dL (33.0-37.0); MEAN PLATELET VOLUME 6.7 fl (7.2-11.7); MONO # 0.9 K/uL (0.0-0.8); MONO % 7.8 % (0.0-10.0); NEUT # 8.6 K/uL (1.8-7.0); NEUT % 73.9 % (50.0-75.0); RBC 3.8 Mil/uL (4.40-5.90); RED CELL DISTRIBUTION WIDTH 17.1 % (11.5-14.5); WHITE BLOOD COUNT 11.7 K/uL (4.8-10.8)
[2018-07-02 10:37] LABS: BLOOD UREA NITROGEN 9 mg/dl (9-20); CALCIUM 8.4 mg/dL (8.4-10.2); GFR NON-AFRICAN AMERICAN > 60
[2018-07-02 12:00] VITALS: BP 120/70; PULSE 77; TEMP 97.9; O2SAT 96
== END 2018-07-02 12:05 | DRG 872 ==
LOC: H.ER 14:15 → H.ERHOLD 17:25 → H.TEL 22:12
PROVIDERS: ADMIT Internal Medicine; ATTEND Internal Medicine
DX: A41.9 Sepsis, unspecified organism (principal); A04.72 Enterocolitis due to Clostridium difficile, not specified as recurrent; F02.81 Dementia in other diseases classified elsewhere, unspecified severity, with behavioral disturbance; K50.90 Crohn's disease, unspecified, without complications; R65.20 Severe sepsis without septic shock; G30.9 Alzheimer's disease, unspecified; F34.1 Dysthymic disorder; I10 Essential (primary) hypertension; Z88.6 Allergy status to analgesic agent; Z88.5 Allergy status to narcotic agent; M19.90 Unspecified osteoarthritis, unspecified site

== ENCOUNTER 2018-07-01 11:43 | Inpatient (IN) | payer OTHER, BC ==
--- NOTE | 2018-07-02 13:24 | CP.PCM.CON ---
History of Present Illness - History of Present Illness History of Present Illness: 77yo male admitted with fever and diarrhea Now on TCU for cont rx for c diff Orders writtten - Medical History PMH: Alzheimer's Disease, Anemia, Arthritis, Crohn's Disease (on humira injectio ns monthly), Dementia, Fractures (right ankle), HTN Denies: Diabetes, Hepatitis, HIV, Chronic Kidney Disease, Seizures, Sexually Transmitted Disease Review of Systems - Review of Systems Systems not reviewed;Unavailable: Altered Mental Status - Constitutional Constitutional: As Per HPI - EENT Eyes: absent: As Per HPI, Blind Spots, Blurred Vision, Change in Vision, Decreased Night Vision, Diplopia, Discharge, Dry Eye, Exophthalmos, Floaters, Irritation, Itchy Eyes, Loss of Peripheral Vision, Pain, Photophobia, Requires Corrective Lenses, Sees Flashes, Spots in Vision, Tunnel Vision, Other Visual Disturbances, Loss of Vision, Other Ears: absent: As Per HPI, Decreased Hearing, Ear Discharge, Ear Pain, Tinnitus, Abnormal Hearing, Disequilibrium, Dizziness, Other Nose/Mouth/Throat: absent: As Per HPI, Epistaxis, Nasal Congestion, Nasal Discharge, Nasal Obstruction, Nasal Trauma, Nose Pain, Post Nasal Drip, Sinus Pain, Sinus Pressure, Bleeding Gums, Change in Voice, Dental Pain, Dry Mouth, Dysphagia, Halitosis, Hoarsness, Lip Swelling, Mouth Lesions, Mouth Pain, Odynophagia, Sore Throat, Throat Swelling, Tongue Swelling, Facial Pain, Neck Pain, Neck Mass, Other - Cardiovascular Cardiovascular: absent: As Per HPI, Acrocyanosis, Chest Pain, Chest Pain at Rest, Chest Pain with Activity, Claudication, Diaphoresis, Dyspnea, Dyspnea on Exertion, Edema, Irregular Heart Rhythm, Pain Radiating to Arm/Neck/Jaw, Leg Edema, Leg Ulcers, Lightheadedness, Orthopnea, Palpitations, Paroxysmal Nocturnal Dyspnea, Pedal Edema, Radiating Pain, Rapid Heart Rate, Slow Heart Rate, Syncope, Other - Respiratory Respiratory: absent: As Per HPI, Cough, Dyspnea, Hemoptysis, Dyspnea on Exertion, Wheezing, Snoring, Stridor, Pain on Inspiration, Chest Congestion, Excessive Mucous Production, Change in Mucous Color, Pain with Coughing, Other - Gastrointestinal Gastrointestinal: As Per HPI - Genitourinary Genitourinary: absent: As Per HPI, Change in Urinary Stream, Difficulty Urinating, Dysuria, Flank Pain, Hematuria, Pyuria, Nocturia, Urinary Incontin ence, Urinary Frequency, Urinary Hesitance, Urinary Urgency, Voiding Freq/Small Amts, Freq UTI, Hx Renal/Bladder Calculi, Hx /Renal Surgery, Bladder Distension, Other - Musculoskeletal Musculoskeletal: As Per HPI - Integumentary Integumentary: As Per HPI, Skin Pain, Wounds - Neurological Neurological: As Per HPI, Memory Loss - Endocrine Endocrine: As Per HPI - Hematologic/Lymphatic Hematologic: absent: As Per HPI, Easy Bleeding, Easy Bruising, Lymphadenopathy, Other Past Patient History - Infectious Disease Hx of Infectious Diseases: None - Tetanus Immunizations Tetanus Immunization: Unknown - Past Medical History & Family History Past Medical History?: Yes - Past Social History Smoking Status: Never Smoked - CARDIAC Hx Hypertension: Yes - PULMONARY Hx Respiratory Disorders: No Hx Tuberculosis: No - NEUROLOGICAL Hx Alzheimer's Disease: Yes Hx Dementia: Yes Hx Seizures: No - HEENT Hx HEENT Problems: No - RENAL Hx Chronic Kidney Disease: No - ENDOCRINE/METABOLIC Hx Endocrine Disorders: No - HEMATOLOGICAL/ONCOLOGICAL Hx Anemia: Yes Hx Human Immunodeficiency Virus (HIV): No - INTEGUMENTARY Hx Dermatological Problems: No - MUSCULOSKELETAL/RHEUMATOLOGICAL Hx Arthritis: Yes Hx Falls: (unable to obtain) Hx Fractures: Yes (right ankle) - GASTROINTESTINAL Hx Crohn's Disease: Yes (on humira injections monthly) - GENITOURINARY/GYNECOLOGICAL Hx Sexually Transmitted Disorders: No - PSYCHIATRIC Hx Psychophysiologic Disorder: No Hx Emotional Abuse: No Hx Physical Abuse: No Hx Substance Use: No (unable to obtain) - SURGICAL HISTORY Hx Surgeries: Yes Hx Herniorrhaphy: Yes (bilateral inguinal, umbilical) Other/Comment: REIMPLANTATION OF DIGITS TO HAND. right upper limb pain - ANESTHESIA Hx Anesthesia: Yes Hx Anesthesia Reactions: No Hx Malignant Hyperthermia: No Meds Allergies/Adverse Reactions: Allergies Allergy/AdvReac Type Severity Reaction Status Date / Time Deuel And Derivatives Allergy ANAPHYLAXIS Verified 07/01/18 13:12 ibuprofen [From Advil] Allergy COUGH Verified 07/01/18 13:12 morphine Allergy RASH Verified 07/01/18 13:12 - Medications Medications: Current Medications Donepezil HCl (Aricept) 10 mg PO DAILY [facility] Enoxaparin Sodium (Lovenox) 40 mg SC DAILY [facility]; Protocol Escitalopram Oxalate (Lexapro) 10 mg PO DAILY [facility] Acyclovir 800 mg/ Sodium (Chloride) 250 mls @ 250 mls/hr IVPB Q8@0500,1300,2100 [facility]; Protocol Memantine (Namenda) 10 mg PO BID [facility] Quetiapine Fumarate (Seroquel) 50 mg PO TID [facility] Vancomycin HCl (Vancocin (Oral/Rectal Use)) 125 mg PO Q8 [facility]; Protocol Physical Exam - Constitutional Appears: No Acute Distress, Confused, Cachectic, Chronically Ill - Head Exam Head Exam: ATRAUMATIC, NORMAL INSPECTION, NORMOCEPHALIC - Eye Exam Eye Exam: EOMI, Normal appearance, PERRL Pupil Exam: NORMAL ACCOMODATION, PERRL - ENT Exam ENT Exam: Mucous Membranes Moist, Normal Exam - Neck Exam Neck exam: Positive for: Normal Inspection - Respiratory Exam Respiratory Exam: Clear to Auscultation Bilateral, NORMAL BREATHING PATTERN - Cardiovascular Exam Cardiovascular Exam: REGULAR RHYTHM - GI/Abdominal Exam GI & Abdominal Exam: Normal Bowel Sounds, Soft. absent: Tenderness - Rectal Exam Rectal Exam: Deferred - Exam Exam: NORMAL INSPECTION - Extremities Exam Extremities exam: Positive for: normal inspection - Back Exam Back exam: NORMAL INSPECTION - Neurological Exam Neurological exam: Alert, Altered, CN II-XII Intact, Motor Sensory Deficit Additional comments: confused bedridden and weak - Psychiatric Exam Psychiatric exam: Depressed - Skin Skin Exam: Dry, Intact, Normal Color, Warm Assessment & Plan (1) C. difficile diarrhea Status: Acute - Assessment and Plan (Free Text) Assessment: cont rx as ordered PO Vanco PO acyclovir
[2018-07-02 15:12] VITALS: BMI 23.7
[2018-07-02] MEDS: Vancomycin 500 mg (Oral/Rectal USE) PO SCH (17:18)
[2018-07-03] MEDS: Vancomycin 500 mg (Oral/Rectal USE) PO SCH ×3 (00:22→17:05)
[2018-07-03] MEDS: Enoxaparin 40 mg Syringe SC SCH (09:14)
--- NOTE | 2018-07-03 09:47 | CP.PCM.HP ---
History of Present Illness - History of Present Illness History of Present Illness: 77yo male presented to ER with the family. They stated that he developed fever the day before admission. He had this had mild headache and dry cough, no vomiting, + diarrhea, no AMS or syncope. Was admitted last month for viral meningitis and UTI,. Mental status currently at baseline per family. Patidevika had an episode of hypotension, now well. Will dc to TCU for further rx. Present on Admission - Present on Admission Any Indicators Present on Admission: No Review of Systems - Constitutional Constitutional: As Per HPI - Cardiovascular Cardiovascular: As Per HPI - Respiratory Respiratory: As Per HPI - Gastrointestinal Gastrointestinal: As Per HPI - Musculoskeletal Musculoskeletal: As Per HPI - Neurological Neurological: As Per HPI - Psychiatric Psychiatric: As Per HPI Past Patient History - Infectious Disease Hx of Infectious Diseases: None - Tetanus Immunizations Tetanus Immunization: Unknown - Past Medical History & Family History Past Medical History?: Yes - Past Social History Smoking Status: Never Smoked - CARDIAC Hx Cardiac Disorders: Yes Hx Hypertension: Yes - PULMONARY Hx Respiratory Disorders: No Hx Tuberculosis: No - NEUROLOGICAL Hx Alzheimer's Disease: Yes Hx Dementia: Yes Hx Seizures: No - HEENT Hx HEENT Problems: No - RENAL Hx Chronic Kidney Disease: No - ENDOCRINE/METABOLIC Hx Endocrine Disorders: No - HEMATOLOGICAL/ONCOLOGICAL Hx Anemia: Yes Hx Human Immunodeficiency Virus (HIV): No - INTEGUMENTARY Hx Dermatological Problems: No - MUSCULOSKELETAL/RHEUMATOLOGICAL Hx Arthritis: Yes - GASTROINTESTINAL Hx Crohn's Disease: Yes (on humira injections monthly) - GENITOURINARY/GYNECOLOGICAL Hx Sexually Transmitted Disorders: No - PSYCHIATRIC Hx Psychophysiologic Disorder: No Hx Emotional Abuse: No Hx Physical Abuse: No Hx Substance Use: No (unable to obtain) - SURGICAL HISTORY Hx Surgeries: Yes Hx Herniorrhaphy: Yes (bilateral inguinal, umbilical) Other/Comment: REIMPLANTATION OF DIGITS TO HAND. right upper limb pain - ANESTHESIA Hx Anesthesia: Yes Hx Anesthesia Reactions: No Hx Malignant Hyperthermia: No Meds Allergies/Adverse Reactions: Allergies Allergy/AdvReac Type Severity Reaction Status Date / Time Coral And Derivatives Allergy ANAPHYLAXIS Verified 07/01/18 13:12 ibuprofen [From Advil] Allergy COUGH Verified 07/01/18 13:12 morphine Allergy RASH Verified 07/01/18 13:12 Physical Exam - Constitutional Appears: Confused, Chronically Ill - Head Exam Head Exam: ATRAUMATIC, NORMAL INSPECTION, NORMOCEPHALIC - Eye Exam Eye Exam: Normal appearance - ENT Exam ENT Exam: Normal Exam - Neck Exam Neck exam: Positive for: Full Rom - Respiratory Exam Respiratory Exam: Decreased Breath Sounds - Cardiovascular Exam Cardiovascular Exam: REGULAR RHYTHM, +S1, +S2 - GI/Abdominal Exam GI & Abdominal Exam: Normal Bowel Sounds - Extremities Exam Extremities exam: Positive for: normal inspection - Neurological Exam Neurological exam: Alert, Altered - Psychiatric Exam Psychiatric exam: Depressed, Flat Affect Results - Vital Signs Recent Vital Signs: Last Vital Signs Temp 98.4 F 07/03/18 08:00 Pulse 86 07/03/18 08:00 Resp 20 07/03/18 08:00 BP 109/67 07/03/18 08:00 Pulse Ox 95 07/03/18 08:00 Assessment & Plan (1) C. difficile diarrhea Status: Acute (2) Hypotension Status: Resolved (3) Severe sepsis Status: Acute (4) Crohn disease Status: Chronic (5) Dementia Status: Chronic
[2018-07-03] MEDS: metroNIDAZOLE 500mg/100ml NS 250 MG in Premixed IV 1 EA IVPB SCH ×2 (15:29→20:36)
--- NOTE | 2018-07-03 15:34 | CP.PCM.PN ---
Subjective - Date & Time of Evaluation Date of Evaluation: 07/03/18 Time of Evaluation: 08:00 - Subjective Subjective: afebrile alert NAD tolerating rx cont IV Flayl with PO Vanco Objective - Vital Signs/Intake and Output Vital Signs (last 24 hours): Temp Pulse Resp BP Pulse Ox 98.4 F 75 20 109/67 94 L 07/03/18 08:00 07/03/18 08:43 07/03/18 08:00 07/03/18 08:00 07/03/18 08:43 - Medications Medications: Current Medications Acyclovir (Zovirax) 800 mg PO TID [facility]; Protocol Last Admin: 07/03/18 13:30 Dose: 800 mg Donepezil HCl (Aricept) 10 mg PO DAILY [facility] Last Admin: 07/03/18 09:14 Dose: 10 mg Enoxaparin Sodium (Lovenox) 40 mg SC DAILY [facility]; Protocol Last Admin: 07/03/18 09:14 Dose: 40 mg Escitalopram Oxalate (Lexapro) 10 mg PO DAILY [facility] Last Admin: 07/03/18 09:15 Dose: 10 mg Metronidazole 250 mg/ (Miscellaneous) 50 mls @ 50 mls/hr IVPB Q8@0500,1300,2100 [facility]; Protocol Last Admin: 07/03/18 15:29 Dose: 50 mls/hr Memantine (Namenda) 10 mg PO BID [facility] Last Admin: 07/03/18 09:15 Dose: 10 mg Quetiapine Fumarate (Seroquel) 50 mg PO TID@0900,1500,2100 [facility] Last Admin: 07/03/18 15:29 Dose: 50 mg Vancomycin HCl (Vancocin (Oral/Rectal Use)) 125 mg PO Q8 [facility]; Protocol Last Admin: 07/03/18 09:15 Dose: 125 mg - Constitutional Appears: No Acute Distress, Confused, Cachectic, Chronically Ill - Head Exam Head Exam: ATRAUMATIC, NORMAL INSPECTION, NORMOCEPHALIC - Eye Exam Eye Exam: EOMI, Normal appearance, PERRL Pupil Exam: NORMAL ACCOMODATION, PERRL - ENT Exam ENT Exam: Mucous Membranes Moist, Normal Exam - Neck Exam Neck Exam: Full ROM, Normal Inspection. absent: Lymphadenopathy - Respiratory Exam Respiratory Exam: Clear to Ausculation Bilateral, NORMAL BREATHING PATTERN - Cardiovascular Exam Cardiovascular Exam: REGULAR RHYTHM. absent: Murmur - GI/Abdominal Exam GI & Abdominal Exam: Soft, Normal Bowel Sounds. absent: Tenderness - Rectal Exam Rectal Exam: Deferred - Exam Exam: NORMAL INSPECTION - Extremities Exam Extremities Exam: Full ROM, Normal Capillary Refill, Normal Inspection. absent: Joint Swelling, Pedal Edema - Back Exam Back Exam: NORMAL INSPECTION - Neurological Exam Neurological Exam: Alert, Altered, Awake, CN II-XII Intact, Motor Sensory Deficit. absent: Normal Gait, Oriented x3 - Psychiatric Exam Psychiatric exam: Normal Affect, Normal Mood - Skin Skin Exam: Dry, Intact, Normal Color, Warm Assessment and Plan (1) C. difficile diarrhea Status: Acute - Assessment and Plan (Free Text) Assessment: severe deconditioning s/p UTI and viral meningitis C diff colitis rx in progress
[2018-07-04] MEDS: Vancomycin 500 mg (Oral/Rectal USE) PO SCH ×3 (00:29→18:18)
[2018-07-04] MEDS: metroNIDAZOLE 500mg/100ml NS 250 MG in Premixed IV 1 EA IVPB SCH ×3 (04:30→22:00)
--- NOTE | 2018-07-04 06:17 | CP.PCM.PN ---
Subjective - Date & Time of Evaluation Date of Evaluation: 07/04/18 Time of Evaluation: 09:03 - Subjective Subjective: Comfortable not in distress Objective - Vital Signs/Intake and Output Vital Signs (last 24 hours): Temp Pulse Resp BP Pulse Ox 98.6 F 90 20 102/55 L 95 07/03/18 20:52 07/03/18 20:52 07/03/18 20:52 07/03/18 20:52 07/03/18 20:52 - Medications Medications: Current Medications Acyclovir (Zovirax) 800 mg PO TID [facility]; Protocol Last Admin: 07/03/18 17:03 Dose: 800 mg Donepezil HCl (Aricept) 10 mg PO DAILY [facility] Last Admin: 07/03/18 09:14 Dose: 10 mg Enoxaparin Sodium (Lovenox) 40 mg SC DAILY [facility]; Protocol Last Admin: 07/03/18 09:14 Dose: 40 mg Escitalopram Oxalate (Lexapro) 10 mg PO DAILY [facility] Last Admin: 07/03/18 09:15 Dose: 10 mg Metronidazole 250 mg/ (Miscellaneous) 50 mls @ 50 mls/hr IVPB Q8@0500,1300,2100 [facility]; Protocol Last Admin: 07/04/18 04:30 Dose: 50 mls/hr Memantine (Namenda) 10 mg PO BID [facility] Last Admin: 07/03/18 17:02 Dose: 10 mg Nystatin (Nystop Topical Powder) 1 applic TOP TID [facility] Last Admin: 07/03/18 20:37 Dose: 1 applic Quetiapine Fumarate (Seroquel) 50 mg PO TID@0900,1500,2100 [facility] Last Admin: 07/03/18 20:38 Dose: 50 mg Vancomycin HCl (Vancocin (Oral/Rectal Use)) 125 mg PO Q8 [facility]; Protocol Last Admin: 07/04/18 00:29 Dose: 125 mg - Constitutional Appears: No Acute Distress, Chronically Ill - Head Exam Head Exam: ATRAUMATIC, NORMAL INSPECTION, NORMOCEPHALIC - Eye Exam Eye Exam: Normal appearance Pupil Exam: PERRL - ENT Exam ENT Exam: Normal Exam - Neck Exam Neck Exam: Full ROM - Respiratory Exam Respiratory Exam: Decreased Breath Sounds - Cardiovascular Exam Cardiovascular Exam: REGULAR RHYTHM, +S1, +S2 - GI/Abdominal Exam GI & Abdominal Exam: Normal Bowel Sounds - Extremities Exam Extremities Exam: Normal Inspection - Neurological Exam Neurological Exam: Alert, Altered, Awake - Psychiatric Exam Psychiatric exam: Normal Affect Assessment and Plan (1) C. difficile diarrhea Status: Acute (2) Hypotension Status: Resolved (3) Severe sepsis Status: Acute (4) Crohn disease Status: Chronic (5) Dementia Status: Chronic
[2018-07-04] MEDS: Enoxaparin 40 mg Syringe SC SCH (08:23)
[2018-07-05] MEDS: Vancomycin 500 mg (Oral/Rectal USE) PO SCH ×3 (00:55→16:06)
[2018-07-05] MEDS: metroNIDAZOLE 500mg/100ml NS 250 MG in Premixed IV 1 EA IVPB SCH ×3 (05:33→22:00)
[2018-07-05] MEDS: Enoxaparin 40 mg Syringe SC SCH (08:45)
[2018-07-06] MEDS: Vancomycin 500 mg (Oral/Rectal USE) PO SCH ×3 (00:11→16:02)
[2018-07-06] MEDS: metroNIDAZOLE 500mg/100ml NS 250 MG in Premixed IV 1 EA IVPB SCH ×3 (06:00→21:29)
[2018-07-06] MEDS: Enoxaparin 40 mg Syringe SC SCH (08:01)
[2018-07-06 17:33] LABS: SQUAMOUS EPITHIAL < 1 /hpf (0-5); URINE BACTERIA RARE (<OCC); URINE BILIRUBIN NEGATIVE (NEGATIVE); URINE BLOOD SMALL (NEGATIVE); URINE CLARITY CLEAR (Clear); URINE COLOR YELLOW (YELLOW); URINE GLUCOSE (UA) NEG (NEGATIVE); URINE HYALINE CAST 0-2 /hpf (0-2); URINE LEUKOCYTE ESTERASE NEG Leu/uL (Negative); URINE PROTEIN NEGATIVE (NEGATIVE); URINE UROBILINOGEN 0.2-1.0 mg/dL (0.2-1.0)
[2018-07-07] MEDS: Vancomycin 500 mg (Oral/Rectal USE) PO SCH ×3 (00:41→16:20)
[2018-07-07] MEDS: metroNIDAZOLE 500mg/100ml NS 250 MG in Premixed IV 1 EA IVPB SCH ×3 (05:47→21:10)
[2018-07-07 08:19] LABS: BASO # 0.1 K/uL (0.0-0.2); BASO % 0.8 % (0.0-2.0); EOS # 0.5 K/uL (0.0-0.7); EOS % 7.7 % (0.0-4.0); HEMOGLOBIN 11.6 g/dL (12.0-18.0); LYMPH # 1.4 K/uL (1.0-4.3); LYMPH % 19.4 % (20.0-40.0); MEAN CELL VOLUME 89.1 fl (80.0-94.0); MEAN CORPUSCULAR HEMOGLOBIN 29.5 pg (27.0-31.0); MEAN CORPUSCULAR HGB CONC 33.1 g/dL (33.0-37.0); MEAN PLATELET VOLUME 6.7 fl (7.2-11.7); MONO # 0.8 K/uL (0.0-0.8); MONO % 10.8 % (0.0-10.0); NEUT # 4.3 K/uL (1.8-7.0); NEUT % 61.3 % (50.0-75.0); NRBC % 0.1 % (0.0-0.0); RBC 3.93 Mil/uL (4.40-5.90); WHITE BLOOD COUNT 7.1 K/uL (4.8-10.8)
[2018-07-07 08:30] LABS: BLOOD UREA NITROGEN 11 mg/dl (9-20); GFR NON-AFRICAN AMERICAN > 60
[2018-07-07] MEDS: Enoxaparin 40 mg Syringe SC SCH (09:01)
--- NOTE | 2018-07-07 12:14 | CP.PCM.PN ---
Subjective - Date & Time of Evaluation Date of Evaluation: 07/07/18 Time of Evaluation: 06:00 - Subjective Subjective: grew pseudomonas in urine and blood last visit -was treated 10-14 days has bacteriuria still await ID and sens Objective - Vital Signs/Intake and Output Vital Signs (last 24 hours): Temp Pulse Resp BP Pulse Ox 98.3 F 70 20 123/69 94 L 07/07/18 10:00 07/07/18 10:00 07/07/18 10:00 07/07/18 10:00 07/07/18 10:00 - Medications Medications: Current Medications Acyclovir (Zovirax) 800 mg PO TID [facility]; Protocol Last Admin: 07/07/18 09:02 Dose: 800 mg Dimethicone (Proshield Plus Skin Protectant) 1 applic TOP Q8 [facility] Donepezil HCl (Aricept) 10 mg PO DAILY [facility] Last Admin: 07/07/18 09:03 Dose: 10 mg Enoxaparin Sodium (Lovenox) 40 mg SC DAILY [facility]; Protocol Last Admin: 07/07/18 09:01 Dose: 40 mg Escitalopram Oxalate (Lexapro) 10 mg PO DAILY [facility] Last Admin: 07/07/18 09:02 Dose: 10 mg Metronidazole 250 mg/ (Miscellaneous) 50 mls @ 50 mls/hr IVPB Q8@0500,1300,2100 [facility]; Protocol Last Admin: 07/07/18 05:47 Dose: 50 mls/hr Ceftriaxone Sodium 1 gm/ (Sodium Chloride) 100 mls @ 100 mls/hr IVPB DAILY@1700 [facility]; Protocol Memantine (Namenda) 10 mg PO BID [facility] Last Admin: 07/07/18 09:02 Dose: 10 mg Nystatin (Nystop Topical Powder) 1 applic TOP TID [facility] Last Admin: 07/07/18 09:02 Dose: 1 applic Quetiapine Fumarate (Seroquel) 50 mg PO TID@0900,1500,2100 [facility] Last Admin: 07/07/18 09:03 Dose: 50 mg Vancomycin HCl (Vancocin (Oral/Rectal Use)) 125 mg PO Q8 [facility]; Protocol Last Admin: 07/07/18 09:04 Dose: 125 mg - Labs Labs: 07/07/18 07:35 07/07/18 07:35 Assessment and Plan (1) C. difficile diarrhea Status: Acute
--- NOTE | 2018-07-07 13:14 | CP.PCM.PN ---
Subjective - Date & Time of Evaluation Date of Evaluation: 07/07/18 Time of Evaluation: 13:15 - Subjective Subjective: Patient more lethargic, Urine culture + for gram - marilia. Blood culture pending. Will need 10 more days of IV antibx. The family agree for TCU they refuse other SNF facility. Objective - Vital Signs/Intake and Output Vital Signs (last 24 hours): Temp Pulse Resp BP Pulse Ox 98.3 F 70 20 123/69 94 L 07/07/18 10:00 07/07/18 10:00 07/07/18 10:00 07/07/18 10:00 07/07/18 10:00 - Medications Medications: Current Medications Acyclovir (Zovirax) 800 mg PO TID [facility]; Protocol Last Admin: 07/07/18 12:57 Dose: 800 mg Dimethicone (Proshield Plus Skin Protectant) 1 applic TOP Q8 [facility] Donepezil HCl (Aricept) 10 mg PO DAILY [facility] Last Admin: 07/07/18 09:03 Dose: 10 mg Enoxaparin Sodium (Lovenox) 40 mg SC DAILY [facility]; Protocol Last Admin: 07/07/18 09:01 Dose: 40 mg Escitalopram Oxalate (Lexapro) 10 mg PO DAILY [facility] Last Admin: 07/07/18 09:02 Dose: 10 mg Metronidazole 250 mg/ (Miscellaneous) 50 mls @ 50 mls/hr IVPB Q8@0500,1300,2100 [facility]; Protocol Last Admin: 07/07/18 12:51 Dose: 50 mls/hr Ceftriaxone Sodium 1 gm/ (Sodium Chloride) 100 mls @ 100 mls/hr IVPB DAILY@1700 [facility]; Protocol Memantine (Namenda) 10 mg PO BID [facility] Last Admin: 07/07/18 09:02 Dose: 10 mg Nystatin (Nystop Topical Powder) 1 applic TOP TID [facility] Last Admin: 07/07/18 12:53 Dose: 1 applic Quetiapine Fumarate (Seroquel) 50 mg PO TID@0900,1500,2100 [facility] Last Admin: 07/07/18 09:03 Dose: 50 mg Vancomycin HCl (Vancocin (Oral/Rectal Use)) 125 mg PO Q8 [facility]; Protocol Last Admin: 07/07/18 09:04 Dose: 125 mg - Labs Labs: 07/07/18 07:35 07/07/18 07:35 - Constitutional Appears: Confused, Chronically Ill - Eye Exam Eye Exam: Normal appearance - ENT Exam ENT Exam: Normal Exam - Neck Exam Neck Exam: Full ROM - Respiratory Exam Respiratory Exam: Decreased Breath Sounds - Cardiovascular Exam Cardiovascular Exam: REGULAR RHYTHM, +S1, +S2 - GI/Abdominal Exam GI & Abdominal Exam: Soft, Normal Bowel Sounds - Extremities Exam Extremities Exam: Normal Inspection - Neurological Exam Neurological Exam: Altered - Psychiatric Exam Psychiatric exam: Depressed, Flat Affect Assessment and Plan (1) C. difficile diarrhea Status: Acute (2) Hypotension Status: Resolved (3) Severe sepsis Status: Acute (4) Crohn disease Status: Chronic (5) Dementia Status: Chronic (6) UTI (urinary tract infection) Status: Acute
[2018-07-07] MEDS: Proshield Plus GEL TOP SCH (16:19)
--- NOTE | 2018-07-07 23:22 | CP.PCM.PN ---
Subjective - Date & Time of Evaluation Date of Evaluation: 07/07/18 Time of Evaluation: 08:00 - Subjective Subjective: events noted lab apparently changed report for blood c/s on last admission indicating positive blood culture I was never informed by nursing or lav=b of this result- rather I learned about it today on rounds Patient has been recultured and started on IV antibiotics' risk of recurrent c diff acknowledged' may be able to d/c antibiotics if gram neg marilia felt to be contaminant ( await ID of organism) Objective - Vital Signs/Intake and Output Vital Signs (last 24 hours): Temp Pulse Resp BP Pulse Ox 98.7 F 75 20 133/69 93 L 07/07/18 20:48 07/07/18 20:48 07/07/18 20:48 07/07/18 20:48 07/07/18 20:48 - Medications Medications: Current Medications Acyclovir (Zovirax) 800 mg PO TID [facility]; Protocol Last Admin: 07/07/18 16:17 Dose: 800 mg Dimethicone (Proshield Plus Skin Protectant) 1 applic TOP Q8 [facility] Last Admin: 07/07/18 16:19 Dose: 1 applic Donepezil HCl (Aricept) 10 mg PO DAILY [facility] Last Admin: 07/07/18 09:03 Dose: 10 mg Enoxaparin Sodium (Lovenox) 40 mg SC DAILY [facility]; Protocol Last Admin: 07/07/18 09:01 Dose: 40 mg Escitalopram Oxalate (Lexapro) 10 mg PO DAILY [facility] Last Admin: 07/07/18 09:02 Dose: 10 mg Metronidazole 250 mg/ (Miscellaneous) 50 mls @ 50 mls/hr IVPB Q8@0500,1300,2100 [facility]; Protocol Last Admin: 07/07/18 21:10 Dose: 50 mls/hr Cefepime HCl 1 gm/ Sodium (Chloride) 100 mls @ 100 mls/hr IVPB Q8 [facility]; Protocol Memantine (Namenda) 10 mg PO BID [facility] Last Admin: 07/07/18 16:17 Dose: 10 mg Nystatin (Nystop Topical Powder) 1 applic TOP TID [facility] Last Admin: 07/07/18 16:18 Dose: 1 applic Quetiapine Fumarate (Seroquel) 50 mg PO TID@0900,1500,2100 [facility] Last Admin: 07/07/18 21:10 Dose: 50 mg Vancomycin HCl (Vancocin (Oral/Rectal Use)) 125 mg PO Q8 [facility]; Protocol Last Admin: 07/07/18 16:20 Dose: 125 mg - Labs Labs: 07/07/18 07:35 07/07/18 07:35 - Constitutional Appears: No Acute Distress, Confused, Chronically Ill - Head Exam Head Exam: ATRAUMATIC, NORMAL INSPECTION, NORMOCEPHALIC - Eye Exam Eye Exam: EOMI, Normal appearance, PERRL Pupil Exam: NORMAL ACCOMODATION, PERRL - ENT Exam ENT Exam: Mucous Membranes Moist, Normal Exam - Neck Exam Neck Exam: Full ROM, Normal Inspection. absent: Lymphadenopathy - Respiratory Exam Respiratory Exam: Clear to Ausculation Bilateral, NORMAL BREATHING PATTERN - Cardiovascular Exam Cardiovascular Exam: REGULAR RHYTHM, +S1, +S2. absent: Murmur - GI/Abdominal Exam GI & Abdominal Exam: Soft, Normal Bowel Sounds. absent: Tenderness - Rectal Exam Rectal Exam: Deferred - Extremities Exam Extremities Exam: Full ROM, Normal Capillary Refill, Normal Inspection. absent: Joint Swelling, Pedal Edema - Back Exam Back Exam: NORMAL INSPECTION - Neurological Exam Neurological Exam: Altered, CN II-XII Intact. absent: Normal Gait, Oriented x3 - Psychiatric Exam Psychiatric exam: Normal Affect, Normal Mood - Skin Skin Exam: Dry, Intact, Normal Color, Warm Assessment and Plan (1) C. difficile diarrhea Status: Acute - Assessment and Plan (Free Text) Assessment: bacteremia r/o contaminant vs uti related sepsis ? added cefepime
[2018-07-08] MEDS: Proshield Plus GEL TOP SCH ×3 (01:36→17:14)
[2018-07-08] MEDS: Vancomycin 500 mg (Oral/Rectal USE) PO SCH ×3 (01:36→17:13)
[2018-07-08] MEDS: Cefepime 1 GM in Sodium Chloride 0.9% 100 ML IVPB SCH ×3 (01:36→17:14)
[2018-07-08] MEDS: metroNIDAZOLE 500mg/100ml NS 250 MG in Premixed IV 1 EA IVPB SCH ×3 (05:10→21:00)
[2018-07-08] MEDS: Enoxaparin 40 mg Syringe SC SCH (09:21)
--- NOTE | 2018-07-08 14:12 | CP.PCM.PN ---
Subjective - Date & Time of Evaluation Date of Evaluation: 07/08/18 Time of Evaluation: 14:12 - Subjective Subjective: improving well Objective - Vital Signs/Intake and Output Vital Signs (last 24 hours): Temp Pulse Resp BP Pulse Ox 98.2 F 68 20 111/64 95 07/08/18 10:37 07/08/18 10:37 07/08/18 10:37 07/08/18 10:37 07/08/18 10:37 - Medications Medications: Current Medications Acyclovir (Zovirax) 800 mg PO TID [facility]; Protocol Last Admin: 07/08/18 13:54 Dose: 800 mg Dimethicone (Proshield Plus Skin Protectant) 1 applic TOP Q8 [facility] Last Admin: 07/08/18 09:25 Dose: 1 applic Donepezil HCl (Aricept) 10 mg PO DAILY [facility] Last Admin: 07/08/18 09:22 Dose: 10 mg Enoxaparin Sodium (Lovenox) 40 mg SC DAILY [facility]; Protocol Last Admin: 07/08/18 09:21 Dose: 40 mg Escitalopram Oxalate (Lexapro) 10 mg PO DAILY [facility] Last Admin: 07/08/18 09:22 Dose: 10 mg Metronidazole 250 mg/ (Miscellaneous) 50 mls @ 50 mls/hr IVPB Q8@0500,1300,2100 [facility]; Protocol Last Admin: 07/08/18 13:52 Dose: 50 mls/hr Cefepime HCl 1 gm/ Sodium (Chloride) 100 mls @ 100 mls/hr IVPB Q8 [facility]; Protocol Last Admin: 07/08/18 09:20 Dose: 100 mls/hr Memantine (Namenda) 10 mg PO BID [facility] Last Admin: 07/08/18 09:23 Dose: 10 mg Nystatin (Nystop Topical Powder) 1 applic TOP TID [facility] Last Admin: 07/08/18 13:52 Dose: 1 applic Quetiapine Fumarate (Seroquel) 50 mg PO TID@0900,1500,2100 [facility] Last Admin: 07/08/18 09:22 Dose: 50 mg Vancomycin HCl (Vancocin (Oral/Rectal Use)) 125 mg PO Q8 [facility]; Protocol Last Admin: 07/08/18 09:25 Dose: 125 mg - Labs Labs: 07/07/18 07:35 07/07/18 07:35 - Constitutional Appears: Confused, Chronically Ill - Head Exam Head Exam: ATRAUMATIC, NORMAL INSPECTION, NORMOCEPHALIC - Eye Exam Eye Exam: Normal appearance - ENT Exam ENT Exam: Mucous Membranes Moist - Neck Exam Neck Exam: Full ROM - Cardiovascular Exam Cardiovascular Exam: REGULAR RHYTHM, +S1, +S2 - GI/Abdominal Exam GI & Abdominal Exam: Soft, Normal Bowel Sounds - Extremities Exam Extremities Exam: Normal Inspection - Neurological Exam Neurological Exam: Alert, Altered, Awake - Psychiatric Exam Psychiatric exam: Normal Affect - Skin Skin Exam: Normal Color Assessment and Plan (1) C. difficile diarrhea Status: Acute (2) Hypotension Status: Resolved (3) Severe sepsis Status: Acute (4) Crohn disease Status: Chronic (5) Dementia Status: Chronic (6) UTI (urinary tract infection) Status: Acute
[2018-07-09] MEDS: Cefepime 1 GM in Sodium Chloride 0.9% 100 ML IVPB SCH (08:30)
[2018-07-09] MEDS: metroNIDAZOLE 500mg/100ml NS 250 MG in Premixed IV 1 EA IVPB SCH ×2 (09:41→18:00)
[2018-07-09] MEDS: Vancomycin 500 mg (Oral/Rectal USE) PO SCH ×2 (09:42→16:49)
[2018-07-09] MEDS: Proshield Plus GEL TOP SCH ×2 (09:43→16:53)
[2018-07-09] MEDS: Enoxaparin 40 mg Syringe SC SCH (09:44)
--- NOTE | 2018-07-09 12:24 | CP.PCM.PN ---
Subjective - Date & Time of Evaluation Date of Evaluation: 07/09/18 Time of Evaluation: 12:24 - Subjective Subjective: Comfortable Objective - Vital Signs/Intake and Output Vital Signs (last 24 hours): Temp Pulse Resp BP Pulse Ox 97.9 F 71 20 118/68 95 07/09/18 08:12 07/09/18 08:12 07/09/18 08:12 07/09/18 08:12 07/09/18 08:12 - Medications Medications: Current Medications Acyclovir (Zovirax) 800 mg PO TID [facility]; Protocol Last Admin: 07/09/18 09:42 Dose: 800 mg Dimethicone (Proshield Plus Skin Protectant) 1 applic TOP Q8 [facility] Last Admin: 07/09/18 09:43 Dose: 1 applic Donepezil HCl (Aricept) 10 mg PO DAILY [facility] Last Admin: 07/09/18 09:42 Dose: 10 mg Enoxaparin Sodium (Lovenox) 40 mg SC DAILY [facility]; Protocol Last Admin: 07/09/18 09:44 Dose: 40 mg Escitalopram Oxalate (Lexapro) 10 mg PO DAILY [facility] Last Admin: 07/09/18 09:42 Dose: 10 mg Cefepime HCl 1 gm/ Sodium (Chloride) 100 mls @ 100 mls/hr IVPB Q8 [facility]; Protocol Last Admin: 07/09/18 08:30 Dose: 100 mls/hr Metronidazole 250 mg/ (Miscellaneous) 50 mls @ 50 mls/hr IVPB Q8@0100,0900,1700 [facility]; Protocol Last Admin: 07/09/18 09:41 Dose: 50 mls/hr Lactobacillus Acidophilus (Bacid Acidophilus) 1 cap PO BID [facility] Memantine (Namenda) 10 mg PO BID [facility] Last Admin: 07/09/18 09:43 Dose: 10 mg Nystatin (Nystop Topical Powder) 1 applic TOP TID [facility] Last Admin: 07/09/18 09:41 Dose: 1 applic Quetiapine Fumarate (Seroquel) 50 mg PO TID@0900,1500,2100 [facility] Last Admin: 07/09/18 09:42 Dose: 50 mg Vancomycin HCl (Vancocin (Oral/Rectal Use)) 125 mg PO Q8 [facility]; Protocol Last Admin: 07/09/18 09:42 Dose: 125 mg - Labs Labs: 07/07/18 07:35 07/07/18 07:35 - Constitutional Appears: Confused, Chronically Ill - Head Exam Head Exam: ATRAUMATIC, NORMAL INSPECTION, NORMOCEPHALIC - Eye Exam Eye Exam: Normal appearance - ENT Exam ENT Exam: Mucous Membranes Moist - Respiratory Exam Respiratory Exam: Clear to Ausculation Bilateral - Cardiovascular Exam Cardiovascular Exam: REGULAR RHYTHM, +S1, +S2 - GI/Abdominal Exam GI & Abdominal Exam: Soft, Normal Bowel Sounds - Neurological Exam Neurological Exam: Alert, Altered, Awake - Skin Skin Exam: Normal Color Assessment and Plan (1) C. difficile diarrhea Status: Acute (2) Hypotension Status: Resolved (3) Severe sepsis Status: Acute (4) Crohn disease Status: Chronic (5) Dementia Status: Chronic (6) UTI (urinary tract infection) Status: Acute
--- NOTE | 2018-07-09 13:21 | CP.PCM.PN ---
Subjective - Date & Time of Evaluation Date of Evaluation: 07/09/18 Time of Evaluation: 09:00 - Subjective Subjective: switched to cipro positive blood c/s Objective - Vital Signs/Intake and Output Vital Signs (last 24 hours): Temp Pulse Resp BP Pulse Ox 97.9 F 71 20 118/68 95 07/09/18 08:12 07/09/18 08:12 07/09/18 08:12 07/09/18 08:12 07/09/18 08:12 - Medications Medications: Current Medications Acyclovir (Zovirax) 800 mg PO TID [facility]; Protocol Last Admin: 07/09/18 09:42 Dose: 800 mg Dimethicone (Proshield Plus Skin Protectant) 1 applic TOP Q8 [facility] Last Admin: 07/09/18 09:43 Dose: 1 applic Donepezil HCl (Aricept) 10 mg PO DAILY [facility] Last Admin: 07/09/18 09:42 Dose: 10 mg Enoxaparin Sodium (Lovenox) 40 mg SC DAILY [facility]; Protocol Last Admin: 07/09/18 09:44 Dose: 40 mg Escitalopram Oxalate (Lexapro) 10 mg PO DAILY [facility] Last Admin: 07/09/18 09:42 Dose: 10 mg Metronidazole 250 mg/ (Miscellaneous) 50 mls @ 50 mls/hr IVPB Q8@0100,0900,1700 [facility]; Protocol Last Admin: 07/09/18 09:41 Dose: 50 mls/hr Dextrose/Sodium Chloride (Dextrose 5%/0.9% Ns 1000 Ml) 1,000 mls @ 80 mls/hr IV .[id number] [facility] Stop: 07/10/18 12:49 Ciprofloxacin (Cipro 400mg/200ml Dsw) 400 mg in 200 mls @ 200 mls/hr IVPB Q12@0500,1700 [facility]; Protocol Lactobacillus Acidophilus (Bacid Acidophilus) 1 cap PO BID [facility] Memantine (Namenda) 10 mg PO BID [facility] Last Admin: 07/09/18 09:43 Dose: 10 mg Nystatin (Nystop Topical Powder) 1 applic TOP TID [facility] Last Admin: 07/09/18 09:41 Dose: 1 applic Quetiapine Fumarate (Seroquel) 50 mg PO TID@0900,1500,2100 [facility] Last Admin: 07/09/18 09:42 Dose: 50 mg Vancomycin HCl (Vancocin (Oral/Rectal Use)) 125 mg PO Q8 [facility]; Protocol Last Admin: 07/09/18 09:42 Dose: 125 mg - Labs Labs: 07/07/18 07:35 07/07/18 07:35 - Constitutional Appears: No Acute Distress, Confused, Chronically Ill - Head Exam Head Exam: ATRAUMATIC, NORMAL INSPECTION, NORMOCEPHALIC - Eye Exam Eye Exam: EOMI, Normal appearance, PERRL Pupil Exam: NORMAL ACCOMODATION, PERRL - ENT Exam ENT Exam: Mucous Membranes Moist, Normal Exam - Neck Exam Neck Exam: Full ROM, Normal Inspection. absent: Lymphadenopathy - Respiratory Exam Respiratory Exam: Clear to Ausculation Bilateral, NORMAL BREATHING PATTERN - Cardiovascular Exam Cardiovascular Exam: REGULAR RHYTHM, +S1, +S2. absent: Murmur - GI/Abdominal Exam GI & Abdominal Exam: Soft, Normal Bowel Sounds. absent: Tenderness - Rectal Exam Rectal Exam: Deferred - Extremities Exam Extremities Exam: Full ROM, Normal Capillary Refill, Normal Inspection. absent: Joint Swelling, Pedal Edema - Back Exam Back Exam: NORMAL INSPECTION - Neurological Exam Neurological Exam: Alert, Awake, CN II-XII Intact, Normal Gait, Oriented x3 - Psychiatric Exam Psychiatric exam: Normal Affect, Normal Mood - Skin Skin Exam: Dry, Intact, Normal Color, Warm Assessment and Plan (1) C. difficile diarrhea Status: Acute - Assessment and Plan (Free Text) Assessment: cont cipro for 14 days
[2018-07-09] MEDS: Dextrose 5%/0.9% NS 1,000 ML IV SCH (13:44)
[2018-07-09] MEDS: Ciprofloxacin 400mg/200ml D5W 400 MG/200 ML BAG IVPB SCH (16:46)
[2018-07-09] MEDS: Lactobacillus Acidophilus 500 MU Cap PO SCH (16:54)
[2018-07-10] MEDS: Vancomycin 500 mg (Oral/Rectal USE) PO SCH ×3 (00:21→16:03)
[2018-07-10] MEDS: metroNIDAZOLE 500mg/100ml NS 250 MG in Premixed IV 1 EA IVPB SCH ×3 (00:22→16:02)
[2018-07-10] MEDS: Proshield Plus GEL TOP SCH ×3 (00:29→16:03)
[2018-07-10] MEDS: Ciprofloxacin 400mg/200ml D5W 400 MG/200 ML BAG IVPB SCH ×2 (04:42→16:02)
[2018-07-10 06:59] LABS: BASO # 0.1 K/uL (0.0-0.2); BASO % 0.8 % (0.0-2.0); EOS # 0.5 K/uL (0.0-0.7); EOS % 6.8 % (0.0-4.0); HEMOGLOBIN 10.8 g/dL (12.0-18.0); LYMPH # 1.7 K/uL (1.0-4.3); LYMPH % 22.1 % (20.0-40.0); MEAN CELL VOLUME 89.4 fl (80.0-94.0); MEAN CORPUSCULAR HEMOGLOBIN 29.4 pg (27.0-31.0); MEAN CORPUSCULAR HGB CONC 32.9 g/dL (33.0-37.0); MEAN PLATELET VOLUME 6.4 fl (7.2-11.7); MONO # 0.7 K/uL (0.0-0.8); MONO % 9.3 % (0.0-10.0); NEUT # 4.8 K/uL (1.8-7.0); NRBC % 0.1 % (0.0-0.0); RBC 3.68 Mil/uL (4.40-5.90); RED CELL DISTRIBUTION WIDTH 17.5 % (11.5-14.5); WHITE BLOOD COUNT 7.9 K/uL (4.8-10.8)
[2018-07-10 07:09] LABS: BLOOD UREA NITROGEN 11 mg/dl (9-20); CALCIUM 8.4 mg/dL (8.4-10.2); GFR NON-AFRICAN AMERICAN > 60
[2018-07-10] MEDS: Lactobacillus Acidophilus 500 MU Cap PO SCH ×2 (08:56→16:02)
[2018-07-10] MEDS: Enoxaparin 40 mg Syringe SC SCH (08:56)
--- NOTE | 2018-07-10 12:16 | CP.PCM.PN ---
Subjective - Date & Time of Evaluation Date of Evaluation: 07/10/18 Time of Evaluation: 12:16 - Subjective Subjective: comfortable Objective - Vital Signs/Intake and Output Vital Signs (last 24 hours): Temp Pulse Resp BP Pulse Ox 98.7 F 73 20 117/77 98 07/10/18 07:47 07/10/18 07:47 07/10/18 07:47 07/10/18 07:47 07/10/18 07:47 - Medications Medications: Current Medications Acyclovir (Zovirax) 800 mg PO TID [facility]; Protocol Last Admin: 07/10/18 08:57 Dose: 800 mg Dimethicone (Proshield Plus Skin Protectant) 1 applic TOP Q8 [facility] Last Admin: 07/10/18 08:57 Dose: 1 applic Donepezil HCl (Aricept) 10 mg PO DAILY [facility] Last Admin: 07/10/18 08:55 Dose: 10 mg Enoxaparin Sodium (Lovenox) 40 mg SC DAILY [facility]; Protocol Last Admin: 07/10/18 08:56 Dose: 40 mg Escitalopram Oxalate (Lexapro) 10 mg PO DAILY [facility] Last Admin: 07/10/18 08:55 Dose: 10 mg Metronidazole 250 mg/ (Miscellaneous) 50 mls @ 50 mls/hr IVPB Q8@0100,0900,1700 [facility]; Protocol Last Admin: 07/10/18 09:11 Dose: 50 mls/hr Ciprofloxacin (Cipro 400mg/200ml Dsw) 400 mg in 200 mls @ 200 mls/hr IVPB Q12@0500,1700 [facility]; Protocol Last Admin: 07/10/18 04:42 Dose: 200 mls/hr Lactobacillus Acidophilus (Bacid Acidophilus) 1 cap PO BID [facility] Last Admin: 07/10/18 08:56 Dose: 1 cap Memantine (Namenda) 10 mg PO BID [facility] Last Admin: 07/10/18 09:11 Dose: 10 mg Nystatin (Nystop Topical Powder) 1 applic TOP TID [facility] Last Admin: 07/10/18 08:56 Dose: 1 applic Quetiapine Fumarate (Seroquel) 50 mg PO TID@0900,1500,2100 [facility] Last Admin: 07/10/18 08:56 Dose: 50 mg Vancomycin HCl (Vancocin (Oral/Rectal Use)) 125 mg PO Q8 [facility]; Protocol Last Admin: 07/10/18 09:11 Dose: 125 mg - Labs Labs: 07/10/18 06:35 07/10/18 06:35 - Constitutional Appears: Confused, Chronically Ill - Head Exam Head Exam: ATRAUMATIC, NORMAL INSPECTION, NORMOCEPHALIC - Eye Exam Eye Exam: Normal appearance - ENT Exam ENT Exam: Mucous Membranes Moist - Neck Exam Neck Exam: Full ROM - Respiratory Exam Respiratory Exam: Clear to Ausculation Bilateral - Cardiovascular Exam Cardiovascular Exam: REGULAR RHYTHM, +S1, +S2 - GI/Abdominal Exam GI & Abdominal Exam: Normal Bowel Sounds - Extremities Exam Extremities Exam: Normal Inspection - Neurological Exam Neurological Exam: Altered - Psychiatric Exam Psychiatric exam: Flat Affect Assessment and Plan (1) C. difficile diarrhea Status: Acute (2) Hypotension Status: Resolved (3) Severe sepsis Status: Acute (4) Crohn disease Status: Chronic (5) Dementia Status: Chronic (6) UTI (urinary tract infection) Status: Acute
[2018-07-10] MEDS: Dextrose 5%/0.9% NS 1,000 ML IV SCH (19:47)
--- NOTE | 2018-07-10 23:41 | CP.PCM.PN ---
Subjective - Date & Time of Evaluation Date of Evaluation: 07/10/18 Time of Evaluation: 09:00 - Subjective Subjective: discussed with Dr Segundo recurrent pseudomonas UTI with probable bacteremia and c diff colitis to cont PO Vanco for 14- 21 more days upon discharge and complete 14 days totaL [facility] FOR PSEUDOMAONAS WE[place] VALTREX POOR PROGNOSIS - IMMUNOCOMPROMISED STATE Objective - Vital Signs/Intake and Output Vital Signs (last 24 hours): Temp Pulse Resp BP Pulse Ox 98.9 F 75 20 144/58 L 96 07/10/18 19:30 07/10/18 19:30 07/10/18 19:30 07/10/18 19:30 07/10/18 19:30 - Medications Medications: Current Medications Acyclovir (Zovirax) 800 mg PO TID [facility]; Protocol Last Admin: 07/10/18 16:07 Dose: 800 mg Dimethicone (Proshield Plus Skin Protectant) 1 applic TOP Q8 [facility] Last Admin: 07/10/18 16:03 Dose: 1 applic Donepezil HCl (Aricept) 10 mg PO DAILY [facility] Last Admin: 07/10/18 08:55 Dose: 10 mg Enoxaparin Sodium (Lovenox) 40 mg SC DAILY [facility]; Protocol Last Admin: 07/10/18 08:56 Dose: 40 mg Escitalopram Oxalate (Lexapro) 10 mg PO DAILY [facility] Last Admin: 07/10/18 08:55 Dose: 10 mg Metronidazole 250 mg/ (Miscellaneous) 50 mls @ 50 mls/hr IVPB Q8@0100,0900,1700 [facility]; Protocol Last Admin: 07/10/18 16:02 Dose: 50 mls/hr Ciprofloxacin (Cipro 400mg/200ml Dsw) 400 mg in 200 mls @ 200 mls/hr IVPB Q12 @0500,1700 [facility]; Protocol Last Admin: 07/10/18 16:02 Dose: 200 mls/hr Lactobacillus Acidophilus (Bacid Acidophilus) 1 cap PO BID [facility] Last Admin: 07/10/18 16:02 Dose: 1 cap Memantine (Namenda) 10 mg PO BID [facility] Last Admin: 07/10/18 16:01 Dose: 10 mg Nystatin (Nystop Topical Powder) 1 applic TOP TID [facility] Last Admin: 07/10/18 16:03 Dose: 1 applic Quetiapine Fumarate (Seroquel) 50 mg PO TID@0900,1500,2100 [facility] Last Admin: 07/10/18 20:46 Dose: 50 mg Vancomycin HCl (Vancocin (Oral/Rectal Use)) 125 mg PO Q8 [facility]; Protocol Last Admin: 07/10/18 16:03 Dose: 125 mg - Labs Labs: 07/10/18 06:35 07/10/18 06:35 Assessment and Plan (1) C. difficile diarrhea Status: Acute
[2018-07-11] MEDS: Vancomycin 500 mg (Oral/Rectal USE) PO SCH ×3 (00:05→17:16)
[2018-07-11] MEDS: Proshield Plus GEL TOP SCH ×4 (00:07→17:15)
[2018-07-11] MEDS: metroNIDAZOLE 500mg/100ml NS 250 MG in Premixed IV 1 EA IVPB SCH ×3 (00:08→17:11)
[2018-07-11] MEDS: Ciprofloxacin 400mg/200ml D5W 400 MG/200 ML BAG IVPB SCH ×2 (04:48→17:14)
[2018-07-11] MEDS: Enoxaparin 40 mg Syringe SC SCH (08:24)
[2018-07-11] MEDS: Lactobacillus Acidophilus 500 MU Cap PO SCH ×2 (08:31→17:13)
--- NOTE | 2018-07-11 13:20 | CP.PCM.PN ---
Subjective - Date & Time of Evaluation Date of Evaluation: 07/11/18 Time of Evaluation: 08:00 - Subjective Subjective: discussed with Dr Segundo recurrent pseudomonas UTI with probable bacteremia and c diff colitis to cont PO Vanco for 14- 21 more days upon discharge and complete 14 days tota [facility] for Pseudomonas [place] Objective - Vital Signs/Intake and Output Vital Signs (last 24 hours): Temp Pulse Resp BP Pulse Ox 98.0 F 68 20 127/67 95 07/11/18 08:26 07/11/18 08:26 07/11/18 08:26 07/11/18 08:26 07/11/18 08:26 - Medications Medications: Current Medications Acyclovir (Zovirax) 800 mg PO TID [facility]; Protocol Last Admin: 07/11/18 08:23 Dose: 800 mg Dimethicone (Proshield Plus Skin Protectant) 1 applic TOP Q8 [facility] Last Admin: 07/11/18 08:22 Dose: 1 applic Donepezil HCl (Aricept) 10 mg PO DAILY [facility] Last Admin: 07/11/18 08:23 Dose: 10 mg Enoxaparin Sodium (Lovenox) 40 mg SC DAILY [facility]; Protocol Last Admin: 07/11/18 08:24 Dose: 40 mg Escitalopram Oxalate (Lexapro) 10 mg PO DAILY [facility] Last Admin: 07/11/18 08:23 Dose: 10 mg Metronidazole 250 mg/ (Miscellaneous) 50 mls @ 50 mls/hr IVPB Q8@0100,0900,1700 [facility]; Protocol Last Admin: 07/11/18 08:27 Dose: 50 mls/hr Ciprofloxacin (Cipro 400mg/200ml Dsw) 400 mg in 200 mls @ 200 mls/hr IVPB Q12@0500,1700 [facility]; Protocol Last Admin: 07/11/18 04:48 Dose: 200 mls/hr Lactobacillus Acidophilus (Bacid Acidophilus) 1 cap PO BID [facility] Last Admin: 07/11/18 08:31 Dose: 1 cap Memantine (Namenda) 10 mg PO BID [facility] Last Admin: 07/11/18 08:23 Dose: 10 mg Nystatin (Nystop Topical Powder) 1 applic TOP TID [facility] Last Admin: 07/11/18 08:24 Dose: 1 applic Quetiapine Fumarate (Seroquel) 50 mg PO TID@0900,1500,2100 [facility] Last Admin: 07/11/18 08:21 Dose: 50 mg Vancomycin HCl (Vancocin (Oral/Rectal Use)) 125 mg PO Q8 [facility]; Protocol Last Admin: 07/11/18 08:25 Dose: 125 mg - Labs Labs: 07/10/18 06:35 07/10/18 06:35 - Constitutional Appears: Non-toxic, No Acute Distress, Confused, Cachectic, Chronically Ill - Head Exam Head Exam: ATRAUMATIC, NORMAL INSPECTION, NORMOCEPHALIC - Eye Exam Eye Exam: EOMI, Normal appearance, PERRL Pupil Exam: NORMAL ACCOMODATION, PERRL - ENT Exam ENT Exam: Mucous Membranes Moist, Normal Exam - Neck Exam Neck Exam: Full ROM, Normal Inspection. absent: Lymphadenopathy - Respiratory Exam Respiratory Exam: Clear to Ausculation Bilateral, NORMAL BREATHING PATTERN - Cardiovascular Exam Cardiovascular Exam: REGULAR RHYTHM, +S1, +S2. absent: Murmur - GI/Abdominal Exam GI & Abdominal Exam: Soft, Normal Bowel Sounds. absent: Tenderness - Rectal Exam Rectal Exam: Deferred - Exam Exam: NORMAL INSPECTION - Extremities Exam Extremities Exam: Full ROM, Normal Capillary Refill, Normal Inspection. absent: Joint Swelling, Pedal Edema - Back Exam Back Exam: NORMAL INSPECTION - Neurological Exam Neurological Exam: Alert, Altered, Awake, CN II-XII Intact, Motor Sensory Deficit. absent: Normal Gait, Oriented x3, Reflexes Normal Neuro motor strength exam: Left Upper Extremity: 4, Right Upper Extremity: 4, Left Lower Extremity: 2/1, Right Lower Extremity: 2/1 - Psychiatric Exam Psychiatric exam: Depressed - Skin Skin Exam: Dry, Intact, Normal Color, Warm Assessment and Plan (1) C. difficile diarrhea Status: Acute - Assessment and Plan (Free Text) Assessment: discussed with Dr Segundo recurrent pseudomonas UTI with probable bacteremia and c diff colitis to cont PO Vanco for 14- 21 more days upon discharge and complete 14 days to[facility] FOR PSEUDOMONAS [facility]
--- NOTE | 2018-07-11 14:12 | CP.PCM.PN ---
Subjective - Date & Time of Evaluation Date of Evaluation: 07/11/18 Time of Evaluation: 14:12 - Subjective Subjective: Comfortable non in distress Objective - Vital Signs/Intake and Output Vital Signs (last 24 hours): Temp Pulse Resp BP Pulse Ox 98.0 F 68 20 127/67 95 07/11/18 08:26 07/11/18 08:26 07/11/18 08:26 07/11/18 08:26 07/11/18 08:26 - Medications Medications: Current Medications Acyclovir (Zovirax) 800 mg PO TID [facility]; Protocol Last Admin: 07/11/18 08:23 Dose: 800 mg Dimethicone (Proshield Plus Skin Protectant) 1 applic TOP Q8 [facility] Last Admin: 07/11/18 08:22 Dose: 1 applic Donepezil HCl (Aricept) 10 mg PO DAILY [facility] Last Admin: 07/11/18 08:23 Dose: 10 mg Enoxaparin Sodium (Lovenox) 40 mg SC DAILY [facility]; Protocol Last Admin: 07/11/18 08:24 Dose: 40 mg Escitalopram Oxalate (Lexapro) 10 mg PO DAILY [facility] Last Admin: 07/11/18 08:23 Dose: 10 mg Metronidazole 250 mg/ (Miscellaneous) 50 mls @ 50 mls/hr IVPB Q8@0100,0900,1700 [facility]; Protocol Last Admin: 07/11/18 08:27 Dose: 50 mls/hr Ciprofloxacin (Cipro 400mg/200ml Dsw) 400 mg in 200 mls @ 200 mls/hr IVPB Q12@0500,1700 [facility]; Protocol Last Admin: 07/11/18 04:48 Dose: 200 mls/hr Lactobacillus Acidophilus (Bacid Acidophilus) 1 cap PO BID [facility] Last Admin: 07/11/18 08:31 Dose: 1 cap Memantine (Namenda) 10 mg PO BID [facility] Last Admin: 07/11/18 08:23 Dose: 10 mg Nystatin (Nystop Topical Powder) 1 applic TOP TID [facility] Last Admin: 07/11/18 08:24 Dose: 1 applic Quetiapine Fumarate (Seroquel) 50 mg PO TID@0900,1500,2100 [facility] Last Admin: 07/11/18 08:21 Dose: 50 mg Vancomycin HCl (Vancocin (Oral/Rectal Use)) 125 mg PO Q8 [facility]; Protocol Last Admin: 07/11/18 08:25 Dose: 125 mg - Labs Labs: 07/10/18 06:35 07/10/18 06:35 - Constitutional Appears: Confused, Chronically Ill - Head Exam Head Exam: ATRAUMATIC, NORMAL INSPECTION, NORMOCEPHALIC - Eye Exam Eye Exam: Normal appearance - ENT Exam ENT Exam: Normal Exam - Neck Exam Neck Exam: Full ROM - Respiratory Exam Respiratory Exam: Clear to Ausculation Bilateral - Cardiovascular Exam Cardiovascular Exam: REGULAR RHYTHM - GI/Abdominal Exam GI & Abdominal Exam: Soft, Normal Bowel Sounds - Extremities Exam Extremities Exam: Normal Inspection - Neurological Exam Neurological Exam: Altered Assessment and Plan (1) C. difficile diarrhea Status: Acute (2) Hypotension Status: Resolved (3) Severe sepsis Status: Acute (4) Crohn disease Status: Chronic (5) Dementia Status: Chronic (6) UTI (urinary tract infection) Status: Acute
[2018-07-12] MEDS: Proshield Plus GEL TOP SCH ×3 (01:49→16:33)
[2018-07-12] MEDS: metroNIDAZOLE 500mg/100ml NS 250 MG in Premixed IV 1 EA IVPB SCH ×3 (01:49→16:32)
[2018-07-12] MEDS: Vancomycin 500 mg (Oral/Rectal USE) PO SCH ×3 (01:50→16:34)
[2018-07-12] MEDS: Ciprofloxacin 400mg/200ml D5W 400 MG/200 ML BAG IVPB SCH ×2 (05:12→16:32)
[2018-07-12] MEDS: Lactobacillus Acidophilus 500 MU Cap PO SCH ×2 (10:45→16:31)
--- NOTE | 2018-07-12 18:03 | CP.PCM.PN ---
Subjective - Date & Time of Evaluation Date of Evaluation: 07/12/18 Time of Evaluation: 18:02 - Subjective Subjective: comfortable Objective - Vital Signs/Intake and Output Vital Signs (last 24 hours): Temp Pulse Resp BP Pulse Ox 97.8 F 81 20 136/72 96 07/12/18 15:41 07/12/18 15:41 07/12/18 15:41 07/12/18 15:41 07/12/18 15:41 - Medications Medications: Current Medications Acyclovir (Zovirax) 800 mg PO TID [facility]; Protocol Last Admin: 07/12/18 16:37 Dose: 800 mg Dimethicone (Proshield Plus Skin Protectant) 1 applic TOP Q8 [facility] Last Admin: 07/12/18 16:33 Dose: 1 applic Donepezil HCl (Aricept) 10 mg PO DAILY [facility] Last Admin: 07/12/18 10:42 Dose: 10 mg Escitalopram Oxalate (Lexapro) 10 mg PO DAILY [facility] Last Admin: 07/12/18 10:41 Dose: 10 mg Metronidazole 250 mg/ (Miscellaneous) 50 mls @ 50 mls/hr IVPB Q8@0100,0900,1700 [facility]; Protocol Last Admin: 07/12/18 16:32 Dose: 50 mls/hr Ciprofloxacin (Cipro 400mg/200ml Dsw) 400 mg in 200 mls @ 200 mls/hr IVPB Q12@0500,1700 [facility]; Protocol Last Admin: 07/12/18 16:32 Dose: 200 mls/hr Lactobacillus Acidophilus (Bacid Acidophilus) 1 cap PO BID [facility] Last Admin: 07/12/18 16:31 Dose: 1 cap Memantine (Namenda) 10 mg PO BID [facility] Last Admin: 07/12/18 16:33 Dose: 10 mg Nystatin (Nystop Topical Powder) 1 applic TOP TID [facility] Last Admin: 07/12/18 16:33 Dose: 1 applic Quetiapine Fumarate (Seroquel) 50 mg PO TID@0900,1500,2100 [facility] Last Admin: 07/12/18 16:33 Dose: 50 mg Vancomycin HCl (Vancocin (Oral/Rectal Use)) 125 mg PO Q8 [facility]; Protocol Last Admin: 07/12/18 16:34 Dose: 125 mg - Labs Labs: 07/10/18 06:35 07/10/18 06:35 - Constitutional Appears: Confused, Chronically Ill - Head Exam Head Exam: ATRAUMATIC, NORMAL INSPECTION, NORMOCEPHALIC - Eye Exam Eye Exam: Normal appearance - ENT Exam ENT Exam: Mucous Membranes Moist - Neck Exam Neck Exam: Full ROM, Normal Inspection - Respiratory Exam Respiratory Exam: Clear to Ausculation Bilateral - Cardiovascular Exam Cardiovascular Exam: REGULAR RHYTHM, +S1, +S2 - GI/Abdominal Exam GI & Abdominal Exam: Soft, Normal Bowel Sounds - Extremities Exam Extremities Exam: Normal Inspection - Neurological Exam Neurological Exam: Altered - Psychiatric Exam Psychiatric exam: Flat Affect Assessment and Plan (1) C. difficile diarrhea Status: Acute (2) Hypotension Status: Resolved (3) Severe sepsis Status: Acute (4) Crohn disease Status: Chronic (5) Dementia Status: Chronic (6) UTI (urinary tract infection) Status: Acute
[2018-07-13] MEDS: metroNIDAZOLE 500mg/100ml NS 250 MG in Premixed IV 1 EA IVPB SCH ×3 (00:24→17:09)
[2018-07-13] MEDS: Proshield Plus GEL TOP SCH ×3 (00:24→17:10)
[2018-07-13] MEDS: Vancomycin 500 mg (Oral/Rectal USE) PO SCH ×3 (00:25→17:10)
[2018-07-13] MEDS: Ciprofloxacin 400mg/200ml D5W 400 MG/200 ML BAG IVPB SCH ×2 (04:40→16:01)
[2018-07-13] MEDS: Lactobacillus Acidophilus 500 MU Cap PO SCH ×2 (10:41→17:08)
--- NOTE | 2018-07-13 12:49 | CP.PCM.PN ---
Subjective - Date & Time of Evaluation Date of Evaluation: 07/13/18 Time of Evaluation: 07:00 - Subjective Subjective: seen on rounds patient examined chart reviewed orders signed Objective - Vital Signs/Intake and Output Vital Signs (last 24 hours): Temp Pulse Resp BP Pulse Ox 98.6 F 62 20 143/83 97 07/13/18 08:00 07/13/18 08:00 07/13/18 08:00 07/13/18 08:00 07/13/18 08:00 - Medications Medications: Current Medications Acyclovir (Zovirax) 800 mg PO TID [facility]; Protocol Last Admin: 07/13/18 09:13 Dose: 800 mg Dimethicone (Proshield Plus Skin Protectant) 1 applic TOP Q8 [facility] Last Admin: 07/13/18 09:12 Dose: 1 applic Donepezil HCl (Aricept) 10 mg PO DAILY [facility] Last Admin: 07/13/18 09:11 Dose: 10 mg Escitalopram Oxalate (Lexapro) 10 mg PO DAILY [facility] Last Admin: 07/13/18 09:11 Dose: 10 mg Metronidazole 250 mg/ (Miscellaneous) 50 mls @ 50 mls/hr IVPB Q8@0100,0900,1700 [facility]; Protocol Last Admin: 07/13/18 09:32 Dose: 50 mls/hr Ciprofloxacin (Cipro 400mg/200ml Dsw) 400 mg in 200 mls @ 200 mls/hr IVPB Q1 2@0500,1700 [facility]; Protocol Last Admin: 07/13/18 04:40 Dose: 200 mls/hr Lactobacillus Acidophilus (Bacid Acidophilus) 1 cap PO BID [facility] Last Admin: 07/13/18 10:41 Dose: 1 cap Memantine (Namenda) 10 mg PO BID [facility] Last Admin: 07/13/18 09:11 Dose: 10 mg Nystatin (Nystop Topical Powder) 1 applic TOP TID [facility] Last Admin: 07/13/18 09:11 Dose: 1 applic Quetiapine Fumarate (Seroquel) 50 mg PO TID@0900,1500,2100 [facility] Last Admin: 07/13/18 09:12 Dose: 50 mg Vancomycin HCl (Vancocin (Oral/Rectal Use)) 125 mg PO Q8 [facility]; Protocol Last Admin: 07/13/18 09:13 Dose: 125 mg - Labs Labs: 07/10/18 06:35 07/10/18 06:35 - Constitutional Appears: Non-toxic, Confused, Cachectic, Chronically Ill - Head Exam Head Exam: ATRAUMATIC, NORMAL INSPECTION, NORMOCEPHALIC - Eye Exam Eye Exam: EOMI, Normal appearance, PERRL Pupil Exam: NORMAL ACCOMODATION, PERRL - ENT Exam ENT Exam: Mucous Membranes Moist, Normal Exam - Neck Exam Neck Exam: Full ROM, Normal Inspection. absent: Lymphadenopathy - Respiratory Exam Respiratory Exam: Clear to Ausculation Bilateral, NORMAL BREATHING PATTERN - Cardiovascular Exam Cardiovascular Exam: REGULAR RHYTHM, +S1, +S2. absent: Murmur - GI/Abdominal Exam GI & Abdominal Exam: Soft, Normal Bowel Sounds. absent: Tenderness - Rectal Exam Rectal Exam: Deferred - Exam Exam: NORMAL INSPECTION - Extremities Exam Extremities Exam: Full ROM, Normal Capillary Refill, Normal Inspection. absent: Joint Swelling, Pedal Edema - Back Exam Back Exam: NORMAL INSPECTION - Neurological Exam Neurological Exam: Alert, Awake, CN II-XII Intact. absent: Normal Gait, Oriented x3 - Psychiatric Exam Psychiatric exam: Normal Affect, Normal Mood - Skin Skin Exam: Dry, Intact, Normal Color, Warm Assessment and Plan (1) C. difficile diarrhea Status: Acute - Assessment and Plan (Free Text) Assessment: s/p Pseudomonas UTI/ bacteremia s/p c diff cont Vanco PO for 14 days more complete rx for UTI x 7 more days
--- NOTE | 2018-07-13 21:29 | CP.PCM.PN ---
Subjective - Date & Time of Evaluation Date of Evaluation: 07/13/18 Time of Evaluation: 21:29 - Subjective Subjective: Comfortable Objective - Vital Signs/Intake and Output Vital Signs (last 24 hours): Temp Pulse Resp BP Pulse Ox 98.3 F 86 20 124/72 95 07/13/18 20:15 07/13/18 20:15 07/13/18 20:15 07/13/18 20:15 07/13/18 20:15 - Medications Medications: Current Medications Acyclovir (Zovirax) 800 mg PO TID [facility]; Protocol Last Admin: 07/13/18 17:10 Dose: 800 mg Ciprofloxacin (Cipro) 500 mg PO Q12 [facility]; Protocol Dimethicone (Proshield Plus Skin Protectant) 1 applic TOP Q8 [facility] Last Admin: 07/13/18 17:10 Dose: 1 applic Donepezil HCl (Aricept) 10 mg PO DAILY [facility] Last Admin: 07/13/18 09:11 Dose: 10 mg Escitalopram Oxalate (Lexapro) 10 mg PO DAILY [facility] Last Admin: 07/13/18 09:11 Dose: 10 mg Lactobacillus Acidophilus (Bacid Acidophilus) 1 cap PO BID [facility] Last Admin: 07/13/18 17:08 Dose: 1 cap Memantine (Namenda) 10 mg PO BID [facility] Last Admin: 07/13/18 17:09 Dose: 10 mg Nystatin (Nystop Topical Powder) 1 applic TOP TID [facility] Last Admin: 07/13/18 17:09 Dose: 1 applic Quetiapine Fumarate (Seroquel) 50 mg PO TID@0900,1500,2100 [facility] Last Admin: 07/13/18 16:00 Dose: 50 mg Vancomycin HCl (Vancocin (Oral/Rectal Use)) 125 mg PO Q8 [facility]; Protocol Last Admin: 07/13/18 17:10 Dose: 125 mg - Labs Labs: 07/10/18 06:35 07/10/18 06:35 - Constitutional Appears: Confused, Chronically Ill - Head Exam Head Exam: ATRAUMATIC, NORMAL INSPECTION, NORMOCEPHALIC - Eye Exam Eye Exam: Normal appearance - ENT Exam ENT Exam: Mucous Membranes Moist - Neck Exam Neck Exam: Full ROM - Respiratory Exam Respiratory Exam: Clear to Ausculation Bilateral - Cardiovascular Exam Cardiovascular Exam: REGULAR RHYTHM, +S1, +S2 - GI/Abdominal Exam GI & Abdominal Exam: Soft, Normal Bowel Sounds - Extremities Exam Extremities Exam: Full ROM - Neurological Exam Neurological Exam: Altered - Psychiatric Exam Psychiatric exam: Flat Affect Assessment and Plan (1) C. difficile diarrhea Status: Acute (2) Hypotension Status: Resolved (3) Severe sepsis Status: Acute (4) Crohn disease Status: Chronic (5) Dementia Status: Chronic (6) UTI (urinary tract infection) Status: Acute
[2018-07-14] MEDS: Vancomycin 500 mg (Oral/Rectal USE) PO SCH ×2 (00:44→09:22)
[2018-07-14] MEDS: Proshield Plus GEL TOP SCH ×2 (02:29→09:22)
[2018-07-14] MEDS: Lactobacillus Acidophilus 500 MU Cap PO SCH (09:22)
[2018-07-14 10:26] VITALS: BP 136/79; PULSE 67; RESP 19; TEMP 97.7; O2SAT 98
--- NOTE | 2018-07-14 12:46 | CP.PCM.HP ---
History of Present Illness - History of Present Illness History of Present Illness: PLEASE REFERS TO THE DC SUMMARY Present on Admission - Present on Admission Any Indicators Present on Admission: Yes Past Patient History - Infectious Disease Hx of Infectious Diseases: None - Tetanus Immunizations Tetanus Immunization: Unknown - Past Medical History & Family History Past Medical History?: Yes - Past Social History Smoking Status: Never Smoked - CARDIAC Hx Cardiac Disorders: Yes Hx Hypertension: Yes - PULMONARY Hx Respiratory Disorders: No Hx Tuberculosis: No - NEUROLOGICAL Hx Alzheimer's Disease: Yes Hx Dementia: Yes Hx Seizures: No - HEENT Hx HEENT Problems: No - RENAL Hx Chronic Kidney Disease: No - ENDOCRINE/METABOLIC Hx Endocrine Disorders: No - HEMATOLOGICAL/ONCOLOGICAL Hx Anemia: Yes Hx Human Immunodeficiency Virus (HIV): No - INTEGUMENTARY Hx Dermatological Problems: No - MUSCULOSKELETAL/RHEUMATOLOGICAL Hx Arthritis: Yes - GASTROINTESTINAL Hx Crohn's Disease: Yes (on humira injections monthly) - GENITOURINARY/GYNECOLOGICAL Hx Sexually Transmitted Disorders: No - PSYCHIATRIC Hx Psychophysiologic Disorder: No Hx Emotional Abuse: No Hx Physical Abuse: No Hx Substance Use: No (unable to obtain) - SURGICAL HISTORY Hx Surgeries: Yes Hx Herniorrhaphy: Yes (bilateral inguinal, umbilical) Other/Comment: REIMPLANTATION OF DIGITS TO HAND. right upper limb pain - ANESTHESIA Hx Anesthesia: Yes Hx Anesthesia Reactions: No Hx Malignant Hyperthermia: No Meds Allergies/Adverse Reactions: Allergies Allergy/AdvReac Type Severity Reaction Status Date / Time [place] And Derivatives Allergy ANAPHYLAXIS Verified 07/01/18 13:12 ibuprofen [From Advil] Allergy COUGH Verified 07/01/18 13:12 morphine Allergy RASH Verified 07/01/18 13:12 Results - Vital Signs Recent Vital Signs: Last Vital Signs Temp 97.7 F 07/14/18 08:40 Pulse 67 07/14/18 08:40 Resp 19 07/14/18 08:40 BP 136/79 07/14/18 08:40 Pulse Ox 98 07/14/18 08:40 - Labs Result Diagrams: 07/10/18 06:35 07/10/18 06:35 Assessment & Plan (1) C. difficile diarrhea Status: Acute (2) Hypotension Status: Resolved (3) Severe sepsis Status: Acute (4) Crohn disease Status: Chronic (5) Dementia Status: Chronic (6) UTI (urinary tract infection) Status: Acute
--- NOTE | 2018-07-14 12:48 | CP.PCM.DIS ---
Provider - Provider Date of Admission: 07/02/18 12:13 Attending physician: Eliseo Segundo MD Consults: 07/02/18 12:17 Wound Care [Nursing Referral for Wound Care] Routine Comment: Physician Instructions: Reason For Exam: redness in back and sacral 07/02/18 12:18 Infectious Disease Consult Routine Comment: Consulting Provider: Carter Smith Consulting Physician: Carter Smith Reason for Consult: follow up tcu Time Spent in preparation of Discharge (in minutes): 30 Diagnosis - Discharge Diagnosis (1) C. difficile diarrhea Status: Acute (2) Hypotension Status: Resolved (3) Severe sepsis Status: Acute (4) Crohn disease Status: Chronic (5) Dementia Status: Chronic (6) UTI (urinary tract infection) Status: Acute Hospital Course - Lab Results Lab Results: Micro Results 07/07/18 07:30 Blood-Venous Blood Culture - Final NO GROWTH AFTER 5 DAYS 07/07/18 07:30 Blood-Venous Gram Stain - Final TEST NOT PERFORMED 07/07/18 07:35 Blood-Venous Blood Culture - Final NO GROWTH AFTER 5 DAYS 07/07/18 07:35 Blood-Venous Gram Stain - Final TEST NOT PERFORMED 07/06/18 18:00 Urine,Clean Catch Urine Culture - Final Pseudomonas Aeruginosa Most Recent Lab Values WBC 7.9 K/uL (4.8-10.8) 07/10/18 06:35 RBC 3.68 Mil/uL (4.40-5.90) L 07/10/18 06:35 Hgb 10.8 g/dL (12.0-18.0) L 07/10/18 06:35 Hct 32.9 % (35.0-51.0) L 07/10/18 06:35 MCV 89.4 fl (80.0-94.0) 07/10/18 06:35 MCH 29.4 pg (27.0-31.0) 07/10/18 06:35 MCHC 32.9 g/dL (33.0-37.0) L 07/10/18 06:35 RDW 17.5 % (11.5-14.5) H 07/10/18 06:35 Plt Count 305 K/uL (130-400) 07/10/18 06:35 MPV 6.4 fl (7.2-11.7) L 07/10/18 06:35 Neut % (Auto) 61.0 % (50.0-75.0) 07/10/18 06:35 Lymph % (Auto) 22.1 % (20.0-40.0) 07/10/18 06:35 [place] % (Auto) 9.3 % (0.0-10.0) 07/10/18 06:35 Eos % (Auto) 6.8 % (0.0-4.0) H 07/10/18 06:35 Baso % (Auto) 0.8 % (0.0-2.0) 07/10/18 06:35 Neut # (Auto) 4.8 K/uL (1.8-7.0) 07/10/18 06:35 Lymph # (Auto) 1.7 K/uL (1.0-4.3) 07/10/18 06:35 [place] # (Auto) 0.7 K/uL (0.0-0.8) 07/10/18 06:35 Eos # (Auto) 0.5 K/uL (0.0-0.7) 07/10/18 06:35 Baso # (Auto) 0.1 K/uL (0.0-0.2) 07/10/18 06:35 Sodium 137 mmol/l (132-148) 07/10/18 06:35 Potassium 4.1 MMOL/L (3.6-5.0) 07/10/18 06:35 Chloride 100 mmol/L (98-107) 07/10/18 06:35 Carbon Dioxide 27 mmol/L (22-30) 07/10/18 06:35 Anion Gap 14 (10-20) 07/10/18 06:35 BUN 11 mg/dl (9-20) 07/10/18 06:35 Creatinine 0.7 mg/dl (0.8-1.5) L 07/10/18 06:35 Est GFR ( Amer) > 60 07/10/18 06:35 Est GFR (Non-Af Amer) > 60 07/10/18 06:35 Random Glucose 92 mg/dL (75-110) 07/10/18 06:35 Lactic Acid 2.1 mmol/L (0.7-2.1) 07/08/18 06:05 Calcium 8.4 mg/dL (8.4-10.2) 07/10/18 06:35 Procalcitonin < 0.05 NG/ML (0.19-0.49) L 07/08/18 06:05 Urine Color Yellow (YELLOW) 07/06/18 17:24 Urine Clarity Clear (Clear) 07/06/18 17:24 Urine pH 7.0 (5.0-8.0) 07/06/18 17:24 Ur Specific [place] 1.014 (1.003-1.030) 07/06/18 17:24 Urine Protein Negative mg/dL (NEGATIVE) 07/06/18 17:24 Urine Glucose (UA) Neg mg/dL (NEGATIVE) 07/06/18 17:24 Urine Ketones Negative mg/dL (NEGATIVE) 07/06/18 17:24 Urine Blood Small (NEGATIVE) 07/06/18 17:24 Urine Nitrate Positive (NEGATIVE) H 07/06/18 17:24 Urine Bilirubin Negative (NEGATIVE) 07/06/18 17:24 Urine Urobilinogen 0.2-1.0 mg/dL (0.2-1.0) 07/06/18 17:24 Ur Leukocyte Esterase Neg [place]/uL (Negative) 07/06/18 17:24 Urine RBC (Auto) 7 /hpf (0-3) H 07/06/18 17:24 Urine Microscopic WBC 2 /hpf (0-5) 07/06/18 17:24 Ur Squamous Epith Cells < 1 /hpf (0-5) 07/06/18 17:24 Urine Bacteria Rare (<OCC) 07/06/18 17:24 Hyaline Casts 0-2 /hpf (0-2) 07/06/18 17:24 C. difficile Ag & Toxin Positive antigen (NEGATIVE) 07/08/18 11:45 - Hospital Course Hospital Course: 77yo male presented to ER with the family. They stated that he developed fever the day before admission. He had this had mild headache and dry cough, no vomiting, + diarrhea, no AMS or syncope. Was admitted last month for viral meningitis and UTI,. Mental status currently at baseline per family. Patient had an episode of hypotension, now well. Patient was transferred to TCU he well responded to rx. Patient with stage one sacral ulceration will need and air mattress to hold the progression of this condition. Discharge Exam - Head Exam Head Exam: ATRAUMATIC, NORMAL INSPECTION, NORMOCEPHALIC - Eye Exam Eye Exam: EOMI, Normal appearance - ENT Exam ENT Exam: Normal Exam - Neck Exam Neck exam: Full Rom - Respiratory Exam Respiratory Exam: Clear to PA & Lateral - Cardiovascular Exam Cardiovascular Exam: REGULAR RHYTHM, +S1, +S2 - GI/Abdominal Exam GI & Abdominal Exam: Normal Bowel Sounds - Extremities Exam Extremities exam: normal inspection - Neurological Exam Neurological exam: Alert, Altered - Psychiatric Exam Psychiatric exam: Flat Affect - Skin Skin Exam: Normal Color Discharge Plan - Follow Up Plan Condition: GOOD Disposition: HOME/ ROUTINE Instructions: Sepsis, Adult (DC)
== END 2018-07-14 14:10 | disposition home or self-care (01) | DRG 872 ==
LOC: H.TCU 07-02 12:13
PROVIDERS: ADMIT Internal Medicine; ATTEND Internal Medicine
PROC: F08Z3FZ Feeding/Eating Treatment using Assistive, Adaptive, Supportive or Protective Equipment (ICD-10-PCS; principal; 2018-07-02)
PROC: F08Z1FZ Dressing Techniques Treatment using Assistive, Adaptive, Supportive or Protective Equipment (ICD-10-PCS; 2018-07-02)
PROC: F08Z2FZ Grooming/Personal Hygiene Treatment using Assistive, Adaptive, Supportive or Protective Equipment (ICD-10-PCS; 2018-07-02)
DX: A41.9 Sepsis, unspecified organism (principal); A04.72 Enterocolitis due to Clostridium difficile, not specified as recurrent; K50.90 Crohn's disease, unspecified, without complications; N39.0 Urinary tract infection, site not specified; R65.20 Severe sepsis without septic shock; G30.9 Alzheimer's disease, unspecified; F02.80 Dementia in other diseases classified elsewhere, unspecified severity, without behavioral disturbance, psychotic disturbance, mood disturbance, and anxiety; B96.5 Pseudomonas (aeruginosa) (mallei) (pseudomallei) as the cause of diseases classified elsewhere; F32.9 Major depressive disorder, single episode, unspecified; I10 Essential (primary) hypertension; L89.151 Pressure ulcer of sacral region, stage 1